=== PATIENT | male | born 1935 | race Caucasian/White ===

== ENCOUNTER → 2019-11-11 06:54 | Outpatient (CLI) | payer MEDICARE, BC, SELFPAY ==
[2018-11-28 12:46] VITALS: BMI 38.0
--- NOTE | 2019-11-11 06:57 | CT_ITS ---
STUDY: CT MAXILLOFACIAL SINUSES REASON FOR EXAM: Male, 84 years old. BILATERAL FACIAL PAIN, SINUSITIS RADIATION DOSAGE (If Supplied By Facility): CTDIvol = ( 33.06 ) mGy, DLP = ( 776.00 ) mGycm TECHNIQUE: The patient was scanned in a multi detector CT scanner. High resolution axial imaging was performed without the administration of intravenous contrast material. Sagittal and coronal images were reconstructed. Individualized dose optimization techniques were used for this CT. COMPARISON: None. FINDINGS: FRONTAL SINUSES: Normal aeration, without mucosal inflammatory disease. ETHMOIDAL SINUSES: Minimal mucosal thickening of the ethmoid sinuses bilaterally MAXILLARY SINUSES: Minimal mucosal thickening of the inferior anterior aspect of the right maxillary sinus. There is a 1 cm x 1.2 cm polyp or cyst along the anterior lateral wall of the left maxillary sinus. SPHENOIDAL SINUSES: Normal aeration, without mucosal inflammatory disease. There is patency of the bilateral maxillary infundibuli with normal uncinate processes, ethmoid bullae, and hiatus semilunaris. There is ayde bullosa of the left middle turbinate. Normal bilateral inferior turbinates. Normal midline nasal septum. There is patency of the bilateral nasal airways. The visualized osseous structures are normal. The visualized bilateral orbital contents are normal. CT/Sinus/Facial Bone IMPRESSION: Mucosal thickening of the ethmoid sinuses bilaterally as well as the right maxillary sinus. 1 cm x 1.2 cm polyp or cyst along the lateral wall the left maxillary sinus. Electronically Signed: Ramakrishna Mcmillan, at 8:40 EDT , Service support ,
== END ==
PROVIDERS: PCP Internal Medicine; Referring Provider Otolaryngology; Visit Provider Otolaryngology
DX: R51 Headache (principal)
CPT/HCPCS: 70486

== ENCOUNTER 2020-11-12 05:17 | Emergency (ER) | payer MEDICARE, BC, SELFPAY ==
[2018-11-28 12:46] VITALS: BMI 38.0
[2020-11-12 05:18] VITALS: BP 148/90; PULSE 74; RESP 18; TEMP 36.1; O2SAT 95; BMI 36.4
--- NOTE | 2020-11-12 05:29 | ED.DCSUM_ITS ---
History of Present Illness Chief Complaint: Bite Informant: Patient Narrative: 85 yo M presents with concern for tick to his right abdominal wall. States that he is out in the scales 3 days ago. States that his remove most of it but was concerned because there is a remaining small amount. Denies any fever, chills, arthralgia, rash. Past Medical History - Allergies and Home Meds Allergies/Adverse Reactions: Allergies latex Allergy (Verified 11/12/20 05:21) Unknown Sulfa (Sulfonamide Antibiotics) Allergy (Verified 11/12/20 05:21) Unknown erythromycin base Adverse Reaction (Verified 11/12/20 05:21) Unknown hydrochlorothiazide Adverse Reaction (Verified 11/12/20 05:21) Unknown prednisone Adverse Reaction (Verified 11/12/20 05:21) Unknown Primary Care Physician: Aleisha Tello MD [Primary Care Provider] - Prior records reviewed: Yes Past Medical History: - - HTN, HLD Surgical History: noncontributory Lives: Spouse/ Significant Other Smoking Status: Never smoker Alcohol: None Drugs: None Review of Systems General: Denies: Chills, Fever, Sweats Eyes: Denies: Visual changes - bilaterally, Diplopia ENT: Denies: Rhinorrhea, Sore throat Cardiovascular: Denies: Chest pain, Palpitations Respiratory: Denies: Dyspnea, Cough, Dyspnea on exertion Gastrointestinal: Denies: Abdominal pain, Nausea, Vomiting, Diarrhea, Melena, Hematochezia Genitourinary: Denies: Dysuria, Hematuria, Frequency Musculoskeletal: Denies: Back pain, Extremity Pain Skin: Denies: Rash, Wounds Neurological: Denies: Headache, Weakness, Numbness Physical Exam Vital Signs/Narrative: Vital Signs Temp Pulse Resp BP Pulse Ox 11/12/20 05:18 96.9 F L 74 18 148/90 H 95 Inital Vital Signs reviewed: Yes General: Well nourished, Well developed, No Acute Distress Head: Normocephalic, Atraumatic Eyes: Perrl, EOMI ENT: Moist mucous membranes, No rhinorrhea Neck: Supple, Nontender Cardiovascular: Regular rate, Regular rhythm, No murmurs Respiratory: No distress, CTA bilaterally, Chest nontender Abdomen: Soft, Nontender, Nondistended, Normal bowel sounds, - - Small area of e rythema with remaining tick to the right abdominal wall. Back: Nontender, Normal Inspection Extremities: Nontender, No edema Skin: Normal color, No rash Neurological: Alert, Oriented x3, Cranial nerves II-XII grossly intact, Normal Strength, Normal Sensation Psychological: Normal affect, Normal Mood Diagnostic/Tx/Re-eval - Medical Decision Making Patient appears well and nontoxic. Vital signs within normal limits. Evidence of a small amount of remaining tick to the right abdominal wall. No surrounding cellulitis. A small amount more was removed. There does remain a little bit of the tic within the abdominal wall. Advised on watching for fever, chills, rash, arthralgia. Patient will be treated with 200 mg of doxycycline as prophylaxis given the time that the tick is likely been attached as well as it being a black legged tick. Impression: 1. Tick removal ED Disposition - Plan for ED Patient: Disposition: Home or Assisted Living Instructions: ED Tick Facts Referrals: Aleisha Tello MD [Primary Care Provider] - 2 Days
[2020-11-12] MEDS: Doxycycline 100 MG CAPSULE 200 MG PO (05:33)
[2020-11-12 06:03] VITALS: BP 148/90; PULSE 74; RESP 18
== END 2020-11-12 06:00 | disposition home or self-care (01) ==
LOC: ED 05:34
PROVIDERS: Emergency Provider Emergency Medicine; PCP Internal Medicine
DX: S30.861A Insect bite (nonvenomous) of abdominal wall, initial encounter (principal); W57.XXXA Bitten or stung by nonvenomous insect and other nonvenomous arthropods, initial encounter; Y93.9 Activity, unspecified; Y92.89 Other specified places as the place of occurrence of the external cause; Y99.8 Other external cause status; E78.5 Hyperlipidemia, unspecified; I10 Essential (primary) hypertension; Z88.1 Allergy status to other antibiotic agents; Z88.2 Allergy status to sulfonamides; Z91.040 Latex allergy status
CPT/HCPCS: 99283

== ENCOUNTER → 2022-02-12 | Outpatient (CLI) | payer MEDICARE, BC, SELFPAY | END | disposition home or self-care (01) | LOC: LABSPEC 09:01 | PROVIDERS: PCP Internal Medicine; Referring Provider Otolaryngology Otolaryngology/Facial Plastic Surgery; Visit Provider Otolaryngology Otolaryngology/Facial Plastic Surgery | DX: J34.89 Other specified disorders of nose and nasal sinuses (principal) | CPT/HCPCS: 87070; 87077; 87186; 87205 ==

== ENCOUNTER 2023-01-15 21:18 | Inpatient (IN) | payer MEDICARE, BC, SELFPAY ==
[2023-01-15 21:19] VITALS: BP 222/105; PULSE 85; RESP 16; TEMP 36.3; O2SAT 99; BMI 39.1
--- NOTE | 2023-01-15 21:39 | EDS_ITS ---
HPI History of Present Illness Chief Complaint: GI Bleed Informant: patient Onset/Context/Timing Onset: Today Narrative Narrative: Patient presents secondary to 4 episodes of bloody stool today. He states he has gone to the bathroom 4 times and had maroon-colored stool. He has very mild infraumbilical cramping. No nausea or vomiting. He takes full-strength aspirin daily but no other form of blood thinners. [facility] Medical History (Updated 01/15/23 @ 22:[address] Neena Dior MD) Benign neoplasm of colon Cataracts, bilateral Diverticulosis Essential (primary) hypertension History of cerebrovascular accident (2003) Hyperlipidemia Lumbar region somatic dysfunction Obesity Right bundle branch block (RBBB) Segmental and somatic dysfunction of lumbar region Segmental and somatic dysfunction of pelvic region Segmental and somatic dysfunction of thoracic region Home Medications aspirin 325 mg tablet 325 mg PO DAILY@0800 06/22/16 [History Last Taken Unknown] ramipril 5 mg capsule 10 mg PO BID 06/22/16 [History Last Taken Unknown] amlodipine 2.5 mg tablet (Norvasc) 5 mg PO DAILY 11/20/18 [History Last Taken Unknown] tamsulosin 0.4 mg capsule 0.4 mg PO DAILY 01/15/23 [History Last Taken Unknown] Allergy/AdvReac Type Severity Reaction Status Date / Time latex Allergy Unknown Verified 01/15/23 21:19 Sulfa (Sulfonamide Allergy Unknown Verified 01/15/23 21:19 Antibiotics) erythromycin base AdvReac Unknown Verified 01/15/23 21:19 hydrochlorothiazide AdvReac Unknown Verified 01/15/23 21:19 prednisone AdvReac Unknown Verified 01/15/23 21:19 Social History Smoking Status: Never smoker alcohol intake: never substance use type: does not use what type of physical activity do you participate in: none ROS ROS ED Constitutional Constitutional ED: Denies chills or fever(s) Eyes Eyes: Denies discharge from eye(s) ENT ENT ED: Denies discharge from eye(s), rhinorrhea or sore throat Cardiovascular Cardiovascular: Denies chest pain or palpitations Respiratory/Chest Respiratory/Chest: Denies cough or dyspnea Gastrointestinal Gastrointestinal: Reports abdominal pain and melena; Denies nausea or vomiting Genitourinary Genitourinary ED: Denies dysuria Musculoskeletal Musculoskeletal: Denies back pain or extremity pain Integumentary Denies Abrasions or rash Neurologic Neurologic: Denies headache(s) or weakness Psychiatric Psychiatric: Denies anxiety or depression Allergic/Immunologic Allergic/Immunologic ED: Denies lip swelling or urticaria EXAM Physical Exam Const Vital Signs: 01/15/23 21:19 Temperature 97.3 F L Temperature Source Temporal Pulse Rate 85 Respiratory Rate 16 Blood Pressure 222/105 H Blood Pressure Mean 144 Pulse Ox 99 Positive well nourished and well developed General Appearance ED: well developed HEENT Reports normocephalic and head/scalp atraumatic Eyes PERRL and EOMs intact bilaterally Neck supple Chest Wall inspection of chest normal and palpation of chest normal Resp normal respiratory effort and clear to auscultation bilaterally Cardio regular rate and regular rhythm GI normal to inspection, nondistended, normoactive bowel sounds Palpation: soft Extremity normal to inspection Neuro oriented x3 and no sensory deficits noted Sensorium / Orientation: alert Motor Exam: strength 5/5 throughout Psych mental status grossly normal Skin no rashes or lesions noted MDM MDM MDM Narrative Medical decision making narrative: Patient placed on staff trainer. He was noted to be significantly hypertensive on arrival with a blood pressure of 222/105. Blood pressure cycled and comes down into the 160s systolic. CBC reveals white count of 8.3 with a hemoglobin of 14.7. Coags are unremarkable. Chemistry studies reveal a BUN of 22 and a creatinine 1.03. Glucose is 109. Type and screen was sent. Patient did get up and have a bloody bowel movement. This was sent to the lab but because it was grossly bloody they were not able to perform a Hemoccult. I spoke with Dr. Tao via backline text. He will be happy to see the patient tomorrow in consult. He was aware that he may be called if the patient decompensates overnight and is okay with this plan. I will speak with the hosp italist regarding admission. Lab Data Labs: Laboratory Results - last 24 hr 01/15/23 01/15/23 01/15/23 21:50 21:50 21:50 WBC 8.3 RBC 5.11 Hgb 14.7 Hct 44.5 MCV 87.1 MCH 28.8 MCHC 33.0 RDW Std Deviation 41.5 RDW Coeff of Arlen 13.0 Plt Count 204 MPV 9.8 Immature Gran % (Auto) 0.400 Neut % (Auto) 59.2 Lymph % (Auto) 29.8 [place] % (Auto) 7.7 Eos % (Auto) 2.7 Baso % (Auto) 0.2 Absolute Neuts (auto) 4.9 Absolute Lymphs (auto) 2.47 Nucleated RBC % 0 PT 13.5 INR 1.0 APTT 34.1 Sodium 140 Potassium 3.9 Chloride 108 H Carbon Dioxide 25.0 Anion Gap 7 BUN 22 H Creatinine 1.03 Estim Creat Clear Calc 49.81 Est GFR (MDRD) Af Amer 88 Est GFR (MDRD) Non-Af 73 BUN/Creatinine Ratio 21.4 H Glucose 109 H Calcium 8.8 Blood Type Antibody Screen 01/15/23 21:50 WBC RBC Hgb Hct MCV MCH MCHC RDW Std Deviation RDW Coeff of Arlen Plt Count MPV Immature Gran % (Auto) Neut % (Auto) Lymph % (Auto) [place] % (Auto) Eos % (Auto) Baso % (Auto) Absolute Neuts (auto) Absolute Lymphs (auto) Nucleated RBC % PT INR APTT Sodium Potassium Chloride Carbon Dioxide Anion Gap BUN Creatinine Estim Creat Clear Calc Est GFR (MDRD) Af Amer Est GFR (MDRD) Non-Af BUN/Creatinine Ratio Glucose Calcium Blood Type O POSITIVE Antibody Screen NEGATIVE Discharge Plan Triage Chief Complaint: GI Bleed ED Provider: Neena Dior Dx/Rx/DC Orders Clinical Impression: Acute GI bleeding Prescriptions: No Action amlodipine [Norvasc] 2.5 mg tablet 5 mg PO DAILY aspirin 325 MG tablet 325 mg PO DAILY@0800 ramipril 5 MG capsule 10 mg PO BID tamsulosin 0.4 mg capsule 0.4 mg PO DAILY Label Comments: TAKE 1 CAPSULE BY MOUTH ONCE DAILY Primary Care Provider: Aleisha Tello Referrals: Aleisha Tello MD [Primary Care Provider] - Disposition Disposition: Acute Care Hospital [facility]
[2023-01-15 22:09] LABS: Absolute Lymphocyte Count 2.47 X10^3/uL (0.83-4.51); Absolute Neutrophil Count 4.9 X10^3/uL (2.0-7.7); Basophil# 0.02 X10^3/uL; Basophil% 0.2 % (0-1); Eosinophil# 0.22 X10^3/uL; Eosinophils% 2.7 % (0-5); Hematocrit 44.5 % (40-54); Hemoglobin 14.7 g/dL (13.0-16.5); Lymphocyte # 2.47 X10^3/ul (0.83-4.51); Lymphocyte % 29.8 % (19-41); Mean Corpuscular Hgb 28.8 pg (27.0-32.0); Mean Corpuscular Volume 87.1 fL (80-94); Mean Platelet Vol. 9.8 fl (6.2-12.0); Monocyte# 0.64 X10^3/uL; Monocyte% 7.7 % (0-10); NRBC Flagged by Analyzer 0 % (0-5); Neutrophil # 4.92 X10^3/uL (2.7-7.7); Neutrophil % 59.2 % (47-70); Platelet Count 204 K/mm3 (150-450); RBC Distribution Width SD 41.5 fl (35.1-43.9); Red Blood Count 5.11 M/mm3 (4.6-6.2); White Blood Count 8.3 K/mm3 (4.4-11.0)
[2023-01-15 22:31] LABS: Anion Gap 7 (5-15); BUN 22 mg/dL (7-18); BUN/Creat Ratio 21.4 RATIO (10-20); Calcium,Total 8.8 mg/dL (8.5-10.1); Chloride 108 mmol/L (98-107); Creatinine, Serum 1.03 mg/dL (0.70-1.30); EST Glomerular Filtration Rate 73 mL/min (>60); Est Glom Filt Rate - Afr Amer 88 mL/min (>60); Estimated Creatinine Clearance 49.81 ml/min; Glucose 109 mg/dL (74-106); Partial Thromboplast Time 34.1 Seconds (24.1-36.2); Potassium 3.9 mmol/L (3.5-5.1); Prothrombin Time (Protime)PT. 13.5 SECONDS (11.7-14.9); Sodium Level 140 mmol/L (136-145)
[2023-01-15 23:18] VITALS: BP 196/93; PULSE 65; RESP 18; O2SAT 94
[2023-01-15] MEDS: Labetalol (Prefilled) 20 MG/4 ML 10 MG IV (23:22)
--- NOTE | 2023-01-15 23:28 | PCM.HP.STD ---
HPI - General General Date of Admission: 01/15/23 Date of Service: 01/16/23 Chief Complaint: Bright red blood per rectum HPI Narrative MIKE ETIENNE, is a 87 M with a significant history of hypertension and diverticulosis who presents to the emergency department with bright red blood per rectum that started on the same day of presentation. At home before coming to emergency department patient had at least 4 episodes of bright red blood per rectum. The blood was mixed with stool. At the emergency department patient had 2 episodes of bright red blood per rectum. He denies nausea and vomiting. He reports of mild infra umbilical abdominal pain. He reported his last colonoscopy was multiple years ago and was advised not to have anymore colonoscopy because of his age. He reports that he had something removed during colonoscopy which he states it was not a polyp. [facility] Medical History Benign neoplasm of colon Cataracts, bilateral Diverticulosis Essential (primary) hypertension History of cerebrovascular accident (2003) Hyperlipidemia Lumbar region somatic dysfunction Obesity Right bundle branch block (RBBB) Segmental and somatic dysfunction of lumbar region Segmental and somatic dysfunction of pelvic region Segmental and somatic dysfunction of thoracic region Home Medications aspirin 325 mg tablet 325 mg PO DAILY@0800 06/22/16 [History Last Taken Unknown] ramipril 5 mg capsule 10 mg PO BID 06/22/16 [History Last Taken Unknown] amlodipine 2.5 mg tablet (Norvasc) 5 mg PO DAILY 11/20/18 [History Last Taken Unknown] tamsulosin 0.4 mg capsule 0.4 mg PO DAILY 01/15/23 [History Last Taken Unknown] Allergy/AdvReac Type Severity Reaction Status Date / Time latex Allergy Unknown Verified 01/15/23 21:19 Sulfa (Sulfonamide Allergy Unknown Verified 01/15/23 21:19 Antibiotics) erythromycin base AdvReac Unknown Verified 01/15/23 21:19 hydrochlorothiazide AdvReac Unknown Verified 01/15/23 21:19 prednisone AdvReac Unknown Verified 01/15/23 21:19 Family History Other Heart disease Hypertension Surgical History H/O tooth extraction Social History Smoking Status: Never smoker alcohol intake: never substance use type: does not use what type of physical activity do you participate in: none ROS ROS Narrative Pertinent positives and pertinent negatives as noted in HPI. All other systems were reviewed and are negative Vital Signs Vital Signs Vital Signs: 01/15/23 21:19 Temperature 97.3 F L Temperature Source Temporal Pulse Rate 85 Respiratory Rate 16 Blood Pressure 222/105 H Blood Pressure Mean 144 Pulse Ox 99 Weight Weight: 116.619 kg Body Mass Index (BMI) 39.1 Physical Exam Narrative Physical exam: General: Well-nourished, well-developed. Head: Normocephalic, atraumatic, no tenderness Eyes: Vision is grossly intact. EOMI ENT, no trauma, moist mucous membranes, no rhinorrhea Neck: Nontender, No thyromegaly. CVS: Regular rate and rhythm. S1-S2 present. No murmur, gallop or rub. Respiratory : clear to auscultation bilaterally, chest wall nontender Abdomen: Soft, nontender, nondistended, normal bowel sounds, no masses : Deferred Back: Nontender, no CVA tenderness. Extremities: Nontender full range of motion, no trauma Skin: Normal color, no trauma, abrasions Neuro: Alert, oriented, cranial nerves II through XII grossly intact. Psychiatry: Normal mood. Normal affect. Not depressed. Not anxious. Results Lab / Micro Data Result Diagrams: 01/15/23 21:50 01/15/23 21:50 Labs: Laboratory Results - last 24 hr 01/15/23 21:50: WBC 8.3, RBC 5.11, Hgb 14.7, Hct 44.5, MCV 87.1, MCH 28.8, MCHC 33.0, RDW Std Deviation 41.5, RDW Coeff of Arlen 13.0, Plt Count 204, MPV 9.8, Immature Gran % (Auto) 0.400, Neut % (Auto) 59.2, Lymph % (Auto) 29.8, [place] % (Auto) 7.7, Eos % (Auto) 2.7, Baso % (Auto) 0.2, Absolute Neuts (auto) 4.9, Absolute Lymphs (auto) 2.47, Nucleated RBC % 0 01/15/23 21:50: PT 13.5, INR 1.0, APTT 34.1 01/15/23 21:50: Sodium 140, Potassium 3.9, Chloride 108 H, Carbon Dioxide 25.0, Anion Gap 7, BUN 22 H, Creatinine 1.03, Estim Creat Clear Calc 49.81, Est GFR (MDRD) Af Amer 88, Est GFR (MDRD) Non-Af 73, BUN/Creatinine Ratio 21.4 H, Glucose 109 H, Calcium 8.8 01/15/23 21:50: Blood Type O POSITIVE, Antibody Screen NEGATIVE Assessment & Plan Assessment/Plan (1) Acute GI bleeding: (2) Hypertensive urgency: (3) BRBPR (bright red blood per rectum): PLAN: Plan Acute GI bleed/bright red blood per rectum. Hgb on presentation was 14.7. His last hemoglobin in our hospital system was on 10/29/2017. At that time his hemoglobin was 15.9. Trend hemoglobin GI consult Hypertensive urgency -Systolic blood pressure of 222 on presentation. High diastolic blood pressure of 105 on presentation. Received labetalol x2 at emergency department. Of note patient reports a history of bradycardia with heart rate in high 40s to 50s. With persistent elevated blood pressure labetalol as needed ordered. Trend blood pressures. Overall amlodipine, and ramipril continued. BPH Stable Tamsulosin continued. DVT prophylaxis: SCDs ordered. Charges/Coding Visit Charges Inpatient E&M: 99016 Init Hosp L3
[2023-01-15 23:30] VITALS: BP 169/79; PULSE 57; RESP 14; O2SAT 94
[2023-01-16] VITALS (11 sets, daily range): BP systolic 162–197; BP diastolic 67–94; PULSE 45–75; RESP 17–18; TEMP 36.2–36.8; O2SAT 94–98; BMI 36.6
[2023-01-16] MEDS: 0.9% Normal Saline 1,000 ML 75 ML IV ×2 (01:11→02:00)
[2023-01-16 05:23] LABS: Hematocrit 42.7 % (40-54)
[2023-01-16 05:41] LABS: International Normalized Ratio 1.2; Prothrombin Time (Protime)PT. 14.9 SECONDS (11.7-14.9)
[2023-01-16 05:53] LABS: Anion Gap 5 (5-15); BUN 18 mg/dL (7-18); BUN/Creat Ratio 18.3 RATIO (10-20); Calcium,Total 8.7 mg/dL (8.5-10.1); Chloride 110 mmol/L (98-107); Creatinine, Serum 0.98 mg/dL (0.70-1.30); EST Glomerular Filtration Rate 77 mL/min (>60); Est Glom Filt Rate - Afr Amer 93 mL/min (>60); Estimated Creatinine Clearance 52.35 ml/min; Glucose 98 mg/dL (74-106); Sodium Level 141 mmol/L (136-145)
[2023-01-16] MEDS: Ramipril 10 MG Capsule PO (08:31)
--- NOTE | 2023-01-16 10:00 | PCM.PN.HOSP ---
Reason for Visit Reason for Visit: Diagnoses Hypertensive urgency (01/15/23) Hemorrhage of anus and rectum (01/15/23) Gastrointestinal hemorrhage, unspecified (01/15/23) Subjective Subjective No further GI bleeding since midnight. Denies having any abdominal pain. Denies ever having GI bleed before. Objective Data Objective Data Vital Signs: Vital Signs Temp Pulse Resp BP Pulse Ox O2 Del Method 36.4 C L 63 17 197/80 H 97 Room Air 01/16/23 08:30 01/16/23 08:30 01/16/23 08:30 01/16/23 08:30 01/16/23 08:30 01/16/23 08:30 Oxygen Delivery Method Room Air Weight: 109.4 kg Body Mass Index (BMI) 36.6 Intake & Output: Intake and Output for Last 24 Hours 01/14/23 01/15/23 01/16/23 23:59 23:59 23:59 Intake Total 5 / 5 Balance 5 / 5 Lab / Micro Data Result Diagrams: 01/16/23 04:43 01/16/23 04:43 Labs: Laboratory Results - last 24 hr 01/15/23 21:50: WBC 8.3, RBC 5.11, Hgb 14.7, Hct 44.5, MCV 87.1, MCH 28.8, MCHC 33.0, RDW Std Deviation 41.5, RDW Coeff of Arlen 13.0, Plt Count 204, MPV 9.8, Immature Gran % (Auto) 0.400, Neut % (Auto) 59.2, Lymph % (Auto) 29.8, [place] % (Auto) 7.7, Eos % (Auto) 2.7, Baso % (Auto) 0.2, Absolute Neuts (auto) 4.9, Absolute Lymphs (auto) 2.47, Nucleated RBC % 0 01/15/23 21:50: PT 13.5, INR 1.0, APTT 34.1 01/15/23 21:50: Sodium 140, Potassium 3.9, Chloride 108 H, Carbon Dioxide 25.0, Anion Gap 7, BUN 22 H, Creatinine 1.03, Estim Creat Clear Calc 49.81, Est GFR (MDRD) Af Amer 88, Est GFR (MDRD) Non-Af 73, BUN/Creatinine Ratio 21.4 H, Glucose 109 H, Calcium 8.8 01/15/23 21:50: Blood Type O POSITIVE, Antibody Screen NEGATIVE 01/16/23 04:43: PT 14.9, INR 1.2 01/16/23 04:43: Sodium 141, Potassium 4.0, Chloride 110 H, Carbon Dioxide 26.0, Anion Gap 5, BUN 18, Creatinine 0.98, Estim Creat Clear Calc 52.35, Est GFR (MDRD) Af Amer 93, Est GFR (MDRD) Non-Af 77, BUN/Creatinine Ratio 18.3, Glucose 98, Calcium 8.7 01/16/23 04:43: Hgb 14.0, Hct 42.7 Physical Exam Const alert and no apparent distress HEENT head/scalp atraumatic and moist oral mucous membranes Resp normal respiratory effort, no retractions, no use of accessory muscles and clear to auscultation bilaterally Cardio regular rate, regular rhythm and S1 normal heart sound GI normal to inspection, nondistended, normoactive bowel sounds, soft to palpation, non-tender and non-distended Extremity normal to inspection Assessment & Plan Assessment/Plan (1) Acute GI bleeding: PLAN: Acute GI bleed/bright red blood per rectum. Hgb on presentation was 14.7. His last hemoglobin in our hospital system was on 10/29/2017. At that time his hemoglobin was 15.9. Trend hemoglobin GI consult Suspect lower GIB from hemorrhoids or diverticulosis. (2) Hypertensive urgency: PLAN: Hypertensive urgency Systolic blood pressure of 222 on presentation. High diastolic blood pressure of 105 on presentation. Received labetalol x2 at emergency department. Of note patient reports a history of bradycardia with heart rate in high 40s to 50s. With persistent elevated blood pressure labetalol as needed ordered. Trend blood pressures. Home amlodipine, and ramipril continued. Will increase amlodpine from 5 to 10 PLAN: Plan Chronic conditions: BPH Stable Tamsulosin continued. DVT prophylaxis: SCDs ordered. Charges/Coding Visit Charges Inpatient E&M: 62884 Subs Hosp L2
[2023-01-16] MEDS: Labetalol (Prefilled) 20 MG/4 ML 10 MG IV (10:19)
--- NOTE | 2023-01-16 10:50 | CASEMGMT ---
RN CM Face to Face with patient for initial transition planning/care coordination assessment. RN CM introduced self and role at [facility]. Patient lying in bed, alert and oriented, family at bedside. Patient willing to participate in assessment and is able to answer all questions appropriately. Care providers, pharmacy, and demographics verified. Patient wishes to discharge home, denies need for home health at this time. Patient states he has no further needs or concerns at this time. CM to follow for discharge planning needs that may arise. PCP: Elisha Specialists: none Preferred Pharmacy: [facility] Insurance: Michael TRIMBLE Prescription Benefit: yes Living Will/HPOA: yes, Kirsty Juarez LNOK: , daughter Living Arrangements: Patient lives with in a single story home with 2 steps and railing to enter the home. Patient states he is independent at home. Transportation: self, DME/HHC: Patient has raised toilet and grab bars. Patient has been to [facility] previously. Disposition Plan: Patient to discharge home with family support and follow-up plans in place. Marcela WHITING, RN, CM
--- NOTE | 2023-01-16 13:39 | CT_ITS ---
EXAM: CT ANGIOGRAPHY ABDOMEN AND PELVIS WITHOUT AND WITH INTRAVENOUS CONTRAST CLINICAL INDICATION: lower GI bleeding TECHNIQUE: Helically acquired angiography images were obtained of the abdomen and pelvis without and with intravenous contrast. This CT exam was performed using one or more of the following dose reduction techniques: automated exposure control, adjustment of the mA and/or kV according to patient size, and/or use of iterative reconstruction technique. MIP reconstructed images were created and reviewed. CONTRAST: IV 100mL [id number] COMPARISON: No relevant prior studies available. FINDINGS: VASCULATURE: AORTA: No acute findings. Normal caliber abdominal aorta. No dissection. CELIAC TRUNK AND MESENTERIC ARTERIES: Noncritical narrowing of the origin of the celiac artery. 2 patent right renal arteries. RENAL ARTERIES: See above. ILIAC ARTERIES: No acute findings. No occlusion or significant stenosis. No dissection. LOWER THORAX: Normal. Lung bases are clear. No cardiomegaly. No significant pericardial effusion. ABDOMEN: LIVER: Normal. Homogeneous. No focal mass. PANCREAS: Normal. No focal cystic or solid mass. SPLEEN: Normal. Normal size without focal cystic or solid mass. ADRENALS: Bilateral low-density adrenal nodules seen both measuring 19 mm in diameter suggestive of lipid rich adenomata. KIDNEYS AND URETERS: Marked distention of the renal collecting system noted bilaterally which may be due to the distended urinary bladder. Normal renal size and position. No hydronephrosis. STOMACH AND BOWEL: Diverticulosis of the colon noted without evidence of acute diverticulitis. No stomach or bowel distention. No evidence of active GI bleeding. PELVIS: APPENDIX: Appendix is visualized and normal in appearance. BLADDER: Small urinary bladder diverticula noted suggestive of chronic bladder outlet obstruction. REPRODUCTIVE: Prostate gland is mildly enlarged. ABDOMEN and PELVIS: INTRAPERITONEAL SPACE: Normal. No ascites or other fluid collection. No free air. BONES/JOINTS: Normal. No suspicious lytic or blastic abnormality. SOFT TISSUES: Normal. No discrete abdominal or pelvic wall hernia. LYMPH NODES: Normal. No enlarged lymph nodes. CT/CTA Abd/Pelvis W/WO Contrast IMPRESSION: 1. No evidence of acute GI bleeding. 2. Diverticulosis coli. 3. The significant distention of the renal collecting system secondary to over distended urinary bladder/chronic bladder outlet obstruction. Electronically Signed: Jeremi Trevizo MD at 16:22 EDT ,
--- NOTE | 2023-01-16 16:03 | EX.PCM.CON.G ---
HPI Consult Data Date of Consult: 01/15/23 HPI Narrative Reason for Consultation: GI bleed HPI Narrative: MIKE ETIENNE, is a 87 M with history of hypertension, hyperlipidemia, BPH who presents secondary to 4 episodes of bloody stools.? He states he has gone to the bathroom 4 times and had maroon-colored stool.? He has very mild infraumbilical cramping.? No nausea or vomiting.? He takes full-strength aspirin daily but no other form of blood thinners. He had a colonoscopy approximately 20 years ago. There were no abnormality seen on a colonoscopy. In the ED he was discovered to have a hemoglobin of 14.7, platelet count of 204, white blood cell count 8.3. [facility] Medical History Benign neoplasm of colon Cataracts, bilateral Diverticulosis Essential (primary) hypertension History of cerebrovascular accident (2003) Hyperlipidemia Lumbar region somatic dysfunction Obesity Right bundle branch block (RBBB) Segmental and somatic dysfunction of lumbar region Segmental and somatic dysfunction of pelvic region Segmental and somatic dysfunction of thoracic region Home Medications aspirin 325 mg tablet 325 mg PO DAILY@0800 06/22/16 [History Last Taken Unknown] ramipril 5 mg capsule 10 mg PO BID 06/22/16 [History Last Taken Unknown] amlodipine 2.5 mg tablet (Norvasc) 5 mg PO DAILY 11/20/18 [History Last Taken Unknown] tamsulosin 0.4 mg capsule 0.4 mg PO DAILY 01/15/23 [History Last Taken Unknown] Allergy/AdvReac Type Severity Reaction Status Date / Time latex Allergy Unknown Verified 01/15/23 21:19 Sulfa (Sulfonamide Allergy Unknown Verified 01/15/23 21:19 Antibiotics) erythromycin base AdvReac Unknown Verified 01/15/23 21:19 hydrochlorothiazide AdvReac Unknown Verified 01/15/23 21:19 prednisone AdvReac Unknown Verified 01/15/23 21:19 Family History Other Heart disease Hypertension Surgical History H/O tooth extraction Social History Smoking Status: Never smoker alcohol intake: never substance use type: does not use what type of physical activity do you participate in: none ROS ROS Narrative Pertinent positives and pertinent negatives as noted in HPI. All other systems were reviewed and are negative Physical Exam Const alert and no apparent distress HEENT head/scalp atraumatic and moist oral mucous membranes Resp normal respiratory effort, no retractions, no use of accessory muscles and clear to auscultation bilaterally Cardio regular rate, regular rhythm and S1 normal heart sound GI normal to inspection, nondistended, normoactive bowel sounds, soft to palpation, non-tender and non-distended Extremity normal to inspection Lab / Micro Data Result Diagrams: 01/16/23 04:43 01/16/23 04:43 Labs: Laboratory Results - last 24 hr 01/15/23 21:50: WBC 8.3, RBC 5.11, Hgb 14.7, Hct 44.5, MCV 87.1, MCH 28.8, MCHC 33.0, RDW Std Deviation 41.5, RDW Coeff of Arlen 13.0, Plt Count 204, MPV 9.8, Immature Gran % (Auto) 0.400, Neut % (Auto) 59.2, Lymph % (Auto) 29.8, Camp % (Auto) 7.7, Eos % (Auto) 2.7, Baso % (Auto) 0.2, Absolute Neuts (auto) 4.9, Absolute Lymphs (auto) 2.47, Nucleated RBC % 0 01/15/23 21:50: PT 13.5, INR 1.0, APTT 34.1 01/15/23 21:50: Sodium 140, Potassium 3.9, Chloride 108 H, Carbon Dioxide 25.0, Anion Gap 7, BUN 22 H, Creatinine 1.03, Estim Creat Clear Calc 49.81, Est GFR (MDRD) Af Amer 88, Est GFR (MDRD) Non-Af 73, BUN/Creatinine Ratio 21.4 H, Glucose 109 H, Calcium 8.8 01/15/23 21:50: Blood Type O POSITIVE, Antibody Screen NEGATIVE 01/16/23 04:43: PT 14.9, INR 1.2 01/16/23 04:43: Sodium 141, Potassium 4.0, Chloride 110 H, Carbon Dioxide 26.0, Anion Gap 5, BUN 18, Creatinine 0.98, Estim Creat Clear Calc 52.35, Est GFR (MDRD) Af Amer 93, Est GFR (MDRD) Non-Af 77, BUN/Creatinine Ratio 18.3, Glucose 98, Calcium 8.7 01/16/23 04:43: Hgb 14.0, Hct 42.7 Assessment & Plan Assessment/Plan (1) Acute GI bleeding: PLAN: 87-year-old presents with lower GI bleeding. The differential diagnosis does include hemorrhoidal, diverticular, ischemic colitis and less likely malignancy in acute setting. Recommend CT angiography to look for the location of lower GI bleed if possible. Clear liquid diet. Acute GI bleed/bright red blood per rectum. Hgb on presentation was 14.7. He is not having any signs or symptoms of GI bleeding at this time. Continue to check H&H, hold aspirin. I will also order CT angiography of the abdomen pelvis. (2) Hypertensive urgency: PLAN: \ PLAN: Plan Chronic conditions: BPH Stable Tamsulosin continued. DVT prophylaxis: SCDs ordered. Charges/Coding Visit Charges Inpatient E&M: 58584 Init Hosp L2
--- NOTE | 2023-01-16 16:49 | DCINST_ITS ---
Discharge Instructions Diet Discharge Diet: Low fat / Low cholesterol Activity Discharge Activity: Return to Normal Activity Dressing / Incision Call your doctor if you observe: - (difficulty with urination, decreased urinary output. ) Follow Up Care Test Results: Test results from this visit will be discussed in further detail at your follow- up appointment, if applicable. Discharge Plan Admission Admit Date/Time: 01/15/23 23:29 Primary Reason for Your Visit: GI bleed Attending Provider: Thomas Pablo Primary Care Provider: Aleisha Tello Consulting Providers: Hank Maddox ; Friend,Carlos Instructions Additional Instructions / Restrictions: You presented with gastrointestinal bleeding. Fortunately not resolved. The concern that this may have been from diverticular bleeding or hemorrhoids. Hold aspirin for the next 48 hours. If no further bleeding then you can resume. CAT scan showed significant enlargement of your ureters. Concerned that this is due to your prostate. I am going to increase your tamsulosin from 0.4 mg daily to 0.8 mg daily. I strongly recommend you follow-up with urology in the coming weeks. Your blood pressure was very high and we will be increasing your amlodipine from 5 to 10 mg daily. Discharge Orders/Prescriptions Prescriptions: New amlodipine 10 mg Tablet 10 mg PO DAILY@DINNER Qty: 30 0RF tamsulosin 0.4 mg capsule 0.8 mg PO DAILY Qty: 60 0RF Continued ramipril 5 MG capsule 10 mg PO BID Held aspirin 325 MG tablet 325 mg PO DAILY@0800 Hold Instructions: Resume on 01/18/23. Discontinued amlodipine [Norvasc] 2.5 mg tablet 5 mg PO DAILY tamsulosin 0.4 mg capsule 0.4 mg PO DAILY Label Comments: TAKE 1 CAPSULE BY MOUTH ONCE DAILY Referrals / Follow Up: Ashkan Dave MD [Med Staff - Active Staff] - Within 2 Weeks Aleisha Tello MD [Primary Care Provider] - Within 2 Weeks Disposition Disposition (needs filled in before D/C Order can be placed): Home, Self Care
--- NOTE | 2023-01-16 16:56 | DS.PCM_ITS ---
Providers Date of Admission: 01/15/23 Primary Care Physician: Dr. Aleisha Tello MD Consultations 01/16/23 00:23 Consult: Gastroenterology Routine Consulting Provider: Ra Dinhhsaan Reason for Consult: [facility] EMERGENT Consult: No MD Notified: Yes Date Notified: 01/15/23 Time Notified: 06:53 Method of Notification: Text Reason For Visit: [facility] Diagnosis Discharge Diagnosis (1) Acute GI bleeding: Status: Acute Code(s): K92.2 - Gastrointestinal hemorrhage, unspecified Plan: Acute GI bleed/bright red blood per rectum. Hgb on presentation was 14.7. His last hemoglobin in our hospital system was on 10/29/2017. At that time his hemoglobin was 15.9. Trend hemoglobin GI consult Suspect lower GIB from hemorrhoids or diverticulosis. (2) Hypertensive urgency: Status: Acute Code(s): I16.0 - Hypertensive urgency Plan: Hypertensive urgency Systolic blood pressure of 222 on presentation. High diastolic blood pressure of 105 on presentation. Received labetalol x2 at emergency department. Of note patient reports a history of bradycardia with heart rate in high 40s to 50s. With persistent elevated blood pressure labetalol as needed ordered. Trend blood pressures. Home amlodipine, and ramipril continued. Will increase amlodpine from 5 to 10 (3) Hydroureter: Status: Acute Code(s): N13.4 - Hydroureter Plan: Profoundly dilated on CAT scan imaging. Patient with normal renal function. Patient states that he used to have urinary frequency and hesitancy but that has improved since being started on tamsulosin. That was several years ago. There is incidental finding on his CAT scan that he had today. Patient's kidney function is normal, however. I am going to increase his tamsulosin from 0.4 mg to 0.8 mg daily and I strongly advised him to follow-up with urology. Plan Chronic conditions: * BPH Stable Tamsulosin continued. DVT prophylaxis: SCDs ordered. Medications at Discharge Home Medications aspirin 325 mg tablet 325 mg PO DAILY@0800 06/22/16 ramipril 5 mg capsule 10 mg PO BID 06/22/16 amlodipine 10 mg tablet 10 mg PO DAILY@DINNER #30 tabs 01/16/23 tamsulosin 0.4 mg capsule 0.8 mg PO DAILY #60 caps 01/16/23 Hospital Course Operations None Procedures None Summary of Care Provided Minutes Spent on Discharge: 36 Hospital Course: 87-year-old male presents with bright red blood per rectum. Patient remained stable here and his bleeding stopped at around midnight. Patient was seen by GI and ordered a a CAT scan for his bleeding. It was a CTA. There is no evidence of any acute GI bleeding. It was noted the patient did have significant disten tion of the renal collecting system secondary to over distention of urinary bladder/chronic bladder outlet obstruction. Patient's kidney function is within normal limits and patient denies any urinary complaints at this time. I have recommended increasing his tamsulosin from 0.4 mg to 0.8 mg and to follow-up with urology as outpatient. Weight / BMI Weight Weight: 109.4 kg Body Mass Index (BMI) 36.6 ABG / Lab / Microbiology Data Result Diagrams: 01/16/23 04:43 01/16/23 04:43 Laboratory: Laboratory Results - last 24 hr 01/15/23 21:50: WBC 8.3, RBC 5.11, Hgb 14.7, Hct 44.5, MCV 87.1, MCH 28.8, MCHC 33.0, RDW Std Deviation 41.5, RDW Coeff of Arlen 13.0, Plt Count 204, MPV 9.8, Immature Gran % (Auto) 0.400, Neut % (Auto) 59.2, Lymph % (Auto) 29.8, [place] % (Auto) 7.7, Eos % (Auto) 2.7, Baso % (Auto) 0.2, Absolute Neuts (auto) 4.9, Absolute Lymphs (auto) 2.47, Nucleated RBC % 0 01/15/23 21:50: PT 13.5, INR 1.0, APTT 34.1 01/15/23 21:50: Sodium 140, Potassium 3.9, Chloride 108 H, Carbon Dioxide 25.0, Anion Gap 7, BUN 22 H, Creatinine 1.03, Estim Creat Clear Calc 49.81, Est GFR (MDRD) Af Amer 88, Est GFR (MDRD) Non-Af 73, BUN/Creatinine Ratio 21.4 H, Glucose 109 H, Calcium 8.8 01/15/23 21:50: Blood Type O POSITIVE, Antibody Screen NEGATIVE 01/16/23 04:43: PT 14.9, INR 1.2 01/16/23 04:43: Sodium 141, Potassium 4.0, Chloride 110 H, Carbon Dioxide 26.0, Anion Gap 5, BUN 18, Creatinine 0.98, Estim Creat Clear Calc 52.35, Est GFR (MDRD) Af Amer 93, Est GFR (MDRD) Non-Af 77, BUN/Creatinine Ratio 18.3, Glucose 98, Calcium 8.7 01/16/23 04:43: Hgb 14.0, Hct 42.7 Radiography Diagnostic Testing: Radiology Impression Abdomen/Pelvis CTA 01/16/23 13:39 IMPRESSION: 1. No evidence of acute GI bleeding. 2. Diverticulosis coli. 3. The significant distention of the renal collecting system secondary to over distended urinary bladder/chronic bladder outlet obstruction. Electronically Signed: Jeremi Trevizo MD at 16:22 EDT Reading Location ID and State: [address] [place] [address] Tel , Service support , D/C Instructions Discharge Diet: Low fat / Low cholesterol Call your doctor if you observe: - (difficulty with urination, decreased urinary output. ) Meaningful Use Info Meaningful Use Diagnoses (Choose all that apply): None applicable Discharge Plan Admission Admit Date/Time: 01/15/23 23:29 Primary Reason for Your Visit: GI bleed Attending Provider: Thomas Pablo Primary Care Provider: Aleisha Tello Consulting Providers: Hank Maddox ; Friend,Carlos Instructions Additional Instructions / Restrictions: You presented with gastrointestinal bleeding. Fortunately not resolved. The concern that this may have been from diverticular bleeding or hemorrhoids. Hold aspirin for the next 48 hours. If no further bleeding then you can resume. CAT scan showed significant enlargement of your ureters. Concerned that this is due to your prostate. I am going to increase your tamsulosin from 0.4 mg daily to 0.8 mg daily. I strongly recommend you follow-up with urology in the coming weeks. Your blood pressure was very high and we will be increasing your amlodipine from 5 to 10 mg daily. Discharge Orders/Prescriptions Prescriptions: New amlodipine 10 mg Tablet 10 mg PO DAILY@DINNER Qty: 30 0RF tamsulosin 0.4 mg capsule 0.8 mg PO DAILY Qty: 60 0RF Continued ramipril 5 MG capsule 10 mg PO BID Held aspirin 325 MG tablet 325 mg PO DAILY@0800 Hold Instructions: Resume on 01/18/23. Discontinued amlodipine [Norvasc] 2.5 mg tablet 5 mg PO DAILY tamsulosin 0.4 mg capsule 0.4 mg PO DAILY Label Comments: TAKE 1 CAPSULE BY MOUTH ONCE DAILY Referrals / Follow Up: Ahskan Dave MD [Med Staff - Active Staff] - Within 2 Weeks Aleisha Tello MD [Primary Care Provider] - Within 2 Weeks Disposition Disposition (needs filled in before D/C Order can be placed): Home, Self Care Charges/Coding Visit Charges Inpatient E&M: 26812 Disch Hosp >30min
[2023-01-16] MEDS: amLODIPine 10 MG Tablet PO (17:10)
[2023-01-16] MEDS: Tamsulosin HCl 0.4 MG Capsule PO (17:10)
[2023-01-16] MEDS: 0.9% Saline Lock 10 ML Syringe IV (17:10)
== END 2023-01-16 18:42 | disposition home or self-care (01) | DRG 378 ==
LOC: ED 22:52 → PCU 01-16 01:12
PROVIDERS: Admitting Provider Hospitalist; Emergency Provider Emergency Medicine; PCP Internal Medicine
DX: K57.91 Diverticulosis of intestine, part unspecified, without perforation or abscess with bleeding (principal); N13.4 Hydroureter; E78.5 Hyperlipidemia, unspecified; I10 Essential (primary) hypertension; I16.0 Hypertensive urgency; Z79.2 Long term (current) use of antibiotics; Z79.82 Long term (current) use of aspirin; N32.0 Bladder-neck obstruction; N40.1 Benign prostatic hyperplasia with lower urinary tract symptoms
CPT/HCPCS: 36415; 74174; 80048; 85014; 85018; 85025; 85610; 85730; 86850; 86900; 86901; 97802; 99285; J7030; Q9967; A4216

== ENCOUNTER → 2023-02-07 | Outpatient (CLI) | payer MEDICARE, BC, SELFPAY ==
[2023-02-07 15:29] LABS: Anion Gap 4 (5-15); BUN 27 mg/dL (7-18); BUN/Creat Ratio 19.4 RATIO (10-20); Calcium,Total 8.6 mg/dL (8.5-10.1); Chloride 109 mmol/L (98-107); Creatinine, Serum 1.39 mg/dL (0.70-1.30); EST Glomerular Filtration Rate 52 mL/min (>60); Est Glom Filt Rate - Afr Amer 62 mL/min (>60); Glucose 101 mg/dL (74-106); PSA,Total - Annual Screen 1.73 ng/mL (0.00-4.00); Potassium 4.3 mmol/L (3.5-5.1); Sodium Level 142 mmol/L (136-145)
== END | disposition home or self-care (01) ==
LOC: LAB 13:49
PROVIDERS: PCP Internal Medicine; Referring Provider Urology; Visit Provider Urology
DX: N40.1 Benign prostatic hyperplasia with lower urinary tract symptoms (principal); Z12.5 Encounter for screening for malignant neoplasm of prostate
CPT/HCPCS: 36415; 80048; 84153; G0103

== ENCOUNTER → 2023-03-21 | Outpatient (CLI) | payer MEDICARE, BC, SELFPAY | END | disposition home or self-care (01) | LOC: LABSPEC 16:06 | PROVIDERS: PCP Internal Medicine; Referring Provider Urology; Visit Provider Urology | DX: N30.00 Acute cystitis without hematuria (principal) | CPT/HCPCS: 87077; 87086; 87088; 87186 ==

== ENCOUNTER 2023-06-28 06:27 | Emergency (ER) | payer MEDICARE, BC, SELFPAY ==
[2023-06-28 06:28] VITALS: BP 196/83; PULSE 82; RESP 18; TEMP 36.4; O2SAT 99; BMI 39.4
--- NOTE | 2023-06-28 06:45 | US_ITS ---
STUDY: SCROTUM ULTRASOUND REASON FOR EXAM: Male, 87 years old. pain and swelling TECHNIQUE: Ultrasound evaluation of the scrotum was performed with color Doppler and static gloria-scale imaging. COMPARISON: None. FINDINGS: RIGHT TESTICLE INTRATESTICULAR: There is a normal size of the right testicle. The right testicle measures 4.4 x 3.3 x 3.3 cm. There is a homogenous echotexture. There is normal arterial and normal venous vascularity. There is no demonstrated right testicular mass or cyst. EXTRATESTICULAR: The epididymis is normal in size. The epididymis head measures 1.3 cm. There is normal vascularity of the epididymis. There is a cystic structure within the epididymis, with low level echoes, consistent with a spermatocele. There is a large hydrocele. There is no demonstrated varicocele. There is no demonstrated extratesticular mass or cyst. LEFT TESTICLE INTRATESTICULAR: There is a normal size of the left testicle. The left testicle measures 5.2 x 3.3 x 3.2 cm. There is a homogenous echotexture. There is normal arterial and normal venous vascularity. There is no demonstrated left testicular mass or cyst. EXTRATESTICULAR: The epididymis is normal in size. The epididymis head measures 1.4 cm. There is normal vascularity of the epididymis. There is a cystic structure within the epididymis, with low level echoes, consistent with a spermatocele. There is a large hydrocele. There is no demonstrated varicocele. There is no demonstrated extratesticular mass or cyst. US/Testicular with Arterial Flow IMPRESSION: Normal bilateral testicles, no sonographic evidence of intratesticular mass or torsion. Large bilateral hydroceles Bilateral spermatoceles No hyperemia to suspect epididymoorchitis Electronically Signed: Richard Rod MD at 8:39 EST ,
--- NOTE | 2023-06-28 06:55 | EDS_ITS ---
HPI History of Present Illness Chief Complaint: Male Pain/Injury Informant: patient and spouse/S.O. Narrative Narrative: Patient is 87-year-old male with past medical history of hypertension hyperlipidemia and chronic urinary retention who needs to self cath. He states on Monday he felt he may be starting to get a urinary tract infection. However after that day symptoms seem to improve. He states he was feeling normal but then last night developed pain and swelling mainly in the right testicle. He denies any recent trauma. Denies any history of bleeding disorder or blood thinner use. He denies any fevers or chills but with sensation of of the start of urinary tract infection on Monday and now progressing to testicular pain and swelling he had concern for infection and comes in for evaluation. [facility] Medical History Benign neoplasm of colon Cataracts, bilateral Diverticulosis Essential (primary) hypertension History of cerebrovascular accident (2003) Hyperlipidemia Lumbar region somatic dysfunction Obesity Right bundle branch block (RBBB) Segmental and somatic dysfunction of lumbar region Segmental and somatic dysfunction of pelvic region Segmental and somatic dysfunction of thoracic region Self-catheterizes urinary bladder Home Medications aspirin 325 mg tablet 325 mg PO DAILY@0800 06/22/16 [History Last Taken Unknown] ramipril 5 mg capsule 10 mg PO BID 06/22/16 [History Last Taken Unknown] amlodipine 10 mg tablet 10 mg PO DAILY@DINNER #30 tabs 01/16/23 [Rx Last Taken Unknown] tamsulosin 0.4 mg capsule 0.8 mg (2 x 0.4 mg) PO DAILY #60 caps 01/16/23 [Rx Last Taken Unknown] levofloxacin 500 mg tablet 500 mg PO DAILY 10 days #10 tabs 06/28/23 [Rx Last Taken Unknown] Allergy/AdvReac Type Severity Reaction Status Date / Time latex Allergy Unknown Verified 06/28/23 06:28 Sulfa (Sulfonamide Allergy Unknown Verified 06/28/23 06:28 Antibiotics) erythromycin base AdvReac Unknown Verified 06/28/23 06:28 hydrochlorothiazide AdvReac Unknown Verified 06/28/23 06:28 prednisone AdvReac Unknown Verified 06/28/23 06:28 Family History Other Heart disease Hypertension Surgical History H/O tooth extraction Social History Smoking Status: Never smoker alcohol intake: never substance use type: does not use what type of physical activity do you participate in: none ROS ROS ED Constitutional Constitutional ED: Denies chills or fever(s) ENT ENT ED: Denies sore throat Cardiovascular Cardiovascular: Denies chest pain Respiratory/Chest Respiratory/Chest: Denies cough or dyspnea Gastrointestinal Gastrointestinal: Reports abdominal pain; Denies diarrhea, nausea or vomiting Genitourinary Genitourinary ED: Reports dysuria, urinary frequency and other Details: Positive testicular pain and swelling Musculoskeletal Musculoskeletal: Denies back pain or myalgias Integumentary Denies rash Neurologic Neurologic: Denies headache(s) Hematologic/Lymphatic Hematologic/Lymphatic: Denies easy bleeding or easy bruising EXAM Physical Exam Const Vital Signs: 06/28/23 06:28 Temperature 97.5 F L Temperature Source Temporal Pulse Rate 82 Respiratory Rate 18 Blood Pressure 196/83 H Blood Pressure Mean 120 Pulse Ox 99 Positive well nourished, well developed and obese General Appearance ED: well developed Nutritional Appearance: obese HEENT HEENT Narrative: Normocephalic atraumatic Eyes PERRL and EOMs intact bilaterally General Eye ED: Negative for scleral icterus Neck supple and no JVD Resp normal respiratory effort and clear to auscultation bilaterally Cardio regular rate and regular rhythm Cardio Narrative: Heart is regular rate and rhythm without murmurs rubs or gallops GI non-tender and non-distended GI Narrative: Abdomen is obese soft nontender and nondistended with normal active bowel sounds. No organomegaly noted to suggest acute urinary retention. No pulsatile mass or fluid wave Auscultation: normoactive bowel sounds Palpation: soft Narrative: Normal uncircumcised male. No blood or discharge from the urethral meatus. Foreskin can be retracted without difficulty. There is unilateral swelling and redness of the right testicle compared to left with pain with palpation along the upper posterior section concerning for epididymitis. No obvious abscess noted No secondary changes to suggest Louie's gangrene Back/Spine no CVA tenderness Extremity Extremity Narrative: +2-3 pitting edema to the bilateral lower extremities that is equal and symmetric Negative Homans' sign bilaterally Neuro oriented x3 and CN's II-XII intact bilaterally Sensorium / Orientation: alert Psych mental status grossly normal Skin Skin Narrative: Soft tissue changes to the scrotum as documented above MDM MDM MDM Narrative Medical decision making narrative: Patient presented to the ER hypertensive but otherwise with stable vitals. He reported a sensation of a UTI a few days ago and he does self cath so he does have high risk for this. However then improved and then a few days later he began with testicular pain redness and swelling without reported trauma. Differential diagnosis is for UTI versus acute epididymitis versus scrotal cellulitis versus scrotal abscess versus scrotal torsion. At this time as his history is most consistent epididymitis I feel no need for laboratory studies but we will perform a ultrasound of the testicles in order to rule out torsion or hydrocele versus varicocele. As history and workup is most consistent with epididymitis and patient is not showing signs of systemic infection I do not feel there is need for emergent urology consultation or admission and he can be placed on Levaquin and discharged home History & Record Review Discussion w/independent historian: Patient and Significant other Discharge Plan Triage Chief Complaint: Male Pain/Injury ED Provider: Davide Hicks Dx/Rx/DC Orders Clinical Impression: Acute epididymitis, Essential (primary) hypertension, Hyperlipidemia Instructions: ED Epididymitis Prescriptions: New levofloxacin 500 mg tablet 500 mg PO DAILY 10 Days Qty: 10 0RF No Action aspirin 325 MG tablet 325 mg PO DAILY@0800 Hold Instructions: Resume on 01/18/23. ramipril 5 MG capsule 10 mg PO BID amlodipine 10 mg Tablet 10 mg PO DAILY@DINNER Qty: 30 0RF tamsulosin 0.4 mg capsule 0.8 mg PO DAILY Qty: 60 0RF Primary Care Provider: Aleisha Tello Referrals: Ashkan Dave MD [Med Staff - Active Staff] - Aleisha Tello MD [Primary Care Provider] - Activity Restrictions/Additional Instructions: Please follow-up with your urologist for repeat evaluation and return to the ER if you have any further concerns or worsening of symptoms Disposition Disposition: Home, Self Care
[2023-06-28 09:09] VITALS: BP 139/84; PULSE 76; RESP 15; O2SAT 95
== END 2023-06-28 09:16 | disposition home or self-care (01) ==
LOC: ED 07:33
PROVIDERS: Emergency Provider Emergency Medicine; PCP Internal Medicine; Referring Provider Emergency Medicine; Visit Provider Emergency Medicine
DX: N45.1 Epididymitis (principal); I10 Essential (primary) hypertension; E78.5 Hyperlipidemia, unspecified; Z86.73 Personal history of transient ischemic attack (TIA), and cerebral infarction without residual deficits; Z79.899 Other long term (current) drug therapy
CPT/HCPCS: 76870; 93976; 99282

== ENCOUNTER 2023-06-28 15:38 | Emergency (ER) | payer MEDICARE, BC, SELFPAY ==
[2023-06-28 15:40] VITALS: BP 165/79; PULSE 92; RESP 16; TEMP 37.1; O2SAT 94
[2023-06-28 15:42] VITALS: BMI 39.2
--- NOTE | 2023-06-28 16:07 | EX.ED.DYSGE1 ---
HPI History of Present Illness Chief Complaint: Allergic Reaction Informant: patient Onset/Context/Timing Onset: Today and Hours Context: Gradual Onset Timing: Continuous Current Severity: Mild Maximum Severity: Mild Narrative Narrative: 87-year-old male seen earlier today by the overnight physician diagnosed with a possible epididymitis. Had an ultrasound showing bilateral hydroceles but no mass nor torsion. He was started on antibiotic Levaquin after he took a single dose an hour or so ago he developed a rash on his upper back. Denies any trouble swallowing or breathing. He is able to urinate. Has any fever, vomiting or diarrhea. No prior history to Levaquin or Cipro allergy. Does have a known allergy to sulfa medications. Prior similar symptoms: Yes Recent Illness/Hospitalization: No PFSH PFS Medical History Benign neoplasm of colon Cataracts, bilateral Diverticulosis Essential (primary) hypertension History of cerebrovascular accident (2003) Hyperlipidemia Lumbar region somatic dysfunction Obesity Right bundle branch block (RBBB) Segmental and somatic dysfunction of lumbar region Segmental and somatic dysfunction of pelvic region Segmental and somatic dysfunction of thoracic region Self-catheterizes urinary bladder Home Medications aspirin 325 mg tablet 325 mg PO DAILY@0800 06/22/16 [History Last Taken Unknown] ramipril 5 mg capsule 10 mg PO BID 06/22/16 [History Last Taken Unknown] amlodipine 10 mg tablet 10 mg PO DAILY@DINNER #30 tabs 01/16/23 [Rx Last Taken Unknown] tamsulosin 0.4 mg capsule 0.8 mg (2 x 0.4 mg) PO DAILY #60 caps 01/16/23 [Rx Last Taken Unknown] doxycycline hyclate 100 mg capsule 100 mg PO BID 10 days #20 caps 06/28/23 [Rx Last Taken Unknown] levofloxacin 500 mg tablet 500 mg PO DAILY 10 days #10 tabs 06/28/23 [Rx Last Taken Unknown] Allergy/AdvReac Type Severity Reaction Status Date / Time levofloxacin [From Levaquin] Allergy Intermediate Rash Verified 06/28/23 16:17 latex Allergy Unknown Verified 06/28/23 15:39 Sulfa (Sulfonamide Allergy Unknown Verified 06/28/23 15:39 Antibiotics) erythromycin base AdvReac Unknown Verified 06/28/23 15:39 hydrochlorothiazide AdvReac Unknown Verified 06/28/23 15:39 prednisone AdvReac Unknown Verified 06/28/23 15:39 Family History Other Heart disease Hypertension Surgical History H/O tooth extraction Social History Smoking Status: Never smoker alcohol intake: never substance use type: does not use what type of physical activity do you participate in: none ROS ROS ED ROS Narrative Rash. Right scrotal redness. Review of Systems ROS Unobtainable: Denies due to encephalopathy Constitutional Constitutional ED: Denies chills or fever(s) Eyes Eyes: Denies blurry vision ENT ENT ED: Denies ear pain Cardiovascular Cardiovascular: Denies chest pain Respiratory/Chest Respiratory/Chest: Denies cough or dyspnea Gastrointestinal Gastrointestinal: Denies abdominal pain, constipation, nausea or vomiting Genitourinary Genitourinary ED: Denies dysuria or hematuria Musculoskeletal Musculoskeletal: Denies arthralgias or back pain Integumentary Reports rash; Denies abscess Neurologic Neurologic: Denies headache(s) Psychiatric Psychiatric: Denies anxiety Endocrine Endocrinology: Denies cold intolerance Hematologic/Lymphatic Hematologic/Lymphatic: Reports none Allergic/Immunologic Allergic/Immunologic ED: Denies mouth swelling, tongue swelling or urticaria EXAM Physical Exam Narrative Exam Narrative: Well-appearing 87-year-old male. Vital signs are stable afebrile. HEENT exam unremarkable. No tongue or lip swelling. Neck nontender. Lungs clear to auscultation bilaterally. Heart regular rhythm no murmur. Abdomen is soft and nontender. Moving all 4 extremities. Calves are nontender without edema. External exam he does have bilateral scrotal swelling consistent with known hydroceles. He also has redness on his right scrotum consistent with either an epididymitis or a scrotal cellulitis. There is no Louie's gangrene. No abscess. No necrotic tissue. No subcu air. Back he has a rash on his back consistent with a possible generalized allergic reaction. Neurologically he is awake alert with no focal motor deficits. Const Vital Signs: 06/28/23 15:40 Temperature 98.8 F Temperature Source Temporal Pulse Rate 92 Respiratory Rate 16 Blood Pressure 165/79 H Blood Pressure Mean 107 Pulse Ox 94 Oxygen Delivery Method Room Air Positive well nourished and well developed; Negative for cachectic, contractures or unkempt General Appearance ED: well developed and NAD; Negative for unkempt, cachectic, contractures, cyanotic, diaphoretic or pallor Nutritional Appearance: Negative for cachectic HEENT Reports moist mucous membranes Negative for trauma or tenderness Eyes PERRL and EOMs intact bilaterally General Eye ED: Negative for pale conjunctiva or scleral icterus Neck no lymphadenopathy, supple and no JVD General: Negative for tenderness Lymph Lymphatic: Negative for other Chest Wall inspection of chest normal and palpation of chest normal Chest: Negative for other Resp normal respiratory effort and clear to auscultation bilaterally Effort and Inspection: Negative for retractions Auscultation: Negative for rales or rhonchi Cardio regular rate, regular rhythm, S1 normal heart sound, S2 normal heart sound and no murmurs Rate: Negative for bradycardia or tachycardic Rhythm: Negative for abnormal rhythm GI normal to inspection, nondistended, normoactive bowel sounds, non-tender, non-distended and no masses Inspection: Negative for abdominal distention Auscultation: normoactive bowel sounds Palpation: soft; Negative for tender Narrative: Bilateral scrotal swelling. Redness on the right side consistent with either a scrotal cellulitis or an epididymitis. Prior ultrasound earlier today showed no signs of torsion, nor any masses nor any epididymal orchitis. Bladder / Kidney Exam: No other Back/Spine no CVA tenderness Back/Spine Narrative: Red rash on his upper back consistent with allergic reaction. Blanches. No petechiae or purpura. No sloughing skin. General Back: Negative for CVA tenderness Cervical Spine: Negative for cervical spine tenderness Thoracic Spine / Upper Back: Negative for thoracic spinal tenderness Lumbar Spine / Lower Back: Negative for lumbar spinal tenderness Extremity normal to inspection General Extremety ED: Negative for edema or tenderness General Extremity: Negative for edema Neuro oriented x3 and CN's II-XII intact bilaterally Sensorium / Orientation: alert; Negative for orientation impaired, lethargic or stuporous Motor Exam: strength 5/5 throughout Psych mental status grossly normal Appearance: Negative for unkempt Attitude: No agitated Skin No no rashes or lesions noted, no wounds and skin turgor normal General Skin Exam: elasticity normal; Negative for jaundice or pallor Lesions: No lesion noted Rashes: rashes noted Trauma: Negative for abrasion Wounds: Negative for wounds noted MDM MDM MDM Narrative Medical decision making narrative: 87-year-old male has allergic reaction seems to be from antibiotic he started on the day Levaquin. That will be stopped. Give the patient a dose of prednisone for his allergic reaction, but he states he has a worse rash to that. We will hold off on any treatment of the allergic reaction. Only took 1 Levaquin and should resolve. He will be started on new antibiotic doxycycline 100 twice daily for 10 days for the redness of his right hemiscrotum. And follow-up with primary care physician to be reevaluated. Return if worse. History & Record Review Discussion w/independent historian: Patient and Family Additional record(s) reviewed:: Prior inpatient record, Prior outpatient record, Prior ED visit and Prior labs Discharge Plan Triage Chief Complaint: Allergic Reaction ED Provider: Gonzalo Allen Dx/Rx/DC Orders Clinical Impression: Cellulitis of scrotum, Allergic reaction, Bilateral hydrocele Instructions: ED ADVERSE DRUG REACTION Allergic Prescriptions: New doxycycline hyclate 100 mg capsule 100 mg PO BID 10 Days Qty: 20 0RF No Action aspirin 325 MG tablet 325 mg PO DAILY@0800 Hold Instructions: Resume on 01/18/23. ramipril 5 MG capsule 10 mg PO BID amlodipine 10 mg Tablet 10 mg PO DAILY@DINNER Qty: 30 0RF tamsulosin 0.4 mg capsule 0.8 mg PO DAILY Qty: 60 0RF levofloxacin 500 mg tablet 500 mg PO DAILY 10 Days Qty: 10 0RF Primary Care Provider: Aleisha Tello Referrals: Ashkan Dave MD [Med Staff - Active Staff] - 3-5 Days Aleisha Tello MD [Primary Care Provider] - 3-5 Days Activity Restrictions/Additional Instructions: Stop the current antibiotic Levaquin immediately. It seems like he may have had allergic reaction to it. Start the antibiotic doxycycline 1 pill twice a day for the infection of your scrotum. Follow-up with your doctor or the urologist to ensure the infection in your scrotum is improving. Return if feeling a lot worse. Disposition Disposition: Home, Self Care
== END 2023-06-28 16:34 | disposition home or self-care (01) ==
PROVIDERS: Emergency Provider Emergency Medicine; PCP Internal Medicine; Referring Provider Emergency Medicine; Visit Provider Emergency Medicine
DX: L27.1 Localized skin eruption due to drugs and medicaments taken internally (principal); N43.3 Hydrocele, unspecified; N49.2 Inflammatory disorders of scrotum; E78.5 Hyperlipidemia, unspecified; I10 Essential (primary) hypertension; Z86.73 Personal history of transient ischemic attack (TIA), and cerebral infarction without residual deficits; Z79.899 Other long term (current) drug therapy; Z79.82 Long term (current) use of aspirin; T36.8X5A Adverse effect of other systemic antibiotics, initial encounter
CPT/HCPCS: 99282

== ENCOUNTER 2023-08-21 09:47 | Emergency (ER) | payer MEDICARE, BC, SELFPAY ==
[2023-08-21 09:48] VITALS: BP 199/82; PULSE 86; RESP 14; TEMP 36.4; O2SAT 96; BMI 39.4
--- NOTE | 2023-08-21 10:21 | EDS_ITS ---
HPI History of Present Illness Chief Complaint: Lower Extremity Injury Informant: patient Onset/Context/Timing Onset: Yesterday Context: Sudden Onset Timing: Intermittent and Lasts (1 to 2 minutes) Quality: Numbness, weakness Location: Left lower extremity Worsened by: Nothing Relieved by: Nothing Narrative Narrative: Patient presents after a fall that occurred yesterday. Patient states he fell asleep in his recliner. Patient states that when he went to get up his left leg was numb. Patient states he was having difficulty standing on it and fell. Patient states he fell forward and landed on his face. Patient admits to some mild pain in his face and neck. Patient states that he was able to stand after he fell. Patient states the numbness and weakness resolved quickly. Patient has had no further paresthesias or weakness in his leg. Patient states he went to urgent care and was referred to the emergency department for possible stroke. [facility] Medical History Benign neoplasm of colon Cardiology follow-up encounter Cataracts, bilateral Diverticulosis Essential (primary) hypertension History of cerebrovascular accident (2003) Hyperlipidemia Loss of hearing Lumbar region somatic dysfunction Non-smoker Obesity Prostate disease Right bundle branch block (RBBB) Segmental and somatic dysfunction of lumbar region Segmental and somatic dysfunction of pelvic region Segmental and somatic dysfunction of thoracic region Self-catheterizes urinary bladder Stroke/cerebrovascular accident Wears glasses Home Medications aspirin 325 mg tablet 325 mg PO DAILY@0800 06/22/16 [History Last Taken Unknown] ramipril 5 mg capsule 10 mg PO BID 06/22/16 [History Last Taken Unknown] amlodipine 10 mg tablet 10 mg PO DAILY@DINNER #30 tabs 01/16/23 [Rx Last Taken Unknown] tamsulosin 0.4 mg capsule 0.8 mg (2 x 0.4 mg) PO DAILY #60 caps 01/16/23 [Rx Last Taken Unknown] latanoprost 0.005 % eye drops 1 drp ophthalmic (eye) DAILY 08/15/23 [History Last Taken Unknown] Allergy/AdvReac Type Severity Reaction Status Date / Time levofloxacin [From Levaquin] Allergy Intermediate Rash Verified 08/21/23 09:49 latex Allergy Unknown Verified 08/21/23 09:49 Sulfa (Sulfonamide Allergy Unknown Verified 08/21/23 09:49 Antibiotics) erythromycin base AdvReac Unknown Verified 08/21/23 09:49 hydrochlorothiazide AdvReac Unknown Verified 08/21/23 09:49 prednisone AdvReac Unknown Verified 08/21/23 09:49 Family History Other Heart disease Hypertension Surgical History H/O tooth extraction History of cataract extraction with lens replacement Social History Smoking Status: Never smoker alcohol intake: never substance use type: does not use what type of physical activity do you participate in: none ROS ROS ED Constitutional Constitutional ED: Denies chills or fever(s) Eyes Eyes: Denies blurry vision or change in vision ENT ENT ED: Denies rhinorrhea or sore throat Cardiovascular Cardiovascular: Denies chest pain or palpitations Respiratory/Chest Respiratory/Chest: Denies cough or dyspnea Gastrointestinal Gastrointestinal: Denies nausea or vomiting Genitourinary Genitourinary ED: Denies dysuria or hematuria Musculoskeletal Musculoskeletal: Reports neck pain; Denies back pain Integumentary Denies abscess or rash Neurologic Neurologic: Reports paresthesias LLE and weakness Allergic/Immunologic Allergic/Immunologic ED: Denies mouth swelling or urticaria EXAM Physical Exam Const Vital Signs: 08/21/23 09:48 Temperature 97.6 F L Temperature Source Temporal Pulse Rate 86 Respiratory Rate 14 Blood Pressure 199/82 H Blood Pressure Mean 121 Pulse Ox 96 Oxygen Delivery Method Room Air Positive well nourished, well developed and obese General Appearance ED: well developed and NAD Nutritional Appearance: obese HEENT Reports moist mucous membranes Neck supple and no JVD Chest Wall inspection of chest normal and palpation of chest normal Resp normal respiratory effort and clear to auscultation bilaterally Cardio regular rate and regular rhythm GI non-tender and non-distended Palpation: soft Extremity normal to inspection General Extremety ED: Negative for tenderness Neuro oriented x3, CN's II-XII intact bilaterally and no sensory deficits noted Sensorium / Orientation: alert Motor Exam: strength 5/5 throughout Psych mental status grossly normal MDM MDM MDM Narrative Medical decision making narrative: Patient was advised that this is most likely a neuropraxia in his left leg. Since the patient has been asymptomatic, I do not feel any further testing is necessary. I do not feel this is from a stroke or TIA. Patient was instructed to follow-up with his primary care physician in 5 to 7 days. Patient was instructed to return if worse in any way. Patient understood and was agreeable with the plan. All questions were answered. Discharge Plan Triage Chief Complaint: Lower Extremity Injury ED Provider: Thomas Forte Dx/Rx/DC Orders Clinical Impression: Essential (primary) hypertension, Neurapraxia Instructions: ED Paraesthesias Prescriptions: No Action aspirin 325 MG tablet 325 mg PO DAILY@0800 Hold Instructions: Resume on 01/18/23. ramipril 5 MG capsule 10 mg PO BID amlodipine 10 mg Tablet 10 mg PO DAILY@DINNER Qty: 30 0RF tamsulosin 0.4 mg capsule 0.8 mg PO DAILY Qty: 60 0RF latanoprost 0.005 % drops 1 drp ophthalmic (eye) DAILY Patient Comments: INSTILL 1 DROP INTO BOTH EYES AT BEDTIME Primary Care Provider: Aleisha Tello Referrals: Aleisha Tello MD [Primary Care Provider] - 5-7 Days Disposition Disposition: Home, Self Care
== END 2023-08-21 11:02 | disposition home or self-care (01) ==
LOC: ED 10:46
PROVIDERS: Emergency Provider Emergency Medicine; PCP Internal Medicine; Visit Provider Emergency Medicine
DX: I10 Essential (primary) hypertension (principal); R51.9 Headache, unspecified; T14.8XXA Other injury of unspecified body region, initial encounter; E66.9 Obesity, unspecified; Z79.82 Long term (current) use of aspirin; E78.5 Hyperlipidemia, unspecified; Z86.73 Personal history of transient ischemic attack (TIA), and cerebral infarction without residual deficits; W07.XXXA Fall from chair, initial encounter; Y92.018 Other place in single-family (private) house as the place of occurrence of the external cause
CPT/HCPCS: 99282

== ENCOUNTER 2023-08-30 05:20 | Day surgery (SDC) | payer MEDICARE, BC, SELFPAY ==
[2023-08-16 08:35] LABS: Hematocrit 45.8 % (40-54); Hemoglobin 14.9 g/dL (13.0-16.5); Mean Corp Hgb Conc 32.5 g/dL (32-36); Mean Corpuscular Hgb 28.4 pg (27.0-32.0); Mean Corpuscular Volume 87.2 fL (80-94); Mean Platelet Vol. 9.7 fl (6.2-12.0); Platelet Count 228 K/mm3 (150-450); RBC Distribution Width CV 12.8 % (11.6-14.6); RBC Distribution Width SD 40.6 fl (35.1-43.9); Red Blood Count 5.25 M/mm3 (4.6-6.2); White Blood Count 8.7 K/mm3 (4.4-11.0)
[2023-08-16 08:59] LABS: Anion Gap 0 (5-15); BUN 22 mg/dL (7-18); BUN/Creat Ratio 20.8 RATIO (10-20); Calcium,Total 9.3 mg/dL (8.5-10.1); Chloride 108 mmol/L (98-107); Creatinine, Serum 1.06 mg/dL (0.70-1.30); EST Glomerular Filtration Rate 70 mL/min (>60); Est Glom Filt Rate - Afr Amer 85 mL/min (>60); Glucose 102 mg/dL (74-106); Potassium 4.2 mmol/L (3.5-5.1); Sodium Level 137 mmol/L (136-145)
[2023-08-30] VITALS (15 sets, daily range): BP systolic 128–186; BP diastolic 50–95; PULSE 54–65; RESP 14–20; TEMP 35.8–36.7; O2SAT 93–99; BMI 38.5
--- NOTE | 2023-08-30 | PROS_PTH ---
PATHOLOGY RESULTS PATIENT: MIKE ETIENNE LOC: [facility] – [place], [place] U#:[id number] AGE/SX: 87/M ROOM: RE08/30/[address]: Dr. Ashkan Dave MD : 1935 BED: DIS: 08/31/2023 SPEC #: [id number] RECD: 08/30/23 12:52 STATUS: KHADAR CORDOVA #: [id number] ROGELIO: 08/30/23 00:[address]: Ashkan Dave DEPT: SURGICAL PATHOLOGY RECD BY: Joey Medina ENTERED: 08/30/23 12:53 SP TYPE: TURP OTHR DR: Dr. Aleisha Tello MD Tissues: Prostate, NOS Procedures: Surgery Specimen Level IV HEADER OPERATION: Cysto, transurethral resection prostate PRE-OP DIAGNOSIS: BPH with lower urinary tract symptoms, retention of urine TISSUE SUBMITTED: Prostate chips MICROSCOPIC DIAGNOSIS Prostate, transurethral resection: Benign nodular hyperplasia. Mild chronic inflammation. AM:nicol 08/31/2023 MICROSCOPIC DESCRIPTION Slides are reviewed. GROSS DESCRIPTION Received is one container labeled with the patient's name and designated prostate tissue. The specimen consists of multiple irregular fragments of pink-ceron, rubbery, soft tissue that in aggregate weigh 7.9 gm and measure in aggregate 3.5 x 3.5 x 1.5 cm. The entire specimen is submitted in eight cassettes. / SJ:nicol 08/30/2023 TC:5 CPT: 95449
--- OUTSIDE RECORDS SUMMARY | 2023-08-30 05:25 | XMS RPT_ITS | CCD ---
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 Name Role Phone Elisha CHAHAL, Rian D Primary Care Provider TALAMPAS, RIAN D Primary Care Unavailable MENESES, LISETTE Attending Unavailable TALAMPAS, RIAN D Primary Care Unavailable MARINO, MC Attending Unavailable TALAMPAS, RIAN D Primary Care Unavailable TALAMPAS, RIAN D Referring Unavailable TALAMPAS, RIAN D Primary Care Unavailable MENESES, LISETTE Attending Unavailable TALAMPAS, RIAN D Primary Care Unavailable TALAMPAS, RIAN D Primary Care Unavailable TALAMPAS, RIAN D Primary Care Unavailable TALAMPAS, RIAN D Attending Unavailable MARINO, MC Referring Unavailable TALAMPAS, RIAN D Primary Care Unavailable TALAMPAS, RIAN D Primary Care Unavailable TALAMPAS, RIAN D Primary Care Unavailable Allergies Allergy Classification Reported Allergen(s) Allergy Type Date of Onset Reaction(s) Facility (11 sources) Cefuroxime; Translations: [CEFUROXIME AXETIL] Drug Allergy 5 [facility] Work Phone: (11 sources) Erythromycin; Translations: [ERYTHROMYCIN] Drug Allergy 5 Other: See Comments [facility] Work Phone: (11 sources) hydroCHLOROthiaz leia; Translations: [HYDROCHLOROTHIA ZIDE] Drug Allergy 5 Other: See Comments [facility] Work Phone: (13 sources) Latex; Translations: [LATEX] Propensity to adverse reactions 5 Unknown [facility] Work Phone: (11 sources) predniSONE; Translations: [PREDNISONE] Drug Allergy 1 Other: See Comments [facility] (11 sources) Sulfamethoxazole ; Translations: [SULFAMETHOXAZOL E] Drug Allergy 3 Other: See Comments [facility] (8 sources) Sulfonamides (Antibiotic); Translations: [SULFA (SULFONAMIDE ANTIBIOTICS)] Drug Allergy 1 Unknown, Other: See Comments [facility] Medications Current Medications Medication Drug Class(es) Dates Sig (Normalized) Sig (Original) amoxicillin 875 mg / clavulanate 125 mg oral tablet (5 sources) Penicillin-class Antibacterial Start: 06-15-2023 End: 06-22-2023 take 1 tablet by mouth twice daily amoxicillin-clav ulanate potassium (AUGMENTIN) 875-125 mg per tablet Take 1 tablet by mouth two times a day for 7 days. 14 tablet 0 06/15/2023 06/22/2023 Active Completed/Discontinued Medications Medication Drug Class(es) Dates Sig (Normalized) Sig (Original) amLODIPine 10 mg oral tablet (11 sources) Dihydropyridine Calcium Channel Svetlana Start: 01-17-2023 take 1 tablet by mouth once daily, then take 1 tablet by mouth once daily amLODIPine (NORVASC) 10 mg tablet Take 1 tablet by mouth once daily. Dose change - take one daily. 90 tablet 3 01/17/2023 Active Problems Active Problems Problem Classification Problem Date Documented Date Episodic/Chronic Conduction disorders (10 sources) Right bundle branch block; Translations: [Unspecified right bundle-branch block] Onset: 10-26-2009 10-26-2009 Chronic Diabetes mellitus without complication (1 source) Impaired fasting glucose; Translations: [Elevated fasting blood sugar] Onset: 08-07-2023 Episodic Disorders of lipid metabolism (11 sources) Hyperlipidemia; Translations: [Other hyperlipidemia] Onset: 03-17-2005 09-18-2017 Chronic Diverticulosis and diverticulitis (10 sources) Diverticulosis of colon; Translations: [Diverticulosis of large intestine without perforation or abscess without bleeding] 12-20-2005 Chronic Essential hypertension (12 sources) Essential hypertension; Translations: [Essential (primary) hypertension] Onset: 06-15-2005 Chronic Hyperplasia of prostate (3 sources) Retention of urine; Translations: [Benign prostatic hyperplasia with lower urinary tract symptoms] Onset: 01-17-2023 03-07-202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 (1 source) Hypertensive emergency; Translations: [Hypertensive emergency] Onset: 01-17-2023 Chronic Other aftercare (1 source) Encounter for therapeutic drug level monitoring; Translations: [Encounter for therapeutic drug monitoring] Onset: 08-07-2023 Episodic Other eye disorders (1 source) Disorder of eye; Translations: [Unspecified disorder of eye and adnexa] 06-09-2023 Episodic Other nervous system disorders (10 sources) Carpal tunnel syndrome of right wrist; Translations: [Carpal tunnel syndrome, right upper limb] Onset: 04-16-2018 04-16-2018 Chronic Other nutritional; endocrine; and metabolic disorders (5 sources) Obese class II; Translations: [Obesity, unspecified] Onset: 02-10-2023 02-10-2023 Chronic Other upper respiratory disease (10 sources) Chronic rhinitis; Translations: [Chronic rhinitis] 12-20-2005 Chronic Other upper respiratory infections (2 sources) Bacterial sinusitis; Translations: [Chronic sinusitis, unspecified] Chronic Residual codes; unclassified (1 source) Finding related to ability to manage personal health care; Translations: [Other specified health status] 03-07-2023 Episodic Spondylosis; intervertebral disc disorders; other back problems (1 source) Acute back pain with sciatica; Translations: [Lumbago with sciatica, left side] 03-07-2023 Episodic Urinary tract infections (1 source) Acute urinary tract infection; Translations: [Urinary tract infection, site not specified] 06-15-2023 Episodic Past or Other Problems Problem Classification Problem Date Documented Da te Episodic/Chronic Gastrointestinal hemorrhage (2 sources) Gastrointestinal hemorrhage; Translations: [Hemorrhage of anus and rectum] Onset: 3 03-07-2023 Episodic Genitourinary symptoms and ill-defined conditions (3 sources) Increased frequency of urination; Translations: [Frequency of micturition] Onset: 3 06-15-2023 Episodic Other and unspecified benign neoplasm (10 sources) Benign neoplasm of rectum and anal canal; Translations: [Benign neoplasm of rectum] Onset: 1 11-02-2010 Episodic Other circulatory disease (10 sources) History of cerebrovascular accident; Translations: [Personal history of transient ischemic attack (TIA), and cerebral infarction without residual deficits] Onset: 6 04-12-2016 Episodic Other male genital disorders (10 sources) Disorder of prostate; Translations: [Disorder of prostate, unspecified] Onset: 5 08-18-2015 Episodic Other screening for suspected conditions (not mental disorders or infectious disease) (5 sources) Patient encounter status; Translations: [Encounter for screening for malignant neoplasm of colon] Onset: 1 11-02-2010 Episodic Retinal detachments; defects; vascular occlusion; and retinopathy (10 sources) Other retinal detachments; Translations: [Other forms of retinal detachment] Onset: 9 11-10-2008 Episodic Results Test Name Value Interpretation Reference Range Facil ity Vital Signs Date Time Vital Sign Value Performing Clinician Adria woods 06-15-2023 09:12-0500 Body temperature 97.59 [degF] Jeri Denise APRN.CNP Work Phone: [facility] 06-15-2023 09:12-0500 Body weight 118.39 kg Jeri Denise APRN.GREASE PRESS HELPER Work Phone: [facility] 06-15-2023 09:12-0500 Diastolic blood pressure 79 mm[Hg] Jeri Denise APRN.GREASE PRESS HELPER Work Phone: [facility] 06-15-2023 09:12-0500 Heart rate 92 /min Jeri Denise APRN.GREASE PRESS HELPER Work Phone: [facility] 06-15-2023 09:12-0500 Respiratory rate 18 /min Jeri Denise APRN.GREASE PRESS HELPER Work Phone: [facility] 06-15-2023 09:12-0500 SaO2% (BldA) [Mass fraction] 98 % Jeri Denise APRN.GREASE PRESS HELPER Work Phone: [facility] 06-15-2023 09:12-0500 Systolic blood pressure 174 mm[Hg] Jeri Denise APRN.GREASE PRESS HELPER Work Phone: [facility] 06-09-2023 07:17-0500 Body temperature 97.81 [degF] Benjamín Oconnor APRN.GREASE PRESS HELPER Work Phone: [facility] 06-09-2023 07:17-0500 Body weight 117.21 kg Benjamín Oconnor TRAFFIC CONTROL SUPERVISOR.GREASE PRESS HELPER Work Phone: [facility] 06-09-2023 07:17-0500 Diastolic blood pressure 76 mm[Hg] Benjamín Elvin TRAFFIC CONTROL SUPERVISOR.GREASE PRESS HELPER Work Phone: [facility] 06-09-2023 07:17-0500 Heart rate 62 /min Benjamín Elvin TRAFFIC CONTROL SUPERVISOR.GREASE PRESS HELPER Work Phone: [facility] 06-09-2023 07:17-0500 Respiratory rate 18 /min Benjamín Elvin TRAFFIC CONTROL SUPERVISOR.GREASE PRESS HELPER Work Phone: [facility] 06-09-2023 07:17-0500 SaO2% (BldA) [Mass fraction] 97 % Benjamín Elvin TRAFFIC CONTROL SUPERVISOR.GREASE PRESS HELPER Work Phone: [facility] 06-09-2023 07:17-0500 Systolic blood pressure 169 mm[Hg] Benjamín Elvin TRAFFIC CONTROL SUPERVISOR.GREASE PRESS HELPER Work Phone: [facility] 03-07-2023 08:25-0400 Diastolic blood pressure 74 mm[Hg] Lisette Meneses TRAFFIC CONTROL SUPERVISOR.OPTICAL MANAGER Work Phone: [facility] 03-07-2023 08:25-0400 Heart rate 50 /min Lisette Meneses TRAFFIC CONTROL SUPERVISOR.OPTICAL MANAGER Work Phone: [facility] 03-07-2023 08:25-0400 Systolic blood pressure 153 mm[Hg] Lisette Meneses TRAFFIC CONTROL SUPERVISOR.OPTICAL MANAGER Work Phone: [facility] 03-07-2023 08:05-0400 Body weight 115.67 kg Lisette Meneses TRAFFIC CONTROL SUPERVISOR.OPTICAL MANAGER Work Phone: [facility] 03-07-2023 08:05-0400 Respiratory rate 16 /min Lisette Meneses TRAFFIC CONTROL SUPERVISOR.OPTICAL MANAGER Work Phone: [facility] 03-07-2023 08:05-0400 SaO2% (BldA) [Mass fraction] 97 % Lisette Meneses TRAFFIC CONTROL SUPERVISOR.OPTICAL MANAGER Work Phone: [facility] 04-08-2023 13:24-0400 Body temperature 97.2 [degF] Benjamín Elvin TRAFFIC CONTROL SUPERVISOR.GREASE PRESS HELPER Work Phone: [facility] 10-29-2022 13:24-0400 Body weight 115.03 kg Benjamín Elvin TRAFFIC CONTROL SUPERVISOR.GREASE PRESS HELPER Work Phone: [facility] 10-29-2022 13:24-0400 Diastolic blood pressure 76 mm[Hg] Benjamín Elvin TRAFFIC CONTROL SUPERVISOR.GREASE PRESS HELPER Work Phone: [facility] 10-29-2022 13:24-0400 Heart rate 63 /min Benjamín Elvin TRAFFIC CONTROL SUPERVISOR.GREASE PRESS HELPER Work Phone: [facility] 10-29-2022 13:24-0400 Respiratory rate 16 /min Benjamín Elvin TRAFFIC CONTROL SUPERVISOR.GREASE PRESS HELPER Work Phone: [facility] 10-29-2022 13:24-0400 SaO2% (BldA) [Mass fraction] 96 % Benjamín Elvin TRAFFIC CONTROL SUPERVISOR.GREASE PRESS HELPER Work Phone: [facility] 10-29-2022 13:24-0400 Systolic blood pressure 132 mm[Hg] Benjamín Elvin TRAFFIC CONTROL SUPERVISOR.GREASE PRESS HELPER Work Phone: [facility] 07-23-2022 13:44-0500 Body temperature 98.01 [degF] Madison Praisler-Wood TRAFFIC CONTROL SUPERVISOR.GREASE PRESS HELPER Work Phone: [facility] 07-23-2022 13:44-0500 Body weight 119.11 kg Madison Praisler-Wood TRAFFIC CONTROL SUPERVISOR.GREASE PRESS HELPER Work Phone: [facility] 07-23-2022 13:44-0500 Diastolic blood pressure 78 mm[Hg] Madison Praisler-Wood TRAFFIC CONTROL SUPERVISOR.GREASE PRESS HELPER Work Phone: [facility] 07-23-2022 13:44-0500 Heart rate 83 /min Madison Praisler-Wood TRAFFIC CONTROL SUPERVISOR.GREASE PRESS HELPER Work Phone: [facility] 07-23-2022 13:44-0500 Respiratory rate 18 /min Madison Praisler-Wood TRAFFIC CONTROL SUPERVISOR.GREASE PRESS HELPER Work Phone: [facility] 07-23-2022 13:44-0500 SaO2% (BldA) [Mass fraction] 97 % Madison Barkley TRAFFIC CONTROL SUPERVISOR.GREASE PRESS HELPER Work Phone: [facility] 07-23-2022 13:44-0500 Systolic blood pressure 142 mm[Hg] Madison Barkley TRAFFIC CONTROL SUPERVISOR.GREASE PRESS HELPER Work Phone: [facility] Encounters Encounter Date Encounter Type Care Provider Facility Start: 08-11-2023 End: 08-11-2023 ambulatory RIAN TELLO Facility:[facility] Start: 08-07-2023 End: 08-08-2023 ambulatory MC LEE Facility:[facility] Start: 06-28-2023 ambulatory Rian mccullough MD Work Phone: [facility] Procedures Date Procedure Procedure Detail Performing Clinician Start: 06-15-2023 Urnls dip stick/tabl et rgnt auto w/o microscopy Jeri Denise TRAFFIC CONTROL SUPERVISOR.GREASE PRESS HELPER Work Phone: Plan of Treatment Date Care Activity Detail Author Start: 11-17-2026 Urine microalbumin profile [facility] Start: 02-07-2026 DIABETES SCREEN DIABETES SCREEN [facility] Start: 02-07-2026 Diabetes Screening Diabetes Screenin g [facility] Start: 08-08-2025 DIABETES SCREEN DIABETES SCREEN [facility] Start: 12-09-2023 DIABETES SCREEN DIABETES SCREEN [facility] Start: 08-12-2023 COVID-19 VACCINE (3 - Booster for Moderna series) COVID-19 VACCINE (3 - Booster for Moderna series) [facility] Immunizations Immunization Date Immunization Notes Care Provider Fa cility 11-21-2022 zoster vaccine recombinant Rian Tello MD Work Phone: [facility] Work Phone: 07-27-2022 zoster vaccine recombinant Benjamín Oconnor APRN.GREASE PRESS HELPER Work Phone: [facility] Work Phone: 05-19-2022 influenza (HD-IIV4) vaccine, age 65+ yr, high dose, quadrivalent, PF (FLUZONE HIGH-DOSE) Benjamín Oconnor APRN.GREASE PRESS HELPER Work Phone: [facility] 05-19-2022 influenza, high dose seasonal, preservative-free Madison Barkley TRAFFIC CONTROL SUPERVISOR.GREASE PRESS HELPER Work Phone: [facility] Work Phone: 04-28-2021 influenza, high dose seasonal, preservative-free Madison Barkley TRAFFIC CONTROL SUPERVISOR.GREASE PRESS HELPER Work Phone: [facility] Work Phone: 09-17-2020 COVID-19 vaccine, fu ll dose (MODERNA) Rian Tello MD Work Phone: [facility] 08-20-2020 COVID-19 vaccine, fu ll dose (MODERNA) Rian Tello MD Work Phone: [facility] 04-28-2020 influenza, high dose seasonal, preservative-free Rian Tello MD Work Phone: [facility] 04-27-2020 influenza (HD-IIV4) vaccine, age 65+ yr, high dose, quadrivalent, PF (FLUZONE HIGH-DOSE) Benjamín Oconnor APRN.GREASE PRESS HELPER Work Phone: [facility] 04-30-2019 influenza, high dose seasonal, preservative-free Rian Tello MD Work Phone: [facility] 04-16-2018 influenza, high dose seasonal, preservative-free Rian Tello MD Work Phone: [facility] 05-07-2017 influenza, high dose seasonal, preservative-free Rian Tello MD Work Phone: [facility] 11-17-2016 tetanus toxoid, redu tobias diphtheria toxoid, and acellular pertussis vaccine, adsorbed Rian Tello MD Work Phone: [facility] Work Phone: 05-12-2016 influenza, high dose seasonal, preservative-free Rian Tello MD Work Phone: [facility] 05-07-2015 influenza, high dose seasonal, preservative-free Rian Tello MD Work Phone: [facility] 09-25-2014 pneumococcal conjuga te vaccine, 13 valent Rian Tello MD Work Phone: [facility] 05-21-2014 influenza, seasonal, injectable Rian Tello MD Work Phone: [facility] Work Phone: 05-28-2013 influenza virus vacc ine, unspecified formulation Rian Tello MD Work Phone: [facility] Work Phone: 06-02-2012 influenza virus vacc ine, unspecified formulation Rian Tello MD Work Phone: [facility] 06-13-2011 influenza virus vacc sania, unspecified formulation Rian Tello MD Work Phone: [facility] 06-13-2011 zoster vaccine, live Rian rocha MD Work Phone: [facility] 04-28-2010 influenza virus vacc ine, unspecified formulation Rian Tello MD Work Phone: [facility] 05-29-2008 influenza virus vacc ine, unspecified formulation Rian Tello MD Work Phone: [facility] Work Phone: 05-29-2007 influenza virus vacc ine, unspecified formulation Rian Tello MD Work Phone: [facility] Work Phone: 04-13-2007 tetanus and diphther ia toxoids, adsorbed, preservative free, for adult use (2 Lf of tetanus toxoid and 2 Lf of diphtheria toxoid) Rian Tello MD Work Phone: [facility] Work Phone: 06-05-2006 influenza virus vacc ine, unspecified formulation Rian Tello MD Work Phone: [facility] 05-19-2005 influenza virus vacc ine, unspecified formulation Rian Tello MD Work Phone: [facility] Work Phone: 02-13-2004 pneumococcal polysaccharide vaccine, 23 camila Tello MD Work Phone: [facility] Work Phone: Payers Date Payer Category Payer Medicare [id number] 2016 Unknown MADDIE SCHMIDT DICARE SUPPLEMENT [id number] 2016-Present [id number] [place], [place] [id number] Indemnity [id number] 2016 Unknown MADDIE SCHMIDT DICARE SUPPLEMENT [id number] 2016-Present [id number] [place], [place] [id number] Indemnity [id number] 2001 Medicare MEDICARE MEDICAR E A AND B [id number] 2001-Present [phone] [address] [address] [place] [address] Medicare [id number] 2001 Medicare MEDICARE MEDICAR E A AND B [id number] 2001-Present [phone] [address] [address] [place] [address] Medicare [id number] 2001 Medicare [id number] Social History Date Type Detail Facility Tobacco smoking status NHIS Never smoked tobacco [facility] Start: 07-24-2021 End: 06-15-2023 Alcohol intake Current non-drinker of alcohol (finding) [facility] Start: 12-06-2020 History SDOH Alcohol Frequency 1 [facility] Start: 12-06-2020 History SDOH Social Connections Phone 5 [facility] Start: 12-06-2020 History SDOH Social Connections Evangelical 3 [facility] Start: 12-06-2020 History SDOH Social Connections Membership 2 [facility] Start: 12-06-2020 History SDOH Physica l Activity MPS 15 [facility] Start: 12-06-2020 Education 12 [facility] Start: 1935 Sex Assigned At Not on file [facility] Start: 12-06-2020 End: 02-10-2023 History of Social function [place] Start: 12-06-2020 End: 02-10-2023 Social connection and isolation panel [facility] Do you belong to any clubs or organizations such as tenriism groups, unions, fraternal or athletic groups, or school groups? No [facility] Are you now , , , , never or living with a partner? [facility] How often to you hav e a drink containing alcohol? Never [facility] Average Number of Drinks Not on file [facility] Do you feel stress - tense, restless, nervous, or anxious, or unable to sleep at night because your mind is troubled all the time - these days [OSQ] Only a little [facility] (I/We) worried wheth er (my/our) food would run out before (I/we) got money to buy more. Never true [facility] Clinical Notes 07-23-2007 to 06-29-2023 Telephone Encounter - Lisette Meneses APRN.CNS - 06/29/2023 4:28 PM ESTTelephone Encounter - Cintia Bermudez RN - 06/28/2023 2:55 PM ESTPatient InstructionsPatient InstructionsPatient Instructions Note Date & Type Note Facility 06-29-2023 Miscellaneous Notes noted, agree with being seen for this Protocol recommends see provider in 4 hours or go to [facility]/ER. Pt is going to go back to the ER, since that is where they gave him the antibiotic. Care plan reviewed with patient. Patient voices understanding. Advised patient that if symptoms get worse to call 911. Reason for Disposition Age > 60 years (Exception: Brief heartbeat symptoms that went away and now feels well.) Answer Assessment - Initial Assessment Questions 1. DESCRIPTION: Pt reports HR is regular is fast 104 after tool Levaquin this morning. 2. ONSET: Pt reports he woke up 30 min ago and it was 77, no it went up 104. He normally runs 48. 3. DURATION: Has been going on for about 30 min since he woke up. 4. PATTERN It has been constant, doesn't get worse with exertion. 5. TAP: Regular fast rate 6. HEART RATE: 104 7. RECURRENT SYMPTOM: He states if he takes a sulfur antibiotic, he doesn't take them any more. He gets really red and his heart beat really fast. 8. CAUSE: Thinks antibiotic is causing the palpitations. 9. CARDIAC HISTORY: Pt denies heart attack, angina, bypass surgery, angioplasty, or arrhythmia. Pt reports he's had a stroke. 10. OTHER SYMPTOMS: Pt denies dizziness, chest pain, sweating, or difficulty breathing. Pt reports to his skin being red, elevated HR, temp 99.6, and just feeling funny after waking up from taking the Levaquin for his swollen testicle. Pt went to [facility] ER for testicle. 11. : N/A Protocols used: Heart Rate and Heartbeat [id number] documented in this encounter [facility] 06-16-2023 Miscellaneous Notes Patient notified of results, verbalized understanding. Violette Ortiz MA Please notify patient that urine culture showed mixture of bacteria which suggests possible contamination upon collection. Advise her to finish the antibiotic if it is helping her symptoms but if not, then she will need to return to provide another specimen. Advise to follow up with urology Thank you. Jeri Denise APRN.IFEANYI documented in this encounter [facility] 06-15-2023 Note HNO ID: [id number] Author: Jeri Denise APRN.GREASE PRESS HELPER Service: ? Author Type: Nurse Practitioner Type: Progress Notes Filed: 06/15/2023 9:42 AM Note Text: Subjective The history is provided by the patient. No sign language translator was used. HPI Mike Juarez is a 87 year old male who presents today for CC of urinary frequency and cloudy urine for 2 days. He denies any fever, chills, backache, vomiting. Patient does straight cath due to BPH. Treated for uti first of May with Macrobid didn't feel it got rid of it. He does see a urologist. Has used augmentin and amoxicillin in the past with good results. BP 174/79 Pulse 92 Temp 36.4 ?C (97.6 ?F) Resp 18 Wt 118.4 kg (261 lb) SpO2 98% BMI 39.10 kg/m? 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 Gastrointestinal: Negative for abdominal pain. Genitourinary: Negative for dysuria, flank pain, frequency, hematuria and urgency. Objective Physical Exam Vitals and nursing note reviewed. Pulmonary: Effort: Pulmonary effort is normal. Skin: General: Skin is warm and dry. Neurological: Mental Status: He is alert and oriented to person, place, and time. Psychiatric: Mood and Affect: Affect normal. ASSESSMENT/PLAN: 1. Urine frequency - ICD9: 788.41, ICD10: R35.0 (primary diagnosis) - UA DIP, URINE (POC) - URINE CULTURE 2. Acute UTI - ICD9: 599.0, ICD10: N39.0 acute - UA positive for rene esterase and hematuria - Send urine for culture - Begin treatment with augmentin for 7 days Follow up with urologist Diagnosis and treatment plan were discussed and questions were answered to the patient's satisfaction. Pt acknowledged understanding of concepts and follow up plan. Specific signs and symptoms that would indicate the need for higher level of care were discussed in detail warranting prompt ER evaluation. Jeri Denise APRN.CNP [facility] 06-15-2023 Instructions Jeri Denise APRN.CNP - 06/15/2023 9:33 AM EST Augmentin for 7 days Tylenol/ibuprofen as needed for discomfort Increase hydration Will send urine for culture, if we need to change antibiotic we will call, if you do not hear from us, take all the medication as ordered. -Follow up with PCP or return to clinic if symptoms not improving in 3 days or if you develop any new (or worsening) symptoms such as fever, chills or back pain go to ER. documented in this encounter [facility] 06-15-2023 History of Present illness Narrative Subjective The history is provided by the patient. No sign language translator was used. HPI Mike Juarez is a 87 year old male who presents today for CC of urinary frequency and cloudy urine for 2 days. He denies any fever, chills, backache, vomiting. Patient does straight cath due to BPH. Treated for uti first of May with Macrobid didn't feel it got rid of it. He does see a urologist. Has used augmentin and amoxicillin in the past with good results. 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 Gastrointestinal: Negative for abdominal pain. Genitourinary: Negative for dysuria, flank pain, frequency, hematuria and urgency. Objective Physical Exam Vitals and nursing note reviewed. Pulmonary: Effort: Pulmonary effort is normal. Skin: General: Skin is warm and dry. Neurological: Mental Status: He is alert and oriented to person, place, and time. Psychiatric: Mood and Affect: Affect normal. ASSESSMENT/PLAN: 1. Urine frequency - ICD9: 788.41, ICD10: R35.0 (primary diagnosis) - UA DIP, URINE (POC) - URINE CULTURE 2. Acute UTI - ICD9: 599.0, ICD10: N39.0 acute - UA positive for rene esterase and hematuria - Send urine for culture - Begin treatment with augmentin for 7 days Follow up with urologist Diagnosis and treatment plan were discussed and questions were answered to the patient's satisfaction. Pt acknowledged understanding of concepts and follow up plan. Specific signs and symptoms that would indicate the need for higher level of care were discussed in detail warranting prompt ER evaluation. Jeri Denise APRN.GREASE PRESS HELPER documented in this encounter [facility] 06-09-2023 Note HNO ID: [id number] Author: Benjamín Oconnor APRN.GREASE PRESS HELPER Service: ? Author Type: Nurse Practitioner Type: Progress Notes Filed: 06/09/2023 12:43 PM Note Text: Subjective HPI HPI Mike Juarez is a 87 year old male who presents today for CC of bilat eye pain/intermittent vision change. This started 3 days ago, seems better today. Concerns this is related to new atb. Hx of high eye pressures. Denies trouble breathing, rash, trouble swallowing. Urinary symptoms resolved 3 days ago. .Patient presents with: Eye Pain Both Eyes: X3 days, possible reaction to Macrobid PAST MEDICAL HISTORY Diagnosis Date - Benign neoplasm of colon - Chronic rhinitis - Diverticulosis of colon (without mention of hemorrhage) - Essential hypertension, benign - History of CVA (cerebrovascular accident) brainstem CVA; was at [facility] then [facility]; regained strength - Obesity, unspecified - Other and unspecified hyperlipidemia PAST SURGICAL HISTORY Procedure Laterality Date - COLONOSCOPY FLX DX W/COLLJ SPEC WHEN PFRMD 11/02/2010 Colonoscopy - EXTRACTION, ERUPTED TOOTH OR EXPOSED ROOT (ELEVATION AND/OR FORCEPS REMOVAL) - SIGMOIDOSCOPY FLX DX W/COLLJ SPEC BR/WA IF PFRMD Sigmoidoscopy, flexible - XCAPSL CTRC RMVL INSJ IO LENS PROSTH W/O ECP 11/02/2012 Cataract Extraction with PC IOL - right eye ALLERGIES Bactrim [Sulfamethoxazole], Ceftin [Cefuroxime Axetil], Erythromycin, Hydrochlorothiazide, Latex, Prednisone, and Sulfa (Sulfonamide Antibiotics) MEDICATIONS - nitrofurantoin monohydrate and macrocrystal (MACROBID) 100 mg capsule Take 1 capsule by mouth two times a day for 7 days. - latanoprost (XALATAN) 0.005 % ophthalmic solution Use 1 Drop in both eyes daily at bedtime. - ramipril (ALTACE) 10 mg capsule Take 1 capsule by mouth twice daily. - amLODIPine (NORVASC) 10 mg tablet Take 1 tablet by mouth once daily. Dose change - take one daily. - aspirin(ENTERIC COATED ASPIRIN 325 MG TAB, DELAYED RELEASE) Take one(1) tablet daily. - tamsulosin (FLOMAX) 0.4 mg Take 2 capsules by mouth once daily. (Patient not taking: Reported on 06/03/2023) FAMILY HISTORY Problem Relation Age of Onset - other (Lung Cancer [Other]) Father - other (Leukemia [Other]) Paternal Grandmother - Diabetes Mother - Diabetes Sister Social History Tobacco Use - Smoking status: Never - Smokeless tobacco: Never Substance Use Topics - Alcohol use: No - Drug use: No ROS Objective Blood pressure 169/76, pulse 62, temperature 36.6 ?C (97.8 ?F), resp. rate 18, weight 117.2 kg (258 lb 6.4 oz), SpO2 97 %. Physical Exam Constitutional: General: He is not in acute distress. Appearance: Normal appearance. He is not toxic-appearing. HENT: Right Ear: Hearing, tympanic membrane and external ear normal. Left Ear: Hearing, tympanic membrane, ear canal and external ear normal. Nose: No mucosal edema. Mouth/Throat: Pharynx: Uvula midline. Eyes: General: Right eye: No discharge. Left eye: No discharge. Conjunctiva/sclera: Right eye: Right conjunctiva is not injected. Left eye: Left conjunctiva is not injected. Cardiovascular: Rate and Rhythm: Normal rate and regular rhythm. Heart sounds: Normal heart sounds. Pulmonary: Effort: Pulmonary effort is normal. Breath sounds: Normal breath sounds. Abdominal: General: Bowel sounds are normal. Palpations: Abdomen is soft. Tenderness: There is no abdominal tenderness. Lymphadenopathy: Cervical: Right cervical: No superficial cervical adenopathy. Left cervical: No superficial cervical adenopathy. Comments: No cervical lymphadenopathy bilaterally Skin: General: Skin is warm and dry. Neurological: Mental Status: He is oriented to person, place, and time. ASSESSMENT/PLAN: 1. Eye problem - ICD9: V41.1, ICD10: H57.9 At this point I do not feel this issue is d/t macrobid I will schedule with eye dr today when they open. May stop macrobid as s/s have resolved 3 days ago. Benjamín Oconnor APRN.[facility] 06-09-2023 History of Present illness Narrative Subjective HPI HPI Mike Juarez is a 87 year old male who presents today for CC of bilat eye pain/intermittent vision change. This started 3 days ago, seems better today. Concerns this is related to new atb. Hx of high eye pressures. Denies trouble breathing, rash, trouble swallowing. Urinary symptoms resolved 3 days ago. .Patient presents with: Eye Pain Both Eyes: X3 days, possible reaction to Macrobid PAST MEDICAL HISTORY Diagnosis Date Benign neoplasm of colon Chronic rhinitis Diverticulosis of colon (without mention of hemorrhage) Essential hypertension, benign History of CVA (cerebrovascular accident) brainstem CVA; was at [facility] then [facility]; regained strength Obesity, unspecified Other and unspecified hyperlipidemia PAST SURGICAL HISTORY Procedure Laterality Date COLONOSCOPY FLX DX W/COLLJ SPEC WHEN PFRMD 11/02/2010 Colonoscopy EXTRACTION, ERUPTED TOOTH OR EXPOSED ROOT (ELEVATION AND/OR FORCEPS REMOVAL) SIGMOIDOSCOPY FLX DX W/COLLJ SPEC BR/WA IF PFRMD Sigmoidoscopy, flexible XCAPSL CTRC RMVL INSJ IO LENS PROSTH W/O ECP 11/02/2012 Cataract Extraction with PC IOL - right eye ALLERGIES Bactrim [Sulfamethoxazole], Ceftin [Cefuroxime Axetil], Erythromycin, Hydrochlorothiazide, Latex, Prednisone, and Sulfa (Sulfonamide Antibiotics) MEDICATIONS nitrofurantoin monohydrate and macrocrystal (MACROBID) 100 mg capsule Take 1 capsule by mouth two times a day for 7 days. latanoprost (XALATAN) 0.005 % ophthalmic solution Use 1 Drop in both eyes daily at bedtime. ramipril (ALTACE) 10 mg capsule Take 1 capsule by mouth twice daily. amLODIPine (NORVASC) 10 mg tablet Take 1 tablet by mouth once daily. Dose change - take one daily. aspirin(ENTERIC COATED ASPIRIN 325 MG TAB, DELAYED RELEASE) Take one(1) tablet daily. tamsulosin (FLOMAX) 0.4 mg Take 2 capsules by mouth once daily. (Patient not taking: Reported on 06/03/2023) FAMILY HISTORY Problem Relation Age of Onset other (Lung Cancer [Other]) Father other (Leukemia [Other]) Paternal Grandmother Diabetes Mother Diabetes Sister Social History Tobacco Use Smoking status: Never Smokeless tobacco: Never Substance Use Topics Alcohol use: No Drug use: No ROS Objective Blood pressure 169/76, pulse 62, temperature 36.6 C (97.8 F), resp. rate 18, weight 117.2 kg (258 lb 6.4 oz), SpO2 97 %. Physical Exam Constitutional: General: He is not in acute distress. Appearance: Normal appearance. He is not toxic-appearing. HENT: Right Ear: Hearing, tympanic membrane and external ear normal. Left Ear: Hearing, tympanic membrane, ear canal and external ear normal. Nose: No mucosal edema. Mouth/Throat: Pharynx: Uvula midline. Eyes: General: Right eye: No discharge. Left eye: No discharge. Conjunctiva/sclera: Right eye: Right conjunctiva is not injected. Left eye: Left conjunctiva is not injected. Cardiovascular: Rate and Rhythm: Normal rate and regular rhythm. Heart sounds: Normal heart sounds. Pulmonary: Effort: Pulmonary effort is normal. Breath sounds: Normal breath sounds. Abdominal: General: Bowel sounds are normal. Palpations: Abdomen is soft. Tenderness: There is no abdominal tenderness. Lymphadenopathy: Cervical: Right cervical: No superficial cervical adenopathy. Left cervical: No superficial cervical adenopathy. Comments: No cervical lymphadenopathy bilaterally Skin: General: Skin is warm and dry. Neurological: Mental Status: He is oriented to person, place, and time. ASSESSMENT/PLAN: 1. Eye problem - ICD9: V41.1, ICD10: H57.9 At this point I do not feel this issue is d/t macrobid I will schedule with eye dr today when they open. May stop macrobid as s/s have resolved 3 days ago. Benjamín Oconnor APRN.GREASE PRESS HELPER documented in this encounter [facility] 06-03-2023 Note HNO ID: [id number] Author: Didier Lawrence MD Service: ? Author Type: Physician Type: Progress Notes Filed: 06/03/2023 10:40 AM Note Text: Patient presents with: Urinary Frequency: X2 days HPI: Symptoms for 2 days. Dysuria: No Frequency: Yes. Normally self catheterizes 3 times a day. Has been voiding the last few days. Hematuria: 1 drop of blood Nausea: No Fever or chills: No Back pain: No Abdominal pain: No Prior UTI: Yes Personal history of kidney stones: No MEDICATIONS: Current Outpatient Medications Medication Sig latanoprost (XALATAN) 0.005 % ophthalmic solution Use 1 Drop in both eyes daily at bedtime. ramipril (ALTACE) 10 mg capsule Take 1 capsule by mouth twice daily. amLODIPine (NORVASC) 10 mg tablet Take 1 tablet by mouth once daily. Dose change - take one daily. aspirin(ENTERIC COATED ASPIRIN 325 MG TAB, DELAYED RELEASE) Take one(1) tablet daily. tamsulosin (FLOMAX) 0.4 mg Take 2 capsules by mouth once daily. (Patient not taking: Reported on 06/03/2023) No current facility-administered medications for this visit. ALLERGIES: ALLERGIES Allergen Reactions Bactrim [Sulfametho* Other: See Comments per [facility] ER report 09/28/2012 - increased heart rate and flushing Ceftin [Cefuroxime * Erythromycin Other: See Comments made me sick Hydrochlorothiazide Other: See Comments just felt bad Latex Prednisone Other: See Comments Makes me feel sick Sulfa (Sulfonamide * Unknown, Other: See Comments VITALS: BP 179/77 Pulse (!) 51 Temp 36.1 ?C (96.9 ?F) Resp 18 Wt 119.7 kg (264 lb) SpO2 97% BMI 39.55 kg/m? PHYSICAL EXAM: GEN: NAD HEENT: EOMI, conjunctiva clear, HEART: regular rate and rhythm, no murmurs LUNGS: clear to auscultation, no wheezes or crackles, no increased WOB ABDOMEN: Soft, nondistended, no masses, no suprapubic tenderness BACK: No CVA tenderness Component Latest Ref Rng AND Units 02/07/2023 eGFR >=60 mL/min/1.73mA? 61 ASSESSMENT/PLAN: 1. Urinary frequency - ICD9: 788.41, ICD10: R35.0 - UA positive for rene esterase and hematuria - UA DIP, URINE (POC) Start treatment for UTI - NITROFURANTOIN MONOHYDRATE AND MACROCRYSTAL 100 MG ORAL CAP - URINE CULTURE - discussed he may have colonization which decreases the clarity of significance from bacteria on culture. Didier Lawrence MD [facility] 04-24-2023 Note HNO ID: [id number] Author: Lisette Meneses APRN.OPTICAL MANAGER Service: ? Author Type: Nurse Specialist Type: Progress Notes Filed: 04/24/2023 4:16 PM Note Text: Seen by urologist Dr. Prajapati 03/21/2023. Recommended self-cath. Cipro for possible infection. Return for cystoscopy. See scanned documents. [facility] 03-07-2023 Note HNO ID: [id number] Author: Lisette Meneses APRN.OPTICAL MANAGER Service: ? Author Type: Nurse Specialist Type: Progress Notes Filed: 03/07/2023 9:14 AM Note Text: Subjective There are no preventive care reminders to display for this patient. HPI Mike Juarez is a 87 year old male. 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 Seen at [facility] January 15, 2023 for maroon-colored stools x4 prior to arrival. Concern for GI bleed. Consult to gastroenterology placed. Seen by Dr. Tao. Advised to hold aspirin. Not taking any other anticoagulation type medication. Suspected lower GI bleed due to hemorrhoids or diverticulosis. CT angiography abdomen and pelvis completed. This showed no evidence of acute GI bleeding. Diverticulosis coli and significant distention of the renal collecting system secondary to over distended urinary bladder/chronic bladder outlet obstruction was noted. GI bleeding resolved during admission. Advised to hold aspirin 48 hours. If no further bleeding then may resume. Advised to increase tamsulosin from 0.4 mg daily to 0.8 mg daily. He was advised to follow-up with urology provider in the coming weeks. His blood pressure was noted to be elevated at greater than 200 systolic on arrival and amlodipine dose was increased from 5 to 10 mg daily. Not anemic on labs. BUN/Creatinine within normal limits. Today reports that the maroon-colored stools that he noted prior to going to the hospital is no longer occurring. He does continue to have a small amount of blood on the toilet paper since discharge. He has not resumed aspirin. No report of black or tarry stools nausea vomiting diarrhea constipation. Notes he was advised by Dr. Tao he did not need to follow-up in outpatient setting with gastroenterology. Appointment with urology: Has appointment in January with Dr Prajapati. Has not yet increased his dose of tamsulosin, would like to see urologist first regarding his opinion. States the hospitalist told him that the findings on the CT could be related to congenital changes rather than BPH. Without current urinary complaints. Has not yet increased amlodipine dose. No reported home blood pressure readings. Without report of chest pain shortness of breath dizziness lightheadedness palpitations or edema. Today reports that he continues to have low back pain. Previously was feeling this in the left buttock and radiating down both legs. Now currently just in the SI area and no radiation. Worse with prolonged standing or walking.. He notes back pain consistent with sciatica that is been helped by chiropractor. No PT or HEP recommended. Taking Tylenol for the pain which is described as achy and it is helpful / resolves the pain. Reports x-rays have been completed at the chiropractor's office. He reports remote injury noted lumbar spine, not sure for fracture. He reports continuing to straight cath for urinary retention. Has upcoming follow-up with urologist Dr. Prajapati. Has seen Dr. Tao regarding GIB, no further occurrence. No further testing recommended. Review of Systems Constitutional: Negative. Respiratory: Negative. Cardiovascular: Negative. Gastrointestinal: Positive for blood in stool. Genitourinary: Negative. Objective There were no vitals taken for this visit. Physical Exam Vitals and nursing note reviewed. Constitutional: General: He is not in acute distress. Appearance: Normal appearance. He is well-developed. He is not diaphoretic. HENT: Head: Normocephalic and atraumatic. Eyes: Conjunctiva/sclera: Conjunctivae normal. Cardiovascular: Rate and Rhythm: Normal rate and regular rhythm. Heart sounds: Normal heart sounds. Pulmonary: Effort: Pulmonary effort is normal. Breath sounds: Normal breath sounds. Abdominal: General: Bowel sounds are normal. Palpations: Abdomen is soft. Musculoskeletal: Lumbar back: Tenderness present. Negative right straight leg raise test and negative left straight leg raise test. Right lower leg: No edema. Left lower leg: No edema. Comments: TTP left SI Skin: General: Skin is warm and dry. Neurological: General: No focal deficit present. Mental Status: He is alert and oriented to person, place, and time. ALLERGIES Allergen Reactions Bactrim [Sulfametho* Other: See Comments per [facility] ER report 09/28/2012 - increased heart rate and flushing Ceftin [Cefuroxime * Erythromycin made me sick Hydrochlorothiazide just felt bad Latex Prednisone Other: See Com (more content not included)... [facility] 03-07-2023 Instructions Lisette Meneses APRN.CNS - 03/07/2023 9:00 AM EDT Okay to continue with Tylenol as needed for back pain Okay to continue with chiropractor if getting relief from back pain with your visits Try completing home exercises. Let us know if not improving and wanting to do anything additional. documented in this encounter [facility] 03-07-2023 History of Present illness Narrative Subjective There are no preventive care reminders to display for this patient. HPI Mike Juarez is a 87 year old male. 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 Seen at [facility] January 15, 2023 for maroon-colored stools x4 prior to arrival. Concern for GI bleed. Consult to gastroenterology placed. Seen by Dr. Tao. Advised to hold aspirin. Not taking any other anticoagulation type medication. Suspected lower GI bleed due to hemorrhoids or diverticulosis. CT angiography abdomen and pelvis completed. This showed no evidence of acute GI bleeding. Diverticulosis coli and significant distention of the renal collecting system secondary to over distended urinary bladder/chronic bladder outlet obstruction was noted. GI bleeding resolved during admission. Advised to hold aspirin 48 hours. If no further bleeding then may resume. Advised to increase tamsulosin from 0.4 mg daily to 0.8 mg daily. He was advised to follow-up with urology provider in the coming weeks. His blood pressure was noted to be elevated at greater than 200 systolic on arrival and amlodipine dose was increased from 5 to 10 mg daily. Not anemic on labs. BUN/Creatinine within normal limits. Today reports that the maroon-colored stools that he noted prior to going to the hospital is no longer occurring. He does continue to have a small amount of blood on the toilet paper since discharge. He has not resumed aspirin. No report of black or tarry stools nausea vomiting diarrhea constipation. Notes he was advised by Dr. Tao he did not need to follow-up in outpatient setting with gastroenterology. Appointment with urology: Has appointment in January with Dr Prajapati. Has not yet increased his dose of tamsulosin, would like to see urologist first regarding his opinion. States the hospitalist told him that the findings on the CT could be related to congenital changes rather than BPH. Without current urinary complaints. Has not yet increased amlodipine dose. No reported home blood pressure readings. Without report of chest pain shortness of breath dizziness lightheadedness palpitations or edema. Today reports that he continues to have low back pain. Previously was feeling this in the left buttock and radiating down both legs. Now currently just in the SI area and no radiation. Worse with prolonged standing or walking.. He notes back pain consistent with sciatica that is been helped by chiropractor. No PT or HEP recommended. Taking Tylenol for the pain which is described as achy and it is helpful / resolves the pain. Reports x-rays have been completed at the chiropractor's office. He reports remote injury noted lumbar spine, not sure for fracture. He reports continuing to straight cath for urinary retention. Has upcoming follow-up with urologist Dr. Prajapati. Has seen Dr. Tao regarding GIB, no further occurrence. No further testing recommended. Review of Systems Constitutional: Negative. Respiratory: Negative. Cardiovascular: Negative. Gastrointestinal: Positive for blood in stool. Genitourinary: Negative. Objective There were no vitals taken for this visit. Physical Exam Vitals and nursing note reviewed. Constitutional: General: He is not in acute distress. Appearance: Normal appearance. He is well-developed. He is not diaphoretic. HENT: Head: Normocephalic and atraumatic. Eyes: Conjunctiva/sclera: Conjunctivae normal. Cardiovascular: Rate and Rhythm: Normal rate and regular rhythm. Heart sounds: Normal heart sounds. Pulmonary: Effort: Pulmonary effort is normal. Breath sounds: Normal breath sounds. Abdominal: General: Bowel sounds are normal. Palpations: Abdomen is soft. Musculoskeletal: Lumbar back: Tenderness present. Negative right straight leg raise test and negative left straight leg raise test. Right lower leg: No edema. Left lower leg: No edema. Comments: TTP left SI Skin: General: Skin is warm and dry. Neurological: General: No focal deficit present. Mental Status: He is alert and oriented to person, place, and time. ALLERGIES Allergen Reactions Bactrim [Sulfametho* Other: See Comments per [facility] ER report 09/28/2012 - increased heart rate and flushing Ceftin [Cefuroxime * Erythromycin made me sick Hydrochlorothiazide just felt bad Latex Prednisone Other: See Comments Makes me feel sick Sulfa (Sulfonamide * Unknown Current Outpatient Medications Medication Sig tamsulosin (FLOMAX) 0.4 mg Take 2 capsules by mouth once daily. ramipril (ALTACE) 10 mg capsule Take 1 capsule by mouth twice daily. amLODIPine (NORVASC) 10 mg tablet Take 1 tablet by mouth once daily. Dose change - take one daily. aspirin(ENTERIC COATED ASPIRIN 325 MG TAB, DELAYED RELEASE) Take one(1) tablet daily. No current facility-administered medications for this visit. PAST MEDICAL HISTORY Diagnosis Date Benign neoplasm of colon Chronic rhinitis Diverticulosis of colon (without mention of hemorrhage) Essential hypertension, benign History of CVA (cerebrovascular accident) brainstem CVA; was at [facility] then [facility]; regained strength Obesity, unspecified Other and unspecified hyperlipidemia reports that he has never smoked. He has never used smokeless tobacco. He reports that he does not drink alcohol and does not use drugs. Assessment and Plan ASSESSMENT/PLAN: 1. Acute left-sided low back pain with left-sided sciatica - ICD9: 724.2, 724.3, ICD10: M54.42 (primary diagnosis) She reports back pain present for 6 to 8 weeks has been helped with Tylenol and chiropractic. Reports x-ray completed at chiropractor office, unsure of results other than injury. Declines PT and spine center for now. Consider MRI if needed, not noted on CT abdomen pelvis [facility] recommended-Ortho info spine rehab provided. - CONSULT TO PHYSICAL THERAPY - CONSULT TO [facility] 2. Urinary retention due to benign prostatic hyperplasia - ICD9: 600.91, 788.20, ICD10: N40.1, R33.8 3. Self-catheterizes urinary bladder - ICD9: V49.89, ICD10: Z78.9 Following with urologist, no current complaints 4. BRBPR (bright red blood per rectum) - ICD9: 569.3, ICD10: K62.5 No further incidents, has seen [employer] Lisette Meneses APRN.OPTICAL MANAGER Medical Decision Making: Problems: Low: Acute, uncomplicated illness or injury Risk: Moderate: Drug management Medical Decision Making Level: 3 - Low documented in this encounter [facility] 02-10-2023 Note HNO ID: [id number] Author: Mc Lee APRN.GREASE PRESS HELPER Service: ? Author Type: Nurse Practitioner Type: Progress Notes Filed: 02/10/2023 9:34 AM Note Text: SUBJECTIVE Mike Juarez is a 87 year old male here today for a check up on his medical problems. Chief Complaint Patient presents with: F/U 6 months Derm Problem: two lesion on left forearm HPI Mike Juarez is a 87 year old male established patient of Dr. Tello. Here today for follow up. He was in the hospital in 01/16 discharge. Saw Lisette 01/17. Issues with urinary retention. Working with urology. He is self cathing x2 a day for urinary retention. PSA 1.73. Seeing Dr. Dave. Taking his ASA now. Had a prior stroke. Blood pressure at home is doing well. At home he checks this and it runs 120-130/50-60. Notes with self cathing that urine has a pink tinge but no significant bleeding or passing of clots. Denies any symptoms referable to elevated blood pressure. Specifically denies headache, chest pain, palpitations, dyspnea and peripheral edema. Tolerating medications well. His medications were reviewed today and his list is now up to date. Medications Current Outpatient Medications Medication Sig amLODIPine (NORVASC) 10 mg tablet Take 1 tablet by mouth once daily. Dose change - take one daily. aspirin(ENTERIC COATED ASPIRIN 325 MG TAB, DELAYED RELEASE) Take one(1) tablet daily. tamsulosin (FLOMAX) 0.4 mg Take 2 capsules by mouth once daily. ramipril (ALTACE) 10 mg capsule Take 1 capsule by mouth twice daily. No current facility-administered medications for this visit. 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 Cardiovascular: Negative. OBJECTIVE BP 154/60 Pulse 57 Wt 254 lb (115.2kg) SpO2 98% Physical Exam Vitals and nursing note reviewed. Constitutional: General: He is awake. He is not in acute distress. Appearance: Normal appearance. He is well-developed and well-groomed. He is obese. He is not ill-appearing, toxic-appearing or diaphoretic. HENT: Head: Normocephalic. Right Ear: External ear normal. Left Ear: External ear normal. Nose: Nose normal. Eyes: General: Vision grossly intact. Conjunctiva/sclera: Conjunctivae normal. Pupils: Pupils are equal, round, and reactive to light. Neck: Vascular: No JVD. Trachea: Trachea normal. Cardiovascular: Rate and Rhythm: Normal rate and regular rhythm. Pulses: Normal pulses. Heart sounds: Normal heart sounds. No murmur heard. Pulmonary: Effort: Pulmonary effort is normal. No accessory muscle usage, prolonged expiration or respiratory distress. Breath sounds: Normal breath sounds. Musculoskeletal: Cervical back: Neck supple. Skin: General: Skin is warm and dry. Capillary Refill: Capillary refill takes less than 2 seconds. Neurological: General: No focal deficit present. Mental Status: He is alert and oriented to person, place, and time. Mental status is at baseline. Psychiatric: Attention and Perception: Attention and perception normal. Mood and Affect: Mood and affect normal. Speech: Speech normal. Behavior: Behavior normal. Behavior is cooperative. Thought Content: Thought content normal. Cognition and Memory: Cognition and memory normal. Judgment: Judgment normal. ASSESSMENT/PLAN: 1. BPH associated with nocturia - ICD9: 600.01, 788.43, ICD10: N40.1, R35.1 (primary diagnosis) Discussed the need to increase tamsulosin to 0.8 mg daily, this will help with self cathing. Follow up with urology as scheduled. Planning to discuss possible TURP depending on how self cathing is going. - TAMSULOSIN 0.4 MG CAPSULE 2. Urinary retention due to benign prostatic hyperplasia - ICD9: 600.91, 788.20, ICD10: N40.1, R33.8 See #1 3. Self-catheterizes urinary bladder - ICD9: V49.89, ICD10: Z78.9 See #1 4. Essential hypertension - ICD9: 401.9, ICD10: I10 - Controlled with home readings, suspect a white coat hypertension - Continue current medications (more content not included)... [facility] 01-17-2023 Note HNO ID: [id number] Author: Lisette Meneses APRN.OPTICAL MANAGER Service: ? Author Type: Nurse Specialist Type: Progress Notes Filed: 01/17/2023 10:47 AM Note Text: Subjective There are no preventive care reminders to display for this patient. HPI Mike Juarez is a 87 year old male. 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 Seen at [facility] January 15, 2023 for maroon-colored stools x4 prior to arrival. Concern for GI bleed. Consult to gastroenterology placed. Seen by Dr. Tao. Advised to hold aspirin. Not taking any other anticoagulation type medication. Suspected lower GI bleed due to hemorrhoids or diverticulosis. CT angiography abdomen and pelvis completed. This showed no evidence of acute GI bleeding. Diverticulosis coli and significant distention of the renal collecting system secondary to over distended urinary bladder/chronic bladder outlet obstruction was noted. GI bleeding resolved during admission. Advised to hold aspirin 48 hours. If no further bleeding then may resume. Advised to increase tamsulosin from 0.4 mg daily to 0.8 mg daily. He was advised to follow-up with urology provider in the coming weeks. His blood pressure was noted to be elevated at greater than 200 systolic on arrival and amlodipine dose was increased from 5 to 10 mg daily. Not anemic on labs. BUN/Creatinine within normal limits. Today reports that the maroon-colored stools that he noted prior to going to the hospital is no longer occurring. He does continue to have a small amount of blood on the toilet paper since discharge. He has not resumed aspirin. No report of black or tarry stools nausea vomiting diarrhea constipation. Notes he was advised by Dr. Tao he did not need to follow-up in outpatient setting with gastroenterology. Appointment with urology: Has appointment in January with Dr Prajapati. Has not yet increased his dose of tamsulosin, would like to see urologist first regarding his opinion. States the hospitalist told him that the findings on the CT could be related to congenital changes rather than BPH. Without current urinary complaints. Has not yet increased amlodipine dose. No reported home blood pressure readings. Without report of chest pain shortness of breath dizziness lightheadedness palpitations or edema. Last 14 Encounter BP Readings: Date: BP: 10/29/2022 132/76 08/12/2022 124/68 07/23/2022 142/78 12/07/2021 138/70 07/24/2021 140/80 12/08/2020 132/86 11/13/2020 132/82 05/08/2020 142/72 06/18/2019 150/70[BP Gabe average[ 04/30/2019 148/72 04/05/2019 138/66[BP Gabe average[ 03/23/2019 158/76 11/23/2018 138/70[BP Gabe average[ 11/14/2018 148/88 He notes back pain consistent with sciatica that is been helped by chiropractor. No PT or HEP.Not taking medication for this, prefers not too. He will let us know if not continuing to improve. Reports x-rays have been completed at the chiropractor's office. Review of Systems Constitutional: Negative. Respiratory: Negative. Cardiovascular: Negative. Gastrointestinal: Positive for blood in stool. Genitourinary: Negative. Musculoskeletal: Positive for back pain. Objective BP 162/65 Pulse (!) 50 Resp 16 Wt 114.3 kg (252 lb) BMI 37.75 kg/m? Physical Exam Vitals and nursing note reviewed. Constitutional: General: He is not in acute distress. Appearance: Normal appearance. He is well-developed. He is not diaphoretic. HENT: Head: Normocephalic and atraumatic. Eyes: Conjunctiva/sclera: Conjunctivae normal. Cardiovascular: Rate and Rhythm: Normal rate and regular rhythm. Heart sounds: Normal heart sounds. Pulmonary: Effort: Pulmonary effort is normal. Breath sounds: Normal breath sounds. Abdominal: General: Bowel sounds are normal. Palpations: Abdomen is soft. Musculoskeletal: Right lower leg: No edema. Left lower leg: No edema. Skin: General: Skin is warm and dry. Neurological: General: No focal deficit present. Mental Status: He is alert and oriented to person, place, and time. ALLERGIES Allergen Reactions Bactrim [Sulfametho* Other: See Comments per [facility] ER report 09/28/2012 - increased heart rate and flushing Ceftin [Cefuroxime * Erythromycin made me sick Hydrochlorothiazide just felt bad Latex Prednisone Other: See Comments Makes me feel sick Sulfa (Sulfonamide * Unknown Current Outpatient Medications Medication Sig ramipril (ALTACE) 10 mg capsule Take 1 capsule by mouth twice daily. aspirin(ENTERIC COATED ASPIRIN 325 MG TAB, DELAYED R (more content not included)... [facility] 01-17-2023 Miscellaneous Notes Patient scheduled for an ER follow up 01/17/23. Can discuss medication dose adjustment at appointment. Patient went to [facility] ER on Monday due to elevated BP. Patient was told to check with provider about increased Amlodipine from 0.5 mg to 20 mg. Please advise and call patient. documented in this encounter [facility] 10-29-2022 Note HNO ID: [id number] Author: Benjamín Oconnor APRN.GREASE PRESS HELPER Service: ? Author Type: Nurse Practitioner Type: Progress Notes Filed: 10/29/2022 2:04 PM Note Text: Subjective HPI HPI Mike Juarez is a 87 year old male who presents today for CC of sinus pressure, ear pain. This started 10 days ago. Has tried otc medication for relief. Symptoms are worsened by nothing. No sick exposures. .Patient presents with: Nasal Congestion: Pt reported nasal congestion, (RT) ear pain, x10 days. PAST MEDICAL HISTORY Diagnosis Date Benign neoplasm of colon Chronic rhinitis Diverticulosis of colon (without mention of hemorrhage) Essential hypertension, benign History of CVA (cerebrovascular accident) brainstem CVA; was at [facility] then [facility]; regained strength Obesity, unspecified Other and unspecified hyperlipidemia PAST SURGICAL HISTORY Procedure Laterality Date COLONOSCOPY FLX DX W/COLLJ SPEC WHEN PFRMD 11/02/2010 Colonoscopy EXTRACTION, ERUPTED TOOTH OR EXPOSED ROOT (ELEVATION AND/OR FORCEPS REMOVAL) SIGMOIDOSCOPY FLX DX W/COLLJ SPEC BR/WA IF PFRMD Sigmoidoscopy, flexible XCAPSL CTRC RMVL INSJ IO LENS PROSTH W/O ECP 11/02/2012 Cataract Extraction with PC IOL - right eye ALLERGIES Bactrim [Sulfamethoxazole], Ceftin [Cefuroxime Axetil], Erythromycin, Hydrochlorothiazide, Latex, Prednisone, and Sulfa (Sulfonamide Antibiotics) MEDICATIONS tamsulosin (FLOMAX) 0.4 mg Take 1 capsule by mouth once daily. amLODIPine (NORVASC) 5 mg tablet Take 1 tablet by mouth daily at bedtime. ramipril (ALTACE) 10 mg capsule Take 1 capsule by mouth twice daily. aspirin(ENTERIC COATED ASPIRIN 325 MG TAB, DELAYED RELEASE) Take one(1) tablet daily. FAMILY HISTORY Problem Relation Age of Onset other (Lung Cancer [Other]) Father other (Leukemia [Other]) Paternal Grandmother Diabetes Mother Diabetes Sister Social History Tobacco Use Smoking status: Never Smokeless tobacco: Never Substance Use Topics Alcohol use: No Drug use: No Review of Systems Constitutional: Negative for fever. HENT: Positive for congestion, sinus pain and sore throat. Negative for ear pain and nosebleeds. Respiratory: Positive for cough. Negative for shortness of breath and wheezing. Musculoskeletal: Negative for neck pain. Objective Blood pressure 132/76, pulse 63, temperature 36.2 ?C (97.2 ?F), temperature source Tympanic, resp. rate 16, weight 115 kg (253 lb 9.6 oz), SpO2 96 %. Component Latest Ref Rng AND Units 08/08/2022 Protein, Total 6.3 - 8.0 g/dL 6.4 Albumin 3.9 - 4.9 g/dL 3.9 Calcium 8.5 - 10.2 mg/dL 9.3 Bilirubin, Total 0.2 - 1.3 mg/dL 0.5 Alkaline Phosphatase 38 - 113 U/L 78 AST 14 - 40 U/L 18 ALT 10 - 54 U/L 17 Glucose 74 - 99 mg/dL 96 BUN 9 - 24 mg/dL 19 Creatinine 0.73 - 1.22 mg/dL 1.15 Sodium 136 - 144 mmol/L 144 Potassium 3.7 - 5.1 mmol/L 4.5 Chloride 97 - 105 mmol/L 106 (H) CO2 22 - 30 mmol/L 26 Anion Gap 9 - 18 mmol/L 12 eGFR >=60 mL/min/1.73mA? 62 Physical Exam Constitutional: General: He is not in acute distress. Appearance: He is not toxic-appearing or diaphoretic. HENT: Head: Normocephalic and atraumatic. Right Ear: Hearing, tympanic membrane, ear canal and external ear normal. Left Ear: Hearing, tympanic membrane, ear canal and external ear normal. Nose: Right Sinus: Maxillary sinus tenderness present. Left Sinus: Maxillary sinus tenderness present. Mouth/Throat: Pharynx: Uvula midline. No pharyngeal swelling, oropharyngeal exudate, posterior oropharyngeal erythema or uvula swelling. Eyes: General: Lids are normal. No scleral icterus. Right eye: No discharge. Left eye: No discharge. Conjunctiva/sclera: Conjunctivae normal. Pupils: Pupils are equal, round, and reactive to light. Neck: Trachea: Trachea normal. Cardiovascular: Rate and Rhythm: Normal rate and regular rhythm. Heart sounds: Normal heart sounds. Pulmonary: Effort: Pulmonary effort is normal. Breath sounds: Normal breath sounds. Musculoskeletal: Cervical back: Normal range of motion and neck supple. Lymphadenopathy: Cervical: No cervical adenopathy. Right cervical: No superficial cervical adenopathy. Left cervical: No superficial cervical adenopathy. Skin: Findings: No rash. Neurological: Mental Status: He is alert and oriented to person, place, and time. ASSESSMENT/PLAN: 1. Bacterial sinusitis - ICD9: 473.9, 041.9, ICD10: J32.9, B96.89 - Will begin treatment with as per antibiotic as written, see orders - Supportive care with plenty of fluids, rest, and analgesia prn. - Follow up in 3-5 days if symptoms persist or worsen. - AMOXICILLIN 875 MG-POTASSIUM CLAVULANATE 125 MG TABLET - FLUTICASONE PROPIONATE 50 MCG/ACTUATION NASAL SPRAY,SUSPENSION Benjamín Oconnor APRN.[facility] 10-29-2022 History of Present illness Narrative Subjective HPI HPI Mike Juarez is a 87 year old male who presents today for CC of sinus pressure, ear pain. This started 10 days ago. Has tried otc medication for relief. Symptoms are worsened by nothing. No sick exposures. .Patient presents with: Nasal Congestion: Pt reported nasal congestion, (RT) ear pain, x10 days. PAST MEDICAL HISTORY Diagnosis Date Benign neoplasm of colon Chronic rhinitis Diverticulosis of colon (without mention of hemorrhage) Essential hypertension, benign History of CVA (cerebrovascular accident) brainstem CVA; was at [facility] then [facility]; regained strength Obesity, unspecified Other and unspecified hyperlipidemia PAST SURGICAL HISTORY Procedure Laterality Date COLONOSCOPY FLX DX W/COLLJ SPEC WHEN PFRMD 11/02/2010 Colonoscopy EXTRACTION, ERUPTED TOOTH OR EXPOSED ROOT (ELEVATION AND/OR FORCEPS REMOVAL) SIGMOIDOSCOPY FLX DX W/COLLJ SPEC BR/WA IF PFRMD Sigmoidoscopy, flexible XCAPSL CTRC RMVL INSJ IO LENS PROSTH W/O ECP 11/02/2012 Cataract Extraction with PC IOL - right eye ALLERGIES Bactrim [Sulfamethoxazole], Ceftin [Cefuroxime Axetil], Erythromycin, Hydrochlorothiazide, Latex, Prednisone, and Sulfa (Sulfonamide Antibiotics) MEDICATIONS tamsulosin (FLOMAX) 0.4 mg Take 1 capsule by mouth once daily. amLODIPine (NORVASC) 5 mg tablet Take 1 tablet by mouth daily at bedtime. ramipril (ALTACE) 10 mg capsule Take 1 capsule by mouth twice daily. aspirin(ENTERIC COATED ASPIRIN 325 MG TAB, DELAYED RELEASE) Take one(1) tablet daily. FAMILY HISTORY Problem Relation Age of Onset other (Lung Cancer [Other]) Father other (Leukemia [Other]) Paternal Grandmother Diabetes Mother Diabetes Sister Social History Tobacco Use Smoking status: Never Smokeless tobacco: Never Substance Use Topics Alcohol use: No Drug use: No Review of Systems Constitutional: Negative for fever. HENT: Positive for congestion, sinus pain and sore throat. Negative for ear pain and nosebleeds. Respiratory: Positive for cough. Negative for shortness of breath and wheezing. Musculoskeletal: Negative for neck pain. Objective Blood pressure 132/76, pulse 63, temperature 36.2 C (97.2 F), temperature source Tympanic, resp. rate 16, weight 115 kg (253 lb 9.6 oz), SpO2 96 %. Component Latest Ref Rng & Units 08/08/2022 Protein, Total 6.3 - 8.0 g/dL 6.4 Albumin 3.9 - 4.9 g/dL 3.9 Calcium 8.5 - 10.2 mg/dL 9.3 Bilirubin, Total 0.2 - 1.3 mg/dL 0.5 Alkaline Phosphatase 38 - 113 U/L 78 AST 14 - 40 U/L 18 ALT 10 - 54 U/L 17 Glucose 74 - 99 mg/dL 96 BUN 9 - 24 mg/dL 19 Creatinine 0.73 - 1.22 mg/dL 1.15 Sodium 136 - 144 mmol/L 144 Potassium 3.7 - 5.1 mmol/L 4.5 Chloride 97 - 105 mmol/L 106 (H) CO2 22 - 30 mmol/L 26 Anion Gap 9 - 18 mmol/L 12 eGFR >=60 mL/min/1.73m 62 Physical Exam Constitutional: General: He is not in acute distress. Appearance: He is not toxic-appearing or diaphoretic. HENT: Head: Normocephalic and atraumatic. Right Ear: Hearing, tympanic membrane, ear canal and external ear normal. Left Ear: Hearing, tympanic membrane, ear canal and external ear normal. Nose: Right Sinus: Maxillary sinus tenderness present. Left Sinus: Maxillary sinus tenderness present. Mouth/Throat: Pharynx: Uvula midline. No pharyngeal swelling, oropharyngeal exudate, posterior oropharyngeal erythema or uvula swelling. Eyes: General: Lids are normal. No scleral icterus. Right eye: No discharge. Left eye: No discharge. Conjunctiva/sclera: Conjunctivae normal. Pupils: Pupils are equal, round, and reactive to light. Neck: Trachea: Trachea normal. Cardiovascular: Rate and Rhythm: Normal rate and regular rhythm. Heart sounds: Normal heart sounds. Pulmonary: Effort: Pulmonary effort is normal. Breath sounds: Normal breath sounds. Musculoskeletal: Cervical back: Normal range of motion and neck supple. Lymphadenopathy: Cervical: No cervical adenopathy. Right cervical: No superficial cervical adenopathy. Left cervical: No superficial cervical adenopathy. Skin: Findings: No rash. Neurological: Mental Status: He is alert and oriented to person, place, and time. ASSESSMENT/PLAN: 1. Bacterial sinusitis - ICD9: 473.9, 041.9, ICD10: J32.9, B96.89 - Will begin treatment with as per antibiotic as written, see orders - Supportive care with plenty of fluids, rest, and analgesia prn. - Follow up in 3-5 days if symptoms persist or worsen. - AMOXICILLIN 875 MG-POTASSIUM CLAVULANATE 125 MG TABLET - FLUTICASONE PROPIONATE 50 MCG/ACTUATION NASAL SPRAY,SUSPENSION Benjamín Oconnor APRN.GREASE PRESS HELPER documented in this encounter [facility] 07-27-2022 Miscellaneous Notes Patient has been identified by name and date of : Yes, Provider Dr Tello Date 07/27/22 Time 1238 pm. Patient phones for refill(s): Requested Prescriptions Pending Prescriptions Disp Refills ramipril (ALTACE) 10 mg capsule 180 capsule 3 Sig: Take 1 capsule by mouth twice daily. Date of last office visit in primary care: 12/07/21 Future visit: 08/12/22 Last 2 Encounter Wt Readings: Date: Wt: 07/23/2022 119.1 kg (262 lb 9.6 oz) 12/07/2021 115.7 kg (255 lb) Previous labs/tests for medication: Blood Pressure: BUN (mg/dL) Date Value 12/08/2020 18 Sodium (mmol/L) Date Value 12/08/2020 141 Last 1 Encounter BP Readings: Date: BP: 07/23/2022 142/78 Please advise. Thank you. Cintia Bermudez RN documented in this encounter [facility] 07-23-2022 History of Present illness Narrative Subjective Sinus Problem Associated symptoms include congestion. Pertinent negatives include no chills, coughing, fever, headaches, myalgias or sore throat. Mike Juarez is a 86 year old male who presents with sinus congestion and sinus pressure, has been present for the past 2 weeks. He has not had a cough or fever. He has been taking nasal spray, sudafed, coricidin, mucinex at home. Review of Systems Constitutional: Negative for chills and fever. HENT: Positive for congestion and sinus pain. Negative for ear pain and sore throat. Respiratory: Negative for cough. Cardiovascular: Negative. Musculoskeletal: Negative for myalgias. Neurological: Negative for headaches. BP 142/78 Pulse 83 Temp 36.7 C (98 F) (Tympanic) Resp 18 Wt 119.1 kg (262 lb 9.6 oz) SpO2 97% BMI 39.34 kg/m PAST MEDICAL HISTORY Diagnosis Date Benign neoplasm of colon Chronic rhinitis Diverticulosis of colon (without mention of hemorrhage) Essential hypertension, benign History of CVA (cerebrovascular accident) brainstem CVA; was at [facility] then [facility]; regained strength Obesity, unspecified Other and unspecified hyperlipidemia PAST SURGICAL HISTORY Procedure Laterality Date COLONOSCOPY FLX DX W/COLLJ SPEC WHEN PFRMD 11/02/2010 Colonoscopy EXTRACTION, ERUPTED TOOTH OR EXPOSED ROOT (ELEVATION AND/OR FORCEPS REMOVAL) SIGMOIDOSCOPY FLX DX W/COLLJ SPEC BR/WA IF PFRMD Sigmoidoscopy, flexible XCAPSL CTRC RMVL INSJ IO LENS PROSTH W/O ECP 11/02/2012 Cataract Extraction with PC IOL - right eye ALLERGIES Bactrim [Sulfamethoxazole], Ceftin [Cefuroxime Axetil], Erythromycin, Hydrochlorothiazide, Latex, and Prednisone MEDICATIONS tamsulosin (FLOMAX) 0.4 mg Take 1 capsule by mouth once daily. amLODIPine (NORVASC) 5 mg tablet Take 1 tablet by mouth daily at bedtime. ramipril (ALTACE) 10 mg capsule Take 1 capsule by mouth twice daily. aspirin(ENTERIC COATED ASPIRIN 325 MG TAB, DELAYED RELEASE) Take one(1) tablet daily. amoxicillin-clavulanic acid (AUGMENTIN) 875-125 mg per tablet Take 1 tablet by mouth twice daily for 5 days. FAMILY HISTORY Problem Relation Age of Onset other (Lung Cancer [Other]) Father other (Leukemia [Other]) Paternal Grandmother Diabetes Mother Diabetes Sister Social History Tobacco Use Smoking status: Never Smokeless tobacco: Never Substance Use Topics Alcohol use: No Drug use: No Objective Physical Exam Vitals and nursing note reviewed. Constitutional: Appearance: Normal appearance. HENT: Right Ear: Tympanic membrane, ear canal and external ear normal. Left Ear: Tympanic membrane, ear canal and external ear normal. Nose: Nasal tenderness, mucosal edema, congestion and rhinorrhea present. Mouth/Throat: Mouth: Mucous membranes are moist. Pharynx: Oropharynx is clear. Uvula midline. No oropharyngeal exudate or posterior oropharyngeal erythema. Cardiovascular: Rate and Rhythm: Normal rate and regular rhythm. Heart sounds: Normal heart sounds. Pulmonary: Effort: Pulmonary effort is normal. No respiratory distress. Breath sounds: Normal breath sounds. No wheezing or rales. Musculoskeletal: Cervical back: Neck supple. Lymphadenopathy: Cervical: No cervical adenopathy. Skin: General: Skin is warm and dry. Findings: No erythema or rash. Neurological: Mental Status: He is alert. ASSESSMENT/PLAN: 1. Bacterial sinusitis - ICD9: 473.9, 041.9, ICD10: J32.9, B96.89 - Will begin treatment with as per antibiotic as written, see orders - Supportive care with plenty of fluids, rest, and analgesia prn. - AMOXICILLIN 875 MG-POTASSIUM CLAVULANATE 125 MG TABLET - continue taking Mucinex - Follow-up with your PCP in 3-5 days if symptoms have not improved or sooner if symptoms worsen - Discussed red flags and need for immediate medical evaluation if any occur. - Discussed supportive care treatment with fluids, rest and analgesia. - Discussed expected course of illness Madison Barkley APRN.CNP documented in this encounter [facility] 07-23-2022 Instructions Madison Barkley APRN.CNP - 07/23/2022 1:55 PM EST Images from the original note were not included. ASSESSMENT/PLAN: 1. Bacterial sinusitis - ICD9: 473.9, 041.9, ICD10: J32.9, B96.89 - Will begin treatment with as per antibiotic as written, see orders - Supportive care with plenty of fluids, rest, and analgesia prn. - AMOXICILLIN 875 MG-POTASSIUM CLAVULANATE 125 MG TABLET - continue taking Mucinex - Follow-up with your PCP in 3-5 days if symptoms have not improved or sooner if symptoms worsen - Discussed red flags and need for immediate medical evaluation if any occur. - Discussed supportive care treatment with fluids, rest and analgesia. - Discussed expected course of illness Madison Barkley APRN.CNP Adult Sinusitis Patient Education What is Sinusitis? Sinusitis [wdfg-tat-psum-tis] is inflammation of the sinuses or swelling of the lining of the sinus cavity or nose. During an infection the sinuses become blocked with fluid causing swelling of the lining of the sinuses. Symptoms: (viral and bacterial infections) Stuffy nose Runny nose Postnasal drip Fever Toothache Headache Tiredness Cough Sore throat Face and head pressure and or pain Common causes: 98% of sinus infections are viral caused by viruses. Risk Factors of Sinusitis Include: Allergies, air pollution, indoor humidity and outdoor temperature changes, andstructural changes in the nose may contribute to sinus pain, pressure and congestion. When to get help? Temperature greater than 100.4 F Symptoms lasting more than 10 days or worsening symptoms greater than 7-10 days. If you do not improve or worsen after a course of antibiotics, you should be re-examined. Diagnosis and Treatment: Your healthcare provider will ask a number of questions about your symptoms and how long they have occurred. If symptoms of sinusitis persist greater than 10 days, it is possible you have a bacterial sinus infection and an antibiotic is prescribed. If it is viral, antibiotics will not help. You may be instructed to take [id number] medications for symptoms. including fever reducers acetaminophen or ibuprofen, nasal saline spray, cough and cold preparations and decongestants as prescribed by the physician, nurse practitioner or physician health information assistant. Self-Care and Prevention: Rest Fluids for hydration Good hand washing Humidifier Avoid smoking and exposure to second hand smoke Avoid sick contacts documented in this encounter [facility] 11-23-2021 Miscellaneous Notes The following approved medication requests have been transmitted electronically. Signed Prescriptions Disp Refills amLODIPine (NORVASC) 5 mg tablet 90 tablet 3 Sig: Take 1 tablet by mouth daily at bedtime. DILMA: No Authorizing Provider: RIAN TELLO MD Patient has been identified by name and date of : Yes Patient phones for refill(s): Pending Prescriptions Disp Refills AMLODIPINE 5 MG TABLET 90 tablet 3 Sig: Take 1 tablet by mouth daily at bedtime. DILMA: No Date of last office visit with pcp: 12-08-20. Next appt: 12-07-21 Last 2 Encounter Wt Readings: Date: Wt: 07/24/2021 117 kg (258 lb) 12/08/2020 113.9 kg (251 lb) Previous labs/tests for medication: Blood Pressure: BUN (mg/dL) Date Value 12/08/2020 18 Sodium (mmol/L) Date Value 12/08/2020 141 Last 1 Encounter BP Readings: Date: BP: 07/24/2021 140/80 Please advise. Thank you. Ermelinda Garrido RN documented in this encounter [facility] documented as of this encounter (statuses as of 03/07/2023) [facility] History of Past illness Narrative* Problem Noted Date Diagnosed Date Resolved Date Special screening for malign ant neoplasms, colon 11/02/2010 02/10/2023 LEFT TONSILLAR CYST 07/23/2007 09/26/19 15 Actinic keratosis 09/29/2006 09/25/2014 Acute, but ill-defined, cere brovascular disease 06/15/2005 04/12/2016 Overview: 2006, left hemiparesis. No residual OVERWEIGHT 09/25/2014 documented as of this encounter (statuses as of 06/09/2023) [facility] History of Past illness Narrative* Problem Noted Date Diagnosed Date Resolved Date Special screening for malign ant neoplasms, colon 11/02/2010 02/10/2023 LEFT TONSILLAR CYST 07/23/2007 09/26/19 15 Actinic keratosis 09/29/2006 09/25/2014 Acute, but ill-defined, cere brovascular disease 06/15/2005 04/12/2016 Overview: 2006, left hemiparesis. No residual OVERWEIGHT 09/25/2014 documented as of this encounter (statuses as of 06/15/2023) [facility] History of Past illness Narrative* Problem Noted Date Diagnosed Date Resolved Date Special screening for malign ant neoplasms, colon 11/02/2010 02/10/2023 LEFT TONSILLAR CYST 07/23/2007 09/26/19 15 Actinic keratosis 09/29/2006 09/25/2014 Acute, but ill-defined, cere brovascular disease 06/15/2005 04/12/2016 Overview: 2006, left hemiparesis. No residual OVERWEIGHT 09/25/2014 documented as of this encounter (statuses as of 06/16/2023) [facility] History of Past illness Narrative* Problem Noted Date Diagnosed Date Resolved Date Special screening for malign ant neoplasms, colon 11/02/2010 02/10/2023 LEFT TONSILLAR CYST 07/23/2007 09/26/19 15 Actinic keratosis 09/29/2006 09/25/2014 Acute, but ill-defined, cere brovascular disease 06/15/2005 04/12/2016 Overview: 2006, left hemiparesis. No residual OVERWEIGHT 09/25/2014 documented as of this encounter (statuses as of 06/29/2023) [facility] History of Past illness Narrative* Problem Noted Date Resolved Date LEFT TONSILLAR CYST 07/23/2007 09/25/2014 Actinic keratosis 09/29/2006 09/25/2014 Acute, but ill-defined, cerebrovascular disease 06/15/2005 04/12/2016 Overview: 2006, left hemiparesis. No residual OVERWEIGHT 09/25/2014 documented as of this encounter (statuses as of 11/23/2021) [facility] History of Past illness Narrative* Problem Noted Date Resolved Date LEFT TONSILLAR CYST 07/23/2007 09/25/2014 Actinic keratosis 09/29/2006 09/25/2014 Acute, but ill-defined, cerebrovascular disease 06/15/2005 04/12/2016 Overview: 2006, left hemiparesis. No residual OVERWEIGHT 09/25/2014 documented as of this encounter (statuses as of 07/28/2022) [facility] History of Past illness Narrative* Problem Noted Date Resolved Date LEFT TONSILLAR CYST 07/23/2007 09/25/2014 Actinic keratosis 09/29/2006 09/25/2014 Acute, but ill-defined, cerebrovascular disease 06/15/2005 04/12/2016 Overview: 2006, left hemiparesis. No residual OVERWEIGHT 09/25/2014 documented as of this encounter (statuses as of 07/29/2022) [place] [id number] History of Past illness Narrative* Problem Noted Date Resolved Date LEFT TONSILLAR CYST 07/23/2007 09/25/2014 Actinic keratosis 09/29/2006 09/25/2014 Acute, but ill-defined, cerebrovascular disease 06/15/2005 04/12/2016 Overview: 2006, left hemiparesis. No residual OVERWEIGHT 09/25/2014 documented as of this encounter (statuses as of 10/29/2022) [place] [id number] History of Past illness Narrative* Problem Noted Date Resolved Date LEFT TONSILLAR CYST 07/23/2007 09/25/2014 Actinic keratosis 09/29/2006 09/25/2014 Acute, but ill-defined, cerebrovascular disease 06/15/2005 04/12/2016 Overview: 2006, left hemiparesis. No residual OVERWEIGHT 09/25/2014 documented as of this encounter (statuses as of 01/17/2023) [facility] Essential hypertension Unspecified essential hypertension [facility] Diagnosis Bacterial sinusitis- Primary Unspecified sinusitis (chronic) [facility] Bacterial sinusitis- Primary Unspecified sinusitis (chronic) [facility] Diagnosis Acute left-sided low back pain with left-sided sciatica- Primary Urinary retention due to benign prostatic hyperplasia Self-catheterizes urinary bladder Other specified conditions influencing health status BRBPR (bright red blood per rectum) Hemorrhage of rectum and anus [facility] Diagnosis Eye problem- Primary Other eye problems [facility] Diagnosis Urine frequency- Primary Urinary frequency Acute UTI Urinary tract infection, site not specified documented in this encounter [facility] Advance Directives No Advanced Directives Records FoundDocuments on File Type Date Recorded Patient Barrel Tester Expl anation Advance Directive(s) 12/15/2020 4:49 PM Documents on File Type Date Recorded Patient Barrel Tester Expl anation Advance Directive(s) 12/15/2020 4:49 PM Reason for Referral Specialty Diagnoses / Procedures Referred By Contac t Referred To Contact [facility] Diagnoses Acute left-sided low back pain with left-sided sciatica Procedures [facility]SULT TO [facility] OFFICE/OUTPATIENT NEW HIGH MDM 60-74 MINUTES Lisette Meneses, TRAFFIC CONTROL SUPERVISOR.OPTICAL MANAGER [address] [place] [address] Referral ID Status Reason Start Date Expiration Date Visits Requested Visits Authorized [id number] Authorized PCP Requested Referral 03/07/2023 03/06/2024 1 1 Specialty Diagnoses / Procedures Referred By Contac t Referred To Contact [facility] Diagnoses Acute left-sided low back pain with left-sided sciatica Procedures CONSULT TO PHYSICAL THERAPY PHYSICAL THERAPY EVALUATION HIGH COMPLEX 45 MINS Lisette Meneses, TRAFFIC CONTROL SUPERVISOR.OPTICAL MANAGER [address] [place] [address] [facility] [address] [place] [address] Referral ID Status Reason Start Date Expiration Date Visits Requested Visits Authorized [id number] Authorized PCP Requested Referral Auto-Generate d Referral 03/07/2023 03/06/2024 99 99 Summary Purpose Family History No Family History Records Found Additional Source Comments Source Comments (unrecognize d section and content) In the event this informatio n is protected by the Federal Confidentiality of Alcohol and Drug Abuse Patient Records regulations: The Federal rules restrict any use of the information to criminally investigate or prosecute any alcohol or drug abuse patient.[facility] the event this information is protected by the Federal Confidentiality of Alcohol and Drug Abuse Patient Records regulations: The Federal rules restrict any use of the information to criminally investigate or prosecute any alcohol or drug abuse patient.[facility] the event this information is protected by the Federal Confidentiality of Alcohol and Drug Abuse Patient Records regulations: The Federal rules restrict any use of the information to criminally investigate or prosecute any alcohol or drug abuse patient.[facility] the event this information is protected by the Federal Confidentiality of Alcohol and Drug Abuse Patient Records regulations: The Federal rules restrict any use of the information to criminally investigate or prosecute any alcohol or drug abuse patient.[facility] the event this information is protected by the Federal Confidentiality of Alcohol and Drug Abuse Patient Records regulations: The Federal rules restrict any use of the information to criminally investigate or prosecute any alcohol or drug abuse patient.[facility] the event this information is protected by the Federal Confidentiality of Alcohol and Drug Abuse Patient Records regulations: The Federal rules restrict any use of the information to criminally investigate or prosecute any alcohol or drug abuse patient.[facility] the event this information is protected by the Federal Confidentiality of Alcohol and Drug Abuse Patient Records regulations: The Federal rules restrict any use of the information to criminally investigate or prosecute any alcohol or drug abuse patient.[facility] the event this information is protected by the Federal Confidentiality of Alcohol and Drug Abuse Patient Records regulations: The Federal rules restrict any use of the information to criminally investigate or prosecute any alcohol or drug abuse patient.[facility] the event this information is protected by the Federal Confidentiality of Alcohol and Drug Abuse Patient Records regulations: The Federal rules restrict any use of the information to criminally investigate or prosecute any alcohol or drug abuse patient.[facility] the event this information is protected by the Federal Confidentiality of Alcohol and Drug Abuse Patient Records regulations: The Federal rules restrict any use of the information to criminally investigate or prosecute any alcohol or drug abuse patient.[facility] Reason for Visit (unrecogniz ed section and content) Reason Comments Sinus Problem Sinus pressure and p ain, eyes hurt and stuffiness x 2 weeks Reason Onset Date Comments Refill Request 07/27/2022 Reason Comments Nasal Congestion Pt reported nasal co ngestion, (RT) ear pain, x10 days. Reason Comments Patient Update Patient Question Reason Comments Back Pain Lower back/L hip guadalupe n Reason Comments Eye Pain Both Eyes X3 days, possible re action to Macrobid Reason Comments Urinary Problem Cloudy and frequency x 2 days Reason Comments Results Reason Comments Tachycardia Care Teams (unrecognized sec tion and content) Pipe Bending Machine Operator Relationship Specialty Start Date End Date Rian Tello MD [address] [place], [place] [id number] PCP - General Internal Medicine 03/22/16 Pipe Bending Machine Operator Relationship Specialty Start Date End Date Rian Tello MD [address] [place], [place] [id number] PCP - General Internal Medicine 03/22/16 Pipe Bending Machine Operator Relationship Specialty Start Date End Date Rian Tello MD [address] [place], [place] [id number] PCP - General Internal Medicine 03/22/16 Pipe Bending Machine Operator Relationship Specialty Start Date End Date Rian Tello MD [address] [place], [place] [id number] PCP - General Internal Medicine 03/22/16 Pipe Bending Machine Operator Relationship Specialty Start Date End Date Rian Tello MD [address] [place], [place] [id number] PCP - General Internal Medicine 03/22/16 Pipe Bending Machine Operator Relationship Specialty Start Date End Date Rian Tello MD [address] [place], [place] [id number] PCP - General Internal Medicine 03/22/16 Pipe Bending Machine Operator Relationship Specialty Start Date End Date Rian Tello MD [address] [place], [place] [id number] PCP - General Internal Medicine 03/22/16 Pipe Bending Machine Operator Relationship Specialty Start Date End Date Rian Tlelo MD [address] [place], [place] [id number] PCP - General Internal Medicine 03/22/16 (unrecognized sect ion and content) No Status Records Found INFORMATION SOURCE (unrecogn ized section and content) FOR RECORDS PERTAINING TO PATIENTS WHO ARE OR HAVE BEEN ENROLLED IN A CHEMICAL DEPENDENCY/SUBSTANCEABUSE PROGRAM, SOME INFORMATION MAY BE OMITTED. This clinical summary was aggregated from multiple sources. Caution should be exercised in using it in the provision of clinical care. This summary normalizes information from multiple sources, and as a consequence, information in this document may materially change the coding, format and clinical context of patient data. In addition, data may be omitted in some cases. CLINICAL DECISIONS SHOULD BE BASED ON THE PRIMARY CLINICAL RECORDS. [employer] provides no warranty or guarantee of the accuracy or completeness of information in this document.
[2023-08-30] MEDS: Lactated Ringers 1,000 ML 15 ML IV ×2 (06:16→08:30)
[2023-08-30] MEDS: Cefazolin 2 GM in 0.9% Normal Saline (100mL Bag) 100 ML IV (07:28)
--- NOTE | 2023-08-30 08:44 | HP.PCM_ITS ---
HPI - General General Date of Service: 08/30/23 Chief Complaint: BPH with retention of urine HPI Narrative MIKE ETIENNE, is a 87 M who presents for transurethral section of prostate and retention of urine has been using self intermittent catheterization has been getting recurrent infections over the plan to proceed with a [facility] Medical History Benign neoplasm of colon Cardiology follow-up encounter Cataracts, bilateral Diverticulosis Essential (primary) hypertension History of cerebrovascular accident (2003) Hyperlipidemia Loss of hearing Lumbar region somatic dysfunction Non-smoker Obesity Prostate disease Right bundle branch block (RBBB) Segmental and somatic dysfunction of lumbar region Segmental and somatic dysfunction of pelvic region Segmental and somatic dysfunction of thoracic region Self-catheterizes urinary bladder Stroke/cerebrovascular accident Wears glasses Home Medications aspirin 325 mg tablet 325 mg PO DAILY@0800 06/22/16 [History Last Taken 08/22/23] ramipril 5 mg capsule 10 mg PO BID 06/22/16 [History Last Taken 08/30/23] amlodipine 10 mg tablet 10 mg PO DAILY@DINNER #30 tabs 01/16/23 [Rx Last Taken 08/29/23] tamsulosin 0.4 mg capsule 0.8 mg (2 x 0.4 mg) PO DAILY #60 caps 01/16/23 [Rx Last Taken 08/29/23] latanoprost 0.005 % eye drops 1 drp ophthalmic (eye) DAILY 08/15/23 [History Last Taken Unknown] cephalexin 500 mg capsule 500 mg PO TID #15 caps 08/30/23 [Rx Last Taken Unknown] Allergy/AdvReac Type Severity Reaction Status Date / Time levofloxacin [From Levaquin] Allergy Intermediate Rash Verified 08/30/23 05:54 latex Allergy Unknown Verified 08/30/23 05:54 Sulfa (Sulfonamide Allergy Unknown Verified 08/30/23 05:54 Antibiotics) erythromycin base AdvReac Unknown Verified 08/30/23 05:54 hydrochlorothiazide AdvReac Unknown Verified 08/30/23 05:54 prednisone AdvReac Unknown Verified 08/30/23 05:54 Family History Other Heart disease Hypertension Surgical History H/O tooth extraction History of cataract extraction with lens replacement Social History Smoking Status: Never smoker alcohol intake: never substance use type: does not use what type of physical activity do you participate in: none Vital Signs Vital Signs Vital Signs: 08/30/23 05:55 08/30/23 05:55 Temperature 97.5 F L Temperature Source Temporal Pulse Rate 65 Respiratory Rate 20 H Respiratory Pattern Normal Blood Pressure 186/81 H Blood Pressure Mean 116 Blood Pressure Source Monitor Blood Pressure Position Semi-Fowlers Blood Pressure Location Right Arm Pulse Ox 98 Oxygen Delivery Method Room Air Weight Weight: 115 kg Body Mass Index (BMI) 38.5 Results Lab / Micro Data 08/16/23 07:25 08/16/23 07:25
--- NOTE | 2023-08-30 08:45 | DCINST_ITS ---
Discharge Instructions Diet Discharge Diet: No restrictions Activity Discharge Activity: Return to Normal Activity and May Not Drive (while taking narcotic pain medications.) Dressing / Incision Call your doctor if you observe: Fever of 101 or Higher Follow Up Care Please Follow Up With: Ashkan Dave MD When: Call [phone] for an appointment Test Results: Test results from this visit will be discussed in further detail at your follow- up appointment, if applicable. Discharge Plan Admission Primary Reason for Your Visit: turp Attending Provider: Ashkan Dave Primary Care Provider: Aleisha Tello Discharge Orders/Prescriptions Prescriptions: New cephalexin 500 mg capsule 500 mg PO TID Qty: 15 0RF Continued ramipril 5 MG capsule 10 mg PO BID amlodipine 10 mg Tablet 10 mg PO DAILY@DINNER Qty: 30 0RF tamsulosin 0.4 mg capsule 0.8 mg PO DAILY Qty: 60 0RF latanoprost 0.005 % drops 1 drp ophthalmic (eye) DAILY Patient Comments: INSTILL 1 DROP INTO BOTH EYES AT BEDTIME Held aspirin 325 MG tablet 325 mg PO DAILY@0800 Hold Instructions: Resume on 09/13/23. Other Ambulatory Orders: 12 Lead EKG (Routine) Timeframe: [id number] Location: None Selected Ordered By: Dr. Thomas Rodrigues Referrals / Follow Up: Aleisha Tello MD [Primary Care Provider] - Disposition Disposition (needs filled in before D/C Order can be placed): Home, Self Care
--- NOTE | 2023-08-30 08:45 | PCM.OPRPT ---
Report of Operation Date of Procedure: 08/30/23 Pre-Operative Diagnosis: BPH with retention of urine Post-Operative Diagnosis: The same Surgery/Procedure Performed:: Transurethral section of prostate Description of Surgical Findings:: Patient was taken back to the operating room, this is an 87-year-old male who has an enlarged prostate with retention of urine so far we have managed his bladder with self intermittent catheterization he still able to urinate some but not emptying the bladder and also been using self catheters, recently had a bout of infections we talked about the options of doing surgery in the prostate to see if he can go without using catheters and he was willing to proceed and has no guarantees that surgery will work and he may still have to do self intermittent catheterization he does have a very distended poor emptying bladder with muscle weakness. But on cystoscopy he does have a short length prostate but significant BPH with obstruction bilaterally we took about the risk of surgery including risk of bleeding infection risk of incontinence urge incontinence and stress incontinence. Patient was taken back to the operative room at a smooth induction of general anesthesia he was placed in dorsolithotomy position. Penis and testicles were prepped and draped in usual sterile fashion he is uncircumcised, foreskin was not retracted, I then went into the bladder first with a 21 Canadian rigid cystourethroscope the entire length the urethra was free of any scar tissues or abnormalities along the course of the urethra the sphincter was intact the verumontanum was identified and the prostate had obstructive tissue bilaterally and also small median lobe thus causing obstruction. I then removed the cystoscope and went back in with a 24 Canadian noncontinuous flow Olympus bipolar resectoscope and switched over to the medium size loop. Then using the resectoscope I first resected the median lobe very carefully identified the left and right ureter orifice of these were uninvolved inside the bladder he did have a trabeculated bladder with a distended bladder and weakened looking muscle with stretched out bladder. I then resected back to the verumontanum I then resected the right lobe of the prostate, I then resected the left lobe the prostate and then very carefully except resected the anterior part of the prostate making sure not to go beyond the sphincter and the verumontanum I then switched over to the button and smooth out the resection so there is no flapping tissue I then did a flow test and he had a nice wide open flow looked back and the sphincter was intact all the all the obstructive tissue was resected had a nice open channel from the verumontanum all the way to the bladder neck we made sure all the chips were out of the bladder cauterized the bladder to control bleeding and then I put a 24 Canadian continuous-flow silicone catheter into the bladder and continuous irrigation anesthetic was reversed he is taken back to PACU in good condition. Surgeon: Ashkan Dave Type of Anesthesia: General Drains: [address] Admit VTE Documentation VTE Present on Admission: No VTE Mechan Device Prophylaxis: SCD's VTE Pharm Prophylaxis ordered?: No
--- NOTE | 2023-08-30 09:28 | SUR.PHASEI ---
PATIENT AWAITING ROOM ON MS3. REPORT SENT. WILL MONITOR IN PHASE 2, AC 22
[2023-08-30] MEDS: Cefazolin 1 GM/50 ML BAG IV ×2 (15:52→23:31)
[2023-08-30] MEDS: amLODIPine 10 MG Tablet PO (17:41)
[2023-08-30] MEDS: Tamsulosin HCl 0.4 MG Capsule 0.800000000000000044 MG PO (17:41)
[2023-08-30] MEDS: Docusate Sodium 100 MG Capsule 200 MG PO (21:05)
[2023-08-30] MEDS: Ramipril 5 MG Capsule 10 MG PO (21:05)
[2023-08-30] MEDS: 0.9% Normal Saline (1000mL) 1,000 ML 125 ML IV (21:06)
--- NOTE | 2023-08-30 21:42 | CPS ---
Patient refused PAP therapy for the night.
[2023-08-30] MEDS: Ketorolac 15 MG/ML Vial IV (23:29)
[2023-08-31] MEDS: 0.9% Normal Saline (1000mL) 1,000 ML 125 ML IV (05:31)
[2023-08-31 05:37] VITALS: BP 128/99; PULSE 67; RESP 18; TEMP 36.2; O2SAT 96
--- NOTE | 2023-08-31 07:38 | PCM.PN.BLA ---
Progress Note s/p turp d/c home d/c [facility]
[2023-08-31 08:20] VITALS: BP 140/61; PULSE 67; RESP 18; TEMP 36.4; O2SAT 94
[2023-08-31] MEDS: Ramipril 5 MG Capsule 10 MG PO (08:21)
[2023-08-31] MEDS: Docusate Sodium 100 MG Capsule 200 MG PO (08:21)
--- NOTE | 2023-08-31 10:07 | CASEMGMT ---
Patient has order for discharge today. RN CM in to discuss needs at discharge. Patient denies needs or help at discharge. Patient had no further questions or concerns.
[2023-08-31 11:10] VITALS: BP 129/63; PULSE 56; RESP 18; TEMP 36.7; O2SAT 96
== END 2023-08-31 11:20 | disposition home or self-care (01) ==
LOC: SDC 05:22 → AC 05:22 → MS3 12:45
PROVIDERS: Anesthesiology; PCP Internal Medicine; Referring Provider Urology; Visit Provider Urology
PROC: 0VT08ZZ Resection of Prostate, Via Natural or Artificial Opening Endoscopic (ICD-10-PCS; CPT 52601; principal; 2023-08-30 07:20)
DX: N40.1 Benign prostatic hyperplasia with lower urinary tract symptoms (principal); R33.9 Retention of urine, unspecified; E78.5 Hyperlipidemia, unspecified; I10 Essential (primary) hypertension; Z79.82 Long term (current) use of aspirin; Z86.73 Personal history of transient ischemic attack (TIA), and cerebral infarction without residual deficits; N42.9 Disorder of prostate, unspecified; M99.03 Segmental and somatic dysfunction of lumbar region; K57.90 Diverticulosis of intestine, part unspecified, without perforation or abscess without bleeding; I45.10 Unspecified right bundle-branch block
CPT/HCPCS: 52630; 36415; 80048; 85027; 88305; 93005; J7030; J7120; J2405

== ENCOUNTER → 2023-09-19 | Outpatient (CLI) | payer MEDICARE, BC, SELFPAY ==
--- OUTSIDE RECORDS SUMMARY | 2023-09-20 00:13 | XMS RPT_ITS | CCD ---
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 Name Role Phone Elisha CHAHAL, Rian Diaz Primary Care Provider TALAMPAS, RIAN D Primary Care Unavailable TALAMPAS, RIAN D Attending Unavailable TALAMPAS, RIAN D Primary Care Unavailable MARINO, MC Referring Unavailable TALAMPAS, RIAN D Primary Care Unavailable TALAMPAS, RIAN D Primary Care Unavailable TALAMPAS, RIAN D Primary Care Unavailable TALAMPAS, RIAN D Primary Care Unavailable MENESES, LISETTE Attending Unavailable TALAMPAS, RIAN D Primary Care Unavailable MARINO, MC Attending Unavailable TALAMPAS, RIAN D Referring Unavailable TALAMPAS, RIAN D Primary Care Unavailable TALAMPAS, RIAN D Primary Care Unavailable MENESES, LISETTE Attending Unavailable TALAMPAS, RIAN D Primary Care Unavailable TALAMPAS, RIAN D Primary Care Unavailable MARINO, MC Attending Unavailable Allergies Allergy Classification Reported Allergen(s) Allergy Type Date of Onset Reaction(s) Facility (11 sources) Cefuroxime; Translations: [CEFUROXIME AXETIL] Drug Allergy 5 [facility] Work Phone: (11 sources) Erythromycin; Translations: [ERYTHROMYCIN] Drug Allergy 5 Other: See Comments [facility] Work Phone: (11 sources) hydroCHLOROthiaz leia; Translations: [HYDROCHLOROTHIA ZIDE] Drug Allergy 5 Other: See Comments [facility] Work Phone: (13 sources) Latex; Translations: [LATEX] Propensity to adverse reactions 5 Unknown [facility] Work Phone: (11 sources) predniSONE; Translations: [PREDNISONE] Drug Allergy 1 Other: See Comments [facility] (11 sources) Sulfamethoxazole ; Translations: [SULFAMETHOXAZOL E] Drug Allergy 3 Other: See Comments [facility] (8 sources) Sulfonamides (Antibiotic); Translations: [SULFA (SULFONAMIDE ANTIBIOTICS)] Drug Allergy 1 Unknown, Other: See Comments [facility] Medications Current Medications Medication Drug Class(es) Dates [...] with lower urinary tract symptoms] Onset: 01-17-2023 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 [...] 97.59 [degF] Jeri Denise APRN.CNP Work Phone: [facility] 06-15-2023 09:12-0500 Body weight 118.39 kg Jeri Denise APRN.RELIGIOUS ACTIVITIES DIRECTOR Work Phone: [facility] 06-15-2023 09:12-0500 Diastolic blood pressure 79 mm[Hg] Jeri Denise APRN.RELIGIOUS ACTIVITIES DIRECTOR Work Phone: [facility] 06-15-2023 09:12-0500 Heart rate 92 /min Jeri Denise APRN.RELIGIOUS ACTIVITIES DIRECTOR Work Phone: [facility] 06-15-2023 09:12-0500 Respiratory rate 18 /min Jeri Denise APRN.RELIGIOUS ACTIVITIES DIRECTOR Work Phone: [facility] 06-15-2023 09:12-0500 SaO2% (BldA) [Mass fraction] 98 % Jeri Denise APRN.RELIGIOUS ACTIVITIES DIRECTOR Work Phone: [facility] 06-15-2023 09:12-0500 Systolic blood pressure 174 mm[Hg] Jeri Denise APRN.CNP Work Phone: [facility] 06-09-2023 07:17-0500 Body temperature 97.81 [degF] Benjamín Oconnor APRN.RELIGIOUS ACTIVITIES DIRECTOR Work Phone: [facility] 06-09-2023 07:17-0500 Body weight 117.21 kg Benjamín Elvin LIVESTOCK AUCTIONEER.RELIGIOUS ACTIVITIES DIRECTOR Work Phone: [facility] 06-09-2023 07:17-0500 Diastolic blood pressure 76 mm[Hg] Benjamín Elvin LIVESTOCK AUCTIONEER.RELIGIOUS ACTIVITIES DIRECTOR Work Phone: [facility] 06-09-2023 07:17-0500 Heart rate 62 /min Benjamín Elvin LIVESTOCK AUCTIONEER.RELIGIOUS ACTIVITIES DIRECTOR Work Phone: [facility] 06-09-2023 07:17-0500 Respiratory rate 18 /min Benjamín Elvin LIVESTOCK AUCTIONEER.RELIGIOUS ACTIVITIES DIRECTOR Work Phone: [facility] 06-09-2023 07:17-0500 SaO2% (BldA) [Mass fraction] 97 % Benjamín Elvin LIVESTOCK AUCTIONEER.RELIGIOUS ACTIVITIES DIRECTOR Work Phone: [facility] 06-09-2023 07:17-0500 Systolic blood pressure 169 mm[Hg] Benjamín Elvin LIVESTOCK AUCTIONEER.RELIGIOUS ACTIVITIES DIRECTOR Work Phone: [facility] 03-07-2023 08:25-0400 Diastolic blood pressure 74 mm[Hg] Lisette Meneses LIVESTOCK AUCTIONEER.MACHINE BOSS Work Phone: [facility] 03-07-2023 08:25-0400 Heart rate 50 /min Lisette Meneses LIVESTOCK AUCTIONEER.MACHINE BOSS Work Phone: [facility] 03-07-2023 08:25-0400 Systolic blood pressure 153 mm[Hg] Lisette Meneses LIVESTOCK AUCTIONEER.MACHINE BOSS Work Phone: [facility] 03-07-2023 08:05-0400 Body weight 115.67 kg Lisette Meneses LIVESTOCK AUCTIONEER.MACHINE BOSS Work Phone: [facility] 03-07-2023 08:05-0400 Respiratory rate 16 /min Lisette Meneses LIVESTOCK AUCTIONEER.MACHINE BOSS Work Phone: [facility] 03-07-2023 08:05-0400 SaO2% (BldA) [Mass fraction] 97 % Lisette Meneses LIVESTOCK AUCTIONEER.MACHINE BOSS Work Phone: [facility] 10-29-2022 13:24-0400 Body temperature 97.2 [degF] Benjamín Elvin LIVESTOCK AUCTIONEER.RELIGIOUS ACTIVITIES DIRECTOR Work Phone: [facility] 10-29-2022 13:24-0400 Body weight 115.03 kg Benjamín Elvin LIVESTOCK AUCTIONEER.RELIGIOUS ACTIVITIES DIRECTOR Work Phone: [facility] 10-29-2022 13:24-0400 Diastolic blood pressure 76 mm[Hg] Benjamín Elvin LIVESTOCK AUCTIONEER.RELIGIOUS ACTIVITIES DIRECTOR Work Phone: [facility] 10-29-2022 13:24-0400 Heart rate 63 /min Benjamín Elvin LIVESTOCK AUCTIONEER.RELIGIOUS ACTIVITIES DIRECTOR Work Phone: [facility] 10-29-2022 13:24-0400 Respiratory rate 16 /min Benjamín Elvin LIVESTOCK AUCTIONEER.RELIGIOUS ACTIVITIES DIRECTOR Work Phone: [facility] 10-29-2022 13:24-0400 SaO2% (BldA) [Mass fraction] 96 % Benjamín Elvin LIVESTOCK AUCTIONEER.RELIGIOUS ACTIVITIES DIRECTOR Work Phone: [facility] 10-29-2022 13:24-0400 Systolic blood pressure 132 mm[Hg] Benjamín Elvin LIVESTOCK AUCTIONEER.RELIGIOUS ACTIVITIES DIRECTOR Work Phone: [facility] 07-23-2022 13:44-0500 Body temperature 98.01 [degF] Madison Praisler-Wood LIVESTOCK AUCTIONEER.RELIGIOUS ACTIVITIES DIRECTOR Work Phone: [facility] 07-23-2022 13:44-0500 Body weight 119.11 kg Madison Praisler-Wood LIVESTOCK AUCTIONEER.RELIGIOUS ACTIVITIES DIRECTOR Work Phone: [facility] 07-23-2022 13:44-0500 Diastolic blood pressure 78 mm[Hg] Madison Praisler-Wood LIVESTOCK AUCTIONEER.RELIGIOUS ACTIVITIES DIRECTOR Work Phone: [facility] 07-23-2022 13:44-0500 Heart rate 83 /min Madison Praisler-Wood LIVESTOCK AUCTIONEER.RELIGIOUS ACTIVITIES DIRECTOR Work Phone: [facility] 07-23-2022 13:44-0500 Respiratory rate 18 /min Madison Praisler-Wood LIVESTOCK AUCTIONEER.RELIGIOUS ACTIVITIES DIRECTOR Work Phone: [facility] 07-23-2022 13:44-0500 SaO2% (BldA) [Mass fraction] 97 % Madison Barkley APRN.IFEANYI Work Phone: [facility] 07-23-2022 13:44-0500 Systolic blood pressure 142 mm[Hg] Madison Barkley APRN.IFEANYI Work Phone: [facility] Encounters Encounter Date Encounter Type Care Provider Facility Start: 09-01-2023 ambulatory RIAN Joe TELLO Facilit y:[facility] Start: 08-11-2023 End: 08-11-2023 ambulatory RIAN D TALAMPAS Facility:[facility] Start: 08-07-2023 End: 08-08-2023 ambulatory RIAN D TALAMPAS Facility:[facility] Start: 06-28-2023 ambulatory Rian mccullough MD Work Phone: [facility] [place] Procedures Date Procedure Procedure Detail Performing Clinician Start: 06-15-2023 Urnls dip stick/tabl et rgnt auto w/o microscopy Jeri Denise LIVESTOCK AUCTIONEER.IFEANYI Work Phone: Plan of Treatment Date Care Activity Detail Author Start: 11-17-2026 Urine microalbumin profile [facility] Start: 02-07-2026 DIABETES SCREEN DIABETES SCREEN [facility] Start: 02-07-2026 Diabetes Screening Diabetes Screenin g [facility] Start: 08-08-2025 DIABETES SCREEN DIABETES SCREEN [facility] Start: 12-09-2023 DIABETES SCREEN DIABETES SCREEN [facility] Start: 08-12-2023 COVID-19 VACCINE (3 - Booster for Moderna series) COVID-19 VACCINE (3 - Booster for Moderna series) [facility] Immunizations Immunization Date Immunization Notes Care Provider Fa cility 11-21-2022 zoster vaccine recombinant Rian Tello MD Work Phone: [facility] Work Phone: 07-27-2022 zoster vaccine recombinant Benjamín Oconnor APRN.RELIGIOUS ACTIVITIES DIRECTOR Work Phone: [facility] Work Phone: 05-19-2022 influenza (HD-IIV4) vaccine, age 65+ yr, high dose, quadrivalent, PF (FLUZONE HIGH-DOSE) Benjamín Oconnor LIVESTOCK AUCTIONEER.RELIGIOUS ACTIVITIES DIRECTOR Work Phone: [facility] 05-19-2022 influenza, high dose seasonal, preservative-free Madison Praisler-Wood LIVESTOCK AUCTIONEER.RELIGIOUS ACTIVITIES DIRECTOR Work Phone: [facility] Work Phone: 04-28-2021 influenza, high dose seasonal, preservative-free Madison Praisler-Wood LIVESTOCK AUCTIONEER.RELIGIOUS ACTIVITIES DIRECTOR Work Phone: [facility] Work Phone: 09-17-2020 COVID-19 vaccine, fu ll dose (MODERNA) Rian Tello MD Work Phone: [facility] 08-20-2020 COVID-19 vaccine, fu ll dose (MODERNA) Rian Tello MD Work Phone: [facility] 04-28-2020 influenza, high dose seasonal, preservative-free Rian Tello MD Work Phone: [facility] 04-27-2020 influenza (HD-IIV4) vaccine, age 65+ yr, high dose, quadrivalent, PF (FLUZONE HIGH-DOSE) Benjamín Oconnor LIVESTOCK AUCTIONEER.RELIGIOUS ACTIVITIES DIRECTOR Work Phone: [facility] 04-30-2019 influenza, high dose seasonal, preservative-free Rian Tello MD Work Phone: [facility] 04-16-2018 influenza, high dose seasonal, preservative-free Rian Tello MD Work Phone: [facility] 05-07-2017 influenza, high dose seasonal, preservative-free Rian Tello MD Work Phone: [facility] 11-17-2016 tetanus toxoid, redu tobias diphtheria toxoid, and acellular pertussis vaccine, adsorbed Rian Tello MD Work Phone: [facility] Work Phone: 05-12-2016 influenza, high dose seasonal, preservative-free Rian Tello MD Work Phone: [facility] 05-07-2015 influenza, high dose seasonal, preservative-free Rian Tello MD Work Phone: [facility] 09-25-2014 pneumococcal conjuga te vaccine, 13 valent Rian Tello MD Work Phone: [facility] 05-21-2014 influenza, seasonal, injectable Rian Tello MD Work Phone: [facility] Work Phone: 05-28-2013 influenza virus vacc ine, unspecified formulation Rian Tello MD Work Phone: [facility] Work Phone: 06-02-2012 influenza virus vacc ine, unspecified formulation Rian Tello MD Work Phone: [facility] 06-13-2011 influenza virus vacc ine, unspecified formulation Rian Tello MD Work Phone: [facility] 06-13-2011 zoster vaccine, live Rian rocha MD Work Phone: [facility] 04-28-2010 influenza virus vacc sania, unspecified formulation Rian Tello MD Work Phone: [facility] 05-29-2008 influenza virus vacc sania, unspecified formulation Rian Tello MD Work Phone: [facility] Work Phone: 05-29-2007 influenza virus vacc ine, unspecified formulation Rian Tello MD Work Phone: [facility] Work Phone: 04-13-2007 tetanus and diphther ia toxoids, adsorbed, preservative free, for adult use (2 Lf of tetanus toxoid and 2 Lf of diphtheria toxoid) Rian Tello MD Work Phone: [facility] Work Phone: 06-05-2006 influenza virus vacc ine, unspecified formulation Rian Tello MD Work Phone: [facility] 05-19-2005 influenza virus vacc ine, unspecified formulation Rian Tello MD Work Phone: [facility] Work Phone: 02-13-2004 pneumococcal polysaccharide vaccine, 23 valent Rian Tello MD Work Phone: [facility] Work Phone: Payers Date Payer Category Payer Medicare [id number] 2016 Unknown MADDIE SCHMIDT DICARE SUPPLEMENT [id number] 2016-Present [phone] [address] [place] [address] Indemnity [id number] 2016 Unknown MADDIE SCHMIDT DICARE SUPPLEMENT [id number] 2016-Present [phone] [address] [place] [address] Indemnity [id number] 2001 Medicare MEDICARE MEDICAR E A AND B [id number] 2001-Present [phone] [address] [address] [place] [address] Medicare [id number] 2001 Medicare MEDICARE MEDICAR E A AND B [id number] 2001-Present [phone] [place] [address] Medicare [id number] 2001 Medicare [id number] Social History Date Type Detail Facility Tobacco smoking status NHIS Never smoked tobacco [facility] Start: 07-24-2021 End: 06-15-2023 Alcohol intake Current non-drinker of alcohol (finding) [facility] Start: 12-06-2020 History SDOH Alcohol Frequency 1 [facility] Start: 12-06-2020 History SDOH Social Connections Phone 5 [facility] Start: 12-06-2020 History SDOH Social Connections Buddhism 3 [facility] Start: 12-06-2020 History SDOH Social Connections Membership 2 [facility] Start: 12-06-2020 History SDOH Physica l Activity MPS 15 [facility] Start: 12-06-2020 Education 12 [facility] Start: 1935 Sex Assigned At Not on file [facility] Start: 12-06-2020 End: 02-10-2023 History of Social function [place] [facility] Start: 12-06-2020 End: 02-10-2023 Social connection and isolation panel [facility] Do you belong to any clubs or organizations such as religion groups, unions, fraternal or athletic groups, or school groups? No [facility] Are you now , , , , never or living with a partner? [facility] How often to you hav e a drink containing alcohol? Never [facility] Average Number of Drinks Not on file [facility] Do you feel stress - tense, restless, nervous, or anxious, or unable to sleep at night because your mind is troubled all the time - these days [OSQ] Only a little [facility] (I/We) worried wheth er (my/our) food would run out before (I/we) got money to buy more. Never true [facility] Clinical Notes 07-23-2007 to 06-29-2023 Telephone Encounter [...] for his swollen testicle. Pt went to [facility] ER for testicle. 11. : N/A Protocols used: Heart Rate and Heartbeat [id number] documented in this encounter [facility] 06-16-2023 Miscellaneous Notes Patient notified of results, verbalized understanding. Violette Ortiz MA Please notify patient that urine culture showed mixture of bacteria which suggests possible contamination upon collection. Advise her to finish the antibiotic if it is helping her symptoms but if not, then she will need to return to provide another specimen. Advise to follow up with urology Thank you. Jeri Denise APRN.RELIGIOUS ACTIVITIES DIRECTOR documented in this encounter [facility] 06-15-2023 Note HNO ID: [id number] Author: Jeri Denise APRN.IFEANYI Service: ? Author Type: Nurse Practitioner Type: Progress Notes Filed: 06/15/2023 9:42 AM Note Text: Subjective The history is provided by the patient. No computer language coder was used. 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 Jeri Denise APRN.CNP [facility] 06-15-2023 Instructions Jeri Denise APRN.CNP - [...] go to ER. documented in this encounter [facility] 06-15-2023 History of Present illness Narrative Subjective The history is provided by the patient. No computer language coder was used. 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 Jeri Denise APRN.RELIGIOUS ACTIVITIES DIRECTOR documented in this encounter [facility] 06-09-2023 Note HNO ID: [id number] Author: Benjamín Oconnor APRN.RELIGIOUS ACTIVITIES DIRECTOR Service: ? 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 Benjamín Oconnor APRN.RELIGIOUS ACTIVITIES DIRECTOR documented in this encounter [facility] 06-03-2023 Note HNO ID: [id number] Author: Didier Lawrence MD Service: ? Author [...] Reactions Bactrim [Sulfametho* Other: See Comments per [facility] ER report 09/28/2012 - increased heart rate [...] from bacteria on culture. Didier Lawrence MD [facility] 04-24-2023 Note HNO ID: [id number] Author: Lisette Meneses APRN.MACHINE BOSS Service: ? Author Type: Nurse Specialist Type: Progress Notes Filed: 04/24/2023 4:16 PM Note Text: Seen by urologist Dr. Prajapati 03/21/2023. Recommended self-cath. Cipro for possible infection. Return for cystoscopy. See scanned documents. [facility] 03-07-2023 Note HNO ID: [id number] Author: Lisette Meneses APRN.MACHINE BOSS Service: ? Author Type: Nurse Specialist Type: [...] for ER visit follow up. Seen at [facility] January 15, 2023 for maroon-colored stools x4 [...] Reactions Bactrim [Sulfametho* Other: See Comments per [facility] ER report 09/28/2012 - increased heart rate and flushing Ceftin [Cefuroxime * Erythromycin made me sick Hydrochlorothiazide just felt bad Latex Prednisone Other: See Com (more content not included)... [facility] 03-07-2023 Instructions Lisette Meneses APRN.CNS - 03/07/2023 9:00 AM EDT Okay to continue with Tylenol as needed for back pain Okay to continue with chiropractor if getting relief from back pain with your visits Try completing home exercises. Let us know if not improving and wanting to do anything additional. documented in this encounter [facility] 03-07-2023 History of Present illness Narrative Subjective [...] for ER visit follow up. Seen at [facility] January 15, 2023 for maroon-colored stools x4 [...] follow-up with urologist Dr. Prajapati. Has seen DrShaq Tao regarding GIB, no further occurrence. 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 - [...] K62.5 No further incidents, has seen Friend revenue analyst Lisette Meneses APRN.MACHINE BOSS Medical Decision Making: Problems: Low: Acute, uncomplicated illness or injury Risk: Moderate: Drug management Medical Decision Making Level: 3 - Low documented in this encounter [facility] 02-10-2023 Note HNO ID: [id number] Author: Mc Lee APRN.RELIGIOUS ACTIVITIES DIRECTOR Service: ? Author Type: Nurse Practitioner Type: [...] Reactions Bactrim [Sulfametho* Other: See Comments per [facility] ER report 09/28/2012 - increased heart rate [...] Continue current medications (more content not included)... [facility] 01-17-2023 Note HNO ID: [id number] Author: Lisette Meneses APRN.MACHINE BOSS Service: ? Author Type: Nurse Specialist Type: [...] for ER visit follow up. Seen at [facility] January 15, 2023 for maroon-colored stools x4 [...] constipation. Notes he was advised by Dr. Friend he did not need to follow-up in [...] Reactions Bactrim [Sulfametho* Other: See Comments per [facility] ER report 09/28/2012 - increased heart rate and flushing Ceftin [Cefuroxime * Erythromycin made me sick Hydrochlorothiazide just felt bad Latex Prednisone Other: See Comments Makes me feel sick Sulfa (Sulfonamide * Unknown Current Outpatient Medications Medication Sig ramipril (ALTACE) 10 mg capsule Take 1 capsule by mouth twice daily. aspirin(ENTERIC COATED ASPIRIN 325 MG TAB, DELAYED R (more content not included)... [facility] 01-17-2023 Miscellaneous Notes Patient scheduled for an ER follow up 01/17/23. Can discuss medication dose adjustment at appointment. Patient went to [facility] ER on Monday due to elevated BP. Patient was told to check with provider about increased Amlodipine from 0.5 mg to 20 mg. Please advise and call patient. documented in this encounter [facility] 10-29-2022 Note HNO ID: [id number] Author: Benjamín Oconnor APRN.RELIGIOUS ACTIVITIES DIRECTOR Service: ? 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[facility]; regained strength Obesity, unspecified [...] PROPIONATE 50 MCG/ACTUATION NASAL SPRAY,SUSPENSION Benjamín Oconnor APRN.RELIGIOUS ACTIVITIES DIRECTOR documented in this encounter [facility] 07-27-2022 Miscellaneous Notes Patient has been identified [...] Cintia Bermudez RN documented in this encounter [facility] 07-23-2022 History of Present illness Narrative Subjective [...] CVA (cerebrovascular accident) brainstem CVA; 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 Sinusitis [wwwj-kyy-lilk-tis] is inflammation of the sinuses or swelling [...] help. You may be instructed to take qyvy-aty-erppeio medications for symptoms. including fever reducers acetaminophen or ibuprofen, nasal saline spray, cough and cold preparations and decongestants as prescribed by the physician, nurse practitioner or physician ophthalmic surgical assistant. Self-Care and Prevention: Rest Fluids for hydration Good hand washing Humidifier Avoid smoking and exposure to second hand smoke Avoid sick contacts documented in this encounter [facility] 11-23-2021 Miscellaneous Notes The following approved medication [...] Ermelinda Garrido RN documented in this encounter [facility] documented as of this encounter (statuses as of 03/07/2023) [facility]04-[facility]-2011 History of Past illness Narrative* Problem Noted Date Diagnosed Date Resolved Date Special screening for malign ant neoplasms, colon 11/02/2010 02/10/2023 LEFT TONSILLAR CYST 07/23/2007 09/26/19 15 Actinic keratosis 09/29/2006 09/25/2014 Acute, but ill-defined, cere brovascular disease 06/15/2005 04/12/2016 Overview: 2006, left hemiparesis. No residual OVERWEIGHT 09/25/2014 documented as of this encounter (statuses as of 06/09/2023) [facility] History of Past illness Narrative* Problem Noted Date Diagnosed Date Resolved Date Special screening for malign ant neoplasms, colon 11/02/2010 02/10/2023 LEFT TONSILLAR CYST 07/23/2007 09/26/19 15 Actinic keratosis 09/29/2006 09/25/2014 Acute, but ill-defined, cere brovascular disease 06/15/2005 04/12/2016 Overview: 2006, left hemiparesis. No residual OVERWEIGHT 09/25/2014 documented as of this encounter (statuses as of 06/15/2023) [facility] History of Past illness Narrative* Problem Noted Date Diagnosed Date Resolved Date Special screening for malign ant neoplasms, colon 11/02/2010 02/10/2023 LEFT TONSILLAR CYST 07/23/2007 09/26/19 15 Actinic keratosis 09/29/2006 09/25/2014 Acute, but ill-defined, cere brovascular disease 06/15/2005 04/12/2016 Overview: 2006, left hemiparesis. No residual OVERWEIGHT 09/25/2014 documented as of this encounter (statuses as of 06/16/2023) [facility] History of Past illness Narrative* Problem Noted Date Diagnosed Date Resolved Date Special screening for malign ant neoplasms, colon 11/02/2010 02/10/2023 LEFT TONSILLAR CYST 07/23/2007 09/26/19 15 Actinic keratosis 09/29/2006 09/25/2014 Acute, but ill-defined, cere brovascular disease 06/15/2005 04/12/2016 Overview: 2006, left hemiparesis. No residual OVERWEIGHT 09/25/2014 documented as of this encounter (statuses as of 06/29/2023) [facility] History of Past illness Narrative* Problem Noted Date Resolved Date LEFT TONSILLAR CYST 07/23/2007 09/25/2014 Actinic keratosis 09/29/2006 09/25/2014 Acute, but ill-defined, cerebrovascular disease 06/15/2005 04/12/2016 Overview: 2006, left hemiparesis. No residual OVERWEIGHT 09/25/2014 documented as of this encounter (statuses as of 11/23/2021) [facility] History of Past illness Narrative* Problem Noted Date Resolved Date LEFT TONSILLAR CYST 07/23/2007 09/25/2014 Actinic keratosis 09/29/2006 09/25/2014 Acute, but ill-defined, cerebrovascular disease 06/15/2005 04/12/2016 Overview: 2006, left hemiparesis. No residual OVERWEIGHT 09/25/2014 documented as of this encounter (statuses as of 07/28/2022) [place] [id number] History of Past illness Narrative* Problem Noted Date Resolved Date LEFT TONSILLAR CYST 07/23/2007 09/25/2014 Actinic keratosis 09/29/2006 09/25/2014 Acute, but ill-defined, cerebrovascular disease 06/15/2005 04/12/2016 Overview: 2006, left hemiparesis. No residual OVERWEIGHT 09/25/2014 documented as of this encounter (statuses as of 07/29/2022) [place] [address]-31-2007 History of Past illness Narrative* Problem Noted Date Resolved Date LEFT TONSILLAR CYST 07/23/2007 09/25/2014 Actinic keratosis 09/29/2006 09/25/2014 Acute, but ill-defined, cerebrovascular disease 06/15/2005 04/12/2016 Overview: 2006, left hemiparesis. No residual OVERWEIGHT 09/25/2014 documented as of this encounter (statuses as of 10/29/2022) [place] [address]-31-2007 History of Past illness Narrative* Problem Noted Date Resolved Date LEFT TONSILLAR CYST 07/23/2007 09/25/2014 Actinic keratosis 09/29/2006 09/25/2014 Acute, but ill-defined, cerebrovascular disease 06/15/2005 04/12/2016 Overview: 2006, left hemiparesis. No residual OVERWEIGHT 09/25/2014 documented as of this encounter (statuses as of 01/17/2023) [facility] Essential [facility] Unspecified essential [facility] Bacterial sinusitis- Primary Unspecified sinusitis (chronic) [facility] Diagnosis Bacterial sinusitis- Primary Unspecified sinusitis (chronic) [facility] Acute left-sided low back pain with left-sided sciatica- Primary Urinary retention due to benign prostatic hyperplasia Self-catheterizes urinary bladder Other specified conditions influencing health status BRBPR (bright red blood per rectum) Hemorrhage of rectum and anus [facility] Diagnosis Eye problem- Primary Other eye problems [facility] Diagnosis Urine frequency- Primary Urinary frequency Acute UTI Urinary tract infection, site not specified documented in this encounter [facility] Advance Directives No Advanced Directives Records FoundDocuments on File Type Date Recorded Patient 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 Expl anation Advance Directive(s) 12/15/2020 4:49 PM Documents on File Type Date Recorded Patient 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 Expl anation Advance Directive(s) 12/15/2020 4:49 PM Reason for Referral Specialty Diagnoses / Procedures Referred By Contac t Referred To Contact [facility] [place] Diagnoses Acute left-sided low back pain with left-sided sciatica Procedures [facility]ULT TO [facility] OFFICE[facility]OUTPATIENT [facility] MDM 60-74 MINUTES Lisette Meneses, ROYCE.MACHINE BOSS [address] [place] [address] Referral ID Status Reason Start Date Expiration Date Visits Requested Visits Authorized [id number] Authorized PCP Requested Referral 03/07/2023 03/06/2024 1 1 Specialty Diagnoses / Procedures Referred By Contac t Referred To Contact [facility] Diagnoses Acute left-sided low back pain with left-sided sciatica Procedures CONSULT TO PHYSICAL THERAPY PHYSICAL THERAPY EVALUATION HIGH COMPLEX 45 MINS Lisette Meneses, LIVESTOCK AUCTIONEER.MACHINE BOSS [address] [place] [address] [facility] [place] [address] [place] [address] Referral ID Status Reason Start Date Expiration Date Visits Requested Visits Authorized [id number] Authorized PCP Requested Referral Auto-Generate d Referral [...] or prosecute any alcohol or drug abuse patient.[facility] the event this information is protected by the Federal Confidentiality of Alcohol and Drug Abuse Patient Records regulations: The Federal rules restrict any use of the information to criminally investigate or prosecute any alcohol or drug abuse patient.[facility] the event this information is protected by the Federal Confidentiality of Alcohol and Drug Abuse Patient Records regulations: The Federal rules restrict any use of the information to criminally investigate or prosecute any alcohol or drug abuse patient.[facility] the event this information is protected by the Federal Confidentiality of Alcohol and Drug Abuse Patient Records regulations: The Federal rules restrict any use of the information to criminally investigate or prosecute any alcohol or drug abuse patient.[facility] the event this information is protected by the Federal Confidentiality of Alcohol and Drug Abuse Patient Records regulations: The Federal rules restrict any use of the information to criminally investigate or prosecute any alcohol or drug abuse patient.[facility] the event this information is protected by the Federal Confidentiality of Alcohol and Drug Abuse Patient Records regulations: The Federal rules restrict any use of the information to criminally investigate or prosecute any alcohol or drug abuse patient.[facility] the event this information is protected by the Federal Confidentiality of Alcohol and Drug Abuse Patient Records regulations: The Federal rules restrict any use of the information to criminally investigate or prosecute any alcohol or drug abuse patient.[facility] the event this information is protected by the Federal Confidentiality of Alcohol and Drug Abuse Patient Records regulations: The Federal rules restrict any use of the information to criminally investigate or prosecute any alcohol or drug abuse patient.[facility] the event this information is protected by the Federal Confidentiality of Alcohol and Drug Abuse Patient Records regulations: The Federal rules restrict any use of the information to criminally investigate or prosecute any alcohol or drug abuse patient.[facility] the event this information is protected by the Federal Confidentiality of Alcohol and Drug Abuse Patient Records regulations: The Federal rules restrict any use of the information to criminally investigate or prosecute any alcohol or drug abuse patient.[facility] Reason for Visit (unrecogniz ed section and [...] Care Teams (unrecognized sec tion and content) 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 Relationship Specialty Start Date End Date Rian Tello MD [address], [place] [id number] PCP - General Internal Medicine 03/22/16 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 Relationship Specialty Start Date End Date Rian Tello MD [address] [place], [place] [id number] PCP - General Internal Medicine 03/22/16 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 Relationship Specialty Start Date End Date Rian Tello MD [address] [place], [place] [id number] PCP - General Internal Medicine 03/22/16 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 Relationship Specialty Start Date End Date Rian Tello MD [address] [facility], [place] [id number] PCP - General Internal Medicine 03/22/16 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 Relationship Specialty Start Date End Date Rian Tello MD [address] [facility], [place] [id number] PCP - General Internal Medicine 03/22/16 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 [employer] [facility]. provides no warranty or guarantee of the accuracy or completeness of information in this document.
== END | disposition home or self-care (01) ==
LOC: LAB 16:18
PROVIDERS: PCP Internal Medicine; Referring Provider Urology; Visit Provider Urology
DX: R30.0 Dysuria (principal)
CPT/HCPCS: 87077; 87086; 87088; 87186

== ENCOUNTER 2024-08-18 06:01 | Emergency (ER) | payer MEDICARE, BC, SELFPAY ==
[2024-08-18 06:02] VITALS: BP 200/97; PULSE 69; RESP 18; TEMP 36.4; O2SAT 96; BMI 39.9
[2024-08-18] MEDS: Mixture 30 ML Bottle 5 ML TOPICAL (06:40)
[2024-08-18 06:42] VITALS: BP 183/72; PULSE 60; RESP 18; O2SAT 95
--- NOTE | 2024-08-18 07:05 | EDS_ITS ---
HPI History of Present Illness Chief Complaint: Nosebleed Informant: patient Narrative Narrative: Patient is an 88-year-old male with history of hypertension, right bundle branch block and hyperlipidemia presenting with epistaxis. Patient states around 545 he was in the shower when he leaned over and then started having profuse bleeding coming from his right nostril. He packed it and came to the emergency room for further evaluation. He states he never had a nosebleed that bled this much. He notes he does not have humidified oxygen at home. Denies any other complaints at this time. Takes a daily aspirin is not on any blood thinners. I did take his blood pressure medicine prior to arrival (ramipril). [facility] Medical History Loss of hearing Wears glasses Prostate disease Stroke/cerebrovascular accident Non-smoker Cardiology follow-up encounter Self-catheterizes urinary bladder Right bundle branch block (RBBB) Hyperlipidemia Diverticulosis History of cerebrovascular accident (2003) Benign neoplasm of colon Essential (primary) hypertension Obesity Lumbar region somatic dysfunction Segmental and somatic dysfunction of thoracic region Segmental and somatic dysfunction of pelvic region Segmental and somatic dysfunction of lumbar region Cataracts, bilateral Home Medications ?Medication ?Instructions ?Recorded ?Last Taken ?Type aspirin 325 mg tablet 325 mg PO DAILY@0800 06/22/16 08/22/23 History ramipril 5 mg capsule 10 mg PO BID 06/22/16 08/30/23 History latanoprost 0.005 % eye drops 1 drp ophthalmic (eye) DAILY 08/15/23 Unknown History Allergy/AdvReac Type Severity Reaction Status Date / Time levofloxacin (From Levaquin) Allergy Intermediate Rash Verified 08/18/24 06:02 latex Allergy Unknown Verified 08/18/24 06:02 Sulfa (Sulfonamide Allergy Unknown Verified 08/18/24 06:02 Antibiotics) erythromycin base AdvReac Unknown Verified 08/18/24 06:02 hydrochlorothiazide AdvReac Unknown Verified 08/18/24 06:02 prednisone AdvReac Unknown Verified 08/18/24 06:02 Family History Other Heart disease Hypertension Surgical History History of cataract extraction with lens replacement H/O tooth extraction Social History Smoking Status: Never smoker alcohol intake: never substance use type: does not use what type of physical activity do you participate in: none ROS ROS ED Constitutional Constitutional ED: Denies chills Eyes Eyes: Denies blurry vision ENT ENT ED: Reports other Details: Right-sided epistaxis Respiratory/Chest Respiratory/Chest: Denies dyspnea Neurologic Neurologic: Denies headache(s) or weakness Psychiatric Psychiatric: Denies anxiety Hematologic/Lymphatic Hematologic/Lymphatic: Denies easy bleeding or easy bruising EXAM Physical Exam Const Vital Signs: 08/18/24 06:02 08/18/24 06:42 Temperature 97.5 F L Temperature Source Oral Pulse Rate 69 60 Respiratory Rate 18 18 Blood Pressure 200/97 H 183/72 H Blood Pressure Mean 131 109 Pulse Ox 96 95 Oxygen Delivery Method Room Air Room Air Positive well nourished and well developed General Appearance ED: well developed; Negative for pallor HEENT HEENT Narrative: dried blood noted in the right nares. No active bleeding. Exposed superficial vessel of the anterior nasal septum. No active bleeding noted in the oropharynx. Eyes PERRL Neck supple Chest Wall inspection of chest normal and palpation of chest normal Resp normal respiratory effort and clear to auscultation bilaterally Cardio regular rate and regular rhythm Extremity Extremity Narrative: 2+ radial pulses present. Neuro Sensorium / Orientation: alert Psych mental status grossly normal Skin no rashes or lesions noted and no wounds General Skin Exam: Negative for pallor MDM MDM MDM Narrative Medical decision making narrative: Patient evaluated for epistaxis. Bleeding is controlled upon arrival with his's homemade packing. Packing is removed. There is exposed vessel. Angus solution soaked cottonball placed in the nares. After approximately 15 minutes silver nitrate stick used to cauterize the vessel of the anterior right nasal septum. Patient does have slight bleeding during this but it resolves. Patient be monitored for about 10 minutes to ensure no further bleeding then ambulated. If he does well will be discharged home with outpatient follow-up with ENT. Patient counseled on using humidified oxygen and nasal saline given the current dry air and he does not have humidifier at home. Patient's blood pressure does slowly improve while in the emergency room. Do not think this nosebleeds associated with hypertensive emergency the patient does report significant whitecoat hypertension. Blood pressure continues to improve while in the emergency room. Discharge Plan Triage Chief Complaint: Nosebleed ED Provider: Norah Briones Dx/Rx/DC Orders Clinical Impression: Acute anterior epistaxis, Elevated blood pressure reading Instructions: Nosebleed Prescriptions: No Action aspirin 325 MG tablet 325 mg PO DAILY@0800 ramipril 5 MG capsule 10 mg PO BID latanoprost 0.005 % drops 1 drp ophthalmic (eye) DAILY Patient Comments: INSTILL 1 DROP INTO BOTH EYES AT BEDTIME Primary Care Provider: Aleisha Tello Referrals: Didier Greco MD [Med Staff - Active Staff] - 3-5 Days if not improving Aleisha Tello MD [Primary Care Provider] - Activity Restrictions/Additional Instructions: Please use nasal saline and humidified oxygen to help keep the nose moist. Dry air can exacerbate nosebleeds or predispose to them. If you have further bleeding issues please follow-up with ear nose and throat. He given referral. Otherwise he may follow-up with your primary care doctor. Print Language: Northern Irish Disposition Disposition: Home, Self Care
[2024-08-18 08:40] VITALS: BP 176/80; PULSE 89; RESP 18; O2SAT 97
== END 2024-08-18 08:40 | disposition home or self-care (01) ==
PROVIDERS: Emergency Provider Emergency Medicine; PCP Internal Medicine; Visit Provider Emergency Medicine
DX: R04.0 Epistaxis (principal); R03.0 Elevated blood-pressure reading, without diagnosis of hypertension; E78.5 Hyperlipidemia, unspecified; Z86.73 Personal history of transient ischemic attack (TIA), and cerebral infarction without residual deficits; Z79.82 Long term (current) use of aspirin
CPT/HCPCS: 30901; 99282

== ENCOUNTER 2024-08-20 10:12 | Emergency (ER) | payer MEDICARE, BC, SELFPAY ==
[2024-08-20 10:12] VITALS: BP 210/98; PULSE 72; RESP 20; TEMP 35.8; O2SAT 98; BMI 39.2
[2024-08-20 10:40] VITALS: BP 150/90
--- NOTE | 2024-08-20 10:50 | EX.ED.DYSGE1 ---
HPI History of Present Illness Chief Complaint: Nosebleed Narrative Narrative: Patient is a 88-year-old male with a past medical history of CVA, right bundle branch block, hypertension who presents to the emergency department chief complaint of nosebleed. According to the patient he was here recently and was told to follow-up with ears nose and throat. He states this morning his nose started bleeding again he called the ears nose and throat team and states that they cannot get him in until next week therefore he came here for the valuation management. Patient states that he is on aspirin but denies any other blood thinning medication. States that he has been compliant with his blood pressure medication. [facility] Medical History Loss of hearing Wears glasses Prostate disease Stroke/cerebrovascular accident Non-smoker Cardiology follow-up encounter Self-catheterizes urinary bladder Right bundle branch block (RBBB) Hyperlipidemia Diverticulosis History of cerebrovascular accident (2003) Benign neoplasm of colon Essential (primary) hypertension Obesity Lumbar region somatic dysfunction Segmental and somatic dysfunction of thoracic region Segmental and somatic dysfunction of pelvic region Segmental and somatic dysfunction of lumbar region Cataracts, bilateral Medical History no medical history Home Medications ?Medication ?Instructions ?Recorded ?Last Taken ?Type aspirin 325 mg tablet 325 mg PO DAILY@0800 06/22/16 08/22/23 History ramipril 5 mg capsule 10 mg PO BID 06/22/16 08/30/23 History latanoprost 0.005 % eye drops 1 drp ophthalmic (eye) DAILY 08/15/23 Unknown History Allergy/AdvReac Type Severity Reaction Status Date / Time levofloxacin (From Levaquin) Allergy Intermediate Rash Verified 08/20/24 10:14 latex Allergy Unknown Verified 08/20/24 10:14 Sulfa (Sulfonamide Allergy Unknown Verified 08/20/24 10:14 Antibiotics) erythromycin base AdvReac Unknown Verified 08/20/24 10:14 hydrochlorothiazide AdvReac Unknown Verified 08/20/24 10:14 prednisone AdvReac Unknown Verified 08/20/24 10:14 Family History Other Heart disease Hypertension Family History no significant family his Surgical History History of cataract extraction with lens replacement H/O tooth extraction Surgical History no surgical history Social History Smoking Status: Never smoker alcohol intake: never substance use type: does not use what type of physical activity do you participate in: none ROS ROS ED ROS Narrative Constitutional: Denies fevers, chills, headaches, lightness, dizziness Ears nose throat: Complains of nosebleed as noted above Cardiovascular: Denies chest pain Neurological: Denies numbness, weakness, tingling] Skin: Denies rashes or lesions EXAM Physical Exam Narrative Exam Narrative: General: Patient lying in bed rest comfortably did not appear to be in acute distress Head: Atraumatic, normocephalic Eyes, ears, nose, throat: Patient had packing noted in the right nare which was consistent with Kleenex this was removed with large clot removed. Patient blow his nose and he was reevaluated he has no active bleeding noted at this point time Neck: Soft, supple, trachea midline Cardiovascular: Regular rate and rhythm no murmurs gallops rubs noted Respiratory: Clear to auscultation bilaterally Neurological: Patient follow commands knew that he was at [facility] year is 2024 Skin: Warm, dry, intact no rashes or lesions noted Const Vital Signs: 08/20/24 10:12 08/20/24 10:40 Temperature 96.5 F L Temperature Source Temporal Pulse Rate 72 Respiratory Rate 20 H Blood Pressure 210/98 H 150/90 H Blood Pressure Mean 135 110 Pulse Ox 98 Oxygen Delivery Method Room Air MDM MDM MDM Narrative Medical decision making narrative: Patient is a 88-year-old male who presents to the emergency department the chief complaint of epistaxis. On the differential diagnose includes but not limited to anterior epistaxis, posterior epistaxis. Once again the patient is not actively bleeding at this point time he will be observed here in the emergency department. Patient's note from 08/18/2024 was reviewed And at that point in time he was seen and evaluated he had the area because of the rise. He was given ears nose and throat follow-up with instructions to use humidified oxygen, nasal saline. Patient was noted be hypertensive when he originally presented a manual blood pressure was checked and his blood pressure was noted be 150/90. Patient was observed here in the emergency department and on reevaluation at 1310 the patient has had no further epistaxis he ambulated well without any further epistaxis. Patient was encouraged to increase his nasal saline to 3-4 times a day instead of twice a day. He is advised to follow-up with the ears nose and throat team in the outpatient setting. He is encouraged to keep a close eye on his blood pressure and return with worsening symptoms or concerns. He is agreeable this plan he like go home at this point time concerns answered he is discharged home in stable condition. Discharge Plan Triage Chief Complaint: Nosebleed ED Provider: Alexei Rushing Dx/Rx/DC Orders Clinical Impression: Epistaxis Prescriptions: No Action aspirin 325 MG tablet 325 mg PO DAILY@0800 ramipril 5 MG capsule 10 mg PO BID latanoprost 0.005 % drops 1 drp ophthalmic (eye) DAILY Patient Comments: INSTILL 1 DROP INTO BOTH EYES AT BEDTIME Primary Care Provider: Aleisha Tello Referrals: Aleisha Tello MD [Primary Care Provider] - Activity Restrictions/Additional Instructions: Follow-up with the ears nose and throat physician they referred to. Keep a close eye on her blood pressure taking her blood pressure medication as prescribed. Take your blood pressure randomly 2-3 times a day and write this down what the blood pressure was and what time he took it. Take this to your primary care physician for their review to see if they need to make any adjustments to your medications. Return with worsening symptoms or other concerns. Print Language: Greek Disposition Disposition: Home, Self Care
--- NOTE | 2024-08-20 11:22 | CM.ED ---
Social work Reason for referral: validation of advance directives Referral source: case find This SW identified patient's need for advance directives to be validated. This SW did not find any advance directives on patient's chart or eChart. This SW entered patient's room, identifying self and role at [facility]. Patient welcomed visit and patient's , Kirsty, was bedside. Patient confirmed patient's , Kirsty, as patient's primary HCPOA. Patient stated one daughter was patient's secondary HCPOA while another daughter was Kirsty's secondary HCPOA. Patient and patient's agreed to contact their security chief museum and have the advance directives faxed to [facility]. Patient agreed to add one daughter, Alesha Easton, to patient's chart as another emergency contact. Patient's asked that Alesha be added to patient's 's chart as well. Charts updated. This SW provided business card with fax information. No other needs identified at this time. Akiko Palomino, CUSTOMER RELATIONS REPRESENTATIVE, BOX OFFICE AGENT
--- NOTE | 2024-08-20 12:59 | ED.RN ---
Patient ambulated and rested afterwards w/o bleeding
[2024-08-20 13:24] VITALS: BP 150/90; PULSE 72; RESP 20; TEMP 35.8; O2SAT 98
== END 2024-08-20 13:25 | disposition home or self-care (01) ==
PROVIDERS: Emergency Provider Emergency Medicine; PCP Internal Medicine; Visit Provider Emergency Medicine
DX: R04.0 Epistaxis (principal); E78.5 Hyperlipidemia, unspecified; I10 Essential (primary) hypertension; Z86.73 Personal history of transient ischemic attack (TIA), and cerebral infarction without residual deficits
CPT/HCPCS: 99282

== ENCOUNTER 2025-02-26 13:24 | Emergency (ER) | payer MEDICARE, BC, SELFPAY ==
[2025-02-26 13:25] VITALS: BP 203/123; PULSE 108; RESP 22; TEMP 36.2; O2SAT 99; BMI 38.4
--- NOTE | 2025-02-26 13:53 | EKG12_ITS ---
Test Reason : palps Blood Pressure : */* mmHG Vent. Rate : 94 BPM Atrial Rate : 94 BPM P-R Int : 218 ms QRS Dur : 134 ms QT Int : 378 ms P-R-T Axes : 50 42 22 degrees QTcB Int : 472 ms Sinus rhythm with 1st degree A-V block with occasional Premature ventricular complexes Right bundle branch block Abnormal ECG Confirmed by CARLOS CHAHAL, ALEM ([id number]), purchase request editor OWEN GUDINO ([id number]) on 02/27/2025 9:27:13 AM Referred By: Confirmed By: ALEM GONZALEZ MD
--- NOTE | 2025-02-26 13:53 | EX.ED.DYSGE1 ---
HPI History of Present Illness Chief Complaint: Palpitations Detail of Chief Complaint: Palpitations with heart rate to 126 Informant: patient and spouse/S.O. Onset/Context/Timing Onset: Today (Today a couple hours after taking Mucinex DM) and Weeks (Nasal congestion) Context: Sudden Onset Timing: Intermittent Quality: Heart rate up to 126 Location: Cardiovascular Current Severity: Gone Maximum Severity: Moderate Worsened by: Occurred after he took Mucinex DM Relieved by: Not applicable Associated Symptoms Associated Symptoms: None other than feeling his heart beat fast Narrative Narrative: Patient is an 89-year-old male. He has history of hypertension, eustachian tube dysfunction, hearing loss, glaucoma who presents with rapid heart rate after taking Mucinex DM. He states his heart rate was maximum of 126. He had no chest pressure, tightness heaviness or discomfort. He denies shortness of breath. He denied nausea or vomiting. He denied diaphoresis. He denied lightheadedness. Patient states he has had nasal congestion. He seen ENT and has been told more than 1 occasion he does not have an infection. He does have hearing loss. They recommended hearing aids. He also has eustachian tube dysfunction. Patient states he has not felt well for the past couple of weeks. He has not had a documented fever. He does have nasal congestion and postnasal drainage. He denies sore throat. He denies cough. He states he has been seen in urgent care for this and they recommended Sudafed. He was informed the Sudafed may increase his heart rate. He states his normal heart rates in the 40s. Even at 80 this is abnormal for him. Patient denies lightheadedness with standing or sitting. Patient denies leg pain, swelling or discoloration. Prior similar symptoms: No Recent Illness/Hospitalization: Yes (Per HPI narrative) [facility] Medical History Loss of hearing Wears glasses Prostate disease Stroke/cerebrovascular accident Non-smoker Cardiology follow-up encounter Self-catheterizes urinary bladder Right bundle branch block (RBBB) Hyperlipidemia Diverticulosis History of cerebrovascular accident (2003) Benign neoplasm of colon Essential (primary) hypertension Obesity Lumbar region somatic dysfunction Segmental and somatic dysfunction of thoracic region Segmental and somatic dysfunction of pelvic region Segmental and somatic dysfunction of lumbar region Cataracts, bilateral Home Medications ?Medication ?Instructions ?Recorded ?Last Taken ?Type aspirin 325 mg tablet 325 mg PO DAILY@0800 06/22/16 08/22/23 History ramipril 5 mg capsule 10 mg PO BID 06/22/16 08/30/23 History latanoprost 0.005 % eye drops 1 drp ophthalmic (eye) DAILY 08/15/23 Unknown History fluticasone propionate 50 2 spray intranasal DAILY PRN 02/26/25 Unknown History mcg/actuation nasal allergy symptoms spray,suspension (Flonase Allergy Relief) Allergy/AdvReac Type Severity Reaction Status Date / Time levofloxacin (From Levaquin) Allergy Intermediate Rash Verified 02/26/25 13:25 latex Allergy Unknown Verified 02/26/25 13:25 Sulfa (Sulfonamide Allergy Unknown Verified 02/26/25 13:25 Antibiotics) erythromycin base AdvReac Unknown Verified 02/26/25 13:25 hydrochlorothiazide AdvReac Unknown Verified 02/26/25 13:25 prednisone AdvReac Unknown Verified 02/26/25 13:25 Family History Other Heart disease Hypertension Surgical History History of cataract extraction with lens replacement H/O tooth extraction Social History (Updated 02/26/25 @ 13:[address] Mitchel Meza MD) household members: spouse Smoking Status: Never smoker alcohol intake: never substance use type: does not use what type of physical activity do you participate in: none ROS ROS ED Constitutional Constitutional ED: Denies chills, fever(s), subjective or sweats Eyes Eyes: Denies blurry vision or change in vision ENT ENT ED: Reports other Details: Further detailed HPI narrative ; Denies ear pain, rhinorrhea or sore throat Cardiovascular Cardiovascular: Reports palpitations and racing heartbeat; Denies chest pain, orthopnea or paroxysmal nocturnal dyspnea Respiratory/Chest Respiratory/Chest: Denies cough, dyspnea, dyspnea on exertion, orthopnea or paroxysmal nocturnal dyspnea Gastrointestinal Gastrointestinal: Denies abdominal pain or melena Musculoskeletal Musculoskeletal: Denies arthralgias or myalgias Integumentary Denies rash Neurologic Neurologic: Denies weakness Hematologic/Lymphatic Hematologic/Lymphatic: Reports systems reviewed and no addt'l complaints, except as documented EXAM Physical Exam Const Vital Signs: 02/26/25 13:25 02/26/25 13:36 02/26/25 14:12 Temperature 97.2 F L Temperature Source Temporal Pulse Rate 108 H 72 Respiratory Rate 22 H 12 Respiratory Effort Normal Non-Labored Blood Pressure 203/123 H 154/85 H Blood Pressure Mean 149 108 Pulse Ox 99 96 Oxygen Delivery Method Room Air Room Air Positive well nourished and well developed Constitutional Narrative: Patient's vital signs noted. When I was in the room obtaining my history his blood pressure was 156/100. He states his blood pressure is elevated when he goes to his doctors. General Appearance ED: well developed HEENT HEENT Narrative: Nares patent. Some mild clear drainage. Ears are normal. External auditory canals remarkable for cerumen on the left. TMs are normal bilaterally with landmarks noted. Posterior pharynx erythema or exudate. Uvula is midline. There is no deviation tongue with protrusion. Eyes PERRL and EOMs intact bilaterally General Eye ED: Negative for pale conjunctiva or scleral icterus Neck no lymphadenopathy, supple and no JVD Chest Wall inspection of chest normal Resp normal respiratory effort and clear to auscultation bilaterally Cardio regular rate, regular rhythm, S1 normal heart sound, S2 normal heart sound and no murmurs GI normal to inspection, nondistended, normoactive bowel sounds, non-tender, non-distended and no masses; Negative for hepatosplenomegaly Back/Spine Back/Spine Narrative: Inspection of the back is normal. Extremity normal to inspection General Extremety ED: Negative for edema General Extremity: Negative for edema Neuro oriented x3 Sensorium / Orientation: alert Psych mental status grossly normal Skin no rashes or lesions noted, no wounds and skin turgor normal [facility] Lab Data Attestation: I reviewed the patient's lab results. Lab results narrative: Electrolyte panel is unremarkable and specifically potassium is normal. Glucose is slightly elevated 117 with a normal CO2 and anion gap. Labs: Laboratory Results - last 24 hr 02/26/25 14:10 Sodium 139 Potassium 4.7 Chloride 104 Carbon Dioxide 23.6 Anion Gap 11 BUN 24 H Creatinine 1.04 Estim Creat Clear Calc 60.36 Est GFR (MDRD) Non-Af 69 BUN/Creatinine Ratio 22.6 H Glucose 117 H Calcium 9.2 Rhythm Strip Rhythm Strip: Sinus Rhythm Rate: 84 Ectopy: PVC(s) (Occasional to few during my 5 to 10-minute interaction with the patient.) EKG Initial EKG: Attestation: I personally reviewed and interpreted this EKG as follows: Interpretation: Sinus Rhythm (Rate is 94. 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 QRS durations 134 ms. QT durations are 78 ms. [place] is normal. Patient does have a right bundle branch block. This was compared to EKG obtained August 16, 2023. The only difference is the rate. The rate at that ti) Discharge Plan Triage Chief Complaint: Palpitations ED Provider: Mitchel Meza Dx/Rx/DC Orders Clinical Impression: Tachycardia, Essential (primary) hypertension, Hyperlipidemia, Adverse drug reaction, Premature ventricular beats Instructions: ED About Arrhythmias, ED High Blood Pressure Hypertension Prescriptions: No Action aspirin 325 MG tablet 325 mg PO DAILY@0800 ramipril 5 MG capsule 10 mg PO BID latanoprost 0.005 % drops 1 drp ophthalmic (eye) DAILY Patient Comments: INSTILL 1 DROP INTO BOTH EYES AT BEDTIME fluticasone propionate [Flonase Allergy Relief] 50 mcg/actuation spray,suspension 2 spray intranasal DAILY PRN (Reason: allergy symptoms) Rx Instructions: administer into each nostril Primary Care Provider: Aleisha Tello Referrals: Aleisha Tello MD [Primary Care Provider] - As Needed Print Language: Filipino Disposition Disposition: Home, Self Care
[2025-02-26 14:12] VITALS: BP 154/85; PULSE 72; RESP 12; O2SAT 96
[2025-02-26 14:51] LABS: Anion Gap 11 (5-15); BUN 24 mg/dL (4-19); BUN/Creat Ratio 22.6 RATIO (10-20); Calcium,Total 9.2 mg/dL (7.6-11.0); Carbon Dioxide 23.6 mmol/L (21.0-32.0); Chloride 104 mmol/L (98-108); Estimated Creatinine Clearance 60.36 ml/min (50-250); Glucose 117 mg/dL (70-99); Potassium 4.7 mmol/L (3.3-5.1)
[2025-02-26 15:00] VITALS: BP 145/70; PULSE 58; RESP 14; O2SAT 97
[2025-02-26 15:23] VITALS: BP 147/70; PULSE 61; RESP 15; TEMP 36.2; O2SAT 98
== END 2025-02-26 15:30 | disposition home or self-care (01) ==
PROVIDERS: Emergency Provider Emergency Medicine; PCP Internal Medicine; Visit Provider Emergency Medicine
DX: R00.0 Tachycardia, unspecified (principal); R00.2 Palpitations; I49.3 Ventricular premature depolarization; T48.4X5A Adverse effect of expectorants, initial encounter; H91.90 Unspecified hearing loss, unspecified ear; I10 Essential (primary) hypertension; H69.90 Unspecified Eustachian tube disorder, unspecified ear; E78.5 Hyperlipidemia, unspecified
CPT/HCPCS: 80048; 93005; 99284; A4216

== ENCOUNTER → 2025-03-08 | Outpatient (CLI) | payer MEDICARE, BC, SELFPAY ==
--- OUTSIDE RECORDS SUMMARY | 2025-03-08 07:56 | XMS RPT_ITS | CCD ---
Author Organization [facility] CliniSyil Care Team Providers Care Finishing Lab Technician Name Role Phone Rian Prado MD Primary Care Provider Dr. Rian Prado Primary Care Provider Dr. Neena Dior Emergency Provider Dr. Hank Maddox Admit Provider Dr. Hank Maddox Other Provider Dr. Thomas Pablo Attending Provider Dr. Thomas Pablo Other Provider Dr. Carlos Tao Other Provider FriendDr. Gonzalez Attending Provider Rian Prado MD Primary Care Provider Dr. Thomas Pablo Referring Provider Dr. Rian Prado Primary Care Provider Dr. Juan Garcia Attending Provider [phone] Ashkan Dave Referring Provider Rian Prado MD Primary Care Provider Meneses ROTOR PLATE WASHER.PRINT INSPECTOR, Cory Unavailable Marino ROTOR PLATE WASHER.ACID PURIFIER, Mc Unavailable Marino ROTOR PLATE WASHER.ACID PURIFIER, Mc Unavailable Meneses ROTOR PLATE WASHER.PRINT INSPECTOR, Cory Unavailable JEREMY RAM Referring Unavailable RIAN PRADO Primary Care Unavailable TALAMPAS, RIAN D Primary Care Unavailable MADISON BARKLEY Attending Unavailable TALAMPAS, RIAN D Primary Care Unavailable ANGELO CHAMPAGNE Attending Unavailable TALAMPAS, RIAN D Referring Unavailable TALAMPAS, RIAN D Primary Care Unavailable TALAMPAS, RIAN D Referring Unavailable TALAMPAS, RIAN D Primary Care Unavailable CORY MENESES Attending Unavailable TALAMPAS, RIAN D Primary Care Unavailable MARINOMC Attending Unavailable TALAMPAS, RIAN D Primary Care Unavailable CORY MENESES Attending Unavailable TALAMPAS, RIAN D Primary Care Unavailable MARINOMC Attending Unavailable TALAMPAS, RIAN D Primary Care Unavailable TALAMPAS, RIAN D Attending Unavailable TALAMPAS, RIAN D Primary Care Unavailable TALAMPAS, RIAN D Primary Care Unavailable RENE ROACH Attending Unavailable LAURA GOMEZ Referring Unavailable TALAMPAS, RIAN D Primary Care Unavailable JOE OCONNOR Attending Unavailable TALAMPAS, RIAN D Primary Care Unavailable MARINOMC Referring Unavailable TALAMPAS, RIAN D Primary Care Unavailable MC PICHARDO Attending Unavailable TALAMPAS, RIAN D Primary Care Unavailable MARINOMC Referring Unavailable TALAMPAS, RIAN D Primary Care Unavailable TALAMPAS, RIAN D Primary Care Unavailable JEREMY RAM Attending Unavailable Talampas , Dr. Rian Diaz Primary Care Provider [phone] Dr. Mitchel Meza MD Emergency Provider [phone] Norah Briones Attending Unavailable Talampas, Rian D Primary Care Unavailable Alexei Rushing Attending Unavailable Talampas, Rian D Primary Care Unavailable Mitchel Meza Attending Unavailable Talampas, Rian D Primary Care Unavailable Allergies Allergy Classification Reported Allergen(s) Allergy Type Date of Onset Reaction(s) Facility (20 sources) Cefuroxime; Translations: [CEFUROXIME AXETIL] Drug Allergy 06-14-20 [facility] Work Phone: (20 sources) Erythromycin; Translations: [ERYTHROMYCIN] Drug Allergy 06-14-20 Other: See Comments [facility] Work Phone: (20 sources) hydroCHLOROthiazide; Translations: [HYDROCHLOROTHIAZIDE] Drug Allergy 06-14-20 Other: See Comments [facility] Work Phone: (20 sources) Latex; Translations: [LATEX] Propensity to adverse reactions 06-14-20 05 Unknown [facility] Work Phone: (20 sources) predniSONE; Translations: [PREDNISONE] Drug Allergy 07-22-20 11 Other: See Comments [facility] (20 sources) Sulfamethoxazole; Translations: [SULFAMETHOXAZOLE] Drug Allergy 10-03-19 13 Other: See Comments [facility] (20 sources) Sulfonamides (Antibiotic); Translations: [SULFA (SULFONAMIDE ANTIBIOTICS)] Allergy to substance 11-13-19 21 Unknown, Other: See Comments [facility] (4 sources) levoFLOXacin Drug Allergy 06-28-20 23 Rash [facility] Comment on above: felt hr was racing (1 source) Erythromycin Drug Allergy 02-27-20 [facility] (1 source) hydroCHLOROthiazide Drug Allergy 02-27-20 [facility] (1 source) levoFLOXacin Drug Allergy 02-27-20 [facility] (1 source) predniSONE Drug Allergy 02-27-20 [facility] Medications Current Medications Medication Drug Class(es) Dates Sig (Normalized) Sig (Original) amoxicillin 875 mg oral tablet (2 sources) Penicillin-class Antibacterial Start: 01-09-2025 End: 02-14-2025 take 1 tablet by mouth every twelve hours amoxicillin (AMOXIL) 875 mg tablet Take 1 tablet by mouth every 12 hours. 01/09/2025 02/14/2025 Discontinued amoxicillin 875 mg / clavulanate 125 mg oral tablet (5 sources) Penicillin-class Antibacterial Start: 06-15-2023 End: 06-22-2023 take 1 tablet by mouth twice daily amoxicillin-clavul anate potassium (AUGMENTIN) 875-125 mg per tablet Take 1 tablet by mouth two times a day for 7 days. 14 tablet 0 06/15/2023 06/22/2023 Active Start: 10-29-2022 End: 11-05-2022 take 1 tablet by mouth twice daily amoxicillin-clavulanic acid (AUGMENTIN) 875-125 mg per tablet Indications: Bacterial sinusitis Take 1 tablet by mouth twice daily for 7 days. 14 tablet 0 10/29/2022 11/05/2022 Active Start: 07-23-2022 End: 07-28-2022 take 1 tablet by mouth twice daily amoxicillin-clavulanic acid (AUGMENTIN) 875-125 mg per tablet Indications: Bacterial sinusitis Take 1 tablet by mouth twice daily for 5 days. 10 tablet 0 07/23/2022 07/28/2022 Comment on above: Take 1 tablet by kelley th twice daily for 5 days. Take 1 tablet by kelley th twice daily for 7 days. Take 1 tablet by kelley th two times a day for 7 days. aspirin 325 mg oral tablet (20 sources) Platelet Aggregation Inhibitor, Nonsteroidal Anti-inflammatory Drug Start: 06-22-2016 take 1 tablet by mouth once daily Aspirin 325 MG tablet Active 325 mg PO DAILY@0800 June 22, 2016 1:00am Start: 05-13-2008 aspirin(ENTERI C COATED ASPIRIN 325 MG TAB, DELAYED RELEASE) Take one(1) tablet daily. 30 11 05/13/2008 Active Comment on above: Take one(1) tablet d aily. azithromycin 250 mg oral tablet (3 sources) Macrolide Antimicrobial Start: 01-06-20 End: 02-15-20 azithromycin (ZITHROMAX Z-SHANELL) 250 mg tablet Indications: Upper respiratory tract infection, unspecified type , Other acute nonsuppurative otitis media of both ears, recurrence not specified 2 tablets by mouth first day then 1 tablet the next 4 days 6 tablet 01/05/2025 02/14/2025 Discontinued benzonatate 100 mg oral capsule (1 source) Non-narcotic Antitussive Start: 01-06-20 End: 01-16-20 take 2 capsules by mouth three times daily as needed benzonatate (TESSALON PERLE) 100 mg capsule Indications: Upper respiratory tract infection, unspecified type Take 2 capsules by mouth three times a day as needed for up to 10 days. 60 capsule 01/05/2025 01/15/2025 Active brimonidine tartrate 2 mg/ml ophthalmic solution (6 sources) alpha-Adrenergic Agonist Start: 01-01-20 End: 02-15-20 take 1 drop(s) into the eye(s) twice daily brimonidine (ALPHAGAN) 0.2 % ophthalmic solution INSTILL 1 DROP IN BOTH EYES TWICE DAILY DIRECTED 12/31/2024 02/14/2025 Discontinued clotrimazole 10 mg/ml topical cream (1 source) Azole Antifungal Start: 01-06-20 End: 01-20-20 clotrimazole (LOTRIMIN) 1 % cream Indications: Antibiotic-induced yeast infection Apply 1 application to affected area two times a day for 14 days. 85 g 01/05/2025 01/19/2025 Active doxycycline monohydrate 100 mg oral tablet (8 sources) Tetracycline-class Drug Start: 01-04-20 End: 01-11-20 take 1 tablet by mouth twice daily doxycycline monohydrate 100 mg tablet Take 1 tablet by mouth two times a day for 7 days. 14 tablet 01/03/2025 01/10/2025 Active Start: 11-21-2024 End: 11-28-2024 take 1 tablet by mouth twice daily doxycycline (VIBRA-TABS) 100 mg tablet Indications: Sinobronchitis Take 1 tablet by mouth two times a day for 7 days. 14 tablet 11/21/2024 11/28/2024 Active Start: 01-02-2024 End: 01-12-2024 take 1 tablet by mouth twice daily doxycycline (VIBRA-TABS) 100 mg tablet Take 1 tablet by mouth two times a day for 10 days. 20 tablet 0 01/02/2024 01/12/2024 Active Start: 06-28-2023 take 100 mg by mouth twice daily Doxycycline Hyclate Active 100 MG PO TWICE A DAY 12 05June 28, 2023 12:00am fluticasone propionate 0.05 mg/actuat metered dose nasal spray (3 sources) Corticosteroid Start: 02-26-2025 take 50 ug nasal route once daily as needed Fluticasone Propionate (Flonase Allergy Relief) 50 mcg/actuation spray,suspension Active 2 NMA INTRANASAL DAILY as needed for allergy symptoms February 26, 2025 12:00am administer into each nostril Start: 10-29-2022 End: 01-17-2023 take 2 spray(s) by mouth once daily fluticasone (FLONASE) 50 mcg/actuation nasal spray Indications: Bacterial sinusitis Use 2 Sprays in each nostril once daily. Rinse mouth after use. 1 Each 0 10/29/2022 01/17/2023 Discontinued Comment on above: Use 2 Sprays in each nostril once daily. Rinse mouth after use. latanoprost 0.05 mg/ml ophthalmic solution (20 sources) Prostaglandin Analog Start: 08-15-2023 Latanoprost 0.005 % drops Active 1 NMA OPHTHALMIC DAILY August 15, 2023 1:00am Start: 12-23-2022 End: 02-17-2025 take 1 drop(s) into the eye(s) once daily at bedtime latanoprost (XALATAN) 0.005 % ophthalmic solution Use 1 drop in both eyes daily at bedtime. not using this but is using an alternate 02/17/2025 Active Comment on above: Use 1 Drop in both e yes daily at bedtime. levoFLOXacin 500 mg oral tablet (2 sources) Quinolone Antimicrobial Start: take 500 mg by mouth once daily Levofloxacin Active 500 MG PO DAILY 05 02June 28, 2023 12:00am nitrofurantoin, macrocrystals 25 mg / nitrofurantoin, monohydrate 75 mg oral capsule (1 source) Nitrofuran Antibacterial Start: End: take 1 capsule by mouth twice daily nitrofurantoin monohydrate and macrocrystal (MACROBID) 100 mg capsule Indications: Urinary frequency Take 1 capsule by mouth two times a day for 7 days. 14 capsule 0 06/03/2023 06/10/2023 Active Comment on above: Take 1 capsule by [facility] two times a day for 7 days. prazosin 1 mg oral capsule (3 sources) alpha-Adrenergic Svetlana Start: End: take 1 capsule by mouth twice daily prazosin (MINIPRESS) 1 mg cap Indications: Essential hypertension , BPH associated with nocturia Take 1 capsule by mouth two times a day. 60 capsule 2 03/26/2024 04/23/2024 Discontinued 12 hr pseudoephedrine hydrochloride 120 mg extended release oral tablet (1 source) alpha-Adrenergic Agonist Start: 025 End: take 1 tablet by mouth every twelve hours Pseudoephedrine HCl (SUDAFED 12 HOUR) 120 mg TbER Indications: Sinus congestion Take 1 tablet by mouth every 12 hours for 10 days. 20 tablet 01/25/2025 02/04/2025 Active ramipril 10 mg oral capsule (20 sources) Angiotensin Converting Enzyme Inhibitor Start: 023 End: 025 take 1 capsule by mouth twice daily ramipril (ALTACE) 10 mg capsule Take 1 capsule by mouth two times a day. 180 capsule 3 10/21/2024 Active Start: 07-28-2021 End: 07-27-2022 take 1 capsule by mouth twice daily ramipril (ALTACE) 10 mg capsule Take 1 capsule by mouth twice daily. 180 capsule 3 07/27/2022 Active Start: 06-22-2016 take 2 capsules by [facility] twice daily Ramipril 5 MG capsule Active 10 mg PO TWICE A DAY June 22, 2016 1:00am Start: 06-22-2016 take 10 mg by mouth twice clarence y Ramipril Active 10 MG PO TWICE A DAY June 22, 2016 12:00am Start: 06-22-2016 take 5 mg by mouth twice daily Ramipril Active 5 MG PO TWICE A DAY June 22, 2016 1:00am Comment on above: Take 1 capsule by mo ut twice daily. Take 1 capsule by mo [facility] two times a day. spironolactone 25 mg oral tablet (2 sources) Aldosterone Antagonist Start: 02-26-20 End: 03-26-20 take 1 tablet by mouth once daily spironolactone (ALDACTONE) 25 mg tablet Take 1 tablet by mouth once daily. for blood pressure 30 tablet 11 02/26/2024 03/26/2024 Discontinued Completed/Discontinued Medications Medication Drug Class(es) Dates Sig (Normalized) Sig (Original) amLODIPine 10 mg oral tablet (20 sources) Dihydropyridine Calcium Channel Svetlana Start: 01-16-2023 End: 08-18-2024 take 1 tablet by mouth once daily at dinner Amlodipine 10 mg Tablet Discontinued 10 mg PO DAILY@DINNER 30 0 January 16, 2023 12:00am August 18, 2024 7:41am Start: 08-12-2022 End: 01-17-2023 take 1 tablet by mouth once daily at bedtime amLODIPine (NORVASC) 5 mg tablet Indications: Essential hypertension Take 1 tablet by mouth daily at bedtime. 90 tablet 3 08/12/2022 01/17/2023 Discontinued Start: 12-08-2020 End: 11-22-2021 take 1 tablet by mouth once daily at bedtime amLODIPine (NORVASC) 5 mg tablet Indications: Essential hypertension Take 1 tablet by mouth daily at bedtime. 90 tablet 3 11/23/2021 Active Start: 11-20-2018 End: 01-16-2023 take 2 tablets by mouth once daily Amlodipine (Norvasc) 2.5 mg tablet Discontinued 5 mg PO DAILY November 20, 2018 12:00am January 16, 2023 4:52pm Start: 11-20-2018 take 1 tablet by kelley th once daily Amlodipine (Norvasc) 2.5 mg tablet Active 2.5 MG PO DAILY November 20, 2018 12:00am Comment on above: Take 1 tablet by kelley th daily at bedtime. Take 1 tablet by kelley th once daily. Dose change - take one daily. Take 1 tablet by kelley th once daily. cephalexin 500 mg oral capsule (2 sources) Cephalosporin Antibacterial Start : 08-30 End: 08-18 take 1 capsule by mouth three times daily Cephalexin 500 mg capsule Discontinued 500 mg PO THREE TIMES A DAY 15 0 August 30, 2023 1:00am August 18, 2024 7:41am hydroCHLOROthiazide 12.5 mg oral capsule (3 sources) Thiazide Diuretic Start : 02-11 End: 02-25 take 1 capsule by mouth once daily hydroCHLOROthiazide 12.5 mg capsule Indications: Essential hypertension , Bilateral leg edema Take 1 capsule by mouth once daily. 30 capsule 12 02/12/2024 02/26/2024 Discontinued (Side Effects) mupirocin 0.02 mg/mg topical ointment (8 sources) RNA Synthetase Inhibitor Antibacterial Start : 11-20 End: 11-28 Mupirocin 2 % ointment Discontinued TOPICAL 22 7 0 November 20, 2018 12:00am November 28, 2018 2:32pm Start: 11-20-2018 End: 11-28-2018 Mupirocin Discontinued TOPIC AL 22 7 November 19, 2018 11:00pm November 28, 2018 1:32pm tamsulosin hydrochloride 0.4 mg oral capsule (20 sources) alpha-Adrenergic Svetlana Start: 01-16-2023 End: 08-18-2024 take 2 capsules by mouth once daily tamsulosin (FLOMAX) 0.4 mg Indications: BPH associated with nocturia Take 2 capsules by mouth once daily. 180 capsule 3 02/10/2023 03/26/2024 Discontinued Start: 01-16-2023 take 0.8 mg by mouth once clarence y Tamsulosin Active 0.8 MG PO DAILY 60 January 15, 2023 11:00pm Start: 08-12-2022 End: 01-17-2023 take 1 capsule by mouth once daily Tamsulosin 0.4 mg capsule Discontinued 0.4 mg PO DAILY January 15, 2023 12:00am January 16, 2023 4:52pm Start: 12-07-2021 take 1 capsule by mo uth once daily tamsulosin (FLOMAX) 0.4 mg Indications: BPH associated with nocturia Take 1 capsule by mouth once daily. 90 capsule 3 12/07/2021 Active Start: 12-08-2020 take 1 capsule by mo uth once daily tamsulosin (FLOMAX) 0.4 mg Indications: BPH associated with nocturia Take 1 capsule by mouth once daily. 90 capsule 3 12/08/2020 Active Comment on above: Take 1 capsule by mo uth once daily. Take 2 capsules by m outh once daily. Problems Active Problems Problem Classification Problem Date Documented Da te Episodic/Chronic Allergic reactions (4 sources) Allergic reaction; Translations: [Allergy, unspecified, initial encounter] 06-28-2023 Episodic Cardiac dysrhythmias (1 source) Multiple premature ventricular complexes; Translations: [Ventricular premature depolarization] 02-26-2025 Chronic Cardiac dysrhythmias (2 sources) Tachycardia; Translations: [Tachycardia, unspecified] Onset: 5 02-26-2025 Episodic Cataract (2 sources) Unspecified cataract; Translations: [Cataract] Onset: 5 02-17-2025 Chronic Chronic obstructive pulmonary disease and bronchiectasis (1 source) Bronchitis, not specified as acute or chronic; Translations: [Sinobronchitis] Onset: Episodic Conduction disorders (20 sources) Right bundle branch block; Translations: [Unspecified right bundle-branch block] Onset: 0 10-26-2009 Chronic Delirium, dementia, and amnestic and other cognitive disorders (2 sources) Age-related physical debility; Translations: [Senile asthenia] Onset: 5 02-17-2025 Chronic Diabetes mellitus without complication (6 sources) Impaired fasting glycemia; Translations: [Impaired fasting glucose] Onset: 5 09-17-2023 Episodic Disorders of lipid metabolism (20 sources) Hyperlipidemia; Translations: [Other hyperlipidemia] Onset: 5 09-18-2017 Chronic Diverticulosis and diverticulitis (20 sources) Diverticulosis of colon; Translations: [Diverticulosis of large intestine without perforation or abscess without bleeding] 12-20-2005 Chronic E Codes: Adverse effects of medical drugs (2 sources) Adverse effect of unspecified systemic antibiotic, initial encounter; Translations: [Adverse reaction to drug] Onset: 5 02-26-2025 Episodic Essential hypertension (20 sources) Essential hypertension; Translations: [Essential (primary) hypertension] Onset: Chronic Fever of unknown origin (3 sources) Fever; Translations: [Fever, unspecified] Onset: 5 01-03-2025 Episodic Gastrointestinal hemorrhage (19 sources) Gastrointestinal hemorrhage; Translations: [Hemorrhage of anus and rectum] 01-16-2023 Episodic Genitourinary symptoms and ill-defined conditions (1 source) Increased frequency of urination; Translations: [Frequency of micturition] 06-15-2023 Episodic Glaucoma (2 sources) Preglaucoma, unspecified, unspecified eye; Translations: [Preglaucoma, unspecified] Onset: 5 02-17-2025 Chronic Hyperplasia of prostate (3 sources) Retention of urine; Translations: [Benign prostatic hyperplasia with lower urinary tract symptoms] 03-07-202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 (9 sources) Hypertensive urgency ; Translations: [Hypertensive urgency] 01-16-2023 Chronic Inflammatory conditions of male genital organs (9 sources) Acute epididymitis; Translations: [Epididymitis] 06-28-2023 Episodic Mycoses (2 sources) Opportunistic mycosis; Translations: [Candidiasis, unspecified] Onset: 5 01-05-2025 Episodic Other aftercare (1 source) Long-term current use of drug therapy; Translations: [Other jail (current) drug therapy] 08-16-2024 Episodic Other aftercare (1 source) Encounter for therapeutic drug level monitoring; Translations: [Encounter for therapeutic drug monitoring] Onset: 5 Episodic Other aftercare (1 source) Other jail (current) drug therapy; Translations: [Encounter for long-term current use of medication] Onset: 5 Episodic Other circulatory disease (8 sources) Labile hypertension due to being in a clinical environment; Translations: [Elevated blood-pressure reading, without diagnosis of hypertension] 11-12-2020 Episodic Other circulatory disease (2 sources) Personal history of transient ischemic attack (TIA), and cerebral infarction without residual deficits; Translations: [Personal history of TIA (transient ischemic attack)] Onset: 6 Episodic Other circulatory disease (1 source) History of transient ischemic attack; Translations: [Personal history of transient ischemic attack (TIA), and cerebral infarction without residual deficits] 02-17-2025 Episodic Other circulatory disease (1 source) Elevated blood pressure; Translations: [Elevated blood-pressure reading, without diagnosis of hypertension] 08-26-2024 Episodic Other connective tissue disease (1 source) Swelling of right lower limb; Translations: [Other specified soft tissue disorders] 02-06-2024 Episodic Other connective tissue disease (1 source) Pain in bilateral legs; Translations: [Pain in right leg] 02-12-2024 Episodic Other connective tissue disease (1 source) Synovial cyst of right popliteal space; Translations: [Synovial cyst of popliteal space [Roblero], right knee] 08-16-2024 Episodic Other connective tissue disease (1 source) Right achilles tendonitis; Translations: [Achilles tendinitis, right leg] 08-16-2024 Episodic Other diseases of kidney and ureters (7 sources) Hydroureter; Translations: [Hydroureter] 01-16-2023 Episodic Other diseases of kidney and ureters (2 sources) Hydroureter; Translations: [Hydroureter] 01-16-2023 Episodic Other ear and sense organ disorders (1 source) Conductive hearing loss, bilateral; Translations: [Conductive hearing loss, bilateral] Onset: 5 Chronic Other ear and sense organ disorders (1 source) Conductive hearing loss, bilateral; Translations: [Conductive hearing loss, bilateral] 02-17-2025 Chronic Other eye disorders (1 source) Disorder of eye; Translations: [Unspecified disorder of eye and adnexa] 06-09-2023 Episodic Other injuries and conditions due to external causes (3 sources) Neurapraxia; Translations: [Other injury of unspecified body region, initial encounter] 08-21-2023 Episodic Other lower respiratory disease (1 source) Dyspnea on exertion; Translations: [Other forms of dyspnea] 08-16-2024 Episodic Other lower respiratory disease (2 sources) Cough; Translations: [Acute cough] 01-03-2025 Episodic Other male genital disorders (4 sources) Disorder of male genital organ; Translations: [Hydrocele, unspecified] 06-28-2023 Episodic Other nervous system disorders (20 sources) Carpal tunnel syndrome of right wrist; Translations: [Carpal tunnel syndrome, right upper limb] Onset: 8 04-16-2018 Chronic Other nervous system disorders (1 source) Numbness of hand; Translations: [Anesthesia of skin] 08-16-2024 Episodic Other nutritional; endocrine; and metabolic disorders (20 sources) Obese class II; Translations: [Obesity, unspecified] Onset: 3 02-10-2023 Chronic Other skin disorders (1 source) Eruption; Translations: [Rash and other nonspecific skin eruption] 01-02-2024 Episodic Other upper respiratory disease (20 sources) Chronic rhinitis; Translations: [Chronic rhinitis] 12-20-2005 Chronic Other upper respiratory disease (1 source) Congestion of nasal sinus; Translations: [Nasal congestion] 01-25-2025 Episodic Other upper respiratory disease (1 source) Nasal congestion; Translations: [Sinus congestion] Onset: 5 Episodic Other upper respiratory disease (1 source) Bleeding from nose; Translations: [Epistaxis] 08-28-2024 Episodic Other upper respiratory disease (1 source) Anterior epistaxis; Translations: [Epistaxis] 08-26-2024 Episodic Other upper respiratory infections (4 sources) Bacterial sinusitis; Translations: [Chronic sinusitis, unspecified] Onset: 5 Chronic Other upper respiratory infections (4 sources) Viral upper respiratory tract infection; Translations: [Acute upper respiratory infection, unspecified] Onset: 5 12-31-2024 Episodic Otitis media and related conditions (6 sources) Acute bilateral otitis media ; Translations: [Otitis media, unspecified, bilateral] Onset: 5 01-03-2025 Episodic Residual codes; unclassified (2 sources) Finding related to ability to manage personal health care; Translations: [Other specified health status] 03-07-2023 Episodic Residual codes; unclassified (2 sources) Pain; Translations: [Pain, unspecified] 12-20-2023 Episodic Residual codes; unclassified (2 sources) Bilateral lower limb edema; Translations: [Localized edema] 02-12-2024 Episodic Screening and history of mental health and substance abuse codes (2 sources) Encounter for screening examination for other mental health and behavioral disorders; Translations: [Encounter for screening for depression] Onset: 5 Episodic Spondylosis; intervertebral disc disorders; other back problems (1 source) Acute back pain with sciatica; Translations: [Lumbago with sciatica, left side] 03-07-2023 Episodic Unclassified (1 source) Obesity, Class II, BMI 35-39.9; Translations: [Obesity, Class II, BMI 35-39.9] Onset: 3 Unclassified (1 source) Acute cough; Translations: [Acute cough] Onset: 5 Urinary tract infections (1 source) Acute urinary tract infection; Translations: [Urinary tract infection, site not specified] 06-15-2023 Episodic Past or Other Problems Problem Classification Problem Date Documented Date Episodic/Chronic Other and ill-defined cerebrovascular disease (20 sources) Cerebrovascular disease; Translations: [Other cerebrovascular disease] Onset: 06-15-2005 Resolved: 04-12-2016 07-19-2021 Chronic Other and unspecified benign neoplasm (20 sources) Benign neoplasm of rectum and anal canal; Translations: [Benign neoplasm of rectum] Onset: 11-02-2010 11-02-2010 Episodic Other and unspecified benign neoplasm (20 sources) Benign neoplasm of tonsil; Translations: [Benign neoplasm of tonsil] Onset: 07-23-2007 Resolved: 09-25-2014 09-25-2014 Episodic Other circulatory disease (20 sources) History of cerebrovascular accident; Translations: [Personal history of transient ischemic attack (TIA), and cerebral infarction without residual deficits] Onset: 04-12-2016 04-12-2016 Episodic Other male genital disorders (20 sources) Disorder of prostate; Translations: [Disorder of prostate, unspecified] Onset: 06-15-2005 08-18-2015 Episodic Other nutritional; endocrine; and metabolic disorders (20 sources) Obesity; Translations: [Obesity, unspecified] Resolved: 09-25-2014 09-25-2014 Chronic Other screening for suspected conditions (not mental disorders or infectious disease) (20 sources) Patient encounter status; Translations: [Encounter for screening for malignant neoplasm of colon] Onset: 11-02-2010 Resolved: 02-10-2023 11-02-2010 Episodic Other skin disorders (20 sources) Actinic keratosis; Translations: [Actinic keratosis] Onset: 09-29-2006 Resolved: 09-25-2014 09-25-2014 Episodic Other upper respiratory disease (1 source) Epistaxis; Translations: [Epistaxis] Onset: 09-07-2024 Episodic Residual codes; unclassified (1 source) Localized edema; Translations: [Bilateral leg edema] Onset: 03-19-2024 Episodic Retinal detachments; defects; vascular occlusion; and retinopathy (20 sources) Other retinal detachments; Translations: [Other forms of retinal detachment] Onset: 11-10-2008 11-10-2008 Episodic Results Test Name Value Interpretation Reference Range Facility 12 Lead EKGon 02-26-2025 12 Lead EKG [facility] [address] [place] [address] 12 Lead EKG 02/26/25 1331 MR#: [id number] Acct: [id number] Name: NEW ETIENNE Rep #: [id number] : [id number] From: Gigi Thao MD Attending Dr: Status: DEP ER Ordering Dr: Mitchel Meza MD Date: 02/26/25 Location: ED Sex: M C Admitted: Test Reason : palps Blood Pressure : */* mmHG Vent. Rate : 94 BPM Atrial Rate : 94 BPM P-R Int : 218 ms QRS Dur : 134 ms QT Int : 378 ms P-R-T Axes : 50 42 22 degrees QTcB Int : 472 ms Sinus rhythm with 1st degree A-V block with occasional Premature ventricular complexes Right bundle branch block Abnormal ECG Confirmed by CARLOS CHAHAL, GIGI ([id number]), story editor CINTIA GUDINO ([id number]) on 02/27/2025 9:27:13 AM Referred By: Confirmed By: GIGI THAO MD 02/27/25926 Gigi Thao MD CC: Dr. Rian Prado MD; Dr. Mitchel Meza MD Signed Normal [facility] Anion gap in Serum or Plasma Ordered By: Mitchel Meza on 02-26-2025 Anion gap [Moles/Vol] 11 mmol/L 5- [facility] BUN/creatinine ratioOrdered By: Mitchel Meza on 02-26-2025 Urea nitrogen/Creatinine [Mass ratio] 22.6 mg/mg High 10- [facility] Basic Metabolic Profile (BMP )on 02-26-2025 BUN/CRE 22.6 RATIO High - [facility] Comment on above: Performed By: #### L 500.2500 #### [facility] [address] [place], [address] Calcium [Mass/Vol] 9.2 mg/dL Normal 7.6-11.0 [facility] Comment on above: Performed By: #### L 500.2500 #### [facility] [address] [place], [address] Chloride [Moles/Vol] 104 mmol/L Normal 98-108 [facility] Comment on above: Performed By: #### L 500.2500 #### [facility] [address] [place], [address] CO2 [Moles/Vol] 23.6 mmol/L Normal 21.0-32.0 [facility] Comment on above: Performed By: #### L 500.2500 #### [facility] [address] [place], [address] Creatinine [Mass/Vol] 1.04 mg/dL Normal 0.70-1.20 [facility] Comment on above: Performed By: #### L 500.2500 #### [facility] [address] [place], [address] ECRCL 60.36 ml/min Normal 50-250 [facility] Comment on above: Performed By: #### L 500.2500 #### [facility] [address] [place], [address] GAP 11 Normal 5-15 [facility] Comment on above: Performed By: #### L 500.2500 #### [facility] [address] [place], [address] GFR/1.73 sq M.predicted among non-blacks MDRD (S/P/Bld) [Vol rate/Area] 69 mL/min/{1.73_m2} Normal >60 [facility] Comment on above: Result Comment: mL/m in/1.73m2 CKD-EPI Creatinine Equation (2020) Performed By: #### L 500.2500 #### [facility] [address] [place], [address] Glucose [Mass/Vol] 117 mg/dL High 70-99 [facility] Comment on above: Performed By: #### L 500.2500 #### [facility] [address] [place], [address] Potassium [Moles/Vol] 4.7 mmol/L Normal 3.3-5.1 [facility] Comment on above: Performed By: #### L 500.2500 #### [facility] [address] [place], [address] Sodium [Moles/Vol] 139 mmol/L Normal 133-145 [facility] Comment on above: Performed By: #### L 500.2500 #### [facility] [address] [place], [address] Urea nitrogen [Mass/Vol] 24 mg/dL High 4-19 [facility] Comment on above: Performed By: #### L 500.2500 #### [facility] [address] [place], [address] Carbon dioxide, total [Moles /volume] in Central venous bloodOrdered By: Mitchel Meza on 02-26-2025 CO2 [Moles/Vol] 23.6 mmol/L 21.0-32.0 [facility] Chloride assayOrdered By: Ashwin Meza on 02-26-2025 Chloride [Moles/Vol] 104 mmol/L 98-108 [facility] Emergency Department Summary on 02-26-2025 Emergency Department Summary [facility] Medical Records Department [address] [place] [address] Emergency Department Summary 02/26/25 MR#: [id number] Acct: [id number] Name: NEW ETIENNE Rep #: [id number] : 1935 [id number] From: Mitchel Meza MD PCP: Dr. Rian Prado MD Status:REG ER Location: ED HPI History of Present Illness Chief Complaint: Palpitations Detail of Chief Complaint: Palpitations with heart rate to 126 Informant: patient and spouse/S.O. Onset/Context/Timing Onset: Today (Today a couple hours after taking Mucinex DM) and Weeks (Nasal congestion) Context: Sudden Onset Timing: Intermittent Quality: Heart rate up to 126 Location: Cardiovascular Current Severity: Gone Maximum Severity: Moderate Worsened by: Occurred after he took Mucinex DM Relieved by: Not applicable Associated Symptoms Associated Symptoms: None other than feeling his heart beat fast Narrative Narrative: Patient is an 89-year-old male. He has history of hypertension, eustachian tube dysfunction, hearing loss, glaucoma who presents with rapid heart rate after taking Mucinex DM. He states his heart rate was maximum of 126. He had no chest pressure, tightness heaviness or discomfort. He denies shortness of breath. He denied nausea or vomiting. He denied diaphoresis. He denied lightheadedness. Patient states he has had nasal congestion. He seen ENT and has been told more than 1 occasion he does not have an infection. He does have hearing loss. They recommended hearing aids. He also has eustachian tube dysfunction. Patient states he has not felt well for the past couple of weeks. He has not had a documented fever. He does have nasal congestion and postnasal drainage. He denies sore throat. He denies cough. He states he has been seen in urgent care for this and they recommended Sudafed. He was informed the Sudafed may increase his heart rate. He states his normal heart rates in the 40s. Even at 81 this is abnormal for him. Patient denies lightheadedness with standing or sitting. Patient denies leg pain, swelling or discoloration. Prior similar symptoms: No Recent Illness/Hospitalization: Yes (Per HPI narrative) [facility] Medical History Loss of hearing Wears glasses Prostate disease Stroke/cerebrovascular accident Non-smoker Cardiology follow-up encounter Self-catheterizes urinary bladder Right bundle branch block (RBBB) Hyperlipidemia Diverticulosis History of cerebrovascular accident (2003) Benign neoplasm of colon Essential (primary) hypertension Obesity Lumbar region somatic dysfunction Segmental and somatic dysfunction of thoracic region Segmental and somatic dysfunction of pelvic region Segmental and somatic dysfunction of lumbar region Cataracts, bilateral Home Medications ???Medication ???Instructions ???Recorded ???Last Taken ???Type aspirin 325 mg tablet 325 mg PO DAILY@0800 06/22/1607/26 History ramipril 5 mg capsule 10 mg PO BID 06/22/16 08/30/23 His tory latanoprost 0.005 % eye drops 1 drp ophthalmic (eye) DAILY 08/15 Unknown History fluticasone propionate 50 2 spray intranasal DAILY PRN 02/26 Unknown History mcg/actuation nasal allergy symptoms spray,suspension (Flonase Allergy Relief) Allergy/AdvReac Type Severity Reaction Status Date / Time levofloxacin (From Levaquin) Allergy Intermediate Rash Verified 02/26/25 13:25 latex Allergy Unknown Verified 02/26/25 13:25 Sulfa (Sulfonamide Allergy Unknown Verified 02/26/25 13:25 Antibiotics) erythromycin base AdvReac Unknown Verified 02/26/25 13:25 hydrochlorothiazide AdvReac Unknown Verified 02/26/25 13:25 prednisone AdvReac Unknown Verified 02/26/25 13:25 Family History Other Heart disease Hypertension Surgical History History of cataract extraction with lens replacement H/O tooth extraction Social History (Updated 02/26/25 @ 13:[address] Mitchel Meza MD) household members: spouse Smoking Status: Never smoker alcohol intake: never substance use type: does not use what type of physical activity do you participate in: none ROS ROS ED Constitutional Constitutional ED: Denies chills, fever(s), subjective or sweats Eyes Eyes: Denies blurry vision or change in vision ENT ENT ED: Reports other Details: Further detailed HPI narrative ; Denies ear pain, rhinorrhea or sore throat Cardiovascular Cardiovascular: Reports palpitations and racing heartbeat; Denies chest pain, orthopnea or paroxysmal nocturnal dyspnea Respiratory/Chest Respiratory/Chest: Denies cough, dyspnea, dyspnea on exertion, orthopnea or paroxysmal nocturnal dyspnea Gastrointestinal Gastrointestinal: Denies abdominal pain or (more content not included)... Normal [facility] Glomerular filtration rate ( GFR) estimation/1.73 sq m using serum, plasma, or whole bOrdered By: Mitchel Meza on 02-26-2025 GFR/1.73 sq M.predicted among non-blacks MDRD (S/P/Bld) [Vol rate/Area] 69 mL/min/{1.73_m2} >60 [facility] Comment on above: mL/min/1.73m2 CKD-EP I Creatinine Equation (2020) Potassium measurement (mass/ volume)Ordered By: Mitchel Meza on 02-26-2025 Potassium (Unsp spec) [Mass/Vol] 4.7 mmol/L 3.3-5.1 [facility] Serum creatinine measurement (mass/volume)Ordered By: Mitchel Meza on 02-26-2025 Creatinine [Mass/Vol] 1.04 mg/dL 0.70-1.20 [facility] Serum glucose measurement (m ass/volume)Ordered By: Mitchel Meza on 02-26-2025 Glucose [Mass/Vol] 117 mg/dL High 70-99 [facility] Serum or plasma calcium nuzhat urement (mass/volume)Ordered By: Mitchel Meza on 02-26-2025 Calcium [Mass/Vol] 9.2 mg/dL 7.6-11.0 [facility] Serum or plasma urea nitroge n measurement (mass/volume)Ordered By: Mitchel Meza on 02-26-2025 Urea nitrogen [Mass/Vol] 24 mg/dL High 4-19 [facility] Sodium levelOrdered By: Mitchel Meza on 02-26-2025 Sodium [Moles/Vol] 139 mmol/L 133-145 [facility] CNOVon 02-17-2025 CNOV Office Visit (INTMWS ) -------- NWE ETIENNE ([id number]) 1935 M Date Time Provider Department 02/17/25 9:00 AM CORY MENESES INTMWS During your visit today, we recorded the following information about you: Pulse Blood pressure Weight Height 61/minute 162/76 116.7 kg 1.727 m Cory Meneses APRN.PRINT INSPECTOR 02/17/2025 9:11 AM Signed New Etienne is a 89 year old male here for a Medicare wellness visit. Medicare Health Risk Assessment General Health good Exercise: Minutes/Day 60 minutes or more Exercise: Days/Week 7 days Alcohol: Daily Use none Alcohol: Drinks/Day none Alcohol: 6 or more drinks none Feel off balance tripped once since last seen Concerns: Teeth/Dentures 5 implants Concerns: Sexual function no voiced concerns Troubled by feelings no Frequency: Eating healthy diet yes ADLs requiring help no independent Safety precautions in home/vehicle no voiced concers Smoke, vape, chews tobacco no never Difficulty hearing yes seeing ENT Difficulty seeing sees opthalmology Current Providers Specialists: I have reviewed specialist-related care of the patient in the medical record. Dr. Negrete [facility] Medical/Family history review Reviewed and updated problem list, medical/surgical/family/ social history, medications, and allergies. Opioid use review Opioid Medications (last 90 days) No data to display Anxiety/Depression screening-not anxious or depressed Recommendation: no further intervention at this time Cognitive screening Mini Cog Score: 3 Cognitive screening reviewed and No further action needed (score 3-5). Functional Observation Was the patient's Timed Up AND Go test unsteady or >= 12 seconds? No Advance Care Planning Surrogate decision maker and/or advance care plan documented Spouse and daughter Annual Wellness Exam: - Denies alcohol consumption. - Denies anxiety or depression. - No assistance needed for ADLs. - No significant memory issues; occasional delay in recalling names. - Has a living will for healthcare, with and one daughter designated. - No refills needed today. - Next appointment scheduled for July. Diet and Exercise: - Eats a varied diet, trying to include good stuff. - Exercises regularly at [employer]. - Engages in physical activities on [place] property, including mowing and trimming brush. Hearing Loss: - Recent cold led to Eustachian tube dysfunction, causing hearing loss. - Under ENT care; advised to use Flonase and goscetin. - No infection or pressure issues noted by ENT. Elevated IOP: - Using eye drops for elevated IOP; recently switched from Latanoprost due to pain. - Longstanding concern for glaucoma due to enlarged nerve bundles. - Has a cataract but advised against surgery due to age-related healing concerns. Hypertension: - Managed with Ramipril 10 mg BID. - Previous use of Amlodipine caused leg pain and edema; symptoms resolved after discontinuation. - Blood pressure readings around 150/80 mmHg. - Reports bradycardia with heart rate in the 40s-50s. CVA: - History of brainstem CVA in 2004. - Previously on atorvastatin; discontinued due to low cholesterol levels. Dental Health: - Has five dental implants; sees dentist twice a year. Falls: - One recent fall, tripped over an object while working. Measurements BP 162/76 (BP Site: Left Arm, BP Position: Sitting, BP Cuff Size: Large Adult) Pulse 61 Ht 172.7 cm (5' 8) Wt 116.7 kg (257 lb 4.4 oz) BMI 39.12 kg/m? Vision Screening: Follows with optometry/ophthalmology Right: 20/40 Left: 20/ 70 Both: 20/30 Assessment/Plan Medicare annual wellness visit, subsequent (Z00.00) - Counseled on healthy diet and regular exercise - Fall avoidance information provided - Personalized prevention plan provided 1. Age-related physical debility (R54) - Patient reports decreased mobility and leg weakness, which he attributes to prior use of amlodipine. - Encouraged continuation of regular exercise and physical activity as tolerated. - Discussed importance of maintaining independence and mobility. - Follow-up in July. 2. Personal history of TIA (transient ischemic attack) (Z86.73) - History of brainstem stroke in 2004. - Discussed risks and benefits of statin therapy for secondary prevention; patient declined statin therapy at this time. - Encouraged a heart-healthy diet: increase fruits, vegetables, whole grains, fish, chicken, turkey, nuts, beans; decrease beef, fried foods, processed foods, and avoid fast foods. 3. Essential (primary) hypertension (I10) - Blood pressure readings approximately 150/80 mmHg, slightly above target. - Heart rate consistently in the 40s-50s. - Continue ramipril 10 mg BID. - Previously discontinued amlodipine due to leg pain and edema. - Previously trialed spironolactone. - Encouraged dietary haja (more content not included)... Normal [facility] CNOVon 02-14-2025 CNOV Office Visit (INTMWS ) -------- NEW ETIENNE ([id number]) 1935 M Date Time Provider Department 02/14/25 7:20 AM [facility] PICHARDO INTMWS During your visit today, we recorded the following information about you: Pulse Respiration Blood pressure Weight 58/minute 18/minute 122/58 115.3 kg cM Pichardo APRN.ACID PURIFIER 02/14/2025 8:06 AM Signed SUBJECTIVE New Etienne is a 89 year old male here today for a check up on his medical problems. Chief Complaint Patient presents with: 6 month f/up HPI New Etienne is a 89-year-old male with a history of HTN, hypercholesterolemia, and a brainstem CVA in 2004, presenting for 6 month follow-up. New reports experiencing a URI in early November, followed by a sudden onset of hearing loss. He has been evaluated multiple times, including by an ENT specialist, who diagnosed eustachian tube dysfunction and advised that hearing should improve within 3 months. New is currently using Flonase and quercetin as recommended. Despite this, he continues to experience significant hearing impairment, particularly at distances greater than 20 feet, and describes the sensation as having a clogged up head and feeling like his head's full of cotton. He has tried both high-end and low-cost hearing aids without noticeable improvement and expresses frustration with their effectiveness. He denies any associated anxiety or depression, stating, I should be depressed over this mess, but I'm okay. New also reports a history of elevated blood pressure readings, with a recent measurement of 204/83 mmHg on the . He has been monitoring his blood pressure at home, noting that it can elevate when he is excited or stressed. He denies any current chest pain or tightness, attributing occasional discomfort to post-nasal drainage rather than cardiac issues. He has a history of hypercholesterolemia and was previously on a statin and aspirin following a brainstem CVA in 2004. He discontinued the statin after his total cholesterol dropped to 114 mg/dL, which he felt was too low. Recent lab results show his total cholesterol is now under 200 mg/dL, triglycerides are 95 mg/dL, HDL is 43 mg/dL, and LDL is elevated. He also has a history of pre-diabetes, with a recent glucose level of 123 mg/dL. New mentions a preference for high-protein foods such as cheese, nuts, and steak, but acknowledges consuming too much candy. He denies any new concerns about anxiety or depression. Recording using [employer] software for draft documentation of the visit was discussed with the patient/authorized outbound telemarketing representative; all questions welcomed and answered. Patient/authorized outbound telemarketing representative agreed to proceed His medications were reviewed today and his list is now up to date. Medications Current Outpatient Medications Medication Sig ramipril (ALTACE) 10 mg capsule Take 1 capsule by mouth two times a day. latanoprost (XALATAN) 0.005 % ophthalmic solution Use 1 drop in both eyes daily at bedtime. aspirin(ENTERIC COATED ASPIRIN 325 MG TAB, DELAYED RELEASE) Take one(1) tablet daily. No current facility-administered medications for this visit. ALLERGIES Allergen Reactions Bactrim [Sulfametho* Other: See Comments per [facility] ER report 09/28/2012 - increased heart rate and flushing Ceftin [Cefuroxime * Erythromycin Other: See Comments made me sick Hydrochlorothiazide Other: See Comments just felt bad Latex Prednisone Other: See Comments Makes me feel sick Sulfa (Sulfonamide * Unknown, Other: See Comments ACTIVE PROBLEM LIST Obesity, Class II, Bmi [...] Drug use: No Review of Systems Constitutional: Negative. HENT: Positive for congestion and hearing loss. Negative for ear discharge and ear pain. Respiratory: Negative. Cardiovascular: Negative for palpitations and leg swelling. OBJECTIVE BP 122/58[home[ Pulse 58 Resp 18 Wt 254 lb 3.1 oz (115.3kg) SpO2 98% Physical Exam Vitals and nursing note reviewed. Constitutional: General: He is awake. He is not in acute distress. Appearance: Normal appearance. He is well-developed and well-groomed. He is not ill-appearing, toxic-appearing or diaphoretic. HENT: Head: Normocephalic. Right Ear: External ear normal. Left Ear: External ear normal. (more content not included)... Normal [facility] CBC panel Auto (Bld)on 02-04 Erythrocyte distribution width (RBC) [Ratio] 13.4 % Normal 11.5-15.0 [facility] Comment on above: Order Comment: Speci men Type: BLOOD SPECIMENOrdering Facility: [facility] Address: [address] [place] [address] Performed By: #### 5 8410-2 ####[facility] LABCLIA [id number] [place] [address] [place] Hematocrit (Bld) [Volume fraction] 48.8 % Normal 39.0-51.0 [facility] Comment on above: Order Comment: Speci men Type: BLOOD SPECIMENOrdering Facility: [facility] Address: [address] [place] [address] Performed By: #### 5 8410-2 ####[facility] LABCLIA [id number] [place] [address] [place] Hemoglobin (Bld) [Mass/Vol] 16.0 g/dL Normal 13.0-17.0 [facility] Comment on above: Order Comment: Speci men Type: BLOOD SPECIMENOrdering Facility: [facility] Address: [address] [place] [address] Performed By: #### 5 8410-2 ####[facility] LABIA [id number] [place] [address] [place] MCH (RBC) [Entitic mass] 28.8 pg Normal 26.0-34.0 [facility] Comment on above: Order Comment: Speci men Type: BLOOD SPECIMENOrdering Facility: [facility] Address: [address] [place] [address] Performed By: #### 5 8410-2 ####[facility] LABIA [id number] [place] [address] [place] MCHC (RBC) [Mass/Vol] 32.8 g/dL Normal 30.5-36.0 [facility] Comment on above: Order Comment: Speci men Type: BLOOD SPECIMENOrdering Facility: [facility] Address: [address] [place] [address] Performed By: #### 5 8410-2 ####[facility] LABIA [id number] [place] [address] [place] MCV (RBC) [Entitic vol] 87.9 fL Normal 80.0-100.0 [facility] Comment on above: Order Comment: Speci men Type: BLOOD SPECIMENOrdering Facility: [facility] Address: [address] [place] [address] Performed By: #### 5 8410-2 ####[facility] LABIA [id number] [place] [address] [place] Nucleated RBC (Bld) [#/Vol] 10*3/uL Normal <0.01 [facility] Comment on above: Order Comment: Speci men Type: BLOOD SPECIMENOrdering Facility: [facility] Address: [address] [place] [address] Performed By: #### 5 8410-2 ####[facility] LABIA [id number] [place] [address] [place] Platelet mean volume (Bld) [Entitic vol] 10.0 fL Normal 9.0-12.7 [facility] Comment on above: Order Comment: Speci men Type: BLOOD SPECIMENOrdering Facility: [facility] Address: [address] [place] [address] Performed By: #### 5 8410-2 ####[facility] LABIA [id number] [place] [address] [place] Platelets (Bld) [#/Vol] 224 10*3/uL Normal 150-400 [facility] Comment on above: Order Comment: Speci men Type: BLOOD SPECIMENOrdering Facility: [facility] Address: [address] [place] [address] Performed By: #### 5 8410-2 ####[facility] LABIA [id number] [place] [id number] [place] RBC (Bld) [#/Vol] 5.55 10*6/uL Normal 4.20-6.00 [facility] Comment on above: Order Comment: Speci men Type: BLOOD SPECIMENOrdering Facility: [facility] Address: [address] [place] [address] Performed By: #### 5 8410-2 ####[facility] LABCLIA [id number] [address] [place] [address] [place] WBC (Bld) [#/Vol] 8.62 10*3/uL Normal 3.70-11.00 [facility] - [place] Comment on above: Order Comment: Speci men Type: BLOOD SPECIMENOrdering Facility: [facility] Address: [address] [place] [address] Performed By: #### 5 8410-2 ####[facility]CLIA [id number] [facility] [address] [place] [address] [place] Comprehensive metabolic 2000 panelon 02-04-2025 Albumin [Mass/Vol] 3.6 g/dL Low 3.9-4.9 [facility] Comment on above: Order Comment: Speci men Type: BLOOD SPECIMENOrdering Facility: [facility] Address: [address] [place] [address] Performed By: #### 2 4331-1, 78901-4 ####[facility] LABCLIA [id number] [address] [place] [address] [place] ALP [Catalytic activity/Vol] 79 U/L Normal 38-113 [facility] Comment on above: Order Comment: Speci men Type: BLOOD SPECIMENOrdering Facility: [facility] Address: [address] [place] [address] Performed By: #### 2 4331-1, 95925-0 ####[facility] LABCLIA [id number] [facility] [address] [place] [address] [place] ALT [Catalytic activity/Vol] 23 U/L Normal 10-54 [facility] Comment on above: Order Comment: Speci men Type: BLOOD SPECIMENOrdering Facility: [facility] Address: [address] [place] [address] Performed By: #### 2 4331-1, 09918-9 ####[facility] LABCLIA [id number] [address] [place] [address] [place] Anion gap [Moles/Vol] 11 mmol/L Normal 8-15 [facility] Comment on above: Order Comment: Speci men Type: BLOOD SPECIMENOrdering Facility: [facility] Address: [address] [place] [address] Performed By: #### 2 4331-1, 54859-8 ####[facility] LABCLIA [id number] [place] [id number] [place] AST [Catalytic activity/Vol] 18 U/L Normal 14-40 [facility] Comment on above: Order Comment: Speci men Type: BLOOD SPECIMENOrdering Facility: [facility] Address: [address] [place] [address] Performed By: #### 2 4331-1, 17435-1 ####[facility] LABCLIA [id number] [place] [address] [place] Bilirubin [Mass/Vol] 0.5 mg/dL Normal 0.2-1.3 [facility] Comment on above: Order Comment: Speci men Type: BLOOD SPECIMENOrdering Facility: [facility] Address: [address] [place] [address] Performed By: #### 2 4331-1, 66260-7 ####[facility] LABCLIA [id number] [facility] [place] [id number] [place] Calcium [Mass/Vol] 9.1 mg/dL Normal 8.5-10.2 [facility] Comment on above: Order Comment: Speci men Type: BLOOD SPECIMENOrdering Facility: [facility] Address: [address] [place] [address] Performed By: #### 2 4331-1, ####[facility] LABCLIA [id number] [facility] [place] [id number] [place] Chloride [Moles/Vol] 106 mmol/L Normal 98-107 [facility] Comment on above: Order Comment: Speci men Type: BLOOD SPECIMENOrdering Facility: [facility] Address: [address] [place] [address] Performed By: #### 2 4331-1, 07022-8 ####[facility] LABCLIA [id number] [place] [id number] [place] CO2 [Moles/Vol] 24 mmol/L Normal 22-30 [facility] Comment on above: Order Comment: Speci men Type: BLOOD SPECIMENOrdering Facility: [facility] Address: [address] [place] [address] Performed By: #### 2 4331-1, 34259-8 ####[facility] LABIA [id number] [place] [address] [place] Creatinine [Mass/Vol] 0.98 mg/dL Normal 0.73-1.22 [facility] Comment on above: Order Comment: Speci men Type: BLOOD SPECIMENOrdering Facility: [facility] Address: [address] [place] [address] Performed By: #### 2 4331-1, 01627-1 ####[facility] LABIA [id number] [place] [address] [place] eGFRcr SerPlBld CKD-EPI 2020 74 mL/min/1.73m??? Normal >=60 [facility] Comment on above: Order Comment: Speci men Type: BLOOD SPECIMENOrdering Facility: [facility] Address: [address] [place] [address] Result Comment: Zoila mated Glomerular Filtration Rate (eGFR) is calculated using the 2020 CKD-EPI creatinine equation. This equation utilizes serum creatinine, sex, and age as parameters. The creatinine assay has traceable calibration to isotope dilution-mass spectrometry. Refer to KDIGO guidelines for clinical interpretation. In patients with unstable renal function, e.g. those with acute kidney injury, the eGFR may not accurately reflect actual GFR. Performed By: #### 2 4331-1, 95753-5 ####[facility] LABCLIA [id number] [place] [address] [place] Glucose [Mass/Vol] 99 mg/dL Normal 74-99 [facility] Comment on above: Order Comment: Speci men Type: BLOOD SPECIMENOrdering Facility: [facility] Address: [address] [place] [address] Result Comment: The [place] Diabetes Association (ADA) provides guidance for cutoff values for fasting glucose and random glucose. The ADA defines fasting as no caloric intake for at least 8 hours. Fasting plasma glucose results between 100 to 125 mg/dL indicate increased risk for diabetes (prediabetes). Fasting plasma glucose results greater than or equal to 126 mg/dL meet the criteria for diagnosis of diabetes. In the absence of unequivocal hyperglycemia, results should be confirmed by repeat testing. In a patient with classic symptoms of hyperglycemia or hyperglycemic crisis, random plasma glucose results greater than or equal to 200 mg/dL meet the criteria for diagnosis of diabetes. Reference: Standards of Medical Care in Diabetes 2016, [place] Diabetes Association. Diabetes Care. 2016.39(Suppl 1). Performed By: #### 2 4331-1, 25673-1 ####[facility] LABIA [id number] [place] [address] [place] Potassium [Moles/Vol] 4.7 mmol/L Normal 3.7-5.1 [facility] Comment on above: Order Comment: Speci men Type: BLOOD SPECIMENOrdering Facility: [facility] Address: [address] [place] [address] Performed By: #### 2 4331-1, 60358-3 ####[facility] LABIA [id number] [place] [address] [place] Protein [Mass/Vol] 6.3 g/dL Normal 6.3-8.0 [facility] Comment on above: Order Comment: Speci men Type: BLOOD SPECIMENOrdering Facility: [facility] Address: [address] [place] [address] Performed By: #### 2 4331-, 69119-0 ####[facility] LABCLIA [id number] [address] [address] [place] Sodium [Moles/Vol] 141 mmol/L Normal 136-144 [facility] Comment on above: Order Comment: Speci men Type: BLOOD SPECIMENOrdering Facility: [facility] Address: [address] [place] [address] Performed By: #### 2 4331-1, 64313-6 ####[facility] [id number] [place] [address] [place] Urea nitrogen [Mass/Vol] 21 mg/dL Normal 9-24 [facility] Comment on above: Order Comment: Mercedesi men Type: BLOOD SPECIMENOrdering Facility: [facility] Address: [address] [place] [address] Performed By: #### 2 4331-1, 92533-8 ####[facility] [id number] [place] [address] [place] HbA1c (Bld)on 02-04-2025 Average glucose Estimated from glycated hemoglobin (Bld) [Mass/Vol] 123 mg/dL Normal [facility] Comment on above: Order Comment: Mercedesi men Type: BLOOD SPECIMENOrdering Facility: [facility] Address: [address] [place] [address] Result Comment: eAG: (Estimated average glucose) is a calculated value from HgbA1c and is outbound telemarketing representative of the average blood glucose level in the last 2-3 month period. Performed By: #### 5 5454-3 ####[facility] [id number] [address] [address] [place] HbA1c (Bld) [Mass fraction] 5.9 % High 4.3-5.6 [facility] Comment on above: Order Comment: Kim men Type: BLOOD SPECIMENOrdering Facility: [facility] Address: [address] [place] [address] Result Comment: [place] Diabetes Association guidelines indicate that patients with HgbA1c in the range 5.7-6.4% are at increased risk for development of diabetes, and intervention by lifestyle modification may be beneficial. HgbA1c greater or equal to 6.5% is considered diagnostic of diabetes. Performed By: #### 5 5454-3 ####[facility] LABCLIA [id number] [address] [address] [place] Lipid 1996 panelon 5 Cholesterol [Mass/Vol] 185 mg/dL Normal <200 [facility] Comment on above: Order Comment: Speci men Type: BLOOD SPECIMENOrdering Facility: [facility] Address: [address] [place] [address] Result Comment: <200 mg/dL, Desirable 200-239 mg/dL, Borderline high >239 mg/dL, High Performed By: #### 2 4331-1, 47438-3 ####[facility] LABCLIA [id number] [place] [address] [place] Cholesterol in HDL [Mass/Vol] 43 mg/dL Normal >39 [facility] Comment on above: Order Comment: Kim men Type: BLOOD SPECIMENOrdering Facility: [facility] Address: [address] [place] [address] Result Comment: 40-5 9 mg/dL, Acceptable >59 mg/dL, High: Negative risk factor for coronary heart disease <40 mg/dL, Low: Positive risk factor for coronary heart disease Performed By: #### 2 4331-1, 76161-5 ####[facility] LABCLIA [id number] [address] [address] [place] Cholesterol in LDL [Mass/Vol] 125 mg/dL High <100 [facility] Comment on above: Order Comment: Mercedesi men Type: BLOOD SPECIMENOrdering Facility: [facility] Address: [address] [place] [address] Result Comment: <100 mg/dL, Optimal 100-129 mg/dL, Near optimal/above optimal 130-159 mg/dL, Borderline high 160-189 mg/dL, High >189 mg/dL, Very high Secondary prevention optimal LDL Cholesterol levels are recommended to be <70 mg/dL LDL cholesterol is calculated using the Reis-NIH equation. Performed By: #### 2 4331-1, 50633-8 ####[facility] LABIA [id number] [address] [address] [place] Cholesterol in LDL/Cholesterol in HDL [Mass ratio] 2.91 {ratio} High <2.54 [facility] Comment on above: Order Comment: Speci men Type: BLOOD SPECIMENOrdering Facility: [facility] Address: [address] [place] [address] Result Comment: Refe rence: 1. National Cholesterol Education Program ATP III Guideline At-A-Glance Quick Desk Reference: National Heart, Lung, and Blood [place]. National Institutes of Health. 2001: NIH Publication No. 01-3305. 2. An International Atherosclerosis Society position paper: global recommendations for the management of dyslipidemia: executive summary, Atherosclerosis. 2014: 232(2):410-413. Performed By: #### 2 4331-, 32094-4 ####[facility] LABIA [id number] [address] [address] [place] Cholesterol in VLDL [Mass/Vol] 17 mg/dL Normal <30 [facility] Comment on above: Order Comment: Kim carrizales Type: BLOOD SPECIMENOrdering Facility: [facility] Address: [address] [place] [address] Performed By: #### 2 4331-1, 45181-0 ####[facility] LABIA [id number] [address] [address] [place] Cholesterol non HDL [Mass/Vol] 142 mg/dL High <130 [facility] Comment on above: Order Comment: Mercedesi men Type: BLOOD SPECIMENOrdering Facility: [facility] Address: [address] [place] [address] Result Comment: <130 mg/dL, Optimal 130-159 mg/dL, Near optimal/above optimal 160-189 mg/dL, Borderline high 190-219 mg/dL, High >219 mg/dL, Very high Secondary prevention optimal non HDL Cholesterol levels are recommended to be <100 mg/dL Performed By: #### 2 4331-1, 48647-2 ####[facility] LABCLIA [id number] [address] [place] Cholesterol.total/Chol esterol in HDL [Mass ratio] 4.30 {ratio} Normal <5.10 [facility] Comment on above: Order Comment: Speci men Type: BLOOD SPECIMENOrdering Facility: [facility] Address: [address] [place] [address] Performed By: #### 2 4331-1, 47165-0 ####[facility] LABIA [id number] [address] FASTING TIME 12 hrs Normal [facility] Comment on above: Order Comment: Speci men Type: BLOOD SPECIMENOrdering Facility: [facility] Address: [address] [place] [address] Performed By: #### 2 4331-1, 56514-4 ####[facility] LABIA [id number] [address] [place] Triglyceride [Mass/Vol] 95 mg/dL Normal <150 [facility] Comment on above: Order Comment: Speci men Type: BLOOD SPECIMENOrdering Facility: [facility] Address: [address] [place] [address] Result Comment: <150 mg/dL, Normal 150-199 mg/dL, Borderline high 200-499 mg/dL, High >499 mg/dL, Very high Performed By: #### 2 4331-1, 64829-4 ####[facility] LABIA [id number] [address] [place] CNOVon 01-25-2025 CNOV Office Visit ([facility] ) -------- NEW ETIENNE ([id number]) 1935 M Date Time Provider Department 01/25/25 8:15 AM ANGELO CHAMPAGNE [facility] During your visit today, we recorded the following information about you: Temperature Pulse Respiration Blood pressure 98.1 degrees 79/minute 18/minute 204/83 Weight 115 kg Angelo Champagne PA-C 01/25/2025 8:41 AM Signed This note was created using [employer]. Subjective New Etienne is a 89 year old male. Patient is an 89-year-old male who complains of ongoing sinus congestion that he has been experiencing for the past 1+ months. Patient has been evaluated on multiple occasions both at this facility as well as the patient's ENT for same. Patient has completed 3 courses of antibiotics over the past 1 month. Patient reports no fever, chills or myalgia. Patient denies ear pain but does describe fullness and pressure. Patient denies sore throat and reports mild cough. Patient states he has no history of seasonal allergic rhinitis. Patient also describes muffled hearing and hearing loss, although he states that his hearing this morning is somewhat improved. Review of Systems HENT: Positive for hearing loss and sinus pressure. All other systems reviewed and are negative. Objective BP (!) 204/83 Pulse 79 Temp 36.7 ?C (98.1 ?F) Resp 18 Wt 115 kg (253 lb 8.5 oz) SpO2 98% BMI 37.98 kg/m? Physical Exam Vitals and nursing note reviewed. Constitutional: Appearance: Normal appearance. He is normal weight. HENT: Head: Normocephalic and atraumatic. Right Ear: Tympanic membrane, ear canal and external ear normal. Left Ear: Tympanic membrane, ear canal and external ear normal. Nose: Nose normal. Mouth/Throat: Mouth: Mucous membranes are moist. Pharynx: Oropharynx is clear. Eyes: Extraocular Movements: Extraocular movements intact. Conjunctiva/sclera: Conjunctivae normal. Pupils: Pupils are equal, round, and reactive to light. Cardiovascular: Rate and Rhythm: Normal rate and regular rhythm. Pulses: Normal pulses. Heart sounds: Normal heart sounds. Pulmonary: Effort: Pulmonary effort is normal. Breath sounds: Normal breath sounds. Musculoskeletal: Cervical back: Normal range of motion and neck supple. Skin: General: Skin is warm and dry. Capillary Refill: Capillary refill takes less than 2 seconds. Neurological: General: No focal deficit present. Mental Status: He is alert and oriented to person, place, and time. Psychiatric: Mood and Affect: Mood normal. Behavior: Behavior normal. Thought Content: Thought content normal. Judgment: Judgment normal. Assessment and Plan Physical exam findings as noted above. Patient was advised that no further antibiotic treatment is warranted at this time. Patient was informed that he now likely requires CT scan evaluation of his sinuses which is not possible at this [facility]. 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 Patient was provided with a prescription for Sudafed 120 mg and advised to contact his ENT's office on Monday to schedule appointment for further evaluation and management. Patient states that he was also provided with a prescription for Flonase, however he has not started to take the medication. Patient was advised to start instilling the Flonase as directed today. Patient verbalizes clear understanding of all instructions. CLINICAL IMPRESSION: Sinus Congestion ASSESSMENT/PLAN: 1. Sinus congestion - ICD9: 478.19, ICD10: R09.81 - PSEUDOEPHEDRINE ER 120 MG TABLET,EXTENDED RELEASE MDM Risk of Complications, Morbidity, and/or Mortality Presenting problems: low Diagnostic procedures: low Management options: stacey Champagne PA-C Allergies As of Date: 01/25/2025 Noted Allergy Reaction BACTRIM (SULFAMETHOXAZOLE) 10/02/2012 14 - Other: See Comments Comments: per [facility] ER report 09/28/2012 - increased heart rate and flushing CEFTIN (CEFUROXIME AXETIL) 06/14/2005 ERYTHROMYCIN 06/14/2005 14 - Other: See Comments Comments: made me sick HYDROCHLOROTHIAZIDE 06/14/2005 14 - Other: See Comments Comments: just felt bad LATEX 06/14/2005 PREDNISONE 07/22/2011 14 - Other: See Comments Comments: Makes me feel sick SULFA (SULFONAMIDE ANTIBIOTICS) 11/12/2020 16 - Unknown 14 - Other: See Comments Date Reviewed: 01/25/2025 Reviewed by: Violette Ortiz MA - Fully Assessed Reason for Visit: Head Congestion [234] Cmt: X1 month, has been seen 3 times and ENT once, relief with atb but not currently on any. Sinus pressure and pain, cough Primary Visit Diagnosis:Sinus congestion [R09.81] Order(s):Pseudoephedrine HCl (SUDAFED 12 HOUR) 120 mg TbERTake 1 tablet by mouth every 12 hours for 10 days.Disp: 20 (more content not included)... Normal [facility] CNOVon 01-05-2025 CNOV Office Visit ([facility] ) -------- NEW ETIENNE ([id number]) 1935 M Date Time Provider Department 01/05/25 8:15 AM MADISON BARKLEY [facility] During your visit today, we recorded the following information about you: Temperature Pulse Respiration Blood pressure 98.8 degrees 74/minute 18/minute 170/80 Weight 114.5 kg Madison Barkley APRN.[facility] 01/05/2025 9:24 AM Addendum [facility] Subjective New Etienne is a 89 year old male. Patient presents with: Rash: Groin rash x this AM, started doxy on Monday, usually does not have reaction Head Congestion: Can't hear, sinus congestion worsening with atb Rash Rash: - Rash developed after starting doxycycline. - Localized to one area; not pruritic, but painful upon palpation. - Denies previous reactions to doxycycline; has taken it in the past for a UTI without issues. - Tolerates amoxicillin and penicillin; reports allergy to sulfa drugs. Sinus Congestion, Ear Pressure, and Cough: - Worsening sinus congestion and ear pressure. - Severe cough. - Recent chest X-ray reportedly normal. - Noted tachycardia and elevated blood pressure after taking NyQuil; heart rate increased from baseline of 40-42 bpm to 80 bpm. - Home blood pressure readings: 145/65 mmHg; recent readin/77 mmHg. Review of Systems Skin: Positive for rash. Ears/Nose/Mouth/Throat: (+) sinus congestion, (+) ear pressure, (+) ear pain, (+) hoarseness Cardiovascular: (-) palpitations, (-)chest pain Respiratory: (+) cough Skin: (+) localized rash, (-) pruritus Objective BP 170/80 Pulse 74 Temp 37.1 ?C (98.8 ?F) Resp 18 Wt 114.5 kg (252 lb 6.8 oz) SpO2 96% BMI 37.82 kg/m? PAST MEDICAL HISTORY Diagnosis Date - Benign neoplasm of colon - Chronic rhinitis - Diverticulosis of colon (without mention of hemorrhage) - Essential hypertension, benign - History of CVA (cerebrovascular accident) brainstem CVA; was at [facility] then [place]; regained strength - Obesity, unspecified - [...] Prednisone, and Sulfa (Sulfonamide Antibiotics) MEDICATIONS - brimonidine (ALPHAGAN) 0.2 % ophthalmic solution INSTILL 1 DROP IN BOTH EYES TWICE DAILY DIRECTED - doxycycline monohydrate 100 mg tablet Take 1 tablet by mouth two times a day for 7 days. - ramipril (ALTACE) 10 mg capsule Take 1 capsule by mouth two times a day. - latanoprost (XALATAN) 0.005 % ophthalmic solution Use 1 drop in both eyes daily at bedtime. - aspirin(ENTERIC COATED ASPIRIN 325 MG TAB, DELAYED RELEASE) Take one(1) tablet daily. - azithromycin (ZITHROMAX Z-SHANELL) 250 mg tablet 2 tablets by mouth first day then 1 tablet the next 4 days - benzonatate (TESSALON PERLE) 100 mg capsule Take 2 capsules by mouth three times a day as needed for up to 10 days. - clotrimazole (LOTRIMIN) 1 % cream Apply 1 application to affected area two times a day for 14 days. FAMILY HISTORY Problem Relation Age of Onset - other (Lung Cancer [Other]) Father - other (Leukemia [Other]) Paternal Grandmother - Diabetes Mother - Diabetes Sister Social History Tobacco Use - Smoking status: Never - Smokeless tobacco: Never Substance Use Topics - Alcohol use: No - Drug use: No Physical Exam Vitals and nursing note reviewed. Constitutional: General: He is not in acute distress. Appearance: Normal appearance. He is not ill-appearing. HENT: Right Ear: Ear canal and external ear normal. Tympanic membrane is erythematous. Left Ear: Ear canal and external ear normal. Tympanic membrane is erythematous. Nose: Nose normal. Mouth/Throat: Mouth: Mucous membranes are moist. Pharynx: Oropharynx is clear. No posterior oropharyngeal erythema. Cardiovascular: Rate and Rhythm: Normal rate and regular rhythm. Heart sounds: Normal heart sounds. Pulmonary: Effort: Pulmonary effort is normal. No respiratory distress. Breath sounds: Normal breath sounds. No wheezing or rales. Genitourinary: Skin: General: Skin is warm and dry. Findings: No erythema or rash. Neurological: Mental Status: He is alert. General: No acute distress. HEENT: Erythematous tympanic membranes. Resp: No abnormal breath sounds auscultated. Skin: Erythematous rash consistent with yeast infection. {1. Upper respiratory tract infection, unspecified type (J06.9) 2. Other acute nonsuppurative otitis media of (more content not included)... Normal [facility] XR CHEST 2V FRONTAL/LATon XR CHEST 2V FRONTAL/LAT * * *Final Report* * * DATE OF EXAM: Jan 04 2025 8:22AM WOX [id number] - XR CHEST 2V FRONTAL/LAT / PROCEDURE REASON: multiple diagnoses * * * * Physician Interpretation * * * * EXAMINATION: CHEST RADIOGRAPH (2 VIEW FRONTAL and LATERAL) CLINICAL HISTORY: Fever, unspecified fever cause Acute cough MQ: XC2_6 EXAM DATE/TIME: 01/04/2025 8:22 AM COMPARISON: 08/21/2015 RESULT: Lines, tubes, and devices: None. Lungs and pleura: No consolidation. No lung mass. No pleural effusion. No pneumothorax. Cardiomediastinal silhouette: Stable cardiomediastinal silhouette. Bones and soft tissues: Degenerative changes are present within the thoracic spine. IMPRESSION: No acute radiographic abnormality. Merchandise Marker: [facility] Transcribe Date/Time: Jan 04 2025 8:43A Dictated by : RAND CHE MD This examination was interpreted and the report reviewed and electronically signed by: RAND CHE MD on Jan 04 2025 8:44AM EST [id number] Normal [facility] XR Chest PA and Lateralon IMPRESSION: No acute radiographic abnormality. Merchandise Marker: [facility] Transcribe Date/Time: Jan 04 2025 8:43A Dictated by : RAND CHE MD This examination was interpreted and the report reviewed and electronically signed by: RAND CHE MD on Jan 04 2025 8:44AM EST DIVISION OF RADIOLOGY * * *Final Report* * * DATE OF EXAM: Jan 04 2025 8:22AM WOX [id number] - XR CHEST 2V FRONTAL/LAT / PROCEDURE REASON: multiple diagnoses * * * * Physician Interpretation * * * * EXAMINATION: CHEST RADIOGRAPH (2 VIEW FRONTAL & LATERAL) CLINICAL HISTORY: Fever, unspecified fever cause Acute cough MQ: XC2_6 EXAM DATE/TIME: 01/04/2025 8:22 AM COMPARISON: 08/21/2015 RESULT: Lines, tubes, and devices: None. Lungs and pleura: No consolidation. No lung mass. No pleural effusion. No pneumothorax. Cardiomediastinal silhouette: Stable cardiomediastinal silhouette. Bones and soft tissues: Degenerative changes are present within the thoracic spine. DIVISION OF RADIOLOGY Provider, [facility] - 01/04/2025 * * *Final Report* * * DATE OF EXAM: Jan 04 2025 8:22AM WOX [id number] - XR CHEST 2V FRONTAL/LAT / PROCEDURE REASON: multiple diagnoses * * * * Physician Interpretation * * * * EXAMINATION: CHEST RADIOGRAPH (2 VIEW FRONTAL & LATERAL) CLINICAL HISTORY: Fever, unspecified fever cause Acute cough MQ: [id number] EXAM DATE/TIME: 01/04/2025 8:22 AM COMPARISON: 08/21/2015 RESULT: Lines, tubes, and devices: None. Lungs and pleura: No consolidation. No lung mass. No pleural effusion. No pneumothorax. Cardiomediastinal silhouette: Stable cardiomediastinal silhouette. Bones and soft tissues: Degenerative changes are present within the thoracic spine. IMPRESSION IMPRESSION: No acute radiographic abnormality. Merchandise Marker: MACARIO Transcribe Date/Time: Jan 04 2025 8:43A Dictated by : RAND CHE MD This examination was interpreted and the report reviewed and electronically signed by: RAND CHE MD on Jan 04 2025 8:44AM EST [facility] Radiology Study observation (narrative) [facility] XR Chest PA and LateralOrder ed By: [facility] Provider on 01-04-2025 [facility] CNOVon 01-03-2025 CNOV Office Visit (UCWSTR ) -------- NEW ETIENNE ([id number]) 1935 M Date Time Provider Department 01/03/25 6:15 PM JEREMY RAM [facility] During your visit today, we recorded the following information about you: Temperature Pulse Respiration Blood pressure 101 degrees 99/minute 20/minute 175/77 Weight 116 kg Jeremy Ram PA 01/03/2025 6:35 PM Signed [facility] Subjective New Etienne is a 89 year old male. Patient presents with: Cough: Chest congestion x5 days, fever today HPI Cold Symptoms: - Onset 5 days ago. - Severe head pressure, described as feeling like it's going to blow up. - Bilateral hearing loss. - Cough productive of grayish sputum. - Fever onset today. - Denies chest pain or dyspnea. - Taking NyQuil and Tussin DM with some relief. - Denies history of COPD or asthma. - Allergic to sulfa drugs. 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 ramipril (ALTACE) 10 mg capsule Take 1 capsule by mouth two times a day. latanoprost (XALATAN) 0.005 % ophthalmic solution Use 1 Drop in both eyes daily at bedtime. (Patient not taking: Reported on 11/21/2024) aspirin(ENTERIC COATED ASPIRIN 325 MG TAB, DELAYED RELEASE) Take one(1) tablet daily. FAMILY HISTORY Problem Relation Age of Onset other (Lung Cancer [Other]) Father other (Leukemia [Other]) Paternal Grandmother Diabetes Mother Diabetes Sister Social History Tobacco Use Smoking status: Never Smokeless tobacco: Never Substance Use Topics Alcohol use: No Drug use: No Review of Systems Constitutional: (+) fever Head: (+) headache Ears/Nose/Mouth/Throat: (+) hearing loss, (+) ear pain, (+) hoarseness Respiratory: (+) productive cough Objective BP 175/77 Pulse 99 Temp (!) 38.3 ?C (101 ?F) Resp 20 Wt 116 kg (255 lb 11.7 oz) SpO2 96% BMI 38.31 kg/m? Physical Exam Vitals reviewed. Constitutional: General: He is not in acute distress. Appearance: Normal appearance. He is not toxic-appearing. HENT: Right Ear: A middle ear effusion is present. Tympanic membrane is erythematous. Left Ear: A middle ear effusion is present. Tympanic membrane is erythematous. Nose: Congestion present. Right Sinus: Maxillary sinus tenderness present. Left Sinus: Maxillary sinus tenderness present. Mouth/Throat: Mouth: Mucous membranes are moist. Cardiovascular: Rate and Rhythm: Normal rate and regular rhythm. Pulmonary: Effort: Pulmonary effort is normal. Breath sounds: Normal breath sounds. No wheezing, rhonchi or rales. Skin: General: Skin is warm and dry. Neurological: Mental Status: He is alert. General: No acute distress. HEENT: Oropharynx without erythema or exudate; bilateral middle ear effusions with erythema. Resp: Lungs clear to auscultation. {1. Fever, unspecified fever cause (R50.9) 2. Acute cough (R05.1) - Fever onset today, cough productive of grayish sputum, no chest pain or dyspnea; symptoms have persisted for 5 days. - Lung auscultation reveals clear breath sounds. - Ordered chest X-ray to be performed tomorrow morning between 0800 and 1200 to rule out pneumonia. - Initiated doxycycline, prescription sent to [facility] pharmacy; patient to start tonight. - If chest x-ray reveals pneumonia, will need to add second antibiotic, Augmentin. 3. Acute bilateral otitis media (H66.93) - Bilateral middle ear effusion observed on otoscopic examination, with signs of early infection. - Doxycycline will also address otitis media. Recording using [employer] software for draft documentation of the visit was discussed with the patient/authorized outbound telemarketing representative; all questions welcomed and answered. Patient/authorized outbound telemarketing representative agreed to proceed History and Record Review External record(s) reviewed: prior outpatient record. Systemic symptoms p (more content not included)... [facility] CNOVon 12-31-2024 CNOV Office Visit (UCWSTR ) -------- NEW ETIENNE ([id number]) 1935 M Date Time Provider Department 12/31/24 8:45 AM RENE ROACH [facility] During your visit today, we recorded the following information about you: Temperature Pulse Respiration Blood pressure 97.8 degrees 60/minute 20/minute 183/63 Weight 114 kg Rene Roach APRN.ACID PURIFIER 12/31/2024 9:12 AM Signed [facility] Subjective New Etienne is a 89 year old male. Patient presents with: Cough: Head and chest congestion, headache, pressure and pain in druze area, and eyes x 2 days Cough Associated symptoms include rhinorrhea and sore throat. Pertinent negatives include no chest pain, no chills, no headaches, no shortness of breath and no wheezing. Chest Congestion and Cough: - Onset yesterday, with improvement today. - Describes chest as tight. - Minimal productive cough; more frequent yesterday than today. - Denies rhinorrhea. - Grandson has similar symptoms. - Denies history of asthma, pneumonia, or other respiratory issues. Review of Systems Constitutional: Negative for chills, fatigue and fever. HENT: Positive for congestion, postnasal drip, rhinorrhea and sore throat. Negative for sinus pressure and sinus pain. Respiratory: Positive for cough. Negative for chest tightness, shortness of breath and wheezing. Cardiovascular: Negative for chest pain. Genitourinary: Negative for enuresis. Neurological: Negative for headaches. Objective BP 183/63 Pulse 60 Temp 36.6 ?C (97.8 ?F) Resp 20 Wt 114 kg (251 lb 5.2 oz) SpO2 98% BMI 37.65 kg/m? PAST MEDICAL HISTORY Diagnosis Date Benign neoplasm of colon Chronic rhinitis Diverticulosis of colon (without mention of hemorrhage) Essential hypertension, benign History of CVA (cerebrovascular accident) brainstem CVA; was at [facility] then [facility]; regained strength Obesity, unspecified [...] Latex, Prednisone, and Sulfa (Sulfonamide Antibiotics) MEDICATIONS ramipril (ALTACE) 10 mg capsule Take 1 capsule by mouth two times a day. aspirin(ENTERIC COATED ASPIRIN 325 MG TAB, DELAYED RELEASE) Take one(1) tablet daily. latanoprost (XALATAN) 0.005 % ophthalmic solution Use 1 Drop in both eyes daily at bedtime. (Patient not taking: Reported on 11/21/2024) FAMILY HISTORY Problem Relation Age of Onset other (Lung Cancer [Other]) Father other (Leukemia [Other]) Paternal Grandmother Diabetes Mother Diabetes Sister Social History Tobacco Use Smoking status: Never Smokeless tobacco: Never Substance Use Topics Alcohol use: No Drug use: No Physical Exam Vitals and nursing note reviewed. Constitutional: General: He is not in acute distress. Appearance: Normal appearance. He is not ill-appearing or toxic-appearing. HENT: Head: Normocephalic and atraumatic. Right Ear: Tympanic membrane, ear canal and external ear normal. Left Ear: Tympanic membrane, ear canal and external ear normal. Nose: Congestion present. No rhinorrhea. Mouth/Throat: Pharynx: Oropharynx is clear. No oropharyngeal exudate or posterior oropharyngeal erythema. Eyes: Pupils: Pupils are equal, round, and reactive to light. Cardiovascular: Rate and Rhythm: Normal rate and regular rhythm. Pulses: Normal pulses. Heart sounds: Normal heart sounds. Pulmonary: Effort: Pulmonary effort is normal. No respiratory distress. Breath sounds: Normal breath sounds. No stridor. No wheezing, rhonchi or rales. Musculoskeletal: Cervical back: No rigidity. Lymphadenopathy: Cervical: No cervical adenopathy. Neurological: Mental Status: He is alert. {1. Viral upper respiratory infection (J06.9) - Exam reveals clear lung sounds; no evidence of pneumonia. - Diagnosed with viral upper respiratory infection. - Advised symptomatic management including cough drops, increased fluid intake, and - Patient understands and agrees with the treatment plan. - Instructed to monitor symptoms and return if condition worsens. and Recording using [employer] software for draft documentation of the visit was discussed with the patient/authorized outbound telemarketing representative; all questions welcomed and answered. Patient/authorized outbound telemarketing representative agreed to proceed History and Record Review External record(s) reviewed: prior outpatient record. Findings from review of outpatient records: Previous medical history Dif (more content not included)... [facility] CNOVon 11-21-2024 CNOV Office Visit (UCWSTR ) -------- NEW ETIENNE ([id number]) 1935 M Date Time Provider Department 11/21/24 5:30 PM JOE OCONNOR [facility] During your visit today, we recorded the following information about you: Temperature Pulse Respiration Blood pressure 97.6 degrees 58/minute 16/minute 148/88 Weight 116.9 kg Joe Oconnor APRN.ACID PURIFIER 11/21/2024 6:22 PM Signed [facility] Subjective HPI HPI New Etienne is a 89 year old male who presents today for CC of productive cough, sinus congestion, ear pain. This started last week, worsening past few days. Has tried otc medication for relief. Symptoms are worsened by nothing. nonsmoker. 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 latanoprost (XALATAN) 0.005 % ophthalmic solution Use 1 Drop in both eyes daily at bedtime. (Patient not taking: Reported on 11/21/2024) aspirin(ENTERIC COATED ASPIRIN 325 MG TAB, DELAYED RELEASE) Take one(1) tablet daily. FAMILY HISTORY Problem Relation Age of Onset other (Lung Cancer [Other]) Father other (Leukemia [Other]) Paternal Grandmother Diabetes Mother Diabetes Sister Social History Tobacco Use Smoking status: Never Smokeless tobacco: Never Substance Use Topics Alcohol use: No Drug use: No Review of Systems Constitutional: Negative for chills, fatigue and fever. HENT: Positive for ear pain and rhinorrhea. Negative for ear discharge, sinus pressure, sinus pain and sore throat. Eyes: Negative for discharge and redness. Respiratory: Positive for cough. Negative for shortness of breath and wheezing. Cardiovascular: Negative for chest pain. Skin: Negative for rash. Objective BP 148/88 Pulse (!) 58 Temp 36.4 ?C (97.6 ?F) (Tympanic) Resp 16 Wt 116.9 kg (257 lb 11.5 oz) SpO2 99% BMI 38.61 kg/m? Latest Ref Rng 08/08/2024 Protein, Total 6.3 - 8.0 g/dL 6.7 Albumin 3.9 - 4.9 g/dL 3.9 Calcium 8.5 - 10.2 mg/dL 9.1 Bilirubin, Total 0.2 - 1.3 mg/dL 0.5 Alkaline Phosphatase 38 - 113 U/L 80 AST 14 - 40 U/L 20 ALT 10 - 54 U/L 25 Glucose 74 - 99 mg/dL 103 (H) BUN 9 - 24 mg/dL 22 Creatinine 0.73 - 1.22 mg/dL 1.15 Sodium 136 - 144 mmol/L 141 Potassium 3.7 - 5.1 mmol/L 4.4 Chloride 98 - 107 mmol/L 104 CO2 22 - 30 mmol/L 28 Anion Gap 8 - 15 mmol/L 9 eGFR >=60 mL/min/1.73m? 62 Physical Exam Constitutional: General: He is not in acute distress. Appearance: He is not toxic-appearing or diaphoretic. HENT: Head: Normocephalic and atraumatic. Right Ear: Hearing, tympanic membrane, ear canal and external ear normal. Left Ear: Hearing, tympanic membrane, ear canal and external ear normal. Nose: Nose normal. Mouth/Throat: Pharynx: Uvula midline. Eyes: General: Lids are normal. No scleral [...] neck supple. Lymphadenopathy: Cervical: No cervical adenopathy. Skin: Findings: No rash. Neurological: Mental Status: He is alert and oriented to person, place, and time. {ASSESSMENT/PLAN: 1. Sinobronchitis - ICD9: 473.9, 490, ICD10: J32.9, J40 - Will begin treatment with as per antibiotic as written, see orders - Supportive care with plenty of fluids, rest, and analgesia prn. - Follow up in 3-5 days if symptoms persist or worsen. -If you experience chest pain/shortness of breath go to ER -declines covid test. - DOXYCYCLINE HYCLATE 100 MG TABLET Joe Oconnor APRN.ACID PURIFIER History and Record Review External record(s) reviewed: prior outpatient record and prior labs/imaging. Findings from obed (more content not included)... [facility] Emergency Department Summary on 08-20-2024 Emergency Department Summary [facility] Medical Records Department [address] [place] [id number] Emergency Department Summary 08/20/24 MR#: [id number] Acct: [id number] Name: NEW ETIENNE Rep #: [id number] : 1935 88 From: Alexei Rushing DO PCP: Dr. Rian Prado MD Status:REG ER Location: ED HPI History of Present Illness Chief Complaint: Nosebleed Narrative Narrative: Patient is a 88-year-old male with a past medical history of CVA, right bundle branch block, hypertension who presents to the emergency department chief complaint of nosebleed. According to the patient he was here recently and was told to follow-up with ears nose and throat. He states this morning his nose started bleeding again he called the ears nose and throat team and states that they cannot get him in until next week therefore he came here for the valuation management. Patient states that he is on aspirin but denies any other blood thinning medication. States that he has been compliant with his blood pressure medication. [facility] Medical History Loss of hearing Wears glasses Prostate disease Stroke/cerebrovascular accident Non-smoker Cardiology follow-up encounter Self-catheterizes urinary bladder Right bundle branch block (RBBB) Hyperlipidemia Diverticulosis History of cerebrovascular accident (2003) Benign neoplasm of colon Essential (primary) hypertension Obesity Lumbar region somatic dysfunction Segmental and somatic dysfunction of thoracic region Segmental and somatic dysfunction of pelvic region Segmental and somatic dysfunction of lumbar region Cataracts, bilateral Medical History no medical history Home Medications ???Medication ???Instructions ???Recorded ???Last Taken ???Type aspirin 325 mg tablet 325 mg PO DAILY@0800 06/22/16 08/22/23 History ramipril 5 mg capsule 10 mg PO BID 06/22/16 08/30/23 History latanoprost 0.005 % eye drops 1 drp ophthalmic (eye) DAILY 08/15/23 Unknown History Allergy/AdvReac Type Severity Reaction Status Date / Time levofloxacin (From Levaquin) Allergy Intermediate Rash Verified 08/20/24 10:14 latex Allergy Unknown Verified 08/20/24 10:14 Sulfa (Sulfonamide Allergy Unknown Verified 08/20/24 10:14 Antibiotics) erythromycin base AdvReac Unknown Verified 08/20/24 10:14 hydrochlorothiazide AdvReac Unknown Verified 08/20/24 10:14 prednisone AdvReac Unknown Verified 08/20/24 10:14 Family History Other Heart disease Hypertension Family History no significant family his Surgical History History of cataract extraction with lens replacement H/O tooth extraction Surgical History no surgical history Social History Smoking Status: Never smoker alcohol intake: never substance use type: does not use what type of physical activity do you participate in: none ROS ROS ED ROS Narrative Constitutional: Denies fevers, chills, headaches, lightness, dizziness Ears nose throat: Complains of nosebleed as noted above Cardiovascular: Denies chest pain Neurological: Denies numbness, weakness, tingling] Skin: Denies rashes or lesions EXAM Physical Exam Narrative Exam Narrative: General: Patient lying in bed rest comfortably did not appear to be in acute distress Head: Atraumatic, normocephalic Eyes, ears, nose, throat: Patient had packing noted in the right nare which was consistent with Kleenex this was removed with large clot removed. Patient blow his nose and he was reevaluated he has no active bleeding noted at this point time Neck: Soft, supple, trachea midline Cardiovascular: Regular rate and rhythm no murmurs gallops rubs noted Respiratory: Clear to auscultation bilaterally Neurological: Patient follow commands knew that he was at [facility] year is 2024 Skin: Warm, dry, intact no rashes or lesions noted Const Vital Signs: 08/20/24 10:12 08/20/24 10:40 Temperature 96.5 F L Temperature Source Temporal Pulse Rate 72 Respiratory Rate 20 H Blood Pressure 210/98 H 150/90 H Blood Pressure Mean 135 110 Pulse Ox 98 Oxygen Delivery Method Room Air MDM MDM MDM Narrative Medical decision making narrative: Patient is a 88-year-old male who presents to the emergency department the chief complaint of epistaxis. On the differential diagnose includes but not limited to anterior epistaxis, posterior epistaxis. Once again the patient is not actively bleeding at this point time he will be observed here in the emergency department. Patient's note from 08/18/2024 was reviewed And at that point in time he was seen and evaluated he had the area becaus (more content not included)... [facility] Emergency Department Summary on 08-18-2024 Emergency Department Summary [facility] Medical Records Department [address] [place] [address] Emergency Department Summary 08/18/24 MR#: [id number] Acct: [id number] Name: NEW ETIENNE Rep #: [id number] : 1935 88 From: Norah Briones DO PCP: Dr. Rian Prado MD Status:REG ER Location: ED HPI History of Present Illness Chief Complaint: Nosebleed Informant: patient Narrative Narrative: Patient is an 88-year-old male with history of hypertension, right bundle branch block and hyperlipidemia presenting with epistaxis. Patient states around 545 he was in the shower when he leaned over and then started having profuse bleeding coming from his right nostril. He packed it and came to the emergency room for further evaluation. He states he never had a nosebleed that bled this much. He notes he does not have humidified oxygen at home. Denies any other complaints at this time. Takes a daily aspirin is not on any blood thinners. I did take his blood pressure medicine prior to arrival (ramipril). [facility] Medical History Loss of hearing Wears glasses Prostate disease Stroke/cerebrovascular accident Non-smoker Cardiology follow-up encounter Self-catheterizes urinary bladder Right bundle branch block (RBBB) Hyperlipidemia Diverticulosis History of cerebrovascular accident (2003) Benign neoplasm of colon Essential (primary) hypertension Obesity Lumbar region somatic dysfunction Segmental and somatic dysfunction of thoracic region Segmental and somatic dysfunction of pelvic region Segmental and somatic dysfunction of lumbar region Cataracts, bilateral Home Medications ???Medication ???Instructions ???Recorded ???Last Taken ???Type aspirin 325 mg tablet 325 mg PO DAILY@0800 06/22/16 08/22/23 History ramipril 5 mg capsule 10 mg PO BID 06/22/16 08/30/23 History latanoprost 0.005 % eye drops 1 drp ophthalmic (eye) DAILY 08/15/23 Unknown History Allergy/AdvReac Type Severity Reaction Status Date / Time levofloxacin (From Levaquin) Allergy Intermediate Rash Verified 08/18/24 06:02 latex Allergy Unknown Verified 08/18/24 06:02 Sulfa (Sulfonamide Allergy Unknown Verified 08/18/24 06:02 Antibiotics) erythromycin base AdvReac Unknown Verified 08/18/24 06:02 hydrochlorothiazide AdvReac Unknown Verified 08/18/24 06:02 prednisone AdvReac Unknown Verified 08/18/24 06:02 Family History Other Heart disease Hypertension Surgical History History of cataract extraction with lens replacement H/O tooth extraction Social History Smoking Status: Never smoker alcohol intake: never substance use type: does not use what type of physical activity do you participate in: none ROS ROS ED Constitutional Constitutional ED: Denies chills Eyes Eyes: Denies blurry vision ENT ENT ED: Reports other Details: Right-sided epistaxis Respiratory/Chest Respiratory/Chest: Denies dyspnea Neurologic Neurologic: Denies headache(s) or weakness Psychiatric Psychiatric: Denies anxiety Hematologic/Lymphatic Hematologic/Lymphatic: Denies easy bleeding or easy bruising EXAM Physical Exam Const Vital Signs: 08/18/24 06:02 08/18/24 06:42 Temperature 97.5 F L Temperature Source Oral Pulse Rate 69 60 Respiratory Rate 18 18 Blood Pressure 200/97 H 183/72 H Blood Pressure Mean 131 109 Pulse Ox 96 95 Oxygen Delivery Method Room Air Room Air Positive well nourished and well developed General Appearance ED: well developed; Negative for pallor HEENT HEENT Narrative: dried blood noted in the right nares. No active bleeding. Exposed superficial vessel of the anterior nasal septum. No active bleeding noted in the oropharynx. Eyes PERRL Neck supple Chest Wall inspection of chest normal and palpation of chest normal Resp normal respiratory effort and clear to auscultation bilaterally Cardio regular rate and regular rhythm Extremity Extremity Narrative: 2+ radial pulses present. Neuro Sensorium / Orientation: alert Psych mental status grossly normal Skin no rashes or lesions noted and no wounds General Skin Exam: Negative for pallor MDM MDM MDM Narrative Medical decision making narrative: Patient evaluated for epistaxis. Bleeding is controlled upon arrival with his's homemade packing. Packing is removed. There is exposed vessel. Angus solution soaked cottonball placed in the nares. After approximately 15 minutes silver nitrate stick used to cauterize the vessel of the anterior right nasal septum. Patient does have slight bleeding during this but it resolves. Patient be monito (more content not included)... [facility] CNOVon 08-16-2024 CNOV Office Visit (INTMWS ) -------- NEW ETIENNE ([id number]) 1935 M Date Time Provider Department 08/16/24 8:40 AM RIAN PRADO [facility] During your visit today, we recorded the following information about you: Temperature Pulse Respiration Blood pressure 97.7 degrees 78/minute 16/minute 158/60 Weight 117.4 kg Rian Prado MD 08/16/2024 9:40 AM Signed This note was created using [employer]. Subjective New Etienne is a 88 year old male. Patient presents with: F/U 6 months: Labs prior SUBJECTIVE: New Etienne is a 88 year old year old gentleman here today for 6 month follow up appointment for review of medical conditions. New Etienne is a 88-year-old male with a history of HTN, knee arthritis, and a Roblero's cyst, presenting for a follow-up visit. New reports a history of leg swelling and pain, which he attributes to the use of amlodipine. He discontinued the medication, and the swelling resolved within 2 weeks. He was subsequently prescribed hydrochlorothiazide, which he discontinued due to experiencing a funny sensation in his ears, and prazosin, which he discontinued due to the development of hard bumps on his gums. He is currently taking Altace 10 mg twice daily for blood pressure management. He monitors his blood pressure at home, with readings ranging from 117/60 to 140/60, but notes higher readings in the clinic setting. 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 He notes that the pain has improved since discontinuing amlodipine, but he still experiences discomfort with movement. He denies any x-rays of the knee. Additionally, New reports numbness in his hand, which he attributes to carpal tunnel syndrome. He notes that he has maintained his strength but has lost sensation in the hand. New also reports dyspnea when walking up a hill near his home, requiring him to stop and rest snf up. He denies any issues with strenuous activities, such as cutting firewood. He has a history of a calcium CT scoring test, which showed significant calcifications, but he did not follow up with a stress test. New also reports a history of cataracts, with recent episodes of blurry vision in the left eye. He is currently using Xalatan eye drops and taking aspirin. He denies any current issues with cholesterol management. 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 latanoprost (XALATAN) 0.005 % ophthalmic solution Use 1 Drop in both eyes daily at bedtime. aspirin(ENTERIC COATED ASPIRIN 325 MG TAB, DELAYED RELEASE) Take one(1) tablet daily. No current facility-administered medications for this visit. Review of Systems Objective BP 182/78 Pulse 78 Temp 36.5 ?C (97.7 ?F) Resp 16 Wt 117.4 kg (258 lb 13.1 oz) SpO2 98% BMI 38.78 kg/m? Last 5 Encounter Wt Readings: Date: Wt: 08/16/2024 117.4 kg (258 lb 13.1 oz) 04/23/2024 115.9 kg (255 lb 8.2 oz) 03/26/2024 116.4 kg (256 lb 9.9 oz) 02/26/2024 115.4 kg (254 lb 6.6 oz) 02/12/2024 116.6 kg (257 lb) No waist measurement recorded Estimated body mass index is 38.78 kg/m? as calculated from the following: Height as of 09/28/17: 174 cm (5' 8.5). Weight as of this encounter: 117.4 kg (258 lb 13.1 oz). Last 5 Encounter BP Readings: Date: BP: 08/16/2024 182/78 04/23/2024 172/75[BP Gabe average[ 03/26/2024 183/82[BP Gabe average[ 02/26/2024 144/72 02/12/2024 124/68 Physical Exam Vitals reviewed. Constitutional: Appearance: Normal appearance. Eyes: Conjunctiva/sclera: Conjunctivae normal. Cardiovascular: Rate and Rhythm: Normal rate and regular rhythm. Heart sounds: Normal heart sounds. Pulmonary: Effort: Pulmonary effort is normal. Breath sounds: Normal breath sounds. Musculoskeletal: Right ankle: Right Achilles Tendon: Defect (swelling at insertion noted) present. Comments: Roblero's cyst, right; mild tenderness Skin: General: Skin is warm and dry. Neurological: General: No focal deficit present. Mental Status: He is alert and oriented to person, place, and time. Psychiatric: Mood and Affect: Mood normal. Behavior: Behavior normal. Thought Content: Thought content normal. Judgment: Judgment normal. Latest Ref Rng 02/07/2023 08/07/2023 02/02/2024 03/19/2024 04/15/2024 08/08/2024 WBC 3.70 - 11.00 k/uL 6.52 8.42 7.20 8.59 RBC 4.20 - 6.00 m/uL 5.02 5.20 5.12 5.69 Hemoglobin 13.0 - 17 (more content not included)... Normal [facility] CBC panel Auto (Bld)on 08-08 Erythrocyte distribution width (RBC) [Ratio] 13.1 % Normal 11.5-15.0 [facility] Comment on above: Order Comment: Speci men Type: BLOOD SPECIMENOrdering Facility: [facility] Address: [address] [place] [address] Performed By: #### 5 8410-2 ####[facility]CL[facility] [id number] [place] [address] [place] Hematocrit (Bld) [Volume fraction] 51.0 % Normal 39.0-51.0 [facility] Comment on above: Order Comment: Speci men Type: BLOOD SPECIMENOrdering Facility: [facility] Address: [address] [place] [address] Performed By: #### 5 8410-2 ####[facility] [id number] [place] [address] [place] Hemoglobin (Bld) [Mass/Vol] 16.3 g/dL Normal 13.0-17.0 [facility] Comment on above: Order Comment: Speci men Type: BLOOD SPECIMENOrdering Facility: [facility] Address: [address] [place] [address] Performed By: #### 5 8410-2 ####[facility]IA [id number] [place] [address] [place] MCH (RBC) [Entitic mass] 28.6 pg Normal 26.0-34.0 [facility] Comment on above: Order Comment: Speci men Type: BLOOD SPECIMENOrdering Facility: [facility] Address: [address] [place] [address] Performed By: #### 5 8410-2 ####[facility]IA [id number] [place] [address] [place] MCHC (RBC) [Mass/Vol] 32.0 g/dL Normal 30.5-36.0 [facility] Comment on above: Order Comment: Speci men Type: BLOOD SPECIMENOrdering Facility: [facility] Address: [address] [place] [address] Performed By: #### 5 8410-2 ####[facility] [id number] [place] [address] [place] MCV (RBC) [Entitic vol] 89.6 fL Normal 80.0-100.0 [facility] Comment on above: Order Comment: Speci men Type: BLOOD SPECIMENOrdering Facility: [facility] Address: [address] [place] [address] Performed By: #### 5 8410-2 ####[facility] [id number] [place] [address] [place] Nucleated RBC (Bld) [#/Vol] 10*3/uL Normal <0.01 [facility] Comment on above: Order Comment: Speci men Type: BLOOD SPECIMENOrdering Facility: [facility] Address: [address] [place] [address] Performed By: #### 5 8410-2 ####[facility] [id number] [place] [address] [place] Platelet mean volume (Bld) [Entitic vol] 10.0 fL Normal 9.0-12.7 [facility] Comment on above: Order Comment: Speci men Type: BLOOD SPECIMENOrdering Facility: [facility] Address: [address] [place] [address] Performed By: #### 5 8410-2 ####[facility] [id number] [place] [address] [place] Platelets (Bld) [#/Vol] 221 10*3/uL Normal 150-400 [facility] Comment on above: Order Comment: Speci men Type: BLOOD SPECIMENOrdering Facility: [facility] Address: [address] [place] [address] Performed By: #### 5 8410-2 ####[facility] [id number] [place] [address] [place] RBC (Bld) [#/Vol] 5.69 10*6/uL Normal 4.20-6.00 [facility] Comment on above: Order Comment: Speci men Type: BLOOD SPECIMENOrdering Facility: [facility] Address: [address] [place] [address] Performed By: #### 5 8410-2 ####[facility] [id number] [place] [id number] [place] WBC (Bld) [#/Vol] 8.59 10*3/uL Normal 3.70-11.00 [facility] Comment on above: Order Comment: Speci men Type: BLOOD SPECIMENOrdering Facility: [facility] Address: [address] [place] [address] Performed By: #### 5 8410-2 ####[facility] [id number] [place] [address] [place] Comprehensive metabolic 2000 panelon 08-08-2024 Albumin [Mass/Vol] 3.9 g/dL Normal 3.9-4.9 [facility] Comment on above: Order Comment: Speci men Type: BLOOD SPECIMENOrdering Facility: [facility] Address: [address] [place] [address] Performed By: #### 2 4323-8, 77238-7 ####[facility] [id number] [place] [address] [place] ALP [Catalytic activity/Vol] 80 U/L Normal 38-113 [facility] Comment on above: Order Comment: Speci men Type: BLOOD SPECIMENOrdering Facility: [facility] Address: [address] [place] [address] Performed By: #### 2 4323-8, 42518-9 ####[facility] [id number] [place] [address] [place] ALT [Catalytic activity/Vol] 25 U/L Normal 10-54 [facility] Comment on above: Order Comment: Speci men Type: BLOOD SPECIMENOrdering Facility: [facility] Address: [address] [place] [address] Performed By: #### 2 4323-8, 23037-5 ####[facility] [id number] [place] [address] [place] Anion gap [Moles/Vol] 9 mmol/L Normal 8-15 [facility] Comment on above: Order Comment: Speci men Type: BLOOD SPECIMENOrdering Facility: [facility] Address: [address] [place] [address] Performed By: #### 2 4323-8, 58008-2 ####[facility] [id number] [place] [id number] [place] AST [Catalytic activity/Vol] 20 U/L Normal 14-40 [facility] Comment on above: Order Comment: Speci men Type: BLOOD SPECIMENOrdering Facility: [facility] Address: [address] [place] [id number] Performed By: #### 2 4323-8, 11142-3 ####[facility] [id number] [address] [address] [place] Bilirubin [Mass/Vol] 0.5 mg/dL Normal 0.2-1.3 [facility] Comment on above: Order Comment: Speci men Type: BLOOD SPECIMENOrdering Facility: [facility] Address: [address] [place] [id number] Performed By: #### 2 4323-8, 00396-3 ####[facility] [id number] [place] [address] [place] Calcium [Mass/Vol] 9.1 mg/dL Normal 8.5-10.2 [facility] Comment on above: Order Comment: Speci men Type: BLOOD SPECIMENOrdering Facility: [facility] Address: [address] [place], [place] [address] Performed By: #### 2 4323-8, 33675-9 ####[facility] [id number] [place] [address] [place] Chloride [Moles/Vol] 104 mmol/L Normal 98-107 [facility] Comment on above: Order Comment: Speci men Type: BLOOD SPECIMENOrdering Facility: [facility] Address: [address] [place] [id number] Performed By: #### 2 4323-8, 98674-8 ####[facility] [id number] [place] [id number] [place] CO2 [Moles/Vol] 28 mmol/L Normal 22-30 [facility] Comment on above: Order Comment: Speci men Type: BLOOD SPECIMENOrdering Facility: [facility] Address: [address] [place], [place] [address] Performed By: #### 2 4323-8, 74437-0 ####[facility] [id number] [place] [address] [place] Creatinine [Mass/Vol] 1.15 mg/dL Normal 0.73-1.22 [facility] Comment on above: Order Comment: Kim carrizales Type: BLOOD SPECIMENOrdering Facility: [facility] Address: [address] [place] [address] Performed By: #### 2 4323-8, 53563-8 ####[facility]IA [id number] [place] [address] [place] Creatinine and Glomerular filtration rate.predicted panel (S/P/Bld) 62 mL/min/1.73m??? Normal >=60 [facility] Comment on above: Order Comment: Kim carrizales Type: BLOOD SPECIMENOrdering Facility: [facility] Address: [address] [place] [address] Result Comment: Zoila mated Glomerular Filtration Rate (eGFR) is calculated using the 2020 CKD-EPI creatinine equation. This equation utilizes serum creatinine, sex, and age as parameters. The creatinine assay has traceable calibration to isotope dilution-mass spectrometry. Refer to KDIGO guidelines for clinical interpretation. In patients with unstable renal function, e.g. those with acute kidney injury, the eGFR may not accurately reflect actual GFR. Performed By: #### 2 4323-8, 02418-9 ####[facility]IA [id number] [place] [id number] [place] Glucose [Mass/Vol] 103 mg/dL High 74-99 [facility] Comment on above: Order Comment: Kim carrizales Type: BLOOD SPECIMENOrdering Facility: [facility] Address: [address] [place] [address] Result Comment: The [place] Diabetes Association (ADA) provides guidance for cutoff values for fasting glucose and random glucose. The ADA defines fasting as no caloric intake for at least 8 hours. Fasting plasma glucose results between 100 to 125 mg/dL indicate increased risk for diabetes (prediabetes). Fasting plasma glucose results greater than or equal to 126 mg/dL meet the criteria for diagnosis of diabetes. In the absence of unequivocal hyperglycemia, results should be confirmed by repeat testing. In a patient with classic symptoms of hyperglycemia or hyperglycemic crisis, random plasma glucose results greater than or equal to 200 mg/dL meet the criteria for diagnosis of diabetes. Reference: Standards of Medical Care in Diabetes 2016, [place] Diabetes Association. Diabetes Care. 2016.39(Suppl 1). Performed By: #### 2 4323-8, 56342-4 ####[facility] [id number] [address] [address] [place] Potassium [Moles/Vol] 4.4 mmol/L Normal 3.7-5.1 [facility] Comment on above: Order Comment: Speci men Type: BLOOD SPECIMENOrdering Facility: [facility] Address: [address] [place] [address] Performed By: #### 2 4328, ####[facility] [id number] [place] [address] [place] Protein [Mass/Vol] 6.7 g/dL Normal 6.3-8.0 [facility] Comment on above: Order Comment: Speci men Type: BLOOD SPECIMENOrdering Facility: [facility] Address: [address] [place] [address] Performed By: #### 2 43238, ####[facility] [id number] [place] [id number] [place] Sodium [Moles/Vol] 141 mmol/L Normal 136-144 [facility] Comment on above: Order Comment: Speci men Type: BLOOD SPECIMENOrdering Facility: [facility] Address: [address] [place] [address] Performed By: #### 2 4323-8, ####[facility] [id number] [address] [address] [place] Urea nitrogen [Mass/Vol] 22 mg/dL Normal 9-24 [facility] Comment on above: Order Comment: Kim carrizales Type: BLOOD SPECIMENOrdering Facility: [facility] Address: [address] [place] [address] Performed By: #### 2 4323-8, 04837-9 ####[facility] [id number] [place] [address] [place] HbA1c (Bld)on 08-08-2024 Average glucose Estimated from glycated hemoglobin (Bld) [Mass/Vol] 126 mg/dL Normal [facility] Comment on above: Order Comment: Kim carrizales Type: BLOOD SPECIMENOrdering Facility: [facility] Address: [address] [place] [address] Result Comment: eAG: (Estimated average glucose) is a calculated value from HgbA1c and is outbound telemarketing representative of the average blood glucose level in the last 2-3 month period. Performed By: #### 5 5454-3 ####[facility] [id number] [place] [address] [place] HbA1c (Bld) [Mass fraction] 6.0 % High 4.3-5.6 [facility] Comment on above: Order Comment: Kim carrizales Type: BLOOD SPECIMENOrdering Facility: [facility] Address: [address] [place] [address] Result Comment: [place] Diabetes Association guidelines indicate that patients with HgbA1c in the range 5.7-6.4% are at increased risk for development of diabetes, and intervention by lifestyle modification may be beneficial. HgbA1c greater or equal to 6.5% is considered diagnostic of diabetes. Performed By: #### 5 5454-3 ####[facility] [id number] [place] [address] [place] Lipid 1996 panelon 5 Cholesterol [Mass/Vol] 198 mg/dL Normal <200 [facility] Comment on above: Order Comment: Kim carrizales Type: BLOOD SPECIMENOrdering Facility: [facility] Address: [address] [place] [address] Result Comment: <200 mg/dL, Desirable 200-239 mg/dL, Borderline high >239 mg/dL, High Performed By: #### 2 4323-8, 81439-3 ####[facility] [id number] [place] [address] [place] Cholesterol in HDL [Mass/Vol] 44 mg/dL Normal >39 [facility] Comment on above: Order Comment: Speci men Type: BLOOD SPECIMENOrdering Facility: [facility] Address: [address] [place] [address] Result Comment: 40-5 9 mg/dL, Acceptable >59 mg/dL, High: Negative risk factor for coronary heart disease <40 mg/dL, Low: Positive risk factor for coronary heart disease Performed By: #### 2 4323-8, 90427-3 ####[facility] [id number] [place] [address] [place] Cholesterol in LDL [Mass/Vol] 134 mg/dL High <100 [facility] Comment on above: Order Comment: Mercedesi men Type: BLOOD SPECIMENOrdering Facility: [facility] Address: [address] [place] [address] Result Comment: <100 mg/dL, Optimal 100-129 mg/dL, Near optimal/above optimal 130-159 mg/dL, Borderline high 160-189 mg/dL, High >189 mg/dL, Very high Secondary prevention optimal LDL Cholesterol levels are recommended to be < 70 mg/dL Performed By: #### 2 4323-8, 53149-9 ####[facility] [id number] [place] [address] [place] Cholesterol in LDL/Cholesterol in HDL [Mass ratio] 3.05 {ratio} High <2.54 [facility] Comment on above: Order Comment: Speci men Type: BLOOD SPECIMENOrdering Facility: [facility] Address: [address] [place] [address] Result Comment: Refgordon acosta: 1. National Cholesterol Education Program ATP III Guideline At-A-Glance Quick Desk Reference: National Heart, Lung, and Blood [place]. National Institutes of Health. 2001: NIH Publication No. 01-3305. 2. An International Atherosclerosis Society position paper: global recommendations for the management of dyslipidemia: executive summary, Atherosclerosis. 2014: 232(2):410-413. Performed By: #### 2 4323-8, 21660-7 ####[facility] [id number] [place] [address] [place] Cholesterol in VLDL [Mass/Vol] 20 mg/dL Normal <30 [facility] Comment on above: Order Comment: Kim carrizales Type: BLOOD SPECIMENOrdering Facility: [facility] Address: [address] [place] [address] Performed By: #### 2 4323-8, 21100-5 ####[facility] [id number] [place] [address] [place] Cholesterol non HDL [Mass/Vol] 154 mg/dL High <130 [facility] Comment on above: Order Comment: Kim carrizales Type: BLOOD SPECIMENOrdering Facility: [facility] Address: [address] [place] [address] Result Comment: <130 mg/dL, Optimal 130-159 mg/dL, Near optimal/above optimal 160-189 mg/dL, Borderline high 190-219 mg/dL, High >219 mg/dL, Very high Secondary prevention optimal non HDL Cholesterol levels are recommended to be <100 mg/dL Performed By: #### 2 4323-8, 71354-3 ####[facility] [id number] [place] [address] [place] Cholesterol.total/Chol esterol in HDL [Mass ratio] 4.50 {ratio} Normal <5.10 [facility] Comment on above: Order Comment: Kim carrizales Type: BLOOD SPECIMENOrdering Facility: [facility] Address: [address] [place] [address] Performed By: #### 2 4323-8, 24082-2 ####[facility] [id number] [place] [address] [place] FASTING TIME 13 hrs Normal [facility] Comment on above: Order Comment: Speci men Type: BLOOD SPECIMENOrdering Facility: [facility] Address: [address] [place] [address] Performed By: #### 2 4323-8, 84313-6 ####[facility] [id number] [place] [address] [place] Triglyceride [Mass/Vol] 102 mg/dL Normal <150 [facility] Comment on above: Order Comment: Speci men Type: BLOOD SPECIMENOrdering Facility: [facility] Address: [address] [place] [address] Result Comment: <150 mg/dL, Normal 150-199 mg/dL, Borderline high 200-499 mg/dL, High >499 mg/dL, Very high Performed By: #### 2 4323-8, 36952-5 ####[facility] [id number] [address] [place] CNPChristy 07-30-2024 CNPN Telephone (INTMWS) -------- [place] ([id number]) 1935 M Date Time Provider Department 07/30/24 RIAN PRADO INTWS During your visit today, we recorded the following information about you: Lula Enriquez RN 07/30/2024 12:07 PM Signed Patient calls and states that he has 6 month follow up with provider on 08/16/2024. Patient asking about labs to be placed so that he can have done prior to appointment. LulaNATALIE Alas Krista, LPN 08/05/2024 1:22 PM Signed Pt calls checking on status of lab orders. Pt requests a call when labs have been ordered. JESSICA Alarcon Amanda, RN 08/07/2024 9:55 AM Signed Called and let Pt know that he had fasting lab work ordered. Cintia Bermudez RN Allergies As of Date: 07/30/2024 Noted Allergy Reaction BACTRIM (SULFAMETHOXAZOLE) 10/02/2012 14 - Other: See Comments Comments: per [facility] ER report 09/28/2012 - increased heart rate and flushing CEFTIN (CEFUROXIME AXETIL) 06/14/2005 ERYTHROMYCIN 06/14/2005 14 - Other: See Comments Comments: made me sick HYDROCHLOROTHIAZIDE 06/14/2005 14 - Other: See Comments Comments: just felt bad LATEX 06/14/2005 PREDNISONE 07/22/2011 14 - Other: See Comments Comments: Makes me feel sick SULFA (SULFONAMIDE ANTIBIOTICS) 11/12/2020 16 - Unknown 14 - Other: See Comments Date Reviewed: 04/23/2024 Reviewed by: Mc Pichardo APRN.ACID PURIFIER - Fully Assessed Reason for Visit: Lab Orders [1688] Primary Visit Diagnosis:Other hyperlipidemia [E78.49] Other Visit Diagnoses:IFG (impaired fasting glucose) [R73.01] White coat syndrome with diagnosis of hypertension [I10] Order(s):COMPREHENSIVE METABOLIC PANEL [SQCMP] Order #: [id number] FUTURE COMPLETE BLOOD COUNT [SQCBC] Order #: [id number] FUTURE LIPID PANEL BASIC [SQLIPB] Order #: [id number] FUTURE HEMOGLOBIN A1C [HAVIW6K] Order #: [id number] FUTURE Prescriptions as of 08/07/2024 - ramipril (ALTACE) 10 mg capsule Take 1 capsule by mouth two times a day. - latanoprost (XALATAN) 0.005 % ophthalmic solution Use 1 Drop in both eyes daily at bedtime. - aspirin(ENTERIC COATED ASPIRIN 325 MG TAB, DELAYED RELEASE) Take one(1) tablet daily. 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 Special screening for malignant neoplasms, colo*11/02/2010 02/10/2023 History of CVA (cerebrovascular accident) [Z86.*04/12/2016 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 Chief Complaint Patient presents with: Blood Pressure HPI New is a 88 year old male who presents for follow-up for hypertension. They are here today for a recheck of blood pressure. Blood pressure appears to be still elevated. Denies any symptoms referable to elevated blood pressure. Specifically denies headache, chest pain, palpitations, dyspnea and peripheral edema. Previously he tried HCTZ but did not tolerate this, tried spironolactone but that also caused side effects so was stopped. He was on amlodipine at one point but had issues with leg swelling. Recently he tried prazosin, stopped that for side effects. He had his labs updated, kidney function returned to baseline. Other medications include Altace. He brought his home monitoring numbers with him, average is 120's-130's/ 70's. His medications were reviewed today and his list is now up to date. Medications Current Outpatient Medications Medication Sig ramipril (ALTACE) 10 mg capsule Take 1 capsule by mouth two times a day. latanoprost (XALATAN) 0.005 % ophthalmic solution Use 1 Drop in both eyes daily at bedtime. aspirin(ENTERIC COATED ASPIRIN 325 MG TAB, DELAYED RELEASE) Take one(1) tablet daily. No current facility-administered medications for this visit. ALLERGIES Allergen Reactions Bactrim [Sulfametho* Other: See Comments per [facility] ER report 09/28/2012 - increased heart rate and flushing Ceftin [Cefuroxime * Erythromycin Other: See Comments made me sick Hydrochlorothiazide Other: See Comments just felt bad Latex Prednisone Other: See Comments Makes me feel sick Sulfa (Sulfonamide * Unknown, Other: See Comments ACTIVE PROBLEM LIST Obesity, Class II, Bmi [...] Drug use: No Review of Systems Constitutional: Negative. Respiratory: Negative. Cardiovascular: Negative. OBJECTIVE BP 172/75[BP Gabe average[ Pulse 51 Wt 255 lb 8.2 oz (115.9kg) SpO2 96% Physical Exam Vitals and nursing note reviewed. Constitutional: General: He is awake. He is not in acute distress. Appearance: Normal appearance. He is well-developed and well-groomed. He is not ill-appearing, toxic-appearing or diaphoretic. [...] memory normal. Judgment: Judgment normal. ASSESSMENT/PLAN: 1. Essential hypertension - ICD9: 401.9, ICD10: I10 (primary diagnosis) - Home blood pressure readings controlled - Factors affecting control: suspected white coat hypertension - Continue current medications - Recommend home blood pressure monitoring, to bring results to next visit - Encouraged sodium restriction, DASH or Mediterranean diet - Recommend regular aerobic exercise - Reviewed risks of h (more content not included)... Normal [facility] Basic metabolic 2000 panelon 04-15-2024 Anion gap [Moles/Vol] 10 mmol/L Normal 8-15 [facility] Comment on above: Order Comment: Speci men Type: BLOOD SPECIMENOrdering Facility: [facility] Address: [address] [place] [address] Performed By: #### 2 4321-2 ####[facility] LABCLIA [id number] [address] [address] [place] Calcium [Mass/Vol] 9.2 mg/dL Normal 8.5-10.2 [facility] Comment on above: Order Comment: Speci men Type: BLOOD SPECIMENOrdering Facility: [facility] Address: [address] [place] [address] Performed By: #### 2 4321-2 ####[facility] LABCLIA [id number] [place] [address] [place] Chloride [Moles/Vol] 101 mmol/L Normal 98-107 [facility] Comment on above: Order Comment: Speci men Type: BLOOD SPECIMENOrdering Facility: [facility] Address: [address] [place] [address] Performed By: #### 2 4321-2 ####[facility] LABCLIA [id number] [place] [address] [place] CO2 [Moles/Vol] 24 mmol/L Normal 22-30 [facility] Comment on above: Order Comment: Speci men Type: BLOOD SPECIMENOrdering Facility: [facility] Address: [address] [place] [address] Performed By: #### 2 4321-2 ####[facility] LABCLIA [id number] [place] [address] [place] Creatinine [Mass/Vol] 1.08 mg/dL Normal 0.73-1.22 [facility] Comment on above: Order Comment: Speci men Type: BLOOD SPECIMENOrdering Facility: [facility] Address: [address] [place] [address] Performed By: #### 2 4321-2 ####[facility] LABCLIA [id number] [place] [address] [place] Creatinine and Glomerular filtration rate.predicted panel (S/P/Bld) 66 mL/min/1.73m??? Normal >=60 [facility] Comment on above: Order Comment: Kim carrizales Type: BLOOD SPECIMENOrdering Facility: [facility] Address: [address] [place] [address] Result Comment: Zoila mated Glomerular Filtration Rate (eGFR) is calculated using the 2020 CKD-EPI creatinine equation. This equation utilizes serum creatinine, sex, and age as parameters. The creatinine assay has traceable calibration to isotope dilution-mass spectrometry. Refer to KDIGO guidelines for clinical interpretation. In patients with unstable renal function, e.g. those with acute kidney injury, the eGFR may not accurately reflect actual GFR. Performed By: #### 2 4321-2 ####[facility] LABIA [id number] [place] [address] [place] Glucose [Mass/Vol] 138 mg/dL High 74-99 [facility] Comment on above: Order Comment: Kim carrizales Type: BLOOD SPECIMENOrdering Facility: [facility] Address: [address] [place] [address] Result Comment: The [place] Diabetes Association (ADA) provides guidance for cutoff values for fasting glucose and random glucose. The ADA defines fasting as no caloric intake for at least 8 hours. Fasting plasma glucose results between 100 to 125 mg/dL indicate increased risk for diabetes (prediabetes). Fasting plasma glucose results greater than or equal to 126 mg/dL meet the criteria for diagnosis of diabetes. In the absence of unequivocal hyperglycemia, results should be confirmed by repeat testing. In a patient with classic symptoms of hyperglycemia or hyperglycemic crisis, random plasma glucose results greater than or equal to 200 mg/dL meet the criteria for diagnosis of diabetes. Reference: Standards of Medical Care in Diabetes 2016, [place] [employer] Association. Diabetes Care. 2016.39(Suppl 1). Performed By: #### 2 4321-2 ####[facility] [id number] [place] [address] [place] Potassium [Moles/Vol] 5.1 mmol/L Normal 3.7-5.1 [facility] Comment on above: Order Comment: Kim carrizales Type: BLOOD SPECIMENOrdering Facility: [facility] Address: [address] [place] [id number] Performed By: #### 2 4321-2 ####[facility] LABCLIA [id number] [place] [id number] [place] Sodium [Moles/Vol] 135 mmol/L Low 136-144 [facility] Comment on above: Order Comment: Speci men Type: BLOOD SPECIMENOrdering Facility: [facility] Address: [address] [place] [address] Performed By: #### 2 4321-2 ####[facility] LABCLIA [id number] [place] [address] [place] Urea nitrogen [Mass/Vol] 18 mg/dL Normal 9-24 [facility] Comment on above: Order Comment: Speci men Type: BLOOD SPECIMENOrdering Facility: [facility] Address: [address] [place] [address] Performed By: #### 2 4321-2 ####[facility] LABCLIA [id number] [place] [id number] [facility] [place] J[facility] 04-02-2024 LAKISHA Telephone (INTMWS) -------- NEW ETIENNE ([id number]) 1935 M Date Time Provider Department 04/02/24 RIAN PRADO INTMWS During your visit today, we recorded the following information about you: Berenice Simmons RN 04/02/2024 8:24 AM Signed Patient calling to give Mc Pichardo CNP an update regarding a new medication he started. Patient states he began Prazosin on 03/26 as ordered by Mc. Reports he has been experiencing an increased heart rate for about 2-2.5 hours just after taking the medication each morning. Reports his pulse is usually 40-50's every morning, but lately it has been in the 80's for a couple hours after taking the Prazosin. No SOB or chest pain associated with increased heart rate episodes. States he does feel a bit dizzy at times during these episodes but never feels like passing out. No leg swelling or headache. Reports home BP this morning was 128/60. Reports worsening nocturia as well and bed wetting. Patient with no symptoms at the time of this call. Please advise patient. [phone] Thank you. Mc Pichardo APRN.CNP 04/02/2024 9:54 AM Signed Would he like to trial a reduction in the dose to once daily? Could first try only at night but if still having the nocturia then try only once daily during the day. If still not tolerating it we can try an alternative. Cintia Bermudez RN 04/02/2024 10:14 AM Signed Pt called and is notified of providers message and instructions. Pt voices understanding and is willing to try. Cintia Bermudez RN Allergies As of Date: 04/02/2024 Noted Allergy Reaction BACTRIM (SULFAMETHOXAZOLE) 10/02/2012 14 - Other: See Comments Comments: per [facility] ER report 09/28/2012 - increased heart rate and flushing CEFTIN (CEFUROXIME AXETIL) 06/14/2005 ERYTHROMYCIN 06/14/2005 14 - Other: See Comments Comments: made me sick HYDROCHLOROTHIAZIDE 06/14/2005 14 - Other: See Comments Comments: just felt bad LATEX 06/14/2005 PREDNISONE 07/22/2011 14 - Other: See Comments Comments: Makes me feel sick SULFA (SULFONAMIDE ANTIBIOTICS) 11/12/2020 16 - Unknown 14 - Other: See Comments Date Reviewed: 03/26/2024 Reviewed by: Mc Pichardo APRN.ACID PURIFIER - Fully Assessed Reason for Visit: Patient Update [1234] Prescriptions as of 04/02/2024 - prazosin (MINIPRESS) 1 mg cap Take 1 capsule by mouth two times a day. - ramipril (ALTACE) 10 mg capsule Take 1 capsule by mouth two times a day. - latanoprost (XALATAN) 0.005 % ophthalmic solution Use 1 Drop in both eyes daily at bedtime. - aspirin(ENTERIC COATED ASPIRIN 325 MG TAB, DELAYED RELEASE) Take one(1) tablet daily. 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] 11/10/2008 RBBB (Right Bundle Branch Block) [I45.10] 10/26/2009 Benign neoplasm of rectum and anal canal [D12.8*11/02/2010 Special screening for malignant neoplasms, colo*11/02/2010 02/10/2023 History of CVA (cerebrovascular accident) [Z86.*04/12/2016 Carpal tunnel syndrome of right wrist [G56.01] 04/16/2018 Obesity, Class II, BMI 35-39.9 [E66.9] 02/10/2023 Encounter Status:Closed by MC PICHARDO on 04/02/24 [facility] CNOVon 03-26-2024 CNOV Office Visit (INTMWS ) -------- NEW ETIENNE ([id number]) 1935 M Date Time Provider Department 03/26/24 8:00 AM MC PICHARDO INTMWS During your visit today, we recorded the following information about you: Pulse Blood pressure Weight 59/minute 183/82 116.4 kg Mc Pichardo APRN.ACID PURIFIER 03/26/2024 8:23 AM Signed SUBJECTIVE New Etienne is a 88 year old male here today for a check up on his medical problems. Chief Complaint Patient presents with: Recheck: states much improvement with leg swelling and feels he is walking better Blood Pressure Immunizations: Flu vaccination HPI New Etienne is a 88 year old male. He is an established patient of Rian Prado MD. Here today for a follow up on blood pressure. He saw Cory 02/25. Had his HCTZ stopped and started spironolactone. Labs done 03/19 with an increase in creatinine. He did stop the medication, did not like how it made him feel. Swelling has resolved. Other blood pressure medication includes Altace 10 mg twice daily. Prior amlodipine caused leg swelling. 130's/60's at home with home blood pressure cuff. Would like to wait until April for flu vaccine. His medications were reviewed today and his list is now up to date. Medications Current Outpatient Medications Medication Sig ramipril (ALTACE) 10 mg capsule Take 1 capsule by mouth two times a day. latanoprost (XALATAN) 0.005 % ophthalmic solution Use 1 Drop in both eyes daily at bedtime. aspirin(ENTERIC COATED ASPIRIN 325 MG TAB, DELAYED RELEASE) Take one(1) tablet daily. prazosin (MINIPRESS) 1 mg cap Take 1 capsule by mouth two times a day. No current facility-administered medications for this visit. ALLERGIES Allergen Reactions Bactrim [Sulfametho* Other: See Comments per [facility] ER report 09/28/2012 - increased heart rate and flushing Ceftin [Cefuroxime * Erythromycin Other: See Comments made me sick Hydrochlorothiazide Other: See Comments just felt bad Latex Prednisone Other: See Comments Makes me feel sick Sulfa (Sulfonamide * Unknown, Other: See Comments ACTIVE PROBLEM LIST Obesity, Class II, Bmi [...] Drug use: No Review of Systems Constitutional: Negative. Respiratory: Negative. Cardiovascular: Negative. OBJECTIVE BP 183/82[BP Gabe average[ Pulse 59 Wt 256 lb 9.9 oz (116.4kg) SpO2 97% Physical Exam Vitals and nursing note reviewed. Constitutional: General: He is awake. He is not in acute distress. Appearance: Normal appearance. He is well-developed and well-groomed. He is not ill-appearing, toxic-appearing or diaphoretic. [...] memory normal. Judgment: Judgment normal. ASSESSMENT/PLAN: 1. Essential hypertension - ICD9: 401.9, ICD10: I10 (primary diagnosis) - Home blood pressure readings controlled - Factors affecting control: suspected white coat hypertension, diet adherence, and lack of exercise - Start Minipress - Recommend home blood pressure monitoring, to bring results to next visit - Encouraged sodium restriction, DASH or Mediterranean diet - Recommend regular aerobic exercise - PRA (more content not included)... Normal [facility] Basic metabolic 2000 panelon 03-19-2024 Anion gap [Moles/Vol] 10 mmol/L Normal 8-15 [facility] Comment on above: Order Comment: Speci men Type: BLOOD SPECIMENOrdering Facility: [facility] Address: [address] [place] [address] Performed By: #### 2 4321-2 ####[facility] LABCLIA [id number] [address] [address] [place] Calcium [Mass/Vol] 9.2 mg/dL Normal 8.5-10.2 [facility] Comment on above: Order Comment: Speci men Type: BLOOD SPECIMENOrdering Facility: [facility] Address: [address] [place] [address] Performed By: #### 2 4321-2 ####[facility] LABCLIA [id number] [place] [address] [place] Chloride [Moles/Vol] 104 mmol/L Normal 98-107 [facility] Comment on above: Order Comment: Speci men Type: BLOOD SPECIMENOrdering Facility: [facility] Address: [address] [place], [place] [id number] Performed By: #### 2 4321-2 ####[facility] LABCLIA [id number] [place] [address] [place] CO2 [Moles/Vol] 26 mmol/L Normal 22-30 [facility] Comment on above: Order Comment: Speci men Type: BLOOD SPECIMENOrdering Facility: [facility] Address: [address] [place], [place] [address] Performed By: #### 2 4321-2 ####[facility] LABCLIA [id number] [place] [address] [place] Creatinine [Mass/Vol] 1.27 mg/dL High 0.73-1.22 [facility] Comment on above: Order Comment: Speci men Type: BLOOD SPECIMENOrdering Facility: [facility] Address: [address] [place] [address] Performed By: #### 2 4321-2 ####[facility] LABCLIA [id number] [place] [address] [place] Creatinine and Glomerular filtration rate.predicted panel (S/P/Bld) 55 mL/min/1.73m??? Low >=60 [facility] Comment on above: Order Comment: Specbrooklyn carrizales Type: BLOOD SPECIMENOrdering Facility: [facility] Address: [address] [place] [address] Result Comment: Zoila mated Glomerular Filtration Rate (eGFR) is calculated using the 2020 CKD-EPI creatinine equation. This equation utilizes serum creatinine, sex, and age as parameters. The creatinine assay has traceable calibration to isotope dilution-mass spectrometry. Refer to KDIGO guidelines for clinical interpretation. In patients with unstable renal function, e.g. those with acute kidney injury, the eGFR may not accurately reflect actual GFR. Performed By: #### 2 4321-2 ####[facility] [id number] [place] [address] [place] Glucose [Mass/Vol] 100 mg/dL High 74-99 [facility] Comment on above: Order Comment: Kim carrizales Type: BLOOD SPECIMENOrdering Facility: [facility] Address: [address] [place] [address] Result Comment: The [place] Diabetes Association (ADA) provides guidance for cutoff values for fasting glucose and random glucose. The ADA defines fasting as no caloric intake for at least 8 hours. Fasting plasma glucose results between 100 to 125 mg/dL indicate increased risk for diabetes (prediabetes). Fasting plasma glucose results greater than or equal to 126 mg/dL meet the criteria for diagnosis of diabetes. In the absence of unequivocal hyperglycemia, results should be confirmed by repeat testing. In a patient with classic symptoms of hyperglycemia or hyperglycemic crisis, random plasma glucose results greater than or equal to 200 mg/dL meet the criteria for diagnosis of diabetes. Reference: Standards of Medical Care in Diabetes 2016, [place] Diabetes Association. Diabetes Care. 2016.39(Suppl 1). Performed By: #### 2 4321-2 ####[facility] LABIA [id number] [place] [address] [place] Potassium [Moles/Vol] 4.9 mmol/L Normal 3.7-5.1 [facility] Comment on above: Order Comment: Speci men Type: BLOOD SPECIMENOrdering Facility: [facility] Address: [address] [place] [address] Performed By: #### 2 4321-2 ####[facility] LABCLIA [id number] [place] [address] [place] Sodium [Moles/Vol] 140 mmol/L Normal 136-144 [facility] Comment on above: Order Comment: Speci men Type: BLOOD SPECIMENOrdering Facility: [facility] Address: [address] [place] [address] Performed By: #### 2 4321-2 ####[facility] LABCLIA [id number] [place] [address] [place] Urea nitrogen [Mass/Vol] 31 mg/dL High 9-24 [facility] Comment on above: Order Comment: Speci men Type: BLOOD SPECIMENOrdering Facility: [facility] Address: [address] [place] [address] Performed By: #### 2 4321-2 ####[facility] LABCLIA [id number] [place] [address] [place] CNOVon 02-26-2024 CNOV Office Visit (INTMWS ) -------- NEW ETIENNE ([id number]) 1935 M Date Time Provider Department 02/26/24 2:40 PM CORY MENESES INTMWS During your visit today, we recorded the following information about you: Pulse Respiration Blood pressure Weight 59/minute 16/minute 144/72 115.4 kg Cory Meneses, ROTOR PLATE WASHER.PRINT INSPECTOR 02/26/2024 3:33 PM Signed Subjective There are no preventive care reminders to display for this patient. HPI New Etienne is a 88 year old male. 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 He was seen at the [facility] here in [place] for his hearing aids. Presents today noting background noise and head feeling fuzzy. No headache. No sinus congestion or drainage. No ear pain. Some ear fullness. He notes right hearing seems more decreased than left hearing. No tinnitus. He thinks it might be HCTZ. HTN: He is without report headache, chest pain, palpitations, dyspnea, peripheral edema, orthopnea, fatigue, and PND. Notes he has been feeling really well on HCTZ overall, decreased lower extremity swelling and blood pressure has been well-controlled at home. Last 3 Encounter BP Readings: Date: BP: 02/26/2024 144/72 02/12/2024 124/68 02/06/2024 140/74 Review of Systems Constitutional: Negative. Respiratory: Negative. Cardiovascular: Negative. Genitourinary: Negative. Objective BP 144/72 Pulse (!) 59 Resp 16 Wt 115.4 kg (254 lb 6.6 oz) BMI 38.12 kg/m? Physical Exam Vitals and nursing note reviewed. Constitutional: General: He is not in acute distress. Appearance: Normal appearance. He is well-developed. He is not diaphoretic. HENT: Head: Normocephalic and atraumatic. Right Ear: Tympanic membrane and ear canal normal. Decreased hearing noted. Left Ear: Tympanic membrane and ear canal normal. Decreased hearing noted. Nose: Nose normal. Right Sinus: No maxillary sinus tenderness or frontal sinus tenderness. Left Sinus: No maxillary sinus tenderness or frontal sinus tenderness. Mouth/Throat: Lips: [place]. Mouth: Mucous membranes are moist. Pharynx: Oropharynx is clear. Eyes: Conjunctiva/sclera: Conjunctivae normal. Cardiovascular: Rate and Rhythm: Normal rate and regular rhythm. Heart sounds: Normal heart sounds. Pulmonary: Effort: Pulmonary effort is normal. Breath sounds: Normal breath sounds. Abdominal: General: Bowel sounds are normal. Palpations: Abdomen is soft. Musculoskeletal: Right lower leg: Edema (scant) present. Left lower leg: No edema. Skin: General: Skin is warm and dry. Neurological: General: No focal deficit present. Mental Status: He is alert and oriented to person, place, and time. ALLERGIES Allergen Reactions Bactrim [Sulfametho* Other: See Comments per [facility] ER report 09/28/2012 - increased heart rate and flushing Ceftin [Cefuroxime * Erythromycin Other: See Comments made me sick Hydrochlorothiazide Other: See Comments just felt bad Latex Prednisone Other: See Comments Makes me feel sick Sulfa (Sulfonamide * Unknown, Other: See Comments Current Outpatient Medications Medication Sig ramipril (ALTACE) 10 mg capsule Take 1 capsule by mouth two times a day. latanoprost (XALATAN) 0.005 % ophthalmic solution Use 1 Drop in both eyes daily at bedtime. aspirin(ENTERIC COATED ASPIRIN 325 MG TAB, DELAYED RELEASE) Take one(1) tablet daily. spironolactone (ALDACTONE) 25 mg tablet Take 1 tablet by mouth once daily. for blood pressure tamsulosin (FLOMAX) 0.4 mg Take 2 capsules by mouth once daily. (Patient not taking: Reported on 02/26/2024) No current facility-administered medications for this visit. PAST MEDICAL HISTORY No date: Benign neoplasm of colon No date: Chronic rhinitis No date: Diverticulosis of colon (without mention of hemorrhage) No date: Essential hypertension, benign No date: History of CVA (cerebrovascular accident) Comment: brainstem CVA; was at [facility] then [facility]; regained strength No date: Obesity, unspecified No date: Other and unspecified hyperlipidemia reports that he has never smoked. He has never used smokeless tobacco. He reports that he does not drink alcohol and does not use drugs. Assessment and Plan 1. Essential hypertension - ICD9: 401.9, ICD10: I10 - Controlled - Stop hydrochlorothiazide and start spironolactone - Encouraged sodium restriction, DASH or Mediterranean diet - Recommend regular aerobic ex (more content not included)... Normal [facility] Lower extremity veinon [facility] Lower Extremity Venous Duplex Unilateral - Right Date of service/time: 02/06/2024 2:35:11 PM Name: MR. NEW ETIENNE Date of : 1935 Age: 88 years Gender: M Clinical Indication Lower extremity swelling. TECHNIQUE -------- A venous duplex ultrasound examination was performed, including grayscale imaging with compression maneuvers and color Doppler and spectral Doppler examination with augmentation maneuvers and response to respiration of the below mentioned veins. FINDINGS -------- RIGHT SIDE Distal external iliac vein Doppler: normal flow. Compression: normal. Common femoral vein Doppler: normal flow. Compression: normal. Femoral vein Doppler: normal flow. Compression: normal. Popliteal vein Doppler: abnormal flow with reflux. Compression: normal. Posterior tibial veins Compression: normal. Peroneal veins Compression: normal. Great saphenous vein Compression: normal. Small saphenous vein Compression: normal. LEFT SIDE Common femoral vein Doppler: normal flow. IMPRESSION RIGHT SIDE - DEEP VEINS Negative for acute deep vein thrombosis. 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 Complex fluid collection noted in the popliteal fossa/medial knee measuring 4.5 x 1.3 x 1.2 cm. RIGHT SIDE - SUPERFICIAL VEINS Negative for superficial thrombophlebitis in the great saphenous vein and small saphenous vein. LEFT SIDE - DEEP VEINS Spontaneous and respirophasic flow noted in the common femoral vein. Technologist: Radha Gates RVT, RDMS Ordering physician: JEREMY RAM Interpreting physician: MARIANA Zhao DO Final See Link below for Image [facility] XR Ankle - right AP and Late ral and obliqueon 12-20-2023 IMPRESSION: No acute bony abnormality is seen. Merchandise Marker: MACARIO Transcribe Date/Time: Dec 20 2023 10:17A Dictated by : JASON BLAND MD This examination was interpreted and the report reviewed and electronically signed by: JASON BLAND MD on Dec 20 2023 10:18AM [facility] DIVISION OF RADIOLOGY * * *Final Report* * * DATE OF EXAM: Dec 20 2023 9:50AM WOX [id number] - XR ANKLE 3V AP/LAT/OBL RT / PROCEDURE REASON: Pain * * * * Physician Interpretation * * * * History: Pain, no known injury FINDINGS: AP, lateral, and oblique views of the right ankle have been obtained there is no acute fracture or dislocation. Soft tissue bone density seen adjacent to the medial malleolus, possibly related to prior insult. Ankle mortise is intact. There is spurring at the insertion site of the Achilles tendon. DIVISION OF RADIOLOGY Provider, [facility] Jacinda [facility] - 12/20/2023 * * *Final Report* * * DATE OF EXAM: Dec 20 2023 9:50AM WOX [id number] - XR ANKLE 3V AP/LAT/OBL RT / PROCEDURE REASON: Pain * * * * Physician Interpretation * * * * History: Pain, no known injury FINDINGS: AP, lateral, and oblique views of the right ankle have been obtained there is no acute fracture or dislocation. Soft tissue bone density seen adjacent to the medial malleolus, possibly related to prior insult. Ankle mortise is intact. There is spurring at the insertion site of the Achilles tendon. IMPRESSION IMPRESSION: No acute bony abnormality is seen. Merchandise Marker: PSCB Transcribe Date/Time: Dec 20 2023 10:17A Dictated by : JASON BLAND MD This examination was interpreted and the report reviewed and electronically signed by: JASON BLAND MD on Dec 20 2023 10:18AM EST [facility] Radiology Study [facility]narrative) [facility] - [facility] AP and Late ral and obliqueOrdered By: Ccf Provider on 12-20-2023 [facility] Culture, urineOrdered By: Katie Dave on 09-19-2023 Bacteria identified Cx Nom (U) Enterococcus faecalis [facility] Basophil percentageOrdered B y: Thomas DeHorta on 08-16-2023 Chloride [Moles/Vol] 108 mmol/L 98-107 [facility] Glucose [Mass/Vol] 102 mg/dL 74-106 [facility] Comment on above: Fasting Glucose resu lt from 100 to 125 mg/dL suggests IMPAIRED HOMEOSTASIS per A.D.A. criteria. Hemoglobin (Bld) [Mass/Vol] 14.9 g/dL 13.0-16.5 [facility] Potassium [Moles/Vol] 4.2 mmol/L 3.5-5.1 [facility] Sodium [Moles/Vol] 137 mmol/L 136-145 [facility] WBC (Bld) [#/Vol] 8.7 10*3/uL 4.4-11.0 [facility] Determination of erythrocyte mean corpuscular volume (MCV)Ordered By: Thomas Rodrigues on 08-16-2023 MCV (RBC) [Entitic vol] 87.2 fL 80-94 [facility] Erythrocyte distribution wid th ratioOrdered By: Thomas Rodrigues on 08-16-2023 Erythrocyte distribution width (RBC) [Ratio] 12.8 % 11.6-14.6 [facility] Erythrocyte distribution wid th standard deviationOrdered By: Thomas Rodrigues on 08-16-2023 Erythrocyte distribution width (RBC) [Entitic vol] 40.6 fL 35.1-43.9 [facility] Hematocrit Auto (Bld) [Volum e fraction]Ordered By: Thomas Rodrigues on 08-16-2023 Hematocrit (Bld) [Volume fraction] 45.8 % 40-54 [facility] Laboratory - Chemistry and C hemistry - challengeOrdered By: Thomas Rodrigues on 08-16-2023 CO2 [Moles/Vol] 29.0 mmol/L 21.0-32.0 [facility] Urea nitrogen/Creatinine [Mass ratio] 20.8 mg/mg 10-20 [facility] Laboratory - Hematology and Cell countsOrdered By: Thomas Rodrigues on 08-16-2023 MCH (RBC) [Entitic mass] 28.4 pg 27.0-32.0 [facility] MCHC (RBC) [Mass/Vol] 32.5 g/dL 32-36 [facility] Platelets (Bld) [#/Vol] 228 10*3/uL 150-450 [facility] No Panel InformationOrdered By: Thomas Rodrigues on 08-16-2023 Estimated GFR (MDRD) Amer 85 mL/min >60 [facility] Comment on above: GFR Calc Estimated GFR (MDRD) Non-Af Amer 70 mL/min >60 [facility] Comment on above: Non- GFR Calc Platelet mean volume [place] (Bld) [Entitic vol]Ordered By: Thomas Rodrigues on 08-16-2023 Platelet mean volume (Bld) [Entitic vol] 9.7 fL 6.2-12.0 [facility] RBC Auto (Bld) [#/Vol]Ordere d By: Thomas Rodrigues on 08-16-2023 RBC (Bld) [#/Vol] 5.25 10*6/uL 4.6-6.2 [facility] Serum or plasma calcium nuzhat urement (mass/volume)Ordered By: Thomas Rodrigues on 08-16-2023 Calcium [Mass/Vol] 9.3 mg/dL 8.5-10.1 [facility] Serum or plasma creatinine m easurement (mass/volume)Ordered By: Thomas Rodrigues on 08-16-2023 Creatinine [Mass/Vol] 1.06 mg/dL 0.70-1.30 [facility] Comment on above: The validity of the calculated GFR & GFRAA in patients over 70 years has not been determined. Clinical correlation is essential. Serum or plasma urea nitroge n measurement (mass/volume)Ordered By: Thomas Rodrigues on 08-16-2023 Urea nitrogen [Mass/Vol] 22 mg/dL 7-18 [facility] Thin prep Papanicolaou smear with manual screeningOrdered By: Thomas Rodrigues on 08-16-2023 Thin prep Papanicolaou smear with manual screening 0 5-15 [facility] UA DIP, URINE (POC)on 2022 BILIRUBIN UA (POCT) Negative Negative [facility] CLARITY UA (POCT) Clear [facility] COLOR UA (POCT) Yellow [facility] GLUCOSE UA (POCT) Negative Negative mg/dL [facility] Hemoglobin Ql (U) Trace-intact Abnormal Negative [facility] KETONE UA (POCT) Negative Negative mg/dL [facility] LEUKOCYTES UA (POCT) Moderate Abnormal Negative [facility] NITRITE [facility]A (POCT) Negative Negative [facility] PH UA (POCT) 5.5 4.5 - 8.0 [facility] Protein Ql (U) Negative Negative mg/dL [facility] SPECIFIC GRAVITY UA (POCT) <=1.005 Abnormal 1.005 - 1.030 [facility] UROBILINOGEN UA (POCT) 0.2 E.U./dL Daisy l E.U./dL [facility] Culture, urineOrdered By: Katie Dave on 03-22-2023 Bacteria identified Cx Nom (U) Enterococcus faecalis [facility] Culture, urineOrdered By: Katie Dave on 03-21-2023 Bacteria identified Cx Nom (U) Enterococcus faecalis [facility] Basophil percentageOrdered B y: Ashkan Dave on 02-07-2023 Chloride [Moles/Vol] 109 mmol/L 98-107 [facility] Glucose [Mass/Vol] 101 mg/dL 74-106 [facility] Comment on above: Fasting Glucose resu lt from 100 to 125 mg/dL suggests IMPAIRED HOMEOSTASIS per A.D.A. criteria. Potassium [Moles/Vol] 4.3 mmol/L 3.5-5.1 [facility] Sodium [Moles/Vol] 142 mmol/L 136-145 [facility] Laboratory - Chemistry and C hemistry - challengeOrdered By: Ashkan Dave on 02-07-2023 CO2 [Moles/Vol] 29.0 mmol/L 21.0-32.0 [facility] Urea nitrogen/Creatinine [Mass ratio] 19.4 mg/mg 10-20 [facility] No Panel InformationOrdered By: Ashkan Dave on 02-07-2023 Estimated GFR (MDRD) Amer 62 mL/min >60 [facility] Comment on above: GFR Calc Estimated GFR (MDRD) Non-Af Amer 52 mL/min >60 [facility] Comment on above: Non- GFR Calc Prostate Specific Antigen Screen 1.73 ng/mL 0.00-4.00 [facility] Comment on above: This test was perfor med using the TPSA assay method for theDimension chemistry system. Values obtained with differentassay methods cannot be used interchangably.When changing PSA assays in the course of monitoring apatient, additional sequential testing should be carriedout to confirm baseline values. Serum or plasma calcium nuzhat urement (mass/volume)Ordered By: Ashkan Dave on 02-07-2023 Calcium [Mass/Vol] 8.6 mg/dL 8.5-10.1 [facility] Serum or plasma creatinine m easurement (mass/volume)Ordered By: Ashkan Dave on 02-07-2023 Creatinine [Mass/Vol] 1.39 mg/dL 0.70-1.30 [facility] Comment on above: The validity of the calculated GFR & GFRAA in patients over 70 years has not been determined. Clinical correlation is essential. Serum or plasma urea nitroge n measurement (mass/volume)Ordered By: Ashkan Dave on 02-07-2023 Urea nitrogen [Mass/Vol] 27 mg/dL 7-18 [facility] Thin prep Papanicolaou smear with manual screeningOrdered By: Ashkan Dave on 02-07-2023 Thin prep Papanicolaou smear with manual screening 4 5-15 [facility] Basophil percentageOrdered B y: Dr. Maddox on 01-16-2023 Chloride [Moles/Vol] 110 mmol/L 98-107 [facility] Glucose [Mass/Vol] 98 mg/dL 74-106 [facility] Potassium [Moles/Vol] 4.0 mmol/L 3.5-5.1 [facility] Sodium [Moles/Vol] 141 mmol/L 136-145 [facility] Blood hemoglobin measurement (mass/volume)Ordered By: Dr. Maddox on 01-16-2023 Hemoglobin (Bld) [Mass/Vol] 14.0 g/dL 13.0-16.5 [facility] Hematocrit Auto (Bld) [Volum e fraction]Ordered By: Dr. Maddox on 01-16-2023 Hematocrit (Bld) [Volume fraction] 42.7 % 40-54 [facility] INR in Blood by Coagulation assayOrdered By: Dr. Maddox on 01-16-2023 INR Coag (Bld) [Relative time] 1.2 {INR} [facility] Laboratory - Chemistry and C hemistry - challengeOrdered By: Dr. Maddox on 01-16-2023 CO2 [Moles/Vol] 26.0 mmol/L 21.0-32.0 [facility] Urea nitrogen/Creatinine [Mass ratio] 18.3 mg/mg 10-20 [facility] Laboratory - CoagulationOrde red By: Dr. Maddox on 01-16-2023 PT Coag (PPP) [Time] 14.9 s 11.7-14.9 [facility] No Panel InformationOrdered By: Dr. Maddox on 01-16-2023 Estimated Creatinine Clearance Calc 52.35 ml/min [facility] Estimated GFR (MDRD) Amer 93 mL/min >60 [facility] Comment on above: GFR Calc Estimated GFR (MDRD) Non-Af Amer 77 mL/min >60 [facility] Comment on above: Non- GFR Calc Serum or plasma calcium nuzhat urement (mass/volume)Ordered By: Dr. Maddox on 01-16-2023 Calcium [Mass/Vol] 8.7 mg/dL 8.5-10.1 [facility] Serum or plasma creatinine m easurement (mass/volume)Ordered By: Dr. Maddox on 01-16-2023 Creatinine [Mass/Vol] 0.98 mg/dL 0.70-1.30 [facility] Comment on above: The validity of the calculated GFR & GFRAA in patients over 70 years has not been determined. Clinical correlation is essential. Serum or plasma urea nitroge n measurement (mass/volume)Ordered By: Dr. Maddox on 01-16-2023 Urea nitrogen [Mass/Vol] 18 mg/dL 7-18 [facility] Thin prep Papanicolaou smear with manual screeningOrdered By: Dr. Maddox on 01-16-2023 Thin prep Papanicolaou smear with manual screening 5 5-15 [facility] Absolute lymphocyte countOrd ered By: Dr. Dior on 01-15-2023 Lymphocytes Auto (Unsp spec) [#/Vol] 2.47 10*3/uL 0.83-4.51 [facility] Basophil percentageOrdered B y: Dr. Dior on 01-15-2023 Basophils/100 WBC (Bld) 0.2 % 0-1 [facility] Eosinophils/100 WBC (Bld) 2.7 % 0-5 [facility] Neutrophils (Bld) [#/Vol] 4.9 10*3/uL 2.0-7.7 [facility] Neutrophils/100 WBC (Bld) 59.2 % 47-70 [facility] WBC (Bld) [#/Vol] 8.3 10*3/uL 4.4-11.0 [facility] Blood erythrocytes count (nu mber/volume)Ordered By: Dr. Dior on 01-15-2023 RBC (Bld) [#/Vol] 5.11 10*6/uL 4.6-6.2 [facility] Blood lymphocytes/100 leukoc ytesOrdered By: Dr. Dior on 01-15-2023 Lymphocytes/100 WBC (Bld) 29.8 % 19-41 [facility] Blood monocytes/100 leukocyt esOrdered By: Dr. Dior on 01-15-2023 Monocytes/100 WBC (Bld) 7.7 % 0-10 [facility] Blood platelet mean volumeOr dered By: Dr. Dior on 01-15-2023 Platelet mean volume (Bld) [Entitic vol] 9.8 fL 6.2-12.0 [facility] Determination of erythrocyte mean corpuscular volume (MCV)Ordered By: Dr. Dior on 01-15-2023 MCV (RBC) [Entitic vol] 87.1 fL 80-94 [facility] Laboratory - CoagulationOrde red By: Dr. Dior on 01-15-2023 aPTT Coag (Bld) [Time] 34.1 s 24.1-36.[address] [facility] Laboratory - Hematology and Cell countsOrdered By: Dr. Dior on 01-15-2023 Erythrocyte distribution width (RBC) [Entitic vol] 41.5 fL 35.1-43.9 [facility] Erythrocyte distribution width (RBC) [Ratio] 13.0 % 11.6-14.6 [facility] Immature granulocytes/100 WBC (Bld) 0.400 % 0.0-0.9 [facility] Comment on above: IG% - Immature Granu locytes (promyelocytes, myelocytes and metamyelocytes) > 1% indicates that a LEFT SHIFT is Present. MCH (RBC) [Entitic mass] 28.8 pg 27.0-32.0 [facility] Nucleated RBC/100 WBC (Bld) [Ratio] 0 % 0-5 [facility] MCHC Auto (RBC) [Mass/Vol]Or dered By: Dr. Dior on 01-15-2023 MCHC (RBC) [Mass/Vol] 33.0 g/dL 32-36 [facility] Platelets bldOrdered By: Dr. Dior on 01-15-2023 Platelets (Bld) [#/Vol] 204 10*3/uL 150-450 [facility] Gram stain for investigation of transfusion reaction Microscopic observation Gram stain Nom (Unsp spec) [facility] Work Phone: No Panel Information Nasopharyngeal Culture Staphylococcus aureus [facility] Work Phone: Vital Signs Date Time Vital Sign Value Performing Clinician Facility 02-26-2025 15:23-0400 Body temperature 97.2 [degF] Dr. Rian Prado MD Work Phone: [facility] 02-26-2025 15:23-0400 Diastolic blood pressure 70 mm[Hg] Dr. Rian Prado MD Work Phone: [facility] 02-26-2025 15:23-0400 Heart rate 61 /min Dr. Rian Prado MD Work Phone: [facility] 02-26-2025 15:23-0400 Respiratory rate 15 /min Dr. Rian Prado MD Work Phone: [facility] 02-26-2025 15:23-0400 SaO2% (BldA) [Mass fraction] 98 % Dr. Rian Prado MD Work Phone: [facility] 02-26-2025 15:23-0400 Systolic blood pressure 147 mm[Hg] Dr. Rian Prado MD Work Phone: [facility] 02-26-2025 13:25-0400 Body height 172.[address] Rian Prado MD Work Phone: [facility] 02-26-2025 13:25-0400 Body mass index (BMI) [Ratio] 38.4 kg/m2 Dr. Rian Prado MD Work Phone: [facility] 02-26-2025 13:25-0400 Body weight 114.[address] Rian Prado MD Work Phone: [facility] 02-17-2025 08:42-0400 Diastolic blood pressure 76 mm[Hg] Cory Meneses [employer]OR [employer] W[employer] INSPECTOR Work Phone: [facility] 02-17-2025 08:42-0400 Heart rate 61 /min Cory Meneses [employer] W[employer].PRINT INSPECTOR Work Phone: [facility] 02-17-2025 08:42-0400 Systolic blood pressure 162 mm[Hg] Cory Meneses [employer]OR [employer] W[employer]ER.PRINT INSPECTOR Work Phone: [facility] 02-17-2025 08:33-0400 Body height 172.7 cm Cory Meneses [employer]OR [employer] W[employer]ER.PRINT INSPECTOR Work Phone: [facility] 02-17-2025 08:33-0400 Body mass index (BMI) [Ratio] 39.12 kg/m2 Cory Meneses [employer]OR [employer] W[employer]ER.PRINT INSPECTOR Work Phone: [facility] 02-17-2025 08:33-0400 Body weight 116.7 kg Cory Meneses [employer]OR [employer] W[employer]ER.PRINT INSPECTOR Work Phone: [facility] 02-14-2025 07:21-0400 Diastolic blood pressure 58 mm[Hg] Mc Marino [employer]ATE W[employer]ER.ACID PURIFIER Work Phone: [facility] Comment on above: home 02-14-2025 07:21-0400 Systolic blood pressure 122 mm[Hg] Mc Marino [employer]ATE W[employer]ER.ACID PURIFIER Work Phone: [facility] Comment on above: home 02-14-2025 07:10-0400 Body mass index (BMI) [Ratio] 38.08 kg/m2 Mc Marino [employer]OR [employer]ATE W[employer]ER.ACID PURIFIER Work Phone: [facility] 02-14-2025 07:10-0400 Body weight 115.3 kg Mc Marino R[employer]OR [employer] W[employer]ER.ACID PURIFIER Work Phone: [facility] 02-14-2025 07:10-0400 Heart rate 58 /min Mc Marino [employer]OR [employer]ATE W[employer]ER.ACID PURIFIER Work Phone: [facility] 02-14-2025 07:10-0400 Respiratory rate 18 /min Mc Marino [employer]OR [employer]ATE W[employer]ER.ACID PURIFIER Work Phone: [facility] 02-14-2025 07:10-0400 SaO2% (BldA) [Mass fraction] 98 % Mc Marino [employer] W[employer]ER.ACID PURIFIER Work Phone: [facility] 01-25-2025 08:06-0400 Body mass index (BMI) [Ratio] 37.98 kg/m2 Angelo Clutter PA-C Work Phone: [facility] 01-25-2025 08:06-0400 Body temperature 98.1 [degF] Angelo Clutter PA-C Work Phone: [facility] 01-25-2025 08:06-0400 Body weight 115 kg Angelo Clutter PA-C Work Phone: [facility] 01-25-2025 08:06-0400 Diastolic blood pressure 83 mm[Hg] Angelo Clutter PA-C Work Phone: [facility] 01-25-2025 08:06-0400 Heart rate 79 /min Angelo Clutter PA-C Work Phone: [facility] 01-25-2025 08:06-0400 Respiratory rate 18 /min Angelo Clutter PA-C Work Phone: [facility] 01-25-2025 08:06-0400 SaO2% (BldA) [Mass fraction] 98 % Angelo Clutter PA-C Work Phone: [facility] 01-25-2025 08:06-0400 Systolic blood pressure 204 mm[Hg] Angelo Clutter PA-C Work Phone: [facility] 01-05-2025 08:17-0400 Body mass index (BMI) [Ratio] 37.82 kg/m2 Madison Praisler-Wood [employer]OR [employer] W[employer]ER.ACID PURIFIER Work Phone: [facility] 01-05-2025 08:17-0400 Body temperature 98.8 [degF] Madison Praisler-Wood [employer]OR [employer] W[employer]ER.ACID PURIFIER Work Phone: [facility] 01-05-2025 08:17-0400 Body weight 114.5 kg Madison Praisler-Wood R[employer]OR [employer]ATE W[employer]ER.ACID PURIFIER Work Phone: [facility] 01-05-2025 08:17-0400 Diastolic blood pressure 80 mm[Hg] Madison Praisler-Wood R[employer]OR [employer] W[employer]ER.ACID PURIFIER Work Phone: [facility] 01-05-2025 08:17-0400 Heart rate 74 /min Madison Praisler-Wood R[employer]OR PLATE W[employer]ER.ACID PURIFIER Work Phone: [facility] 01-05-2025 08:17-0400 Respiratory rate 18 /min Madison Praisler-Wood R[employer]OR [employer]ATE W[employer]ER.ACID PURIFIER Work Phone: [facility] 01-05-2025 08:17-0400 SaO2% (BldA) [Mass fraction] 96 % Madison Praisler-Wood R[employer]OR [employer]ATE W[employer]ER.ACID PURIFIER Work Phone: [facility] 01-05-2025 08:17-0400 Systolic blood pressure 170 mm[Hg] Madison Praisler-Wood R[employer]OR [employer]ATE W[employer]ER.ACID PURIFIER Work Phone: [facility] 01-03-2025 18:27-0400 Body mass index (BMI) [Ratio] 38.31 kg/m2 Krislyn Aberegg PA Work Phone: [facility] 01-03-2025 18:27-0400 Body temperature 100.99 [degF] Krislyn Aberegg PA Work Phone: [facility] 01-03-2025 18:27-0400 Body weight 116 kg Krislyn Aberegg PA Work Phone: [facility] 01-03-2025 18:27-0400 Diastolic blood pressure 77 mm[Hg] Krislyn Aberegg PA Work Phone: [facility] 01-03-2025 18:27-0400 Heart rate 99 /min Krislyn Aberegg PA Work Phone: [facility] 01-03-2025 18:27-0400 Respiratory rate 20 /min Krislyn Aberegg PA Work Phone: [facility] 01-03-2025 18:27-0400 SaO2% (BldA) [Mass fraction] 96 % Krislyn Aberegg PA Work Phone: [facility] 01-03-2025 18:27-0400 Systolic blood pressure 175 mm[Hg] Krislyn Aberegg PA Work Phone: [facility] 12-31-2024 08:38-0400 Body mass index (BMI) [Ratio] 37.65 kg/m2 Rene Swank R[employer] W[employer]ER.AC[employer]IFIER Work Phone: [facility] 12-31-2024 08:38-0400 Body temperature 97.81 [degF] Rene Swank R[employer]OR [employer]ATE WASHER.ACID PURIFIER Work Phone: [facility] 12-31-2024 08:38-0400 Body weight 114 kg Rene Swank R[employer]OR [employer]ATE W[employer]ER.ACID PURIFIER Work Phone: [facility] 12-31-2024 08:38-0400 Diastolic blood pressure 63 mm[Hg] Rene Swank R[employer]OR PLATE W[employer]ER.ACID PURIFIER Work Phone: [facility] 12-31-2024 08:38-0400 Heart rate 60 /min Rene Swank R[employer]OR [employer]ATE W[employer]ER.ACID PURIFIER Work Phone: [facility] 12-31-2024 08:38-0400 Respiratory rate 20 /min Rene Swank R[employer]OR PLATE W[employer]ER.ACID PURIFIER Work Phone: [facility] 12-31-2024 08:38-0400 SaO2% (BldA) [Mass fraction] 98 % Rene Swank R[employer]OR PLATE WASHER.ACID PURIFIER Work Phone: [facility] 12-31-2024 08:38-0400 Systolic blood pressure 183 mm[Hg] Rene Hernandezkell [employer]OR [employer]ATE WASHER.ACID PURIFIER Work Phone: [facility] 11-21-2024 17:31-0400 Body mass index (BMI) [Ratio] 38.61 kg/m2 Joedeepthi Oconnor R[employer]OR [employer] W[employer]ER.ACID PURIFIER Work Phone: [facility] 11-21-2024 17:31-0400 Body temperature 97.59 [degF] Joe Oconnor R[employer]OR [employer]ATE W[employer]ER.ACID PURIFIER Work Phone: [facility] 11-21-2024 17:31-0400 Body weight 116.9 kg Joe Oconnor R[employer]OR [employer]ATE W[employer]ER.AC[employer] PURIFIER Work Phone: [facility] 11-21-2024 17:31-0400 Diastolic blood pressure 88 mm[Hg] Joe Oconnor ROTOR [employer]ATE WASHER.ACID PURIFIER Work Phone: [facility] 11-21-2024 17:31-0400 Heart rate 58 /min Joe Oconnor R[employer]OR [employer]ATE W[employer]ER.ACID PURIFIER Work Phone: [facility] 11-21-2024 17:31-0400 Respiratory rate 16 /min Joedeepthi Oconnor ROTOR PLATE WASHER.ACID PURIFIER Work Phone: [facility] 11-21-2024 17:31-0400 SaO2% (BldA) [Mass fraction] 99 % Joedeepthi Oconnor R[employer]OR PLATE WASHER.ACID PURIFIER Work Phone: [facility] 11-21-2024 17:31-0400 Systolic blood pressure 148 mm[Hg] Joe Oconnor R[employer]OR PLATE WASHER.ACID PURIFIER Work Phone: [facility] 08-16-2024 09:29-0500 Diastolic blood pressure 60 mm[Hg] Rian Prado MD Work Phone: [facility] 08-16-2024 09:29-0500 Systolic blood pressure 158 mm[Hg] Rian Prado MD Work Phone: [facility] 08-16-2024 08:23-0500 Body mass index (BMI) [Ratio] 38.78 kg/m2 Rian Prado MD Work Phone: [facility] 08-16-2024 08:23-0500 Body temperature 97.7 [degF] Rian Prado MD Work Phone: [facility] 08-16-2024 08:23-0500 Body weight 117.4 kg Rian Prado MD Work Phone: [facility] 08-16-2024 08:23-0500 Heart rate 78 /min Rian Prado MD Work Phone: [facility] 08-16-2024 08:23-0500 Respiratory rate 16 /min Rian Prado MD Work Phone: [facility] 08-16-2024 08:23-0500 SaO2% (BldA) [Mass fraction] 98 % Rian Prado MD Work Phone: [facility] 04-23-2024 07:23-0400 Diastolic blood pressure 75 mm[Hg] Mc Marino R[employer]OR PLATE WASHER.ACID PURIFIER Work Phone: [facility] Comment on above: BP Gabe average 04-23-2024 07:23-0400 Heart rate 51 /min Mc Marino R[employer]OR PLATE WASHER.ACID PURIFIER Work Phone: [facility] 04-23-2024 07:23-0400 Systolic blood pressure 172 mm[Hg] Mc Marino ROTOR PLATE WASHER.ACID PURIFIER Work Phone: [facility] [facility] Comment on above: BP Gabe average 04-23-2024 07:07-0400 Body mass index (BMI) [Ratio] 38.28 kg/m2 Mc Marino ROTOR PLATE WASHER.ACID PURIFIER Work Phone: [facility] 04-23-2024 07:07-0400 Body weight 115.9 kg Mc Marino ROTOR PLATE WASHER.ACID PURIFIER Work Phone: [facility] 04-23-2024 07:07-0400 SaO2% (BldA) [Mass fraction] 96 % Mc Marino ROTOR PLATE WASHER.ACID PURIFIER Work Phone: [facility] 03-26-2024 08:08-0400 Diastolic blood pressure 82 mm[Hg] Mc Marino ROTOR PLATE WASHER.ACID PURIFIER Work Phone: [facility] Comment on above: BP Gabe average 03-26-2024 08:08-0400 Heart rate 59 /min Mc Marino ROTOR PLATE WASHER.ACID PURIFIER Work Phone: [facility] 03-26-2024 08:08-0400 Systolic blood pressure 183 mm[Hg] Mc Marino ROTOR PLATE WASHER.ACID PURIFIER Work Phone: [facility] Comment on above: BP Gabe average 03-26-2024 07:54-0400 Body mass index (BMI) [Ratio] 38.45 kg/m2 Mc Marino ROTOR PLATE WASHER.ACID PURIFIER Work Phone: [facility] 03-26-2024 07:54-0400 Body weight 116.4 kg Mc Marino ROTOR PLATE WASHER.ACID PURIFIER Work Phone: [facility] 03-26-2024 07:54-0400 SaO2% (BldA) [Mass fraction] 97 % Mc Marino ROTOR PLATE WASHER.ACID PURIFIER Work Phone: [facility] 02-26-2024 14:30-0400 Diastolic blood pressure 72 mm[Hg] Cory Meneses ROTOR PLATE WASHER.PRINT INSPECTOR Work Phone: [facility] 02-26-2024 14:30-0400 Heart rate 59 /min Cory Meneses ROTOR PLATE WASHER.PRINT INSPECTOR Work Phone: [facility] 02-26-2024 14:30-0400 Systolic blood pressure 144 mm[Hg] Cory Meneses ROTOR PLATE WASHER.PRINT INSPECTOR Work Phone: [facility] 02-26-2024 14:25-0400 Body mass index (BMI) [Ratio] 38.12 kg/m2 Cory Meneses ROTOR PLATE WASHER.PRINT INSPECTOR Work Phone: [facility] 02-26-2024 14:25-0400 Body weight 115.4 kg Cory Meneses ROTOR PLATE WASHER.PRINT INSPECTOR Work Phone: [facility] 02-26-2024 14:25-0400 Respiratory rate 16 /min Cory Meneses ROTOR PLATE WASHER.PRINT INSPECTOR Work Phone: [facility] 02-12-2024 06:56-0400 Body mass index (BMI) [Ratio] 38.5 kg/m2 Mc Marino ROTOR PLATE WASHER.ACID PURIFIER Work Phone: [facility] 02-12-2024 06:56-0400 Body weight 116.57 kg Mc Marino ROTOR PLATE WASHER.ACID PURIFIER Work Phone: [facility] 02-12-2024 06:56-0400 Diastolic blood pressure 68 mm[Hg] Mc Marino ROTOR PLATE WASHER.ACID PURIFIER Work Phone: [facility] 02-12-2024 06:56-0400 Heart rate 54 /min Mc Marino ROTOR PLATE WASHER.ACID PURIFIER Work Phone: [facility] 02-12-2024 06:56-0400 SaO2% (BldA) [Mass fraction] 98 % Mc Marino ROTOR PLATE WASHER.ACID PURIFIER Work Phone: [facility] 02-12-2024 06:56-0400 Systolic blood pressure 124 mm[Hg] Mc Marino ROTOR PLATE WASHER.ACID PURIFIER Work Phone: [facility] 02-06-2024 13:23-0400 Body mass index (BMI) [Ratio] 38.91 kg/m2 Krislyn Aberegg PA Work Phone: [facility] 02-06-2024 13:23-0400 Body temperature 98.49 [degF] Krislyn Aberegg PA Work Phone: [facility] 02-06-2024 13:23-0400 Body weight 117.8 kg Krislyn Aberegg PA Work Phone: [facility] 02-06-2024 13:23-0400 Diastolic blood pressure 74 mm[Hg] Krislyn Aberegg PA Work Phone: [facility] 02-06-2024 13:23-0400 Heart rate 80 /min Krislyn Aberegg PA Work Phone: [facility] 02-06-2024 13:23-0400 Respiratory rate 16 /min Krislyn Aberegg PA Work Phone: [facility] 02-06-2024 13:23-0400 SaO2% (BldA) [Mass fraction] 95 % Jeremy Ram PA Work Phone: [facility] 02-06-2024 13:23-0400 Systolic blood pressure 140 mm[Hg] Jeremy Ram PA Work Phone: [facility] 01-02-2024 17:49-0400 Body mass index (BMI) [Ratio] 39.64 kg/m2 Marcelino Norton ROTOR PLATE WASHER.ACID PURIFIER Work Phone: [facility] 01-02-2024 17:49-0400 Body temperature 97.59 [degF] Marcelino Warechristiana ROTOR PLATE WASHER.ACID PURIFIER Work Phone: [facility] 01-02-2024 17:49-0400 Body weight 120 kg Marcelino Norton ROTOR PLATE WASHER.ACID PURIFIER Work Phone: [facility] 01-02-2024 17:49-0400 Diastolic blood pressure 78 mm[Hg] Marcelino Norton ROTOR PLATE WASHER.ACID PURIFIER Work Phone: [facility] 01-02-2024 17:49-0400 Heart rate 78 /min Marcelino Norton ROTOR PLATE WASHER.ACID PURIFIER Work Phone: [facility] 01-02-2024 17:49-0400 Respiratory rate 16 /min Marcelino Norton ROTOR PLATE WASHER.ACID PURIFIER Work Phone: [facility] 01-02-2024 17:49-0400 SaO2% (BldA) [Mass fraction] 98 % Marcelino Norton ROTOR PLATE WASHER.ACID PURIFIER Work Phone: [facility] 01-02-2024 17:49-0400 Systolic blood pressure 136 mm[Hg] Marcelino Norton ROTOR PLATE WASHER.ACID PURIFIER Work Phone: [facility] 12-20-2023 09:13-0400 Body mass index (BMI) [Ratio] 39.47 kg/m2 Leisa Carroll ROTOR PLATE WASHER.ACID PURIFIER Work Phone: [facility] 12-20-2023 09:13-0400 Body temperature 96.91 [degF] Leisa Carroll APRN.ACID PURIFIER Work Phone: [facility] 12-20-2023 09:13-0400 Body weight 119.5 kg Leisa Carroll APRN.ACID PURIFIER Work Phone: [facility] 12-20-2023 09:13-0400 Diastolic blood pressure 86 mm[Hg] Leisa Carroll APRN.ACID PURIFIER Work Phone: [facility] 12-20-2023 09:13-0400 Heart rate 60 /min Leisa Carroll APRN.ACID PURIFIER Work Phone: [facility] 12-20-2023 09:13-0400 Respiratory rate 16 /min Leisa Carroll APRN.ACID PURIFIER Work Phone: [facility] 12-20-2023 09:13-0400 SaO2% (BldA) [Mass fraction] 98 % Leisa Carroll APRN.ACID PURIFIER Work Phone: [facility] 12-20-2023 09:13-0400 Systolic blood pressure 144 mm[Hg] Leisa Craroll APRN.ACID PURIFIER Work Phone: [facility] 08-31-2023 11:10-0500 Body temperature 98.1 [degF] Dr. Rian Prado Work Phone: [facility] 08-31-2023 11:10-0500 Diastolic blood pressure 63 mm[Hg] Dr. Rian Prado Work Phone: [facility] 08-31-2023 11:10-0500 Heart rate 56 /min Dr. Rian Prado Work Phone: [facility] 08-31-2023 11:10-0500 Respiratory rate 18 /min Dr. Rian Prado Work Phone: [facility] 08-31-2023 11:10-0500 SaO2% (BldA) [Mass fraction] 96 % Dr. Rian Prado Work Phone: [facility] 08-31-2023 11:10-0500 Systolic blood pressure 129 mm[Hg] Dr. Rian Prado Work Phone: [facility] 08-30-2023 08:50-0500 Inhaled oxygen flow rate 6 L/min Dr. Rian rPado Work Phone: [facility] 08-30-2023 05:55-0500 Body height 172.[address] Rian Prado Work Phone: [facility] 08-30-2023 05:55-0500 Body mass index (BMI) [Ratio] 38.5 kg/m2 Dr. Rian Prado Work Phone: [facility] 08-30-2023 05:55-0500 Body weight [address] Rian Prado Work Phone: [facility] 08-21-2023 09:48-0500 Body height 172.72 cm [facility] 08-21-2023 09:48-0500 Body mass index (BMI) [Ratio] 39.4 kg/m2 [facility] 08-21-2023 09:48-0500 Body temperature 97.6 [degF] [facility] 08-21-2023 09:48-0500 Body weight 117.56 kg [facility] 08-21-2023 09:48-0500 Diastolic blood pressure 82 mm[Hg] [facility] 08-21-2023 09:48-0500 Heart rate 86 /min [facility] 08-21-2023 09:48-0500 Respiratory rate 14 /min [facility] 08-21-2023 09:48-0500 SaO2% (BldA) [Mass fraction] 96 % [facility] 08-21-2023 09:48-0500 Systolic blood pressure 199 mm[Hg] [facility] 08-11-2023 09:26-0500 Diastolic blood pressure 58 mm[Hg] Rian Prado MD Work Phone: [facility] 08-11-2023 09:26-0500 Systolic blood pressure 128 mm[Hg] Rian Prado MD Work Phone: [facility] 06-28-2023 15:42-0500 Body mass index (BMI) [Ratio] 39.2 kg/m2 [facility] 06-28-2023 15:42-0500 Body weight 117.02 kg [facility] 06-28-2023 15:40-0500 Body height 172.72 cm [facility] 06-28-2023 15:40-0500 Body temperature 98.8 [degF] [facility] 06-28-2023 15:40-0500 Diastolic blood pressure 79 mm[Hg] [facility] 06-28-2023 15:40-0500 Heart rate 92 /min [facility] 06-28-2023 15:40-0500 Respiratory rate 16 /min [facility] 06-28-2023 15:40-0500 SaO2% (BldA) [Mass fraction] 94 % [facility] 06-28-2023 15:40-0500 Systolic blood pressure 165 mm[Hg] [facility] 06-28-2023 09:09-0500 Diastolic blood pressure 84 mm[Hg] [facility] 06-28-2023 09:09-0500 Heart rate 76 /min [facility] 06-28-2023 09:09-0500 Respiratory rate 15 /min [facility] 06-28-2023 09:09-0500 SaO2% (BldA) [Mass fraction] 95 % [facility] 06-28-2023 09:09-0500 Systolic blood pressure 139 mm[Hg] [facility] 06-28-2023 06:28-0500 Body height 172.72 cm [facility] 06-28-2023 06:28-0500 Body mass index (BMI) [Ratio] 39.4 kg/m2 [facility] 06-28-2023 06:28-0500 Body temperature 97.5 [degF] [facility] 06-28-2023 06:28-0500 Body weight 117.6 kg [facility] 06-15-2023 09:12-0500 Body temperature 97.59 [degF] Jeri Denise APRN.ACID PURIFIER Work Phone: [facility] 06-15-2023 09:12-0500 Body weight 118.39 kg Jeri Camelia ROTOR PLATE WASHER.ACID PURIFIER Work Phone: [facility] 06-15-2023 09:12-0500 Diastolic blood pressure 79 mm[Hg] Jeri Camelia ROTOR PLATE WASHER.ACID PURIFIER Work Phone: [facility] 06-15-2023 09:12-0500 Heart rate 92 /min Jeri Camelia ROTOR PLATE WASHER.ACID PURIFIER Work Phone: [facility] 06-15-2023 09:12-0500 Respiratory rate 18 /min Jeri Camelia ROTOR PLATE WASHER.ACID PURIFIER Work Phone: [facility] 06-15-2023 09:12-0500 SaO2% (BldA) [Mass fraction] 98 % Jeri Camelia ROTOR PLATE WASHER.ACID PURIFIER Work Phone: [facility] 06-15-2023 09:12-0500 Systolic blood pressure 174 mm[Hg] Jeri Camelia ROTOR PLATE WASHER.ACID PURIFIER Work Phone: [facility] 06-09-2023 07:17-0500 Body temperature 97.81 [degF] Joe Elvin ROTOR PLATE WASHER.ACID PURIFIER Work Phone: [facility] 06-09-2023 07:17-0500 Body weight 117.21 kg Joe Oconnor ROTOR PLATE WASHER.ACID PURIFIER Work Phone: [facility] 06-09-2023 07:17-0500 Diastolic blood pressure 76 mm[Hg] Joe Elvin ROTOR PLATE WASHER.ACID PURIFIER Work Phone: [facility] 06-09-2023 07:17-0500 Heart rate 62 /min Joe Elvin ROTOR PLATE WASHER.ACID PURIFIER Work Phone: [facility] 06-09-2023 07:17-0500 Respiratory rate 18 /min Joe Elvin ROTOR PLATE WASHER.ACID PURIFIER Work Phone: [facility] 06-09-2023 07:17-0500 SaO2% (BldA) [Mass fraction] 97 % Joe Elvin ROTOR PLATE WASHER.ACID PURIFIER Work Phone: [facility] 06-09-2023 07:17-0500 Systolic blood pressure 169 mm[Hg] Joe Oconnor ROTOR PLATE WASHER.ACID PURIFIER Work Phone: [facility] 03-07-2023 08:25-0400 Diastolic blood pressure 74 mm[Hg] Cory Meneses ROTOR PLATE WASHER.PRINT INSPECTOR Work Phone: [facility] 03-07-2023 08:25-0400 Heart rate 50 /min Corybrooklyn Praters ROTOR PLATE WASHER.PRINT INSPECTOR Work Phone: [facility] 03-07-2023 08:25-0400 Systolic blood pressure 153 mm[Hg] Cory Praters ROTOR PLATE WASHER.PRINT INSPECTOR Work Phone: [facility] 03-07-2023 08:05-0400 Body weight 115.67 kg Corybrooklyn Praters ROTOR PLATE WASHER.PRINT INSPECTOR Work Phone: [facility] 03-07-2023 08:05-0400 Respiratory rate 16 /min Cory Praters ROTOR PLATE WASHER.PRINT INSPECTOR Work Phone: [facility] 03-07-2023 08:05-0400 SaO2% (BldA) [Mass fraction] 97 % Cory Meneses ROTOR PLATE WASHER.PRINT INSPECTOR Work Phone: [facility] 01-16-2023 17:07-0400 Diastolic blood pressure 80 mm[Hg] Dr. Rian Prado Work Phone: [facility] 01-16-2023 17:07-0400 Systolic blood pressure 162 mm[Hg] Dr. Rian Prado Work Phone: [facility] 01-16-2023 15:21-0400 Body temperature 98.1 [degF] Dr. Rian Prado Work Phone: [facility] 01-16-2023 15:21-0400 Heart rate 58 /min Dr. Rian Prado Work Phone: [facility] 01-16-2023 15:21-0400 Respiratory rate 17 /min Dr. Rian Prado Work Phone: [facility] 01-16-2023 15:21-0400 SaO2% (BldA) [Mass fraction] 97 % Dr. Rian Prado Work Phone: [facility] 01-16-2023 13:34-0400 Body height 172.[address] Rian Prado Work Phone: [facility] 01-16-2023 13:34-0400 Body weight 109.[address] Rian Prado Work Phone: [facility] 01-16-2023 00:29-0400 Body mass index (BMI) [Ratio] 36.6 kg/m2 Dr. Rian Prado Work Phone: [facility] 10-29-2022 13:24-0400 Body temperature 97.2 [degF] Joe Oconnor ROTOR PLATE WASHER.ACID PURIFIER Work Phone: [facility] 10-29-2022 13:24-0400 Body weight 115.03 kg Joe Oconnor ROTOR PLATE WASHER.ACID PURIFIER Work Phone: [facility] 10-29-2022 13:24-0400 Diastolic blood pressure 76 mm[Hg] Joe Elvin ROTOR PLATE WASHER.ACID PURIFIER Work Phone: [facility] 10-29-2022 13:24-0400 Heart rate 63 /min Joe Elvin ROTOR PLATE WASHER.ACID PURIFIER Work Phone: [facility] 10-29-2022 13:24-0400 Respiratory rate 16 /min Joe Elvin ROTOR PLATE WASHER.ACID PURIFIER Work Phone: [facility] 10-29-2022 13:24-0400 SaO2% (BldA) [Mass fraction] 96 % Joe Elvin ROTOR PLATE WASHER.ACID PURIFIER Work Phone: [facility] 10-29-2022 13:24-0400 Systolic blood pressure 132 mm[Hg] Joe Elvin ROTOR PLATE WASHER.ACID PURIFIER Work Phone: [facility] 07-23-2022 13:44-0500 Body temperature 98.01 [degF] Madison Praisler-Wood ROTOR PLATE WASHER.ACID PURIFIER Work Phone: [facility] 07-23-2022 13:44-0500 Body weight 119.11 kg Madison Praisler-Wood ROTOR PLATE WASHER.ACID PURIFIER Work Phone: [facility] 07-23-2022 13:44-0500 Diastolic blood pressure 78 mm[Hg] Madison Praisler-Wood ROTOR PLATE WASHER.ACID PURIFIER Work Phone: [facility] 07-23-2022 13:44-0500 Heart rate 83 /min Madison Praisler-Wood ROTOR PLATE WASHER.ACID PURIFIER Work Phone: [facility] 07-23-2022 13:44-0500 Respiratory rate 18 /min Madison Praisler-Wood ROTOR PLATE WASHER.ACID PURIFIER Work Phone: [facility] 07-23-2022 13:44-0500 SaO2% (BldA) [Mass fraction] 97 % Madison Praisler-Wood ROTOR PLATE WASHER.ACID PURIFIER Work Phone: [facility] 07-23-2022 13:44-0500 Systolic blood pressure 142 mm[Hg] Madison Praisler-Wood ROTOR PLATE WASHER.ACID PURIFIER Work Phone: [facility] Encounters Encounter Date Encounter Type Care Provider Facility Start: 02-26-2025 End: 02-26-2025 Emergency department patient visit Dr. Rian Prado MD Work Phone: -Emergency Department Work Phone: Start: 02-17-2025 End: 02-17-2025 Patient encounter procedure Cory Meneses ROTOR PLATE WASHER.PRINT INSPECTOR Work Phone: [facility] Comment on above: Age-related physical debility; Personal history of TIA (transient ischemic attack); Essential (primary) hypertension; Cataract, unspecified cataract type, unspecified laterality; Glaucoma suspect, unspecified laterality; Conductive hearing loss, bilateral Start: 02-17-2025 End: 02-17-2025 ambulatory CORY MENESES Facility:[facility] Start: 02-14-2025 End: 02-14-2025 Patient encounter procedure Mc Pichardo ROTOR PLATE WASHER.ACID PURIFIER Work Phone: [facility] Comment on above: Essential hypertensi on (Primary Dx); White coat syndrome with diagnosis of hypertension; Other hyperlipidemia; History of CVA (cerebrovascular accident); Obesity, Class II, BMI 35-39.9; Encounter for screening examination for other mental health and behavioral disorders; Screening for depression; IFG (impaired fasting glucose); Dysfunction of right eustachian tube; Encounter for therapeutic drug monitoring; Screening for lipid disorders Start: 02-14-2025 End: 02-14-2025 ambulatory MC MARINO Facility:[facility] Start: 02-04-2025 End: 02-04-2025 ambulatory RIAN D TALAMPAS Facility:[facility] Start: 02-03-2025 ambulatory RIAN D TALAMPAS Facilit y:[facility] Start: 01-25-2025 End: 01-25-2025 Office outpatient visit 25 minutes Angelo Champagne PA-C Work Phone: [facility] Comment on above: Sinus congestion (Pr imary Dx) Start: 01-25-2025 End: 01-25-2025 ambulatory RIAN D TALAMPAS Facility:[facility] Start: 01-05-2025 End: 01-05-2025 Patient encounter procedure Madison Barkley APRN.IFEANYI Work Phone: [facility] Comment on above: Upper respiratory tr act infection, unspecified type (Primary Dx); Other acute nonsuppurative otitis media of both ears, recurrence not specified; Antibiotic-induced yeast infection; Essential (primary) hypertension Start: 01-05-2025 End: 01-05-2025 ambulatory RIAN D TALAMPAS Facility:[facility] Start: 01-04-2025 End: 01-04-2025 Follow-up encounter Jeremy PRABHAKAR Work Phone: [facility] Comment on above: Results Start: 01-04-2025 ambulatory JEREMY RAM Facil ity:[facility] Start: 01-04-2025 End: 01-04-2025 Subsequent hospital visit by physician Joe [facility] Work Phone: Radiology Comment on above: Fever, unspecified f ever cause [R50.9] Start: 01-03-2025 End: 01-03-2025 Patient encounter procedure Jeremy PRABHAKAR Work Phone: [facility] Comment on above: Fever, unspecified f ever cause; Acute cough; Acute bilateral otitis media Start: 01-03-2025 End: 01-03-2025 ambulatory RIAN PRADO Facility:[facility] Start: 12-31-2024 End: 12-31-2024 Patient encounter procedure Rene Hernandezkell CRANE.ACID PURIFIER Work Phone: [facility] Comment on above: Viral upper respirat ory infection (Primary Dx) Start: 12-31-2024 End: 12-31-2024 ambulatory RIAN PRADO Facility:[facility] Start: 11-21-2024 End: 11-21-2024 Patient encounter procedure Joe King ROYCE.ACID PURIFIER Work Phone: [facility] Comment on above: Sinobronchitis (Prim holland Dx) Start: 11-21-2024 End: 11-21-2024 ambulatory JOE ELVIN Facility:[facility] Start: 10-21-2024 End: 10-21-2024 Refill Rian Prado MD Work Phone: [facility] Comment on above: Refill Request Start: 08-20-2024 End: 08-20-2024 Emergency department patient visit Alexei Rushing Facility:[facility] Start: 08-18-2024 End: 08-18-2024 Emergency department patient visit Norah Briones Facility:[facility] Start: 08-16-2024 End: 08-16-2024 ambulatory RIAN Diaz [facility] Facility:[facility] Start: 08-16-2024 End: 08-16-2024 Office outpatient visit 25 minutes Rian Prado MD Work Phone: [facility] Comment on above: White coat syndrome with diagnosis of hypertension (Primary Dx); Hypercholesteremia; Roblero's cyst of knee, right; Numbness of right hand; History of CVA (cerebrovascular accident); Obesity, Class II, BMI 35-39.9; WANG (dyspnea on exertion); IFG (impaired fasting glucose); Encounter for long-term current use of medication; Achilles tendinitis, right leg Start: 08-08-2024 End: 08-08-2024 ambulatory LAURA GOMEZ Facility:[facility] Start: 07-30-2024 End: 08-07-2024 Telephone encounter Rian Prado MD Work Phone: [facility] Comment on above: Lab Orders Start: 04-23-2024 End: 04-23-2024 [facility] Facility:[facility] Start: 04-23-2024 End: 04-23-2024 Patient encounter procedure Mc Pichardo ROTOR PLATE WASHER.ACID PURIFIER Work Phone: [facility] Comment on above: Essential hypertensi on (Primary Dx); White coat syndrome with diagnosis of hypertension; Encounter for immunization Start: 04-15-2024 End: 04-15-2024 [facility] Facility:[facility] Start: 04-02-2024 End: 04-02-2024 Telephone encounter Rian Prado MD Work Phone: [facility] Comment on above: Patient Update Start: 03-26-2024 End: 03-26-2024 [facility] Facility:[facility] Start: 03-26-2024 End: 03-26-2024 Patient encounter procedure Mc Pichardo ROTOR PLATE WASHER.ACID PURIFIER Work Phone: [facility] Comment on above: Essential hypertensi on (Primary Dx); White coat syndrome with diagnosis of hypertension; Bilateral leg edema; BPH associated with nocturia; Encounter for therapeutic drug monitoring Start: 03-19-2024 End: 03-19-2024 [facility] Facility:[facility] Start: 02-26-2024 End: 02-26-2024 Office outpatient visit 25 minutes Cory Meneses APRN.PRINT INSPECTOR Work Phone: [facility] Comment on above: Essential hypertensi on (Primary Dx) Start: 02-26-2024 End: 02-26-2024 ambulatory Rian Prado MD Work Phone: [facility] Comment on above: Hearing Problem Start: 02-12-2024 End: 02-12-2024 Patient encounter procedure Mc Pichardo APRN.ACID PURIFIER Work Phone: [facility] Comment on above: Essential hypertensi on (Primary Dx); Bilateral leg edema; Pain in both lower extremities; IFG (impaired fasting glucose); Other hyperlipidemia; Encounter for therapeutic drug monitoring Start: 02-06-2024 End: 02-06-2024 Patient encounter procedure Jeremy Ram PA Work Phone: [facility] Comment on above: Right leg swelling ( Primary Dx) Start: 01-02-2024 End: 01-02-2024 Office outpatient visit 15 minutes Marcelino Norton APRN.ACID PURIFIER Work Phone: [facility] Comment on above: Rash (Primary Dx) Start: 12-20-2023 End: 12-20-2023 Subsequent hospital visit by physician Xr [facility] Work Phone: Radiology Comment on above: Pain [R52] Start: 12-20-2023 End: 12-20-2023 Patient encounter procedure Leisa Carroll APRN.ACID PURIFIER Work Phone: [facility] Comment on above: Pain (Primary Dx) Start: 09-19-2023 End: 09-19-[address] Rian Prado Work Phone: [facility] Work Phone: Start: 09-19-2023 End: 09-19-[address] Rian Prado Work Phone: [facility] Work Phone: Start: 08-30-2023 End: 08-31-2023 Admission to same day surgery center Dr. Rian Prado Work Phone: [facility] Start: 08-21-2023 End: 08-21-2023 Emergency department patient visit [facility] Work Phone: Start: 08-16-2023 End: 08-16-2023 Non-patient / Non-visit Dr. Rian Prado Work Phone: [facility] Work Phone: Start: 08-11-2023 End: 08-11-2023 Office outpatient visit 25 minutes Rian Prado MD Work Phone: [facility] Comment on above: White coat syndrome with diagnosis of hypertension (Primary Dx); IFG (impaired fasting glucose); BPH associated with nocturia; Obesity, Class II, BMI 35-39.9; Self-catheterizes urinary bladder; Encounter for immunization Start: 06-28-2023 End: 06-28-2023 [facility] Start: 06-28-2023 ambulatory Rian mccullough MD Work Phone: [facility] Comment on above: Tachycardia Start: 06-28-2023 End: 06-28-2023 Emergency department patient visit [facility]Emergency Department Work Phone: Start: 06-16-2023 Telephone encounter Jeri Denise APRN.ACID PURIFIER Work Phone: [facility] Comment on above: Results Start: 06-15-2023 End: 06-15-2023 Patient encounter procedure Jeri Denise APRN.ACID PURIFIER Work Phone: [facility] Comment on above: Urine frequency (Caron kylah Dx); Acute UTI Start: 06-09-2023 End: 06-09-2023 Patient encounter procedure Joe Oconnor ROTOR PLATE WASHER.ACID PURIFIER Work Phone: [facility] Comment on above: Eye problem (Primary Dx) Start: 03-21-2023 End: 03-21-[address] Rian Prado Work Phone: [facility] Work Phone: Start: 03-21-2023 End: 03-21-[address] Rian Prado Work Phone: [facility]-Laboratory, Specimen Work Phone: Start: 03-07-2023 End: 03-07-2023 Office outpatient visit 15 minutes Cory Meneses APRN.PRINT INSPECTOR Work Phone: [facility] Comment on above: Acute left-sided low back pain with left-sided sciatica (Primary Dx); Urinary retention due to benign prostatic hyperplasia; Self-catheterizes urinary bladder; BRBPR (bright red blood per rectum) Start: 02-07-2023 End: 02-07-[address] Rian Prado Work Phone: [facility] Work Phone: Start: 01-17-2023 Telephone encounter Rian velasquez MD Work Phone: [facility] Comment on above: Patient Update; Jessica ent Question Start: 01-16-2023 Non-patient / Non-visit Dr. Madonna Prado Work Phone: [facility] Start: 01-15-2023 End: 01-16-2023 Evaluation and management of inpatient Dr. Rian Prado Work Phone: [facility]Progressive Care Unit Start: 10-29-2022 End: 10-29-2022 Patient encounter procedure Joe Oconnor APRN.ACID PURIFIER Work Phone: [facility] Comment on above: Bacterial sinusitis (Primary Dx) Start: 07-27-2022 Refill Rian mccullough MD Work Phone: [facility] Comment on above: Refill Request Start: 07-23-2022 End: 07-23-2022 Patient encounter procedure Madison Barkley APRN.ACID PURIFIER Work Phone: [facility] Comment on above: Bacterial sinusitis (Primary Dx) Start: 02-12-2022 End: 02-12-2022 Patient encounter procedure [facility], Specimen Start: 11-22-2021 Refill Rian mccullough MD Work Phone: [facility] Comment on above: Refill Request Procedures Date Procedure Procedure Detail Performing Clinician Start: 02-26-[address] Rian Prado MD Work Phone: Start: 02-14-2025 Adult depression scr eening assessment Mc Pichardo ROTOR PLATE WASHER.ACID PURIFIER Work Phone: Start: 01-04-2025 Radiologic exam ches t 2 views Jeremy PRABHAKAR Work Phone: Start: 02-12-2024 Adult depression scr eening assessment Rian Prado MD Work Phone: Start: 12-20-2023 Radex ankle complete minimum 3 views Leisa Carroll ROTOR PLATE WASHER.ACID PURIFIER Work Phone: Start: 09-19-[address] Rian Prado Work Phone: Start: 06-28-2023 Ultrasound of scrotu m with Doppler and color flow imaging Start: 06-15-2023 Urnls dip stick/tabl et rgnt auto w/o microscopy Jeri Denise ROTOR PLATE WASHER.ACID PURIFIER Work Phone: Start: 03-21-[address] Rian Prado Work Phone: Start: 01-16-2023 Computed tomography angiography of abdominal and/or pelvic blood vessel Dr. Rian Prado Work Phone: Start: 01-15-2023 Stool Occult Blood ([place]) Dr. Rian Prado Work Phone: Investigation of transfusion reaction Nasopharyngeal Culture Stool Occult Blood ([place]) Dr. Rian Prado Work Phone: Plan of Treatment Date Care Activity Detail Author Start: 02-05-2028 Diabetes Screening Diabetes Screening [facility] Start: 08-08-2027 Diabetes Screening Diabetes Screening [facility] Start: 04-15-2027 Diabetes Screening Diabetes Screening [facility] Start: 03-19-2027 Diabetes Screening Diabetes Screening [facility] Start: 02-01-2027 Diabetes Screening Diabetes Screening [facility] Start: 11-17-2026 Urine microalbumin profile [facility] Start: 08-07-2026 Diabetes Screening Diabetes Screening [facility] Start: 02-17-2026 Medicare Annual Wellness Visit Medicare Annual Wellness Visit [facility] Start: 02-14-2026 Anxiety Screening Anxiety Screening [facility] Start: 02-14-2026 Depression Screening Depression Screening [facility] Start: 02-07-2026 DIABETES SCREEN DIABETES SCREEN [facility] Start: 02-07-2026 Diabetes Screening Diabetes Screening [facility] Start: 08-20-2025 End: 08-20-2025 Patient encounter procedure 08/20/2025 8:40 AM EST Office Visit [facility] [address] [place] [address] Rian Prado MD [address] [place] [address] 6 month follow up [facility] Comment on above: 6 month follow up Start: 08-08-2025 DIABETES SCREEN DIABETES SCREEN [facility] Start: 07-28-2025 End: 10-27-2025 CBC W Auto Differential panel - Blood COMPLETE BLOOD COUNT AND DIFFERENTIAL Lab Routine Encounter for therapeutic drug monitoring Expected: 07/28/2025, Expires: 10/27/2025 [facility] Work Phone: Comment on above: Expected: 07/28/2025, Expires: Start: 07-28-2025 End: 10-27-2025 Comprehensive metabolic 2000 panel - Serum or Plasma COMPREHENSIVE METABOLIC PANEL Lab Routine Encounter for therapeutic drug monitoring Expected: 07/28/2025, Expires: 10/27/2025 [facility] Comment on above: Expected: 07/28/2025, Expires: Start: 07-28-2025 End: 10-27-2025 Hemoglobin A1c in Blood HEMOGLOBIN A1C Lab Routine IFG (impaired fasting glucose) Expected: 07/28/2025, Expires: 10/27/2025 [facility] Comment on above: Expected: 07/28/2025, Expires: Start: 07-28-2025 End: 10-27-2025 Lipid 1996 panel - Serum or Plasma LIPID PANEL, FASTING Lab Routine Screening for lipid disorders Expected: 07/28/2025, Expires: 10/27/2025 [facility] Comment on above: Expected: 07/28/2025, Expires: Start: 03-24-2025 Influenza vaccination Influenza Vaccine (#1) [facility] Start: 02-26-2025 [facility] Start: 02-17-2025 End: 02-17-2025 Patient encounter procedure 02/17/2025 9:00 AM EDT Office Visit [facility] [address] [place] [address] Cory Meneses APRN.PRINT INSPECTOR [address] [place] [address] medicare wellness [facility] Comment on above: medicare wellness Start: 02-14-2025 End: 02-14-2025 Patient encounter procedure [facility] Comment on above: 6 month follow up Start: 02-11-2025 Anxiety Screening Anxiety Screening [facility] Start: 02-11-2025 Depression Screening Depression Screening [facility] Start: 01-14-2025 End: 04-15-2025 CBC panel - Blood by Automated count COMPLETE BLOOD COUNT Lab Routine White coat syndrome with diagnosis of hypertension Encounter for long-term current use of medication Expected: 01/14/2025 (Approximate), Expires: 04/15/2025 [facility] Comment on above: Expected: 01/14/2025 (Approximate), Expi res: 04/15/2025 Start: 01-14-2025 End: 04-15-2025 Comprehensive metabolic 2000 panel - Serum or Plasma COMPREHENSIVE METABOLIC PANEL Lab Routine White coat syndrome with diagnosis of hypertension IFG (impaired fasting glucose) Encounter for long-term current use of medication Expected: 01/14/2025 (Approximate), Expires: 04/15/2025 [facility] Comment on above: Expected: 01/14/2025 (Approximate), Expi res: 04/15/2025 Start: 01-14-2025 End: 04-15-2025 Hemoglobin A1c in Blood HEMOGLOBIN A1C Lab Routine IFG (impaired fasting glucose) Encounter for long-term current use of medication Expected: 01/14/2025 (Approximate), Expires: 04/15/2025 [facility] Work Phone: Comment on above: Expected: 01/14/2025 (Approximate), Expi res: 04/15/2025 Start: 01-14-2025 End: 04-15-2025 Lipid 1996 panel - Serum or Plasma LIPID PANEL BASIC Lab Routine White coat syndrome with diagnosis of hypertension Hypercholesteremia Encounter for long-term current use of medication Expected: 01/14/2025 (Approximate), Expires: 04/15/2025 [facility] Comment on above: Expected: 01/14/2025 (Approximate), Expi res: 04/15/2025 Start: 08-16-2024 End: 08-16-2024 Patient encounter procedure 08/16/2024 8:40 AM EST Office Visit [facility] [address] [place], [place] [id number] Rian Prado MD [address] [place], [place] [id number] 6 month follow up [facility] Comment on above: 6 month follow up Start: 08-07-2024 End: 11-06-2024 CBC panel - Blood by Automated count COMPLETE BLOOD COUNT Lab Routine White coat syndrome with diagnosis of hypertension Expected: 08/07/2024, Expires: 11/06/2024 [facility] Comment on above: Expected: 08/07/2024, Expires: Start: 08-07-2024 End: 11-06-2024 Comprehensive metabolic 2000 panel - Serum or Plasma COMPREHENSIVE METABOLIC PANEL Lab Routine Other hyperlipidemia White coat syndrome with diagnosis of hypertension Expected: 08/07/2024, Expires: 11/06/2024 [facility] Work Phone: Comment on above: Expected: 08/07/2024, Expires: Start: 08-07-2024 End: 11-06-2024 Hemoglobin A1c in Blood HEMOGLOBIN A1C Lab Routine IFG (impaired fasting glucose) Expected: 08/07/2024, Expires: 11/06/2024 [facility] Comment on above: Expected: 08/07/2024, Expires: Start: 08-07-2024 End: 04-16-2025 Lipid 1996 panel - Serum or Plasma LIPID PANEL BASIC Lab Routine Other hyperlipidemia Expected: 08/07/2024, Expires: 11/06/2024 [facility] Comment on above: Expected: 08/07/2024, Expires: Start: 07-24-2024 Advance Directive Discussion Advance Directive Discussion [facility] Start: 04-23-2024 End: 04-23-2024 Patient encounter procedure 04/23/2024 7:20 AM EDT Office Visit [facility] [address] [place] [address] Mc Pichardo APRN.ACID PURIFIER [address] [place], [place] [address] 4 week follow up blood pressure [facility] Comment on above: 4 week follow up blood pressure Start: 04-09-2024 End: 07-09-2024 Basic metabolic 2000 panel - Serum or Plasma BASIC METABOLIC PANEL Lab Routine Encounter for therapeutic drug monitoring Expected: 04/09/2024, Expires: 07/09/2024 [facility] Work Phone: Comment on above: Expected: 04/09/2024, Expires: Start: 03-26-2024 End: 03-26-2024 Patient encounter procedure 03/26/2024 8:00 AM EDT Office Visit [facility] [address] [place], [place] [address] Mc Pichardo ROTOR PLATE WASHER.ACID PURIFIER [address] [place], [place] [id number] leg pain/swelling and blood pressure follow up [facility] Comment on above: leg pain/swelling and blood pressure fol low up Start: 03-24-2024 Influenza vaccination Influenza Vaccine (#1) [facility] Start: 03-14-2024 End: 06-13-2024 Basic metabolic 2000 panel - Serum or Plasma BASIC METABOLIC PANEL Lab Routine Bilateral leg edema Encounter for therapeutic drug monitoring Expected: 03/14/2024, Expires: 06/13/2024 [facility] Work Phone: Comment on above: Expected: 03/14/2024, Expires: Start: 02-26-2024 End: 02-26-2024 Patient encounter procedure 02/26/2024 2:40 PM EDT Office Visit [facility] [address] [place] [address] Cory Meneses, ROTOR PLATE WASHER.PRINT INSPECTOR [address] [place] [address] change in hearing-feels from HCTZ (see triage note) [facility] Comment on above: change in hearing-feels from HCTZ (see t riage note) Start: 02-12-2024 End: 02-12-2024 Patient encounter procedure 02/12/2024 7:00 AM EDT Office Visit [facility] [address] [place] [address] Mc Pichardo, ROTOR PLATE WASHER.ACID PURIFIER [address] [place] [address] 6 month follow up [facility] Comment on above: 6 month follow up Start: 02-09-2024 End: 05-10-2024 CBC panel - Blood by Automated count CBC Lab Routine White coat syndrome with diagnosis of hypertension Expected: 02/09/2024 (Approximate), Expires: 05/10/2024 [facility] Work Phone: Comment on above: Expected: 02/09/2024 (Approximate), Expi res: 05/10/2024 Start: 02-09-2024 End: 05-10-2024 Comprehensive metabolic 2000 panel - Serum or Plasma COMP METABOLIC PANEL Lab Routine White coat syndrome with diagnosis of hypertension IFG (impaired fasting glucose) Expected: 02/09/2024 (Approximate), Expires: 05/10/2024 [facility] Work Phone: Comment on above: Expected: 02/09/2024 (Approximate), Expi res: 05/10/2024 Start: 02-09-2024 End: 05-10-2024 Hemoglobin A1c in Blood HGB A1C Lab Routine IFG (impaired fasting glucose) Expected: 02/09/2024 (Approximate), Expires: 05/10/2024 [facility] Work Phone: Comment on above: Expected: 02/09/2024 (Approximate), Expi res: 05/10/2024 Start: 02-09-2024 End: 05-10-2024 Lipid 1996 panel - Serum or Plasma LIPID PANEL BASIC Lab Routine White coat syndrome with diagnosis of hypertension Expected: 02/09/2024 (Approximate), Expires: 05/10/2024 [facility] Work Phone: Comment on above: Expected: 02/09/2024 (Approximate), Expi res: 05/10/2024 Start: 12-09-2023 DIABETES SCREEN DIABETES SCREEN [facility] Start: 08-31-2023 Patient discharge [facility] Start: 08-31-2023 Removal of urinary catheter [facility] Start: 08-30-2023 Anesthesia transurethral resection of prostate ANESTH REMOVAL OF PROSTATE [facility] Start: 08-30-2023 Trurl rescj residual/regrowth obstr prstate tiss REMOVE PROSTATE REGROWTH [facility] Start: 08-30-2023 Application of intermittent pneumatic compression device [facility] Start: 08-30-2023 Following clinical pathway protocol [facility] Start: 08-30-2023 Continuous positive airway pressure ventilation treatment [facility] Start: 08-30-2023 Deep breathing and coughing exercises [facility] Start: 08-30-2023 Irrigation of urinary bladder [facility] Start: 08-30-2023 Measuring intake and output [facility] Start: 08-30-2023 Oxygen therapy [facility] Start: 08-30-2023 Patient education [facility] Start: 08-30-2023 Provision of activity privileges [facility] Start: 08-30-2023 Taking patient vital signs [facility] Start: 08-30-2023 Vital signs measurements [facility] Start: 08-30-2023 [facility] Start: 08-30-2023 Admission procedure [facility] Start: 08-21-2023 [facility] Start: 08-12-2023 COVID-19 VACCINE (3 - Booster for Moderna series) COVID-19 VACCINE (3 - Booster for Moderna series) [facility] Comment on above: Postponed from 11/12/2020 (Declined at t his time) Start: 08-12-2023 COVID-19 VACCINE (3 - Moderna series) COVID-19 VACCINE (3 - Moderna series) [facility] Comment on above: Postponed from 11/12/2020 (Declined at t his time) Start: 07-24-2023 Behavioral Health Screening Behavioral Health Screening [facility] Start: 06-28-2023 [facility] Start: 06-28-2023 [facility] Start: 03-24-2023 Covid-19 Vaccine ( season) Covid-19 Vaccine () [facility] Start: 03-24-2023 Influenza vaccination INFLUENZA (#1) [facility] Start: 01-17-2023 Blood chemistry [facility] Start: 01-16-2023 Patient discharge [facility] Start: 01-16-2023 Application of intermittent pneumatic compression device [facility] Start: 01-16-2023 Following clinical pathway protocol [facility] Start: 01-16-2023 Assessment of risk of venous thromboembolism [facility] Start: 01-16-2023 Insertion of catheter into peripheral vein [facility] Start: 01-16-2023 Measuring intake and output [facility] Start: 01-16-2023 Oxygen therapy [facility] Start: 01-16-2023 Providing care according to standard [facility] Start: 01-16-2023 Provision of activity privileges [facility] Start: 01-16-2023 Referral to gastroenterology service [facility] Start: 01-16-2023 Referral to service [facility] Start: 01-16-2023 Patient referral to dietitian [facility] Start: 01-16-2023 End: 01-16-2023 [facility] Start: 01-15-2023 Admission procedure [facility] Start: 12-07-2022 SHINGRIX VACCINE (2 of 3) SHINGRIX VACCINE (2 of 3) [facility] Wesly Comment on above: Postponed from 08/08/2011 (Declined at t his time) Start: 09-21-2022 SHINGRIX VACCINE (3 of 3) SHINGRIX VACCINE (3 of 3) [facility] Start: 07-24-2022 ADVANCE DIRECTIVE DISCUSSION ADVANCE DIRECTIVE DISCUSSION [facility] Start: 07-24-2022 DEPRESSION ASSESSMENT DEPRESSION ASSESSMENT [facility] Start: 07-24-2021 ADVANCE DIRECTIVE DISCUSSION ADVANCE DIRECTIVE DISCUSSION [facility] Start: 02-14-2021 COVID-19 VACCINE (3 - Booster for Moderna series) COVID-19 VACCINE (3 - Booster for Moderna series) [facility] Start: 11-12-2020 COVID-19 VACCINE (3 - Booster for Moderna series) COVID-19 VACCINE (3 - Booster for Moderna series) [facility] Start: 08-08-2011 SHINGRIX VACCINE (2 of 3) SHINGRIX VACCINE (2 of 3) [facility] Start: 09-21-2001 Medicare Annual Wellness Visit Medicare Annual Wellness Visit [facility] Start: 1996 RSV Vaccine (1 - 1-dose 60+ series) RSV Vaccine (1 - 1-dose 60+ series) [facility] Bacteria identified in Urine by Culture URINE CULTURE Microbiology Routine Urine frequency Ordered: 06/15/2023 [facility] Work Phone: Comment on above: Ordered: 06/15/2023 Electrocardiographic procedure [facility] Patient Education [facility] Work Phone: Patient referral [place] Work Phone: End: 02-02-2026 XR Chest PA and Lateral XR CHEST 2V FRONTAL/LAT Radiology STAT Fever, unspecified fever cause Acute cough 1 Occurrences starting 01/03/2025 until 02/02/2026 [facility] Work Phone: Comment on above: 1 Occurrences starting 01/03/2025 until 02/02/2026 [facility] Immunizations Immunization Date Immunization Notes Care Provider Raffi bailey 04-23-2024 influenza, high dose seasonal, preservative-free Mc Pichardo APRN.ACID PURIFIER Work Phone: [facility] 04-23-2024 influenza virus vacc ine, unspecified formulation Angelo Champagne PA-C Work Phone: [facility] 08-15-2023 respiratory syncytia l virus (RSV) vaccine, adjuvanted (AREXVY) Mc Picharod ROTOR PLATE WASHER.ACID PURIFIER Work Phone: [facility] 04-21-2023 influenza (aIIV4) vaccine, age 65+ yr, quadrivalent, PF (FLUAD QUAD) Mc Pichardo ROTOR PLATE WASHER.ACID PURIFIER Work Phone: [facility] 04-21-2023 influenza virus vacc ine, unspecified formulation Jeremy PRABHAKAR Work Phone: [facility] 11-21-2022 zoster vaccine recombinant Rian Prado MD Work Phone: [facility] Work Phone: 07-27-2022 zoster vaccine recombinant Joe Oconnor ROTOR PLATE WASHER.ACID PURIFIER Work Phone: [facility] Work Phone: 05-19-2022 influenza (HD-IIV4) vaccine, age 65+ yr, high dose, quadrivalent, PF (FLUZONE HIGH-DOSE) Joe Oconnor ROTOR PLATE WASHER.ACID PURIFIER Work Phone: [facility] 05-19-2022 influenza, high dose seasonal, preservative-free Madison Barkley ROTOR PLATE WASHER.ACID PURIFIER Work Phone: [facility] Work Phone: 04-28-2021 influenza, high dose seasonal, preservative-free Madison Barkley ROTOR PLATE WASHER.ACID PURIFIER Work Phone: [facility] Work Phone: 09-17-2020 COVID-19 vaccine, fu ll dose (MODERNA) Rian Prado MD Work Phone: [facility] 08-20-2020 COVID-19 vaccine, fu ll dose (MODERNA) Rian Prado MD Work Phone: [facility] 04-28-2020 influenza, high dose seasonal, preservative-free Rian Prado MD Work Phone: [facility] 04-27-2020 influenza (HD-IIV4) vaccine, age 65+ yr, high dose, quadrivalent, PF (FLUZONE HIGH-DOSE) Joe Oconnor APRN.CNP Work Phone: [facility] 04-30-2019 influenza, high dose seasonal, preservative-free Rian Prado MD Work Phone: [facility] 04-16-2018 influenza, high dose seasonal, preservative-free Rian Prado MD Work Phone: [facility] 05-07-2017 influenza, high dose seasonal, preservative-free Rian Prado MD Work Phone: [facility] 11-17-2016 tetanus toxoid, redu tobias diphtheria toxoid, and acellular pertussis vaccine, adsorbed Rian Prado MD Work Phone: [facility] Work Phone: 05-12-2016 influenza, high dose seasonal, preservative-free Rian Prado MD Work Phone: [facility] 05-07-2015 influenza, high dose seasonal, preservative-free Rian Prado MD Work Phone: [facility] 09-25-2014 pneumococcal conjuga te vaccine, 13 valent Rian Prado MD Work Phone: [facility] 05-21-2014 influenza, seasonal, injectable Rian Prado MD Work Phone: [facility] Work Phone: 05-28-2013 influenza virus vacc ine, unspecified formulation Rian Prado MD Work Phone: [facility] Work Phone: 06-02-2012 influenza virus vacc ine, unspecified formulation Rian Prado MD Work Phone: [facility] 06-13-2011 influenza virus vacc ine, unspecified formulation Rian Prado MD Work Phone: [facility] 06-13-2011 zoster vaccine, live Rian rocha MD Work Phone: [facility] 04-28-2010 influenza virus vacc ine, unspecified formulation Rian Prado MD Work Phone: [facility] 05-29-2008 influenza virus vacc ine, unspecified formulation Rian Prado MD Work Phone: [facility] Work Phone: 05-29-2007 influenza virus vacc ine, unspecified formulation Rian Prado MD Work Phone: [facility] Work Phone: 04-13-2007 tetanus and diphther ia toxoids, adsorbed, preservative free, for adult use (2 Lf of tetanus toxoid and 2 Lf of diphtheria toxoid) Rian Prado MD Work Phone: [facility] Work Phone: 06-05-2006 influenza virus vacc ine, unspecified formulation Rian Prado MD Work Phone: [facility] 05-19-2005 influenza virus vacc ine, unspecified formulation Rian Prado MD Work Phone: [facility] Work Phone: 02-13-2004 pneumococcal polysaccharide vaccine, 23 valent Rian Prado MD Work Phone: [facility] Work Phone: Payers Date Payer Category Payer Self-pay [id number] 2016 [facility] DICARE SUPPLEMENT [id number] 2016 Unknown ANTHEM ANTHEM ME DICARE SUPPLEMENT [id number] 2016-Present [phone] [address] [place] [address] Indemnity [id number] 2016 Unknown ANTHEM CORDELLEM ME DICARE SUPPLEMENT [id number] 2016-Present [phone] [address] [place] [address] Indemnity [id number] 2005 Unknown [id number] 2001 Medicare MEDICARE MEDICAR E A AND B [id number] 2001-Present [phone] [place] [address] Medicare [id number] 2001 Medicare [id number] 2001 Medicare [id number] Unknown [id number] Unknown [id number] Unknown [id number] Social History Date Type Detail Facility Start: 02-26-2025 Tobacco smoking status [facility] Never smoked tobacco [facility] Start: 07-24-2021 End: 02-14-2025 Alcohol intake Current non-drinker of alcohol (finding) [facility] Start: 12-06-2020 History SDOH Alcohol Frequency 1 [facility] Start: 12-06-2020 History SDOH Social Connections Phone 5 [facility] Start: 12-06-2020 History SDOH Social Connections Druze 3 [facility] Start: 12-06-2020 History SDOH Social Connections Membership 2 [facility] Start: 12-06-2020 History SDOH Physical Activity MPS 15 [facility] Start: 12-06-2020 Education 12 [facility] Start: 1935 Sex Assigned At Not on file [facility] Start: 11-12-2020 End: 08-21-2023 Tobacco smoking status NHIS Unknown if ever smoked [facility] Start: 11-12-2020 None [facility] Start: 11-12-2020 Spouse/ Significant Other [facility] Start: 1935 Sex Assigned At Male [facility] Start: 12-06-2020 End: 08-11-2023 History of Social function [facility] Start: 12-06-2020 End: 08-11-2023 Social connection and isolation panel [facility] Do you belong to any clubs or organizations such as caodaism groups, unions, fraternal or athletic groups, or school groups? No [facility] Are you now , , , , never or living with a partner? [facility] How often to you hav e a drink containing alcohol? Never [facility] Average Number of Drinks Not on file [facility] Do you feel stress - tense, restless, nervous, or anxious, or unable to sleep at night because your mind is troubled all the time - these days [OSQ] Only a little [facility] (I/We) worried lyla er (my/our) food would run out before (I/we) got money to buy more. Never true [facility] Goals Date Patient Goal Desired Activity /State Functional Status Date Assessment Result Facility 08-31-2023 Functional status Ambulates [facility] Work Phone: 01-16-2023 Functional status Ambulates [facility] Work Phone: 12-11-2014 Are you deaf, or do you have serious difficulty hearing No 12/11/2014 12:50 PM EDT Darling Russo LPN No [facility] 12-11-2014 Are you blind, or do you have serious difficulty seeing, even when wearing glasses No 12/11/2014 12:50 PM EDT Darling Russo LPN No [facility] 12-11-2014 Do you have serious difficulty walking or climbing stairs No 12/11/2014 12:50 PM EDT Darling Russo LPN No [facility] 12-11-2014 Do you have difficul ty dressing or bathing No 12/11/2014 12:50 PM EDT Darling Russo LPN No [facility] 12-11-2014 Because of a physica l, mental, or emotional condition, do you have difficulty doing errands alone such as visiting a physician's office or shopping No 12/11/2014 12:50 PM EDT Darling Russo LPN No [facility] Mental Status Date Assessment Result Facility 02-26-2025 Cognitive function Awake;Alert;A ppropriate; Follows Commands [facility] Work Phone: 08-31-2023 Cognitive function Voice/Name [facility] Work Phone: 01-16-2023 Cognitive function Voice/Name [facility] Work Phone: 12-11-2014 Because of a physica l, mental, or emotional condition, do you have serious difficulty concentrating, remembering, or making decisions No 12/11/2014 12:50 PM EDT Darling Russo LPN No [facility] Clinical Notes 07-23-2007 to 02-26-2025 Note Date & Type Note Facility 02-26-2025 Discharge summary [facility] 02-26-2025 Discharge summary Note Date/Time February 26, 2025 3:07pm [facility] Medical Records Department [address] [place] [address] Emergency Department Summary 02/26/25 MR#: [id number] Acct: [id number] Name: NEW ETIENNE Rep #:[id number] 2 : 1935 89 From: Mitchel Meza MD PCP: Dr. Rian Prdao MD Status:RE G ER Location: ED HPI History of Present Illness Chief Complaint: Palpitations Detail of Chief Complaint: Palpitations with heart rate to 126 Informant: patient and spouse/S.O. Onset/Context/Timing Onset: Today (Today a couple hours after taking Mucinex DM) and Weeks (Nasal congestion) Context: Sudden Onset Timing: Intermittent Quality: Heart rate up to 126 Location: Cardiovascular Current Severity: Gone Maximum Severity: Moderate Worsened by: Occurred after he took Mucinex DM Relieved by: Not applicable Associated Symptoms Associated Symptoms: None other than feeling his heart beat fast Narrative Narrative: Patient is an 89-year-old male. He has history of hypertension, eustachian tubedysfunction, hearing loss, glaucoma who presents with rapid heart rate after taking Mucinex DM. He states his heart rate was maximum of 126. He had no chest pressure, tightness heaviness or discomfort. He denies shortness of breath. He denied nausea or vomiting. He denied diaphoresis. He denied lightheadedness. Patient states he has had nasal congestion. He seen ENT and has been told more than 1 occasion he does not have an infection. He does have hearing loss. Theyrecommended hearing aids. He also has eustachian tube dysfunction. Patient states he has not felt well for the past couple of weeks. He has not had a documented fever. He does have nasal congestion and postnasal drainage. He denies sore throat. He denies cough. He states he has been seen in urgent care for this and they recommended Sudafed. He was informed the Sudafed may increase his heart rate. He states his normal heart rates in the 40s. Even at 80 this is abnormal for him. Patient denies lightheadedness with standing or sitting. Patient denies leg pain, swelling or discoloration. Prior similar symptoms: No Recent Illness/Hospitalization: Yes (Per HPI narrative) [facility] Medical History Loss of hearing Wears glasses Prostate disease Stroke/cerebrovascular accident Non-smoker Cardiology follow-up encounter Self-catheterizes urinary bladder Right bundle branch block (RBBB) Hyperlipidemia Diverticulosis History of cerebrovascular accident (2003) Benign neoplasm of colon Essential (primary) hypertension Obesity Lumbar region somatic dysfunction Segmental and somatic dysfunction of thoracic region Segmental and somatic dysfunction of pelvic region Segmental and somatic dysfunction of lumbar region Cataracts, bilateral Home Medications ?Medication ?Instructions ?Recorded ?Last Taken ?Type aspirin 325 mg tablet 325 mg PO DAILY@0800 6 08/22/23 History ramipril 5 mg capsule 10 mg PO BID 06/22/16 History latanoprost 0.005 % eye drops 1 drp ophthalmic (eye) D AILY 08/15/23 Unknown History fluticasone propionate 50 2 spray intranasal DAILY PRN 02/26/25 Unknown History mcg/actuation nasal allergy symptoms spray,suspension (Flonase Allergy Relief) Allergy/AdvReac Type Severity Reaction Status Date / Time levofloxacin (From Levaquin) Allergy Intermediate Rash Verified 02/26/25 13:25 latex Allergy Unknown Verified 02/26/25 13:25 Sulfa (Sulfonamide Allergy Unknown Verified 02/26/25 13:25 Antibiotics) erythromycin base AdvReac Unknown Verified 02/26/25 13:25 hydrochlorothiazide AdvReac Unknown Verified 02/26/25 13:25 prednisone AdvReac Unknown Verified 02/26/25 13:25 Family History Other Heart disease Hypertension Surgical History History of cataract extraction with lens replacement H/O tooth extraction Social History (Updated 02/26/25 @ 13:[address] Mitchel Meza MD) household members: spouse Smoking Status: Never smoker alcohol intake: never substance use type: does not use what type of physical activity do you participate in: none ROS ROS ED Constitutional Constitutional ED: Denies chills, fever(s), subjective or sweats Eyes Eyes: Denies blurry vision or change in vision ENT ENT ED: Reports other Details: Further detailed HPI narrative ; Denies ear pain, rhinorrhea or sore throat Cardiovascular Cardiovascular: Reports palpitations and racing heartbeat; Denies chest pain, orthopnea or paroxysmal nocturnal dyspnea Respiratory/Chest Respiratory/Chest: Denies cough, dyspnea, dyspnea on exertion, orthopnea or paroxysmal nocturnal dyspnea Gastrointestinal Gastrointestinal: Denies abdominal pain or melena Musculoskeletal Musculoskeletal: Denies arthralgias or myalgias Integumentary Denies rash Neurologic Neurologic: Denies weakness Hematologic/Lymphatic Hematologic/Lymphatic: Reports systems reviewed and no addt'l complaints, exceptas documented EXAM Physical Exam Const Vital Signs: 02/26/25 13:25 02/26/25 13:36 02/26/25 14:12 Temperature 97.2 F L Temperature Source Temporal Pulse Rate 108 H 72 Respiratory Rate 22 H 12 Respiratory Effort Normal Non-Labored Blood Pressure 203/123 H 154/85 H Blood Pressure Mean 149 108 Pulse Ox 99 96 Oxygen Delivery Method Room Air Room Air Positive well nourished and well developed Constitutional Narrative: Patient's vital signs noted. When I was in the room obtaining my history his blood pressure was 156/100. He states his blood pressure is elevated when he goes to his doctors. General Appearance ED: well developed HEENT HEENT Narrative: Nares patent. Some mild clear drainage. Ears are normal. External auditory canals remarkable for cerumen on the left. TMs are normal bilaterally with landmarks noted. Posterior pharynx erythema or exudate. Uvula is midline. There is no deviation tongue with protrusion. Eyes PERRL and EOMs intact bilaterally General Eye ED: Negative for pale conjunctiva or scleral icterus Neck no lymphadenopathy, supple and no JVD Chest Wall inspection of chest normal Resp normal respiratory effort and clear to auscultation bilaterally Cardio regular rate, regular rhythm, S1 normal heart sound, S2 normal heart sound and no murmurs GI normal to inspection, nondistended, normoactive bowel sounds, non-tender, non-distended and no masses; Negative for hepatosplenomegaly Back/Spine Back/Spine Narrative: Inspection of the back is normal. Extremity normal to inspection General Extremety ED: Negative for edema General Extremity: Negative for edema Neuro oriented x3 Sensorium / Orientation: alert Psych mental status grossly normal Skin no rashes or lesions noted, no wounds and skin turgor normal [facility] Lab Data Attestation: I reviewed the patient's lab results. Lab results narrative: Electrolyte panel is unremarkable and specifically potassium is normal. Glucoseis slightly elevated 117 with a normal CO2 and anion gap. Labs: Laboratory Results - last 24 hr 02/26/25 14:10 Sodium 139 Potassium 4.7 Chloride 104 Carbon Dioxide 23.6 Anion Gap 11 BUN 24 H Creatinine 1.04 Estim Creat Clear Calc 60.36 Est GFR (MDRD) Non-Af 69 BUN/Creatinine Ratio 22.6 H Glucose 117 H Calcium 9.2 Rhythm Strip Rhythm Strip: Sinus Rhythm Rate: 84 Ectopy: PVC(s) (Occasional to few during my 5 to 10-minute interaction with the patient.) EKG Initial EKG: Attestation: I personally reviewed and interpreted this EKG as follows: Interpretation: Sinus Rhythm (Rate is 94. He does have a first-degree AV block with a NH interval of 218 ms. QRS durations 134 ms. QT durations are 78 ms. [place] is normal. Patient does have a right bundle branch block. This was compared to EKG obtained August 16, 2023. The only difference is the rate. The rate at that ti) Discharge Plan Triage Chief Complaint: Palpitations ED Provider: Mitchel Meza Dx/Rx/DC Orders Clinical Impression: Tachycardia, Essential (primary) hypertension, Hyperlipidemia, Adverse drug reaction, Premature ventricular beats Instructions: ED About Arrhythmias, ED High Blood Pressure Hypertension Prescriptions: No Action aspirin 325 MG tablet 325 mg PO DAILY@0800 ramipril 5 MG capsule 10 mg PO BID latanoprost 0.005 % drops 1 drp ophthalmic (eye) DAILY Patient Comments: INSTILL 1 DROP INTO BOTH EYES AT BEDTIME fluticasone propionate [Flonase Allergy Relief] 50 mcg/actuation spray,suspension 2 spray intranasal DAILY PRN (Reason: allergy symptoms) Rx Instructions: administer into each nostril Primary Care Provider: Rian Prado Referrals: Rian Prado MD [Primary Care Provider] - As Needed Print Language: Swedish Disposition Disposition: Home, Self Care What to do if you have Problems For any increased pain, shortness of breath, bleeding, nausea or vomiting, chestpain, or any unexpected problems, contact your Primary Care Provider. Call [facility] ([phone]) or report to the closest Emergency Room. Call 911 if necessary. 02/26/25 0439 <Electronically signed by Mitchel Meza MD> Cosigner Signature (if applicable): CC: Dr. Rian Prado MD ~ Signed [facility] Work Phone: [phone] 538-315807-28-2025 NoteHNO ID: [id number] Author: CORY MENESES APRN.PRINT INSPECTOR Service: ? Author Type: Nurse Specialist Type: Progress Notes Filed: 02/17/2025 09:11 Note Text: New Etienne is a 89 year old male here for a Medicare wellness visit. Medicare Health Risk Assessment General Health good Exercise: Minutes/Day 60 minutes or more Exercise: Days/Week 7 days Alcohol: Daily Use none Alcohol: Drinks/Day none Alcohol: 6 or more drinks none Feel off balance tripped once since last seen Concerns: Teeth/Dentures 5 implants Concerns: Sexual function no voiced concerns Troubled by feelings no Frequency: Eating healthy diet yes ADLs requiring help no independent Safety precautions in home/vehicle no voiced concers Smoke, vape, chews tobacco no never Difficulty hearing yes seeing ENT Difficulty seeing sees opthalmology Current Providers Specialists: I have reviewed specialist-related care of the patient in the medical record. Dr. Penelope Sapp Eye Medical/Family history review Reviewed and updated problem list, medical/surgical/family/social history, medications, and allergies. Opioid use review Opioid Medications (last 90 days) No data to display Anxiety/Depression screening-not anxious or depressed Recommendation: no further intervention at this time Cognitive screening Mini Cog Score: 3 Cognitive screening reviewed and No further action needed (score 3-5). Functional Observation Was the patient's Timed Up AND Go test unsteady or >= 12 seconds? No Advance Care Planning Surrogate decision maker and/or advance care plan documented Spouse and daughter Annual Wellness Exam: - Denies alcohol consumption. - Denies anxiety or depression. - No assistance needed for ADLs. - No significant memory issues; occasional delay in recalling names. - Has a living will for healthcare, with and one daughter designated. - No refills needed today. - Next appointment scheduled for July. Diet and Exercise: - Eats a varied diet, trying to include good stuff. - Exercises regularly at [facility] [employer]. - Engages [place] physical activities [place], including mowing and trimming brush. Hearing Loss: - Recent cold led to Eustachian tube dysfunction, causing hearing loss. - Under ENT care; advised to use Flonase and goscetin. - No infection or pressure issues noted by ENT. Elevated IOP: - Using eye drops for elevated IOP; recently switched from Latanoprost due to pain. - Longstanding concern for glaucoma due to enlarged nerve bundles. - Has a cataract but advised against surgery due to age-related healing concerns. Hypertension: - Managed with Ramipril 10 mg BID. - Previous use of Amlodipine caused leg pain and edema; symptoms resolved after discontinuation. - Blood pressure readings around 150/80 mmHg. - Reports bradycardia with heart rate in the 40s-50s. CVA: - History of brainstem CVA in 2004. - Previously on atorvastatin; discontinued due to low cholesterol levels. Dental Health: - Has five dental implants; sees dentist twice a year. Falls: - One recent fall, tripped over an object while working. Measurements BP 162/76 (BP Site: Left Arm, BP Position: Sitting, BP Cuff Size: Large Adult) Pulse 61 Ht 172.7 cm (5' 8) Wt 116.7 kg (257 lb 4.4 oz) BMI 39.12 kg/m? Vision Screening: Follows with optometry/ophthalmology Right: 20/40 Left: 20/ 70 Both: 20/30 Assessment/Plan Medicare annual wellness visit, subsequent (Z00.00) - Counseled on healthy diet and regular exercise - Fall avoidance information provided - Personalized prevention plan provided 1. Age-related physical debility (R54) - Patient reports decreased mobility and leg weakness, which he attributes to prior use of amlodipine. - Encouraged continuation of regular exercise and physical activity as tolerated. - Discussed importance of maintaining independence and mobility. - Follow-up in July. 2. Personal history of TIA (transient ischemic attack) (Z86.73) - History of brainstem stroke in 2004. - Discussed risks and benefits of statin therapy for secondary prevention; patient declined statin therapy at this time. - Encouraged a heart-healthy diet: increase fruits, vegetables, whole grains, fish, chicken, turkey, nuts, beans; decrease beef, fried foods, processed foods, and avoid fast foods. 3. Essential (primary) hypertension (I10) - Blood pressure readings approximately 150/80 mmHg, slightly above target. - Heart rate consistently in the 40s-50s. - Continue ramipril 10 mg BID. - Previously discontinued amlodipine due to leg pain and edema. - Previously trialed spironolactone. - Encouraged dietary modifications to support blood pressure control. 4. Cataract, unspecified cataract type, unspecified laterality (H26.9) 5. Glaucoma suspect, unspecified laterality (H40.009) - Under ophthalmology care; previously on latanoprost, which was discontinued due (more content not included)...[facility]07-28-2025 History of Present illness Narrative* Cory Meneses, ROTOR PLATE WASHER.PRINT INSPECTOR - 02/17/2025 8:25 AM EDT Images from the original note were not included. New Etienne is a 89 year old male here for a Medicare wellness visit. Medicare Health Risk Assessment General Health good Exercise: Minutes/Day 60 minutes or more Exercise: Days/Week 7 days Alcohol: Daily Use none Alcohol: Drinks/Day none Alcohol: 6 or more drinks none Feel off balance tripped once since last seen Concerns: Teeth/Dentures 5 implants Concerns: Sexual function no voiced concerns Troubled by feelings no Frequency: Eating healthy diet yes ADLs requiring help no independent Safety precautions in home/vehicle no voiced concers Smoke, vape, chews tobacco no never Difficulty hearing yes seeing ENT Difficulty seeing sees opthalmology Current Providers Specialists: I have reviewed specialist-related care of the patient in the medical record. Dr. Penelope Sapp Eye Medical/Family history review Reviewed and updated problem list, medical/surgical/family/social history, medications, and allergies. Opioid use review Opioid Medications (last 90 days) No data to display Anxiety/Depression screening-not anxious or depressed Recommendation: no further intervention at this time Cognitive screening Mini Cog Score: 3 Cognitive screening reviewed and No further action needed (score 3-5). Functional Observation Was the patient's Timed Up & Go test unsteady or >= 12 seconds? No Advance Care Planning Surrogate decision maker and/or advance care plan documented Spouse and daughter Annual Wellness Exam: - Denies alcohol consumption. - Denies anxiety or depression. - No assistance needed for ADLs. - No significant memory issues; occasional delay in recalling names. - Has a living will for healthcare, with and one daughter designated. - No refills needed today. - Next appointment scheduled for July. Diet and Exercise: - Eats a varied diet, trying to include good stuff. - Exercises regularly at [facility] [employer]. - Engages in physical activities [place], including mowing and trimming brush. Hearing Loss: - Recent cold led to Eustachian tube dysfunction, causing hearing loss. - Under ENT care; advised to use Flonase and goscetin. - No infection or pressure issues noted by ENT. Elevated IOP: - Using eye drops for elevated IOP; recently switched from Latanoprost due to pain. - Longstanding concern for glaucoma due to enlarged nerve bundles. - Has a cataract but advised against surgery due to age-related healing concerns. Hypertension: - Managed with Ramipril 10 mg BID. - Previous use of Amlodipine caused leg pain and edema; symptoms resolved after discontinuation. - Blood pressure readings around 150/80 mmHg. - Reports bradycardia with heart rate in the 40s-50s. CVA: - History of brainstem CVA in 2004. - Previously on atorvastatin; discontinued due to low cholesterol levels. Dental Health: - Has five dental implants; sees dentist twice a year. Falls: - One recent fall, tripped over an object while working. Measurements BP 162/76 (BP Site: Left Arm, BP Position: Sitting, BP Cuff Size: Large Adult) Pulse 61 Ht 172.7 cm (5' 8) Wt 116.7 kg (257 lb 4.4 oz) BMI 39.12 kg/m Vision Screening: Follows with optometry/ophthalmology Right: 20/40 Left: 20/ 70 Both: 20/30 Assessment/Plan Medicare annual wellness visit, subsequent (Z00.00) - Counseled on healthy diet and regular exercise - Fall avoidance information provided - Personalized prevention plan provided 1. Age-related physical debility (R54) - Patient reports decreased mobility and leg weakness, which he attributes to prior use of amlodipine. - Encouraged continuation of regular exercise and physical activity as tolerated. - Discussed importance of maintaining independence and mobility. - Follow-up in July. 2. Personal history of TIA (transient ischemic attack) (Z86.73) - History of brainstem stroke in 2004. - Discussed risks and benefits of statin therapy for secondary prevention; patient declined statin therapy at this time. - Encouraged a heart-healthy diet: increase fruits, vegetables, whole grains, fish, chicken, turkey, nuts, beans; decrease beef, fried foods, processed foods, and avoid fast foods. 3. Essential (primary) hypertension (I10) - Blood pressure readings approximately 150/80 mmHg, slightly above target. - Heart rate consistently in the 40s-50s. - Continue ramipril 10 mg BID. - Previously discontinued amlodipine due to leg pain and edema. - Previously trialed spironolactone. - Encouraged dietary modifications to support blood pressure control. 4. Cataract, unspecified cataract type, unspecified laterality (H26.9) 5. 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 - Advised to continue current ophthalmology management and follow-up. 6. 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 - Advised to follow up with ENT as scheduled. Cory Meneses APRN.CNS [facility] Instructions* Patient Instructions* Cory Meneses APRN.CNS - 02/17/2025 8:25 AM EDT Screening schedule The following prevention plan is recommended: Medicare Annual Wellness Visit Never done WHAT YOU CAN DO TO PREVENT FALLS Many falls can be prevented. By making some changes, you can lower your chances of falling. Four things YOU can do to prevent falls for you* and your caregiver 1. Begin a regular exercise program Exercise is one of the most important ways to lower your chances of falling. It makes you stronger and helps you feel better. Exercises that improve balance and coordination (like Leonid Chi) are the most helpful. Lack of exercise leads to weakness and increases your chances of falling. Ask your doctor or health care provider about the best type of exercise program for you. 2. Have your health care provider review your medicines Have your doctor or pharmacist review all the medicines you take, even [id number] medicines. As you get older, the way medicines work in your body can change. Some medicines, or combinations of medicines, can make you sleepy or dizzy andcan cause you to fall. 3. Have your vision checked Have your eyes checked by an eye doctor at least once a year. You may be wearing the wrong glasses or have a condition like glaucoma or cataracts that limits your vision. Poor vision can increase your chances of falling. 4. Make your home safer About half of all falls happen at home. To make your home safer: Remove things you can trip over (like papers, books, clothes, and shoes) from stairs and places where you walk. Remove small throw rugs or use double-sided tape to keep the rugs from slipping. Keep items you use often in cabinets you can reach easily without using a step stool. Have grab bars put in next to your toilet and in the tub or shower. Use non-slip mats in the bathtub and on shower floors. Improve the lighting in your home. As you get older, you need brighter lights to see well. Hang light-weight curtains or shades to reduce glare. Have handrails and lights put in on all staircases. Wear shoes both inside and outside the house. Avoid going barefoot or wearing slippers. For more information, contact: Centers for Disease Control and Prevention www.cdc.gov/injury * This information may not apply if you have certain medical conditions. documented in this encounter[facility]25 NoteHNO ID: [id number] Author: MC PICHARDO APRN.ACID PURIFIER Service: ? Author Type: Nurse Practitioner Type: Progress Notes Filed: 02/14/2025 08:06 Note Text: SUBJECTIVE New Etienne is a 89 year old male here today for a check up on his medical problems. Chief Complaint Patient presents with: 6 month f/up HPI New Etienne is a 89-year-old male with a history of HTN, hypercholesterolemia, and a brainstem CVA in 2004, presenting for 6 month follow-up. New reports experiencing a URI in early November, followed by a sudden onset of hearing loss. He has been evaluated multiple times, including by an ENT specialist, who diagnosed eustachian tube dysfunction and advised that hearing should improve within 3 months. New is currently using Flonase and quercetin as recommended. Despite this, he continues to experience significant hearing impairment, particularly at distances greater than 20 feet, and describes the sensation as having a clogged up head and feeling like his head's full of cotton. He has tried both high-end and low-cost hearing aids without noticeable improvement and expresses frustration with their effectiveness. He denies any associated anxiety or depression, stating, I should be depressed over this mess, but I'm okay. New also reports a history of elevated blood pressure readings, with a recent measurement of 204/83 mmHg on the . He has been monitoring his blood pressure at home, noting that it can elevate when he is excited or stressed. He denies any current chest pain or tightness, attributing occasional discomfort to post-nasal drainage rather than cardiac issues. He has a history of hypercholesterolemia and was previously on a statin and aspirin following a brainstem CVA in 2004. He discontinued the statin after his total cholesterol dropped to 114 mg/dL, which he felt was too low. Recent lab results show his total cholesterol is now under 200 mg/dL, triglycerides are 95 mg/dL, HDL is 43 mg/dL, and LDL is elevated. He also has a history of pre-diabetes, with a recent glucose level of 123 mg/dL. New mentions a preference for high-protein foods such as cheese, nuts, and steak, but acknowledges consuming too much candy. He denies any new concerns about anxiety or depression. Recording using [employer] software for draft documentation of the visit was discussed with the patient/authorized outbound telemarketing representative; all questions welcomed and answered. Patient/authorized outbound telemarketing representative agreed to proceed His medications were reviewed today and his list is now up to date. Medications Current Outpatient Medications Medication Sig ramipril (ALTACE) 10 mg capsule Take 1 capsule by mouth two times a day. latanoprost (XALATAN) 0.005 % ophthalmic solution Use 1 drop in both eyes daily at bedtime. aspirin(ENTERIC COATED ASPIRIN 325 MG TAB, DELAYED RELEASE) Take one(1) tablet daily. No current facility-administered medications for this visit. ALLERGIES Allergen Reactions Bactrim [Sulfametho* Other: See Comments per [facility] ER report 09/28/2012 - increased heart rate and flushing Ceftin [Cefuroxime * Erythromycin Other: See Comments made me sick Hydrochlorothiazide Other: See Comments just felt bad Latex Prednisone Other: See Comments Makes me feel sick Sulfa (Sulfonamide * Unknown, Other: See Comments ACTIVE PROBLEM LIST Obesity, Class II, Bmi [...] Drug use: No Review of Systems Constitutional: Negative. HENT: Positive for congestion and hearing loss. Negative for ear discharge and ear pain. Respiratory: Negative. Cardiovascular: Negative for palpitations and leg swelling. OBJECTIVE BP 122/58[home[ Pulse 58 Resp 18 Wt 254 lb 3.1 oz (115.3kg) SpO2 98% Physical Exam Vitals and nursing note reviewed. Constitutional: General: He is awake. He is not in acute distress. Appearance: Normal appearance. He is well-developed and well-groomed. He is not ill-appearing, toxic-appearing or diaphoretic. HENT: Head: Normocephalic. Right Ear: External ear normal. Left Ear: External ear normal. Nose: Nose normal. Eyes: General: Vision grossly intact. Conjunctiva/sclera: Conjunctivae normal. Pupils: Pupils are equal, round, and reactive to light. Neck: Vascular: No JVD. Trachea: Trachea normal. Cardiovascular: Rate and Rhythm: Normal ra (more content not included)...[facility]07-25-2025 History of Present illness Narrative* Mc Pichardo APRN.ACID PURIFIER - 02/14/2025 7:15 AM EDT SUBJECTIVE New Etienne is a 89 year old male here today for a check up on his medical problems. Chief Complaint Patient presents with: 6 month f/up HPI New Etienne is a 89-year-old male with a history of HTN, hypercholesterolemia, and a brainstem CVA in 2004, presenting for 6 month follow-up. New reports experiencing a URI in early November, followed by a sudden onset of hearing loss. He hasbeen evaluated multiple times, including by an ENT specialist, who diagnosed eustachian tube dysfunction and advised that hearing should improve within 3 months. New is currently using Flonase and quercetin as recommended. Despite this, he continues to experience significant hearing impairment,particularly at distances greater than 20 feet, and describes the sensation as having a clogged uphead and feeling like his head's full of cotton. He has tried both high-end and low-cost hearingaids without noticeable improvement and expresses frustration with their effectiveness. He denies any associated anxiety or depression, stating, I should be depressed over this mess, but I'm okay. New also reports a history of elevated blood pressure readings, with a recent measurement of 204/83 mmHg on the . He has been monitoring his blood pressure at home, noting that it can elevate when he is excited or stressed. He denies any current chest pain or tightness, attributing occasional discomfort to post-nasal drainage rather than cardiac issues. He has a history of hypercholesterolemia and was previously on a statin and aspirin following a brainstem CVA in 2004. He discontinued the statin after his total cholesterol dropped to 114 mg/dL, which he felt was too low. Recent lab results show his total cholesterol is now under 200 mg/dL, triglycerides are 95 mg/dL, HDL is 43 mg/dL, and LDL is elevated. He also has a history of pre- diabetes, with a recent glucose level of 123 mg/dL. New mentions a preference for high-protein foods such as cheese, nuts, and steak, but acknowledges consuming too much candy. He denies any new concerns about anxiety or depression. Recording using [employer] software for draft documentation of the visit was discussed with the patient/authorized outbound telemarketing representative; all questions welcomed and answered. Patient/authorized outbound telemarketing representative agreed to proceed His medications were reviewed today and his list is now up to date. Medications Current Outpatient Medications Medication Sig ramipril (ALTACE) 10 mg capsule Take 1 capsule by mouth two times a day. latanoprost (XALATAN) 0.005 % ophthalmic solution Use 1 drop in both eyes daily at bedtime. aspirin(ENTERIC COATED ASPIRIN 325 MG TAB, DELAYED RELEASE) Take one(1) tablet daily. No current facility-administered medications for this visit. ALLERGIES Allergen Reactions Bactrim [Sulfametho* Other: See Comments per [facility] ER report 09/28/2012 - increased heart rate and flushing Ceftin [Cefuroxime * Erythromycin Other: See Comments made me sick Hydrochlorothiazide Other: See Comments just felt bad Latex Prednisone Other: See Comments Makes me feel sick Sulfa (Sulfonamide * Unknown, Other: See Comments ACTIVE PROBLEM LIST Obesity, Class II, Bmi [...] Drug use: No Review of Systems Constitutional: Negative. HENT: Positive for congestion and hearing loss. Negative for ear discharge and ear pain. Respiratory: Negative. Cardiovascular: Negative for palpitations and leg swelling. OBJECTIVE BP 122/58[home[ Pulse 58 Resp 18 Wt 254 lb 3.1 oz (115.3kg) SpO2 98% Physical Exam Vitals and nursing note reviewed. Constitutional: General: He is awake. He is not in acute distress. Appearance: Normal appearance. He is well-developed and well-groomed. He is not ill-appearing, toxic-appearing or diaphoretic. [...] memory normal. Judgment: Judgment normal. ASSESSMENT/PLAN: 1. Essential hypertension (I10) White coat syndrome with diagnosis of hypertension (I10) Blood pressure readings at home are well-controlled, though elevated readings noted in the clinic setting, consistent with white coat syndrome. - Continue current antihypertensive regimen. - Monitor blood pressure at home. 2. Other hyperlipidemia (E78.49) Lipid panel shows total cholesterol < 200 mg/dL, triglycerides 95 mg/dL, HDL 43 mg/dL, and LDL levels improving. - Continue current dietary management. - Repeat lipid panel in 6 months; ensure fasting prior to test. 3. History of CVA (cerebrovascular accident) (Z86.73) History of brainstem stroke in 2004; currently stable. 4. 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 - Increase dietary protein intake with foods such as yogurt, cheese, nuts, and lean meats. 5. Encounter for screening examination for other mental health and behavioral disorders (Z13.39) Screening for depression (Z13.31) No current concerns for anxiety or depression. - Schedule Medicare wellness visit to include mental health screening. 6. IFG (impaired fasting glucose) (R73.01) Glucose levels indicate pre-diabetes; A1c shows stable 3-month average. - Continue monitoring glucose levels. - Maintain current dietary and lifestyle modifications. 7. Dysfunction of right eustachian tube (H69.91) Persistent eustachian tube dysfunction following a cold in November; ENT specialist reports no infectionor fluid, attributing hearing loss to blocked eustachian tubes. - Continue Flonase and quercetin as prescribed by ENT. - Monitor for improvement over the next month. - Consider hearing aids if no improvement. 8. Encounter for therapeutic drug monitoring (Z51.81) Current medications are effective; no changes needed. 9. Screening for lipid disorders (Z13.220) Lipid levels are improving; no immediate concerns. - Repeat lipid panel in 6 months; ensure fasting prior to test. Portions of this note have been entered by ancillary staff. I have reviewed and when necessary edited, so that they are an adequate record of my encounter with this patient Please note that parts of this document were created using voice recognition software and therefore may contain grammatical errors. Patient verbalizes understanding of instructions from today's visit and in agreement with treatmentplan. Questions answered. Agrees to call the office if questions, concerns of issues with acute symptoms not improving or if they worsen. See diagnoses and orders for additional plan(s). Allergies and medications were reviewed, list was updated, and refills given if needed. Past medical, surgical, social, and family history reviewed and updated as appropriate. Encouraged proper diet & exercise as well as compliance with taking medications. Age- appropriate health preventative measures were discussed. Return for needs medicare wellness. PABLITO Espinosa documented in this encounterMer[facility]25 NoteHNO ID: [id number] Author: ANGELO CHAMPAGNE PA-C Service: ? Author Type: Physician Boom Conveyor Operator Type: Progress Notes Filed: 01/25/2025 08:41 Note Text: This note was created using [employer]. Subjective New Etienne is a 89 year old male. Patient is an 89-year-old male who complains of ongoing sinus congestion that he has been experiencing for the past 1+ months. Patient has been evaluated on multiple occasions both at this facility as well as the patient's ENT for same. Patient has completed 3 courses of antibiotics over the past 1 month. Patient reports no fever, chills or myalgia. Patient denies ear pain but does describe fullness and pressure. Patient denies sore throat and reports mild cough. Patient states he has no history of seasonal allergic rhinitis. Patient also describes muffled hearing and hearing loss, although he states that his hearing this morning is somewhat improved. Review of Systems HENT: Positive for hearing loss and sinus pressure. All other systems reviewed and are negative. Objective BP (!) 204/83 Pulse 79 Temp 36.7 ?C (98.1 ?F) Resp 18 Wt 115 kg (253 lb 8.5 oz) SpO2 98% BMI 37.98 kg/m? Physical Exam Vitals and nursing note reviewed. Constitutional: Appearance: Normal appearance. He is normal weight. HENT: Head: Normocephalic and atraumatic. Right Ear: Tympanic membrane, ear canal and external ear normal. Left Ear: Tympanic membrane, ear canal and external ear normal. Nose: Nose normal. Mouth/Throat: Mouth: Mucous membranes are moist. Pharynx: Oropharynx is clear. Eyes: Extraocular Movements: Extraocular movements intact. Conjunctiva/sclera: Conjunctivae normal. Pupils: Pupils are equal, round, and reactive to light. Cardiovascular: Rate and Rhythm: Normal rate and regular rhythm. Pulses: Normal pulses. Heart sounds: Normal heart sounds. Pulmonary: Effort: Pulmonary effort is normal. Breath sounds: Normal breath sounds. Musculoskeletal: Cervical back: Normal range of motion and neck supple. Skin: General: Skin is warm and dry. Capillary Refill: Capillary refill takes less than 2 seconds. Neurological: General: No focal deficit present. Mental Status: He is alert and oriented to person, place, and time. Psychiatric: Mood and Affect: Mood normal. Behavior: Behavior normal. Thought Content: Thought content normal. Judgment: Judgment normal. Assessment and Plan Physical exam findings as noted above. Patient was advised that no further antibiotic treatment is warranted at this time. Patient was informed that he now likely requires CT scan evaluation of his sinuses which is not possible at this [facility] facility. 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 Patient was provided with a prescription for Sudafed 120 mg and advised to contact his ENT's office on Monday to schedule appointment for further evaluation and management. Patient states that he was also provided with a prescription for Flonase, however he has not started to take the medication. Patient was advised to start instilling the Flonase as directed today. Patient verbalizes clear understanding of all instructions. CLINICAL IMPRESSION: Sinus Congestion ASSESSMENT/PLAN: 1. Sinus congestion - ICD9: 478.19, ICD10: R09.81 - PSEUDOEPHEDRINE ER 120 MG TABLET,EXTENDED RELEASE MDM Risk of Complications, Morbidity, and/or Mortality Presenting problems: low Diagnostic procedures: low Management options: low [facility]07-05-2025 History of Present illness Narrative* Angelo Champagne PA-C - 01/25/2025 8:35 AM EDT This note was created using NoteWriter. Subjective New Etienne is a 89 year old male. Patient is an 89-year-old male who complains of ongoing sinus congestion that he has been experiencing for the past 1+ months. Patient has been evaluated on multiple occasions both at this facility as well as the patient's ENT for same. Patient has completed 3 courses of antibiotics over the past 1month. Patient reports no fever, chills or myalgia. Patient denies ear pain but does describe fullness and pressure. Patient denies sore throat and reports mild cough. Patient states he has no history of seasonal allergic rhinitis. Patient also describes muffled hearing and hearing loss, although he states that his hearing this morning is somewhat improved. Review of Systems HENT: Positive for hearing loss and sinus pressure. All other systems reviewed and are negative. Objective BP (!) 204/83 Pulse 79 Temp 36.7 C (98.1 F) Resp 18 Wt 115 kg (253 lb 8.5 oz) SpO2 98% BMI 37.98 kg/m Physical Exam Vitals and nursing note reviewed. Constitutional: Appearance: Normal appearance. He is normal weight. HENT: Head: Normocephalic and atraumatic. Right Ear: Tympanic membrane, ear canal and external ear normal. Left Ear: Tympanic membrane, ear canal and external ear normal. Nose: Nose normal. Mouth/Throat: Mouth: Mucous membranes are moist. Pharynx: Oropharynx is clear. Eyes: Extraocular Movements: Extraocular movements intact. Conjunctiva/sclera: Conjunctivae normal. Pupils: Pupils are equal, round, and reactive to light. Cardiovascular: Rate and Rhythm: Normal rate and regular rhythm. Pulses: Normal pulses. Heart sounds: Normal heart sounds. Pulmonary: Effort: Pulmonary effort is normal. Breath sounds: Normal breath sounds. Musculoskeletal: Cervical back: Normal range of motion and neck supple. Skin: General: Skin is warm and dry. Capillary Refill: Capillary refill takes less than 2 seconds. Neurological: General: No focal deficit present. Mental Status: He is alert and oriented to person, place, and time. Psychiatric: Mood and Affect: Mood normal. Behavior: Behavior normal. Thought Content: Thought content normal. Judgment: Judgment normal. Assessment and Plan Physical exam findings as noted above. Patient was advised that no further antibiotic treatment is warranted at this time. Patient was informed that he now likely requires CT scan evaluation of his sinuses which is not possible at this [facility]. 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 Patient was provided with a prescription for Sudafed 120 mg and advised to contact his ENT's office on Monday to schedule appointment forfurther evaluation and management. Patient states that he was also provided with a prescription for Flonase, however he has not started to take the medication. Patient was advised to start instillingthe Flonase as directed today. Patient verbalizes clear understanding of all instructions. CLINICAL IMPRESSION: Sinus Congestion ASSESSMENT/PLAN: 1. Sinus congestion - ICD9: 478.19, ICD10: R09.81 - PSEUDOEPHEDRINE ER 120 MG TABLET,EXTENDED RELEASE MDM Risk of Complications, Morbidity, and/or Mortality Presenting problems: low Diagnostic procedures: low Management options: stacey Champagne PA-C documented in this encounterMer[facility]06-15-2025 Instructions* Patient Instructions* Madison Barkley APRN.ACID PURIFIER - 01/05/2025 8:46 AM EDT 1. Upper respiratory tract infection, unspecified type (J06.9) 2. Other acute nonsuppurative otitis media of both ears, recurrence not specified (H65.193) - Symptoms include sinus congestion, ear pressure, and cough; worsening despite current treatment with doxycycline. - Exam reveals erythematous tympanic membranes bilaterally. - Chest auscultation reveals no significant abnormalities; recent chest X-ray reportedly normal. - Discontinued doxycycline. - Initiated Zithromax (azithromycin) Z-Shanell. - Advised discontinuation of NyQuil due to tachycardia and hypertension. - Prescribed alternative antitussive medication. 3. Antibiotic-induced yeast infection (B37.9) - Erythematous rash observed, non-pruritic, with mild tenderness on palpation. - Diagnosed as cutaneous candidiasis secondary to antibiotic use. - Prescribed topical antifungal cream. 4. Essential (primary) hypertension (I10) - Blood pressure recorded at 196/104 mmHg; likely exacerbated by NyQuil. - Advised discontinuation of NyQuil. - Home blood pressure readings reportedly lower; advised to continue monitoring. - Stop taking doxycycline immediately. - Discontinue NyQuil. - Begin the Zithromax (Z-Shanell) prescription sent to [facility]. - Apply the antifungal cream to the rash as directed to treat the yeast infection. - Fill and start the new cough medication prescription sent to [facility]. - Return to the clinic if your symptoms do not improve or if they worsen. documented in this encounterMer[facility]06-15-2025 NoteHNO ID: [id number] Author: MADISON BARKLEY APRN.ACID PURIFIER Service: ? Author Type: Nurse Practitioner Type: Progress Notes Filed: 01/05/2025 09:24 Note Text: [facility] Subjective New Etienne is a 89 year old male. Patient presents with: Rash: Groin rash x this AM, started doxy on Monday, usually does not have reaction Head Congestion: Can't hear, sinus congestion worsening with atb Rash Rash: - Rash developed after starting doxycycline. - Localized to one area; not pruritic, but painful upon palpation. - Denies previous reactions to doxycycline; has taken it in the past for a UTI without issues. - Tolerates amoxicillin and penicillin; reports allergy to sulfa drugs. Sinus Congestion, Ear Pressure, and Cough: - Worsening sinus congestion and ear pressure. - Severe cough. - Recent chest X-ray reportedly normal. - Noted tachycardia and elevated blood pressure after taking NyQuil; heart rate increased from baseline of 40-42 bpm to 80 bpm. - Home blood pressure readings: 145/65 mmHg; recent readin/77 mmHg. Review of Systems Skin: Positive for rash. Ears/Nose/Mouth/Throat: (+) sinus congestion, (+) ear pressure, (+) ear pain, (+) hoarseness Cardiovascular: (-) palpitations, (-)chest pain Respiratory: (+) cough Skin: (+) localized rash, (-) pruritus Objective BP 170/80 Pulse 74 Temp 37.1 ?C (98.8 ?F) Resp 18 Wt 114.5 kg (252 lb 6.8 oz) SpO2 96% BMI 37.82 kg/m? PAST MEDICAL HISTORY Diagnosis Date - Benign neoplasm of colon - Chronic rhinitis - Diverticulosis of colon (without mention of hemorrhage) - Essential hypertension, benign - History of CVA (cerebrovascular accident) brainstem CVA; was at [facility] then [facility]; regained strength - [...] Prednisone, and Sulfa (Sulfonamide Antibiotics) MEDICATIONS - brimonidine (ALPHAGAN) 0.2 % ophthalmic solution INSTILL 1 DROP IN BOTH EYES TWICE DAILY DIRECTED - doxycycline monohydrate 100 mg tablet Take 1 tablet by mouth two times a day for 7 days. - ramipril (ALTACE) 10 mg capsule Take 1 capsule by mouth two times a day. - latanoprost (XALATAN) 0.005 % ophthalmic solution Use 1 drop in both eyes daily at bedtime. - aspirin(ENTERIC COATED ASPIRIN 325 MG TAB, DELAYED RELEASE) Take one(1) tablet daily. - azithromycin (ZITHROMAX Z-SHANELL) 250 mg tablet 2 tablets by mouth first day then 1 tablet the next 4 days - benzonatate (TESSALON PERLE) 100 mg capsule Take 2 capsules by mouth three times a day as needed for up to 10 days. - clotrimazole (LOTRIMIN) 1 % cream Apply 1 application to affected area two times a day for 14 days. FAMILY HISTORY Problem Relation Age of Onset - other (Lung Cancer [Other]) Father - other (Leukemia [Other]) Paternal Grandmother - Diabetes Mother - Diabetes Sister Social History Tobacco Use - Smoking status: Never - Smokeless tobacco: Never Substance Use Topics - Alcohol use: No - Drug use: No Physical Exam Vitals and nursing note reviewed. Constitutional: General: He is not in acute distress. Appearance: Normal appearance. He is not ill-appearing. HENT: Right Ear: Ear canal and external ear normal. Tympanic membrane is erythematous. Left Ear: Ear canal and external ear normal. Tympanic membrane is erythematous. Nose: Nose normal. Mouth/Throat: Mouth: Mucous membranes are moist. Pharynx: Oropharynx is clear. No posterior oropharyngeal erythema. Cardiovascular: Rate and Rhythm: Normal rate and regular rhythm. Heart sounds: Normal heart sounds. Pulmonary: Effort: Pulmonary effort is normal. No respiratory distress. Breath sounds: Normal breath sounds. No wheezing or rales. Genitourinary: Skin: General: Skin is warm and dry. Findings: No erythema or rash. Neurological: Mental Status: He is alert. General: No acute distress. HEENT: Erythematous tympanic membranes. Resp: No abnormal breath sounds auscultated. Skin: Erythematous rash consistent with yeast infection. {1. Upper respiratory tract infection, unspecified type (J06.9) 2. Other acute nonsuppurative otitis media of both ears, recurrence not specified (H65.193) - Symptoms include sinus congestion, ear pressure, and cough; worsening despite current treatment with doxycycline. - Exam reveals erythematous tympanic membranes bilaterally. - Chest auscultation reveals no significant abnormalities; recent zeb (more content not included)...[facility]06-15-[facility] History of Present illness Narrative* Madison Barkley APRN.[facility] - 01/05/2025 8:45 AM EDT Images from the original note were not included. [facility] Subjective New Etienne is a 89 year old male. Patient presents with: Rash: Groin rash x this AM, started doxy on Monday, usually does not have reaction Head Congestion: Can't hear, sinus congestion worsening with atb Rash Rash: - Rash developed after starting doxycycline. - Localized to one area; not pruritic, but painful upon palpation. - Denies previous reactions to doxycycline; has taken it in the past for a UTI without issues. - Tolerates amoxicillin and penicillin; reports allergy to sulfa drugs. Sinus Congestion, Ear Pressure, and Cough: - Worsening sinus congestion and ear pressure. - Severe cough. - Recent chest X-ray reportedly normal. - Noted tachycardia and elevated blood pressure after taking NyQuil; heart rate increased from baseline of 40-42 bpm to 80 bpm. - Home blood pressure readings: 145/65 mmHg; recent readin/77 mmHg. Review of Systems Skin: Positive for rash. 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 ramipril (ALTACE) 10 mg capsule Take 1 capsule by mouth two times a day. latanoprost (XALATAN) 0.005 % ophthalmic solution Use 1 drop in both eyes daily at bedtime. aspirin(ENTERIC COATED ASPIRIN 325 MG TAB, DELAYED RELEASE) Take one(1) tablet daily. azithromycin (ZITHROMAX Z-SHANELL) 250 mg tablet 2 tablets by mouth first day then 1 tablet the next 4 days benzonatate (TESSALON PERLE) 100 mg capsule Take 2 capsules by mouth three times a day as needed for up to 10 days. clotrimazole (LOTRIMIN) 1 % cream Apply 1 application to affected area two times a day for 14 days. FAMILY HISTORY Problem Relation Age of Onset other (Lung Cancer [Other]) Father other (Leukemia [Other]) Paternal Grandmother Diabetes Mother Diabetes Sister Social History Tobacco Use Smoking status: Never Smokeless tobacco: Never Substance Use Topics Alcohol use: No Drug use: No Physical Exam Vitals and nursing note reviewed. Constitutional: General: He is not in acute distress. Appearance: Normal appearance. He is not ill-appearing. HENT: Right Ear: Ear canal and external ear normal. Tympanic membrane is erythematous. Left Ear: Ear canal and external ear normal. Tympanic membrane is erythematous. Nose: Nose normal. Mouth/Throat: Mouth: Mucous membranes are moist. Pharynx: Oropharynx is clear. No posterior oropharyngeal erythema. Cardiovascular: Rate and Rhythm: Normal rate and regular rhythm. Heart sounds: Normal heart sounds. Pulmonary: Effort: Pulmonary effort is normal. No respiratory distress. Breath sounds: Normal breath sounds. No wheezing or rales. Genitourinary: Skin: General: Skin is warm and dry. Findings: No erythema or rash. Neurological: Mental Status: He is alert. General: No acute distress. HEENT: Erythematous tympanic membranes. Resp: No abnormal breath sounds auscultated. Skin: Erythematous rash consistent with yeast infection. {1. Upper respiratory tract infection, unspecified type (J06.9) 2. Other acute nonsuppurative otitis media of both ears, recurrence not specified (H65.193) - Symptoms include sinus congestion, ear pressure, and cough; worsening despite current treatment with doxycycline. - Exam reveals erythematous tympanic membranes bilaterally. - Chest auscultation reveals no significant abnormalities; recent chest X-ray reportedly normal. - Discontinued doxycycline. - Initiated Zithromax (azithromycin) Z-Shanell. - Advised discontinuation of NyQuil due to tachycardia and hypertension. - Prescribed alternative antitussive medication. 3. Antibiotic-induced yeast infection (B37.9) - Erythematous rash observed, non-pruritic, with mild tenderness on palpation. - Diagnosed as cutaneous candidiasis secondary to antibiotic use. - Prescribed topical antifungal cream. 4. Essential (primary) hypertension (I10) - Blood pressure recorded at 196/104 mmHg; likely exacerbated by NyQuil. - Advised discontinuation of NyQuil. - Home blood pressure readings reportedly lower; advised to continue monitoring. - Follow-up with your PCP in 3-5 days if symptoms have not improved or sooner if symptoms worsen - Discussed red flags and need for immediate medical evaluation if any occur. - Discussed supportive care treatment with fluids, rest and analgesia. - Discussed expected course of illness Madison Barkley APRN.[facility] and Recording using [employer] software for draft documentation of the visit was discussed with thepatient/authorized outbound telemarketing representative; all questions welcomed and answered. Patient/authorized outbound telemarketing representative agreed to proceed Disposition The patient was discharged. OTC Medications were advised: [facility] Note * Telephone Encounter - Malorie Lehman MA - 01/04/2025 9:23 AM EDT Patient given results and verbalized understanding of instructions given. Malorie Lehman MA [facility]06-14-[facility] Miscellaneous Notes* Telephone Encounter - Malorie Lehman MA - 01/04/2025 9:23 AM EDT Patient given results and verbalized understanding of instructions given. Malorie Lehman MA * Telephone Encounter - Jeremy Ram PA - 01/04/2025 9:09 AM EDT Contact patient let him know chest x-ray is normal. No pneumonia. He may continue antibiotic prescribed yesterday for his sinus symptoms. [facility] Telephone encounter Note * Telephone Encounter - Jeremy Ram PA - 01/04/2025 9:09 AM EDT Contact patient let him know chest x-ray is normal. No pneumonia. He may continue antibiotic prescribed yesterday for his sinus symptoms. [facility]06-14[facility] History of Present illness Narrative* Seng Nation RT(R) - 01/04/2025 8:20 AM EDT Radiology Service Progress Note PATIENT NAME: New Etienne DATE OF SERVICE: January 04, 2025 TIME: 8:14 AM PATIENT IDENTITY VERIFICATION COMPLETED USING TWO (2) IDENTIFIERS: Name and Date of confirmedby patient verbally. FALL SCREENING: Has the patient had 2 falls in the last year or 1 fall with injury or currently using an Ambulatory Assistive Device (Walker, Cane, Wheelchair, Crutches, etc.)? No PATIENT GENDER DATA: Assigned male at PATIENT RELEVANT IMPLANT DATA REVIEWED: Not Applicable PATIENT PRESENTS WITH AN IMPLANTABLE OR ATTACHED RAMP JOCKEY: No RADIOLOGY DEPARTMENT: General X-ray: Exam(s) Completed: Chest X-Ray PERIPHERAL IV DATA: Not applicable SIGNED BY: MARIALUISA Jones) January 04, 2025 8:14 AM documented in this encounterMer[facility]25 NoteHNO ID: [id number] Author: SENG NATION RT(R) Service: Radiology Author Type: Technologist Type: Progress Notes Filed: 01/04/2025 08:22 Note Text: Radiology Service Progress Note PATIENT NAME: New Etienne DATE OF SERVICE: January 04, 2025 TIME: 8:14 AM PATIENT IDENTITY VERIFICATION COMPLETED USING TWO (2) IDENTIFIERS: Name and Date of confirmed by patient verbally. FALL SCREENING: Has the patient had 2 falls in the last year or 1 fall with injury or currently using an Ambulatory Assistive Device (Walker, Cane, Wheelchair, Crutches, etc.)? No PATIENT GENDER DATA: Assigned male at PATIENT RELEVANT IMPLANT DATA REVIEWED: Not Applicable PATIENT PRESENTS WITH AN IMPLANTABLE OR ATTACHED RAMP JOCKEY: No RADIOLOGY DEPARTMENT: General X-ray: Exam(s) Completed: Chest X-Ray PERIPHERAL IV DATA: Not applicable SIGNED BY: Seng Nation, RT(R) January 04, 2025 8:14 [facility]06-13-2025 Note* Addendum Note - Jeremy Ram PA - 01/03/2025 6:45 PM EDTAddended by: JEREMY RAM on: 01/03/2025 06:45 PM Modules accepted: Orders [facility]06-13-2025 Miscellaneous Notes* Addendum Note - Jeremy Ram PA - 01/03/2025 6:45 PM EDTAddended by: JEREMY RAM on: 01/03/2025 06:45 PM Modules accepted: Orders documented in this encounterMer[facility]25 NoteHNO ID: [id number] Author: JEREMY RAM PA Service: ? Author Type: Physician Boom Conveyor Operator Type: Progress Notes Filed: 01/03/2025 18:35 Note Text: [facility] Subjective New Etienne is a 89 year old male. Patient presents with: Cough: Chest congestion x5 days, fever today HPI Cold Symptoms: - Onset 5 days ago. - Severe head pressure, described as feeling like it's going to blow up. - Bilateral hearing loss. - Cough productive of grayish sputum. - Fever onset today. - Denies chest pain or dyspnea. - Taking NyQuil and Tussin DM with some relief. - Denies history of COPD or asthma. - Allergic to sulfa drugs. 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 ramipril (ALTACE) 10 mg capsule Take 1 capsule by mouth two times a day. latanoprost (XALATAN) 0.005 % ophthalmic solution Use 1 Drop in both eyes daily at bedtime. (Patient not taking: Reported on 11/21/2024) aspirin(ENTERIC COATED ASPIRIN 325 MG TAB, DELAYED RELEASE) Take one(1) tablet daily. FAMILY HISTORY Problem Relation Age of Onset other (Lung Cancer [Other]) Father other (Leukemia [Other]) Paternal Grandmother Diabetes Mother Diabetes Sister Social History Tobacco Use Smoking status: Never Smokeless tobacco: Never Substance Use Topics Alcohol use: No Drug use: No Review of Systems Constitutional: (+) fever Head: (+) headache Ears/Nose/Mouth/Throat: (+) hearing loss, (+) ear pain, (+) hoarseness Respiratory: (+) productive cough Objective BP 175/77 Pulse 99 Temp (!) 38.3 ?C (101 ?F) Resp 20 Wt 116 kg (255 lb 11.7 oz) SpO2 96% BMI 38.31 kg/m? Physical Exam Vitals reviewed. Constitutional: General: He is not in acute distress. Appearance: Normal appearance. He is not toxic-appearing. HENT: Right Ear: A middle ear effusion is present. Tympanic membrane is erythematous. Left Ear: A middle ear effusion is present. Tympanic membrane is erythematous. Nose: Congestion present. Right Sinus: Maxillary sinus tenderness present. Left Sinus: Maxillary sinus tenderness present. Mouth/Throat: Mouth: Mucous membranes are moist. Cardiovascular: Rate and Rhythm: Normal rate and regular rhythm. Pulmonary: Effort: Pulmonary effort is normal. Breath sounds: Normal breath sounds. No wheezing, rhonchi or rales. Skin: General: Skin is warm and dry. Neurological: Mental Status: He is alert. General: No acute distress. HEENT: Oropharynx without erythema or exudate; bilateral middle ear effusions with erythema. Resp: Lungs clear to auscultation. {1. Fever, unspecified fever cause (R50.9) 2. Acute cough (R05.1) - Fever onset today, cough productive of grayish sputum, no chest pain or dyspnea; symptoms have persisted for 5 days. - Lung auscultation reveals clear breath sounds. - Ordered chest X-ray to be performed tomorrow morning between 0800 and 1200 to rule out pneumonia. - Initiated doxycycline, prescription sent to [facility]; patient to start tonight. - If chest x-ray reveals pneumonia, will need to add second antibiotic, Augmentin. 3. Acute bilateral otitis media (H66.93) - Bilateral middle ear effusion observed on otoscopic examination, with signs of early infection. - Doxycycline will also address otitis media. Recording using [employer] software for draft documentation of the visit was discussed with the patient/authorized outbound telemarketing representative; all questions welcomed and answered. Patient/authorized outbound telemarketing representative agreed to proceed History and Record Review External record(s) reviewed: prior outpatient record. Systemic symptoms present included: Fever Disposition The patient was discharged. OTC Medications were advised: May continue cough/cold meds [facility] History of Present illness Narrative* Jeremy Ram PA - 01/03/2025 6:34 PM EDT [facility] Subjective New Etienne is a 89 year old male. Patient presents with: Cough: Chest congestion x5 days, fever today HPI Cold Symptoms: - Onset 5 days ago. - Severe head pressure, described as feeling like it's going to blow up. - Bilateral hearing loss. - Cough productive of grayish sputum. - Fever onset today. - Denies chest pain or dyspnea. - Taking NyQuil and Tussin DM with some relief. - Denies history of COPD or asthma. - Allergic to sulfa drugs. 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 ramipril (ALTACE) 10 mg capsule Take 1 capsule by mouth two times a day. latanoprost (XALATAN) 0.005 % ophthalmic solution Use 1 Drop in both eyes daily at bedtime. (Patient not taking: Reported on 11/21/2024) aspirin(ENTERIC COATED ASPIRIN 325 MG TAB, DELAYED RELEASE) Take one(1) tablet daily. FAMILY HISTORY Problem Relation Age of Onset other (Lung Cancer [Other]) Father other (Leukemia [Other]) Paternal Grandmother Diabetes Mother Diabetes Sister Social History Tobacco Use Smoking status: Never Smokeless tobacco: Never Substance Use Topics Alcohol use: No Drug use: No Review of Systems Constitutional: (+) fever Head: (+) headache Ears/Nose/Mouth/Throat: (+) hearing loss, (+) ear pain, (+) hoarseness Respiratory: (+) productive cough Objective BP 175/77 Pulse 99 Temp (!) 38.3 C (101 F) Resp 20 Wt 116 kg (255 lb 11.7 oz) SpO2 96% BMI 38.31 kg/m Physical Exam Vitals reviewed. Constitutional: General: He is not in acute distress. Appearance: Normal appearance. He is not toxic-appearing. HENT: Right Ear: A middle ear effusion is present. Tympanic membrane is erythematous. Left Ear: A middle ear effusion is present. Tympanic membrane is erythematous. Nose: Congestion present. Right Sinus: Maxillary sinus tenderness present. Left Sinus: Maxillary sinus tenderness present. Mouth/Throat: Mouth: Mucous membranes are moist. Cardiovascular: Rate and Rhythm: Normal rate and regular rhythm. Pulmonary: Effort: Pulmonary effort is normal. Breath sounds: Normal breath sounds. No wheezing, rhonchi or rales. Skin: General: Skin is warm and dry. Neurological: Mental Status: He is alert. General: No acute distress. HEENT: Oropharynx without erythema or exudate; bilateral middle ear effusions with erythema. Resp: Lungs clear to auscultation. {1. Fever, unspecified fever cause (R50.9) 2. Acute cough (R05.1) - Fever onset today, cough productive of grayish sputum, no chest pain or dyspnea; symptoms have persisted for 5 days. - Lung auscultation reveals clear breath sounds. - Ordered chest X-ray to be performed tomorrow morning between 0800 and 1200 to rule out pneumonia. - Initiated doxycycline, prescription sent to [facility]; patient to start tonight. - If chest x-ray reveals pneumonia, will need to add second antibiotic, Augmentin. 3. Acute bilateral otitis media (H66.93) - Bilateral middle ear effusion observed on otoscopic examination, with signs of early infection. - Doxycycline will also address otitis media. Recording using [employer] software for draft documentation of the visit was discussed with the patient/authorized outbound telemarketing representative; all questions welcomed and answered. Patient/authorized outbound telemarketing representative agreed to proceed History and Record Review External record(s) reviewed: prior outpatient record. Systemic symptoms present included: Fever Disposition The patient was discharged. OTC Medications were advised: May continue cough/cold meds Procedures [facility] NoteHNO ID: [id number] Author: RENE ROACH APRN.IFEANYI Service: ? Author Type: Nurse Practitioner Type: Progress Notes Filed: 12/31/2024 09:12 Note Text: [facility] Subjective New Etienne is a 89 year old male. Patient presents with: Cough: Head and chest congestion, headache, pressure and pain in druze area, and eyes x 2 days Cough Associated symptoms include rhinorrhea and sore throat. Pertinent negatives include no chest pain, no chills, no headaches, no shortness of breath and no wheezing. Chest Congestion and Cough: - Onset yesterday, with improvement today. - Describes chest as tight. - Minimal productive cough; more frequent yesterday than today. - Denies rhinorrhea. - Grandson has similar symptoms. - Denies history of asthma, pneumonia, or other respiratory issues. Review of Systems Constitutional: Negative for chills, fatigue and fever. HENT: Positive for congestion, postnasal drip, rhinorrhea and sore throat. Negative for sinus pressure and sinus pain. Respiratory: Positive for cough. Negative for chest tightness, shortness of breath and wheezing. Cardiovascular: Negative for chest pain. Genitourinary: Negative for enuresis. Neurological: Negative for headaches. Objective BP 183/63 Pulse 60 Temp 36.6 ?C (97.8 ?F) Resp 20 Wt 114 kg (251 lb 5.2 oz) SpO2 98% BMI 37.65 kg/m? 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 aspirin(ENTERIC COATED ASPIRIN 325 MG TAB, DELAYED RELEASE) Take one(1) tablet daily. latanoprost (XALATAN) 0.005 % ophthalmic solution Use 1 Drop in both eyes daily at bedtime. (Patient not taking: Reported on 11/21/2024) FAMILY HISTORY Problem Relation Age of Onset other (Lung Cancer [Other]) Father other (Leukemia [Other]) Paternal Grandmother Diabetes Mother Diabetes Sister Social History Tobacco Use Smoking status: Never Smokeless tobacco: Never Substance Use Topics Alcohol use: No Drug use: No Physical Exam Vitals and nursing note reviewed. Constitutional: General: He is not in acute distress. Appearance: Normal appearance. He is not ill-appearing or toxic-appearing. HENT: Head: Normocephalic and atraumatic. Right Ear: Tympanic membrane, ear canal and external ear normal. Left Ear: Tympanic membrane, ear canal and external ear normal. Nose: Congestion present. No rhinorrhea. Mouth/Throat: Pharynx: Oropharynx is clear. No oropharyngeal exudate or posterior oropharyngeal erythema. Eyes: Pupils: Pupils are equal, round, and reactive to light. Cardiovascular: Rate and Rhythm: Normal rate and regular rhythm. Pulses: Normal pulses. Heart sounds: Normal heart sounds. Pulmonary: Effort: Pulmonary effort is normal. No respiratory distress. Breath sounds: Normal breath sounds. No stridor. No wheezing, rhonchi or rales. Musculoskeletal: Cervical back: No rigidity. Lymphadenopathy: Cervical: No cervical adenopathy. Neurological: Mental Status: He is alert. {1. Viral upper respiratory infection (J06.9) - Exam reveals clear lung sounds; no evidence of pneumonia. - Diagnosed with viral upper respiratory infection. - Advised symptomatic management including cough drops, increased fluid intake, and - Patient understands and agrees with the treatment plan. - Instructed to monitor symptoms and return if condition worsens. and Recording using [employer] software for draft documentation of the visit was discussed with the patient/authorized outbound telemarketing representative; all questions welcomed and answered. Patient/authorized outbound telemarketing representative agreed to proceed History and Record Review External record(s) reviewed: prior outpatient record. Findings from review of outpatient records: Previous medical history Differential Diagnoses - Viral upper respiratory infection is more likely for the following reason(s): suggested by HANDP - Pneumonia is less likely for the following reason(s): HANDP not suggestive - SECURITY ORDERLY is less likely for the following reason(s): HANDP not suggestive Disposition (more content not included)...[facility] of Present illness Narrative* Rene Roach APRN.[facility] - 12/31/2024 9:00 AM EDT [facility] Subjective New Etienne is a 89 year old male. Patient presents with: Cough: Head and chest congestion, headache, pressure and pain in druze area, and eyes x 2 days Cough Associated symptoms include rhinorrhea and sore throat. Pertinent negatives include no chest pain, no chills, no headaches, no shortness of breath and no wheezing. Chest Congestion and Cough: - Onset yesterday, with improvement today. - Describes chest as tight. - Minimal productive cough; more frequent yesterday than today. - Denies rhinorrhea. - Grandson has similar symptoms. - Denies history of asthma, pneumonia, or other respiratory issues. Review of Systems Constitutional: Negative for chills, fatigue and fever. HENT: Positive for congestion, postnasal drip, rhinorrhea and sore throat. Negative for sinus pressure and sinus pain. Respiratory: Positive for cough. Negative for chest tightness, shortness of breath and wheezing. Cardiovascular: Negative for chest pain. Genitourinary: Negative for enuresis. Neurological: Negative for headaches. 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 aspirin(ENTERIC COATED ASPIRIN 325 MG TAB, DELAYED RELEASE) Take one(1) tablet daily. latanoprost (XALATAN) 0.005 % ophthalmic solution Use 1 Drop in both eyes daily at bedtime. (Patient not taking: Reported on 11/21/2024) FAMILY HISTORY Problem Relation Age of Onset other (Lung Cancer [Other]) Father other (Leukemia [Other]) Paternal Grandmother Diabetes Mother Diabetes Sister Social History Tobacco Use Smoking status: Never Smokeless tobacco: Never Substance Use Topics Alcohol use: No Drug use: No Physical Exam Vitals and nursing note reviewed. Constitutional: General: He is not in acute distress. Appearance: Normal appearance. He is not ill-appearing or toxic-appearing. HENT: Head: Normocephalic and atraumatic. Right Ear: Tympanic membrane, ear canal and external ear normal. Left Ear: Tympanic membrane, ear canal and external ear normal. Nose: Congestion present. No rhinorrhea. Mouth/Throat: Pharynx: Oropharynx is clear. No oropharyngeal exudate or posterior oropharyngeal erythema. Eyes: Pupils: Pupils are equal, round, and reactive to light. Cardiovascular: Rate and Rhythm: Normal rate and regular rhythm. Pulses: Normal pulses. Heart sounds: Normal heart sounds. Pulmonary: Effort: Pulmonary effort is normal. No respiratory distress. Breath sounds: Normal breath sounds. No stridor. No wheezing, rhonchi or rales. Musculoskeletal: Cervical back: No rigidity. Lymphadenopathy: Cervical: No cervical adenopathy. Neurological: Mental Status: He is alert. {1. Viral upper respiratory infection (J06.9) - Exam reveals clear lung sounds; no evidence of pneumonia. - Diagnosed with viral upper respiratory infection. - Advised symptomatic management including cough drops, increased fluid intake, and - Patient understands and agrees with the treatment plan. - Instructed to monitor symptoms and return if condition worsens. and Recording using [employer] software for draft documentation of the visit was discussed with thepatient/authorized outbound telemarketing representative; all questions welcomed and answered. Patient/authorized outbound telemarketing representative agreed to proceed History and Record Review External record(s) reviewed: prior outpatient record. Findings from review of outpatient records: Previous medical history Differential Diagnoses - Viral upper respiratory infection is more likely for the following reason(s): suggested by H&P - Pneumonia is less likely for the following reason(s): H&P not suggestive - SECURITY ORDERLY is less likely for the following reason(s): H&P not suggestive Disposition The patient was discharged. OTC Medications were advised: Tylenol [facility] NoteHNO ID: [id number] Author: JOE OCONNOR APRN.IFEANYI Service: ? Author Type: Nurse Practitioner Type: Progress Notes Filed: 11/21/2024 18:22 Note Text: [facility] Subjective HPI HPI New Etienne is a 89 year old male who presents today for CC of productive cough, sinus congestion, ear pain. This started last week, worsening past few days. Has tried otc medication for relief. Symptoms are worsened by nothing. nonsmoker. 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 latanoprost (XALATAN) 0.005 % ophthalmic solution Use 1 Drop in both eyes daily at bedtime. (Patient not taking: Reported on 11/21/2024) aspirin(ENTERIC COATED ASPIRIN 325 MG TAB, DELAYED RELEASE) Take one(1) tablet daily. FAMILY HISTORY Problem Relation Age of Onset other (Lung Cancer [Other]) Father other (Leukemia [Other]) Paternal Grandmother Diabetes Mother Diabetes Sister Social History Tobacco Use Smoking status: Never Smokeless tobacco: Never Substance Use Topics Alcohol use: No Drug use: No Review of Systems Constitutional: Negative for chills, fatigue and fever. HENT: Positive for ear pain and rhinorrhea. Negative for ear discharge, sinus pressure, sinus pain and sore throat. Eyes: Negative for discharge and redness. Respiratory: Positive for cough. Negative for shortness of breath and wheezing. Cardiovascular: Negative for chest pain. Skin: Negative for rash. Objective BP 148/88 Pulse (!) 58 Temp 36.4 ?C (97.6 ?F) (Tympanic) Resp 16 Wt 116.9 kg (257 lb 11.5 oz) SpO2 99% BMI 38.61 kg/m? Latest Ref Rng 08/08/2024 Protein, Total 6.3 - 8.0 g/dL 6.7 Albumin 3.9 - 4.9 g/dL 3.9 Calcium 8.5 - 10.2 mg/dL 9.1 Bilirubin, Total 0.2 - 1.3 mg/dL 0.5 Alkaline Phosphatase 38 - 113 U/L 80 AST 14 - 40 U/L 20 ALT 10 - 54 U/L 25 Glucose 74 - 99 mg/dL 103 (H) BUN 9 - 24 mg/dL 22 Creatinine 0.73 - 1.22 mg/dL 1.15 Sodium 136 - 144 mmol/L 141 Potassium 3.7 - 5.1 mmol/L 4.4 Chloride 98 - 107 mmol/L 104 CO2 22 - 30 mmol/L 28 Anion Gap 8 - 15 mmol/L 9 eGFR >=60 mL/min/1.73m? 62 Physical Exam Constitutional: General: He is not in acute distress. Appearance: He is not toxic-appearing or diaphoretic. HENT: Head: Normocephalic and atraumatic. Right Ear: Hearing, tympanic membrane, ear canal and external ear normal. Left Ear: Hearing, tympanic membrane, ear canal and external ear normal. Nose: Nose normal. Mouth/Throat: Pharynx: Uvula midline. Eyes: General: Lids are normal. No scleral [...] neck supple. Lymphadenopathy: Cervical: No cervical adenopathy. Skin: Findings: No rash. Neurological: Mental Status: He is alert and oriented to person, place, and time. {ASSESSMENT/PLAN: 1. Sinobronchitis - ICD9: 473.9, 490, ICD10: J32.9, J40 - Will begin treatment with as per antibiotic as written, see orders - Supportive care with plenty of fluids, rest, and analgesia prn. - Follow up in 3-5 days if symptoms persist or worsen. -If you experience chest pain/shortness of breath go to ER -declines covid test. - DOXYCYCLINE HYCLATE 100 MG TABLET Joe Ocnonor APRN.ACID PURIFIER History and Record Review External record(s) reviewed: prior outpatient record and prior labs/imaging. Findings from review of prior labs/imaging: Previous Renal Function Panel Reviewed 03/19/2024: BUN 31 (H); Creatinine 1.27 (H); Estimated Glomerular Filtration Rate 55 (L) 04/15/2024: BUN 18; Creatinine 1.08; Estimated Glomerular Filtration Rate 66 08/08/2024: BUN 22; Creatinine 1.15; Estimated Glomerular (more content not included)...[facility] History of Present illness Narrative* Joe Oconnor APRN.ACID PURIFIER - 11/21/2024 5:45 PM EDT [facility] Subjective HPI HPI New Etienne is a 89 year old male who presents today for CC of productive cough, sinus congestion, ear pain. This started last week, worsening past few days. Has tried otc medication for relief. Symptoms are worsened by nothing. nonsmoker. 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 latanoprost (XALATAN) 0.005 % ophthalmic solution Use 1 Drop in both eyes daily at bedtime. (Patient not taking: Reported on 11/21/2024) aspirin(ENTERIC COATED ASPIRIN 325 MG TAB, DELAYED RELEASE) Take one(1) tablet daily. FAMILY HISTORY Problem Relation Age of Onset other (Lung Cancer [Other]) Father other (Leukemia [Other]) Paternal Grandmother Diabetes Mother Diabetes Sister Social History Tobacco Use Smoking status: Never Smokeless tobacco: Never Substance Use Topics Alcohol use: No Drug use: No Review of Systems Constitutional: Negative for chills, fatigue and fever. HENT: Positive for ear pain and rhinorrhea. Negative for ear discharge, sinus pressure, sinus pain and sore throat. Eyes: Negative for discharge and redness. Respiratory: Positive for cough. Negative for shortness of breath and wheezing. Cardiovascular: Negative for chest pain. Skin: Negative for rash. Objective BP 148/88 Pulse (!) 58 Temp 36.4 C (97.6 F) (Tympanic) Resp 16 Wt 116.9 kg (257 lb 11.5 oz) SpO2 99% BMI 38.61 kg/m Latest Ref Rng 08/08/2024 Protein, Total 6.3 - 8.0 g/dL 6.7 Albumin 3.9 - 4.9 g/dL 3.9 Calcium 8.5 - 10.2 mg/dL 9.1 Bilirubin, Total 0.2 - 1.3 mg/dL 0.5 Alkaline Phosphatase 38 - 113 U/L 80 AST 14 - 40 U/L 20 ALT 10 - 54 U/L 25 Glucose 74 - 99 mg/dL 103 (H) BUN 9 - 24 mg/dL 22 Creatinine 0.73 - 1.22 mg/dL 1.15 Sodium 136 - 144 mmol/L 141 Potassium 3.7 - 5.1 mmol/L 4.4 Chloride 98 - 107 mmol/L 104 CO2 22 - 30 mmol/L 28 Anion Gap 8 - 15 mmol/L 9 eGFR >=60 mL/min/1.73m 62 Physical Exam Constitutional: General: He is not in acute distress. Appearance: He is not toxic-appearing or diaphoretic. HENT: Head: Normocephalic and atraumatic. Right Ear: Hearing, tympanic membrane, ear canal and external ear normal. Left Ear: Hearing, tympanic membrane, ear canal and external ear normal. Nose: Nose normal. Mouth/Throat: Pharynx: Uvula midline. Eyes: General: Lids are normal. No scleral [...] neck supple. Lymphadenopathy: Cervical: No cervical adenopathy. Skin: Findings: No rash. Neurological: Mental Status: He is alert and oriented to person, place, and time. {ASSESSMENT/PLAN: 1. Sinobronchitis - ICD9: 473.9, 490, ICD10: J32.9, J40 - Will begin treatment with as per antibiotic as written, see orders - Supportive care with plenty of fluids, rest, and analgesia prn. - Follow up in 3-5 days if symptoms persist or worsen. -If you experience chest pain/shortness of breath go to ER -declines covid test. - DOXYCYCLINE HYCLATE 100 MG TABLET Joe Oconnor APRN.ACID PURIFIER History and Record Review External record(s) reviewed: prior outpatient record and prior labs/imaging. Findings from review of prior labs/imaging: Previous Renal Function Panel Reviewed 03/19/2024: BUN 31 (H); Creatinine 1.27 (H); Estimated Glomerular Filtration Rate 55 (L) 04/15/2024: BUN 18; Creatinine 1.08; Estimated Glomerular Filtration Rate 66 08/08/2024: BUN 22; Creatinine 1.15; Estimated Glomerular Filtration Rate 62 Disposition The patient was discharged. Procedures [facility] Telephone encounter Note * Telephone Encounter - Hollie Thompson - 10/21/2024 12:14 PM EDT Prescription Refill Information The patient has been identified by name and date of : Yes Caregiver verified no other encounters exist for this prescription request: Yes Caregiver confirmed with patient/requestor that no other refills are due, in the near future, with this provider at this time: Yes The last office visit in the department: 08-16-24 Does the patient have a future office visit with this provider/department: Yes Requested Prescriptions Pending Prescriptions Disp Refills ramipril (ALTACE) 10 mg capsule 180 capsule 3 Sig: Take 1 capsule by mouth two times a day. Hollie Thompson October 21, 2024 12:15 PM [facility]03-31-[facility] Miscellaneous Notes* Telephone Encounter - Hollie Thompson - 10/21/2024 12:14 PM EDT Prescription Refill Information The patient has been identified by name and date of : Yes Caregiver verified no other encounters exist for this prescription request: Yes Caregiver confirmed with patient/requestor that no other refills are due, in the near future, with this provider at this time: Yes The last office visit in the department: 08-16-24 Does the patient have a future office visit with this provider/department: Yes Requested Prescriptions Pending Prescriptions Disp Refills ramipril (ALTACE) 10 mg capsule 180 capsule 3 Sig: Take 1 capsule by mouth two times a day. Hollie Thompson October 21, 2024 12:15 PM documented in [facility]Mer[facility]-24-[facility] Instructions* Patient Instructions* Rian Prado MD - 08/16/2024 9:37 AM EST - Continue taking Altace (Ramipril) 10 mg twice daily, once in the morning and once in the evening,for blood pressure management. - Continue using Xalatan eye drops as prescribed. - Continue taking aspirin as prescribed. - Maintain adequate hydration by drinking water and Gatorade regularly to prevent dehydration symptoms. - Monitor your blood pressure at home and record the readings. - Follow a low-carbohydrate diet to manage blood sugar levels and prevent progression to diabetes. Limit intake of bread, pasta, rice, sweets, alcohol, potatoes, and foods with high fructose corn syrup. - Consider resuming cholesterol medication to lower LDL levels; current LDL is 134, and the goal isunder 70. Discuss with your clinician if you decide to start medication. - Follow up with Dr. Woodward to discuss further evaluation for potential blockages in the arteries, which may include a stress test or heart catheterization. - Schedule an appointment with an orthopedist if knee pain persists; options may include knee injections or other treatments for arthritis. - Next follow-up appointment is already scheduled. documented in [facility]25 NoteHNO ID: [id number] Author: RIAN PRADO MD Service: ? Author Type: Physician Type: Progress Notes Filed: 08/16/2024 09:40 Note Text: This note was created using [employer]. Subjective New Etienne is a 88 year old male. Patient presents with: F/U 6 months: Labs prior SUBJECTIVE: New Etienne is a 88 year old year old gentleman here today for 6 month follow up appointment for review of medical conditions. New Etienne is a 88-year-old male with a history of HTN, knee arthritis, and a Roblero's cyst, presenting for a follow-up visit. New reports a history of leg swelling and pain, which he attributes to the use of amlodipine. He discontinued the medication, and the swelling resolved within 2 weeks. He was subsequently prescribed hydrochlorothiazide, which he discontinued due to experiencing a funny sensation in his ears, and prazosin, which he discontinued due to the development of hard bumps on his gums. He is currently taking Altace 10 mg twice daily for blood pressure management. He monitors his blood pressure at home, with readings ranging from 117/60 to 140/60, but notes higher readings in the clinic setting. 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 He notes that the pain has improved since discontinuing amlodipine, but he still experiences discomfort with movement. He denies any x-rays of the knee. Additionally, New reports numbness in his hand, which he attributes to carpal tunnel syndrome. He notes that he has maintained his strength but has lost sensation in the hand. New also reports dyspnea when walking up a hill near his home, requiring him to stop and rest snf up. He denies any issues with strenuous activities, such as cutting firewood. He has a history of a calcium CT scoring test, which showed significant calcifications, but he did not follow up with a stress test. New also reports a history of cataracts, with recent episodes of blurry vision in the left eye. He is currently using Xalatan eye drops and taking aspirin. He denies any current issues with cholesterol management. 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 latanoprost (XALATAN) 0.005 % ophthalmic solution Use 1 Drop in both eyes daily at bedtime. aspirin(ENTERIC COATED ASPIRIN 325 MG TAB, DELAYED RELEASE) Take one(1) tablet daily. No current facility-administered medications for this visit. Review of Systems Objective BP 182/78 Pulse 78 Temp 36.5 ?C (97.7 ?F) Resp 16 Wt 117.4 kg (258 lb 13.1 oz) SpO2 98% BMI 38.78 kg/m? Last 5 Encounter Wt Readings: Date: Wt: 08/16/2024 117.4 kg (258 lb 13.1 oz) 04/23/2024 115.9 kg (255 lb 8.2 oz) 03/26/2024 116.4 kg (256 lb 9.9 oz) 02/26/2024 115.4 kg (254 lb 6.6 oz) 02/12/2024 116.6 kg (257 lb) No waist measurement recorded Estimated body mass index is 38.78 kg/m? as calculated from the following: Height as of 09/28/17: 174 cm (5' 8.5). Weight as of this encounter: 117.4 kg (258 lb 13.1 oz). Last 5 Encounter BP Readings: Date: BP: 08/16/2024 182/78 04/23/2024 172/75[BP Gabe average[ 03/26/2024 183/82[BP Gabe average[ 02/26/2024 144/72 02/12/2024 124/68 Physical Exam Vitals reviewed. Constitutional: Appearance: Normal appearance. Eyes: Conjunctiva/sclera: Conjunctivae normal. Cardiovascular: Rate and Rhythm: Normal rate and regular rhythm. Heart sounds: Normal heart sounds. Pulmonary: Effort: Pulmonary effort is normal. Breath sounds: Normal breath sounds. Musculoskeletal: Right ankle: Right Achilles Tendon: Defect (swelling at insertion noted) present. Comments: Roblero's cyst, right; mild tenderness Skin: General: Skin is warm and dry. Neurological: General: No focal deficit present. Mental Status: He is alert and oriented to person, place, and time. Psychiatric: Mood and Affect: Mood normal. Behavior: Behavior normal. Thought Content: Thought content normal. Judgment: Judgment normal. Latest Ref Rng 02/07/2023 08/07/2023 02/02/2024 03/19/2024 04/15/2024 08/08/2024 WBC 3.70 - 11.00 k/uL 6.52 8.42 7.20 8.59 RBC 4.20 - 6.00 m/uL 5.02 5.20 5.12 5.69 Hemoglobin 13.0 - 17.0 g/dL 14.3 14.9 14.7 16.3 Hematocrit 39.0 - 51.0 % 43.6 45.6 45.7 51.0 MCV 80.0 - 100.0 fL 86.9 87.7 89.3 89.6 MCH 26.0 - 34.0 pg 28.5 28.7 28.7 28.6 MCHC 30.5 - 36.0 g/dL 32.8 32.7 32.2 32.0 RDW-CV 11.5 - 15.0 % 13.2 13.1 13.2 13.1 Platelet Count 150 - 400 k/uL 204 217 240 221 MPV 9.0 - 12.7 (more content not included)...[facility] 08-16-[facility] History of Present illness Narrative* Rian Prado MD - 08/16/2024 9:07 AM EST This note was created using [employer]. Subjective New Etienne is a 88 year old male. Patient presents with: F/U 6 months: Labs prior SUBJECTIVE: New Etienne is a 88 year old year old gentleman here today for 6 month follow up appointment for review of medical conditions. New Etienne is a 88-year-old male with a history of HTN, knee arthritis, and a Roblero's cyst, presenting for a follow-up visit. New reports a history of leg swelling and pain, which he attributes to the use of amlodipine. He discontinued the medication, and the swelling resolved within 2 weeks. He was subsequently prescribed hydrochlorothiazide, which he discontinued due to experiencing a funny sensation in his ears, and prazosin, which he discontinued due to the development of hard bumps on his gums. He is currently taking Altace 10 mg twice daily for blood pressure management. He monitors his blood pressure at home, with readings ranging from 117/60 to 140/60, but notes higher readings in the clinic setting. 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 He notes that the pain has improved since discontinuing amlodipine, but he still experiences discomfort with movement. He denies any x-rays of the knee. Additionally, New reports numbness in his hand, which he attributes to carpal tunnel syndrome. He notes that he has maintained his strength but has lost sensation in the hand. New also reports dyspnea when walking up a hill near his home, requiring him to stop and rest snf up. He denies any issues with strenuous activities, such as cutting firewood. He has a history of a calcium CT scoring test, which showed significant calcifications, but he did not follow up with a stress test. New also reports a history of cataracts, with recent episodes of blurry vision in the left eye.He is currently using Xalatan eye drops and taking aspirin. He denies any current issues with cholesterol management. 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 latanoprost (XALATAN) 0.005 % ophthalmic solution Use 1 Drop in both eyes daily at bedtime. aspirin(ENTERIC COATED ASPIRIN 325 MG TAB, DELAYED RELEASE) Take one(1) tablet daily. No current facility-administered medications for this visit. Review of Systems Objective BP 182/78 Pulse 78 Temp 36.5 C (97.7 F) Resp 16 Wt 117.4 kg (258 lb 13.1 oz) SpO2 98% BMI 38.78 kg/m Last 5 Encounter Wt Readings: Date: Wt: 08/16/2024 117.4 kg (258 lb 13.1 oz) 04/23/2024 115.9 kg (255 lb 8.2 oz) 03/26/2024 116.4 kg (256 lb 9.9 oz) 02/26/2024 115.4 kg (254 lb 6.6 oz) 02/12/2024 116.6 kg (257 lb) No waist measurement recorded Estimated body mass index is 38.78 kg/m as calculated from the following: Height as of 09/28/17: 174 cm (5' 8.5). Weight as of this encounter: 117.4 kg (258 lb 13.1 oz). Last 5 Encounter BP Readings: Date: BP: 08/16/2024 182/78 04/23/2024 172/75[BP Gabe average[ 03/26/2024 183/82[BP Gabe average[ 02/26/2024 144/72 02/12/2024 124/68 Physical Exam Vitals reviewed. Constitutional: Appearance: Normal appearance. Eyes: Conjunctiva/sclera: Conjunctivae normal. Cardiovascular: Rate and Rhythm: Normal rate and regular rhythm. Heart sounds: Normal heart sounds. Pulmonary: Effort: Pulmonary effort is normal. Breath sounds: Normal breath sounds. Musculoskeletal: Right ankle: Right Achilles Tendon: Defect (swelling at insertion noted) present. Comments: Roblero's cyst, right; mild tenderness Skin: General: Skin is warm and dry. Neurological: General: No focal deficit present. Mental Status: He is alert and oriented to person, place, and time. Psychiatric: Mood and Affect: Mood normal. Behavior: Behavior normal. Thought Content: Thought content normal. Judgment: Judgment normal. Latest Ref Rng 02/07/2023 08/07/2023 02/02/2024 03/19/2024 04/15/2024 08/08/2024 WBC 3.70 - 11.00 k/uL 6.52 8.42 7.20 8.59 RBC 4.20 - 6.00 m/uL 5.02 5.20 5.12 5.69 Hemoglobin 13.0 - 17.0 g/dL 14.3 14.9 14.7 16.3 Hematocrit 39.0 - 51.0 % 43.6 45.6 45.7 51.0 MCV 80.0 - 100.0 fL 86.9 87.7 89.3 89.6 MCH 26.0 - 34.0 pg 28.5 28.7 28.7 28.6 MCHC 30.5 - 36.0 g/dL 32.8 32.7 32.2 32.0 RDW-CV 11.5 - 15.0 % 13.2 13.1 13.2 13.1 Platelet Count 150 - 400 k/uL 204 217 240 221 MPV 9.0 - 12.7 fL 10.1 9.5 10.0 10.0 Neut% % 50.6 Abs Neut (ANC) 1.45 - 7.50 k/uL 4.27 Lymph% % 38.5 Abs Lymph 1.00 - 4.00 k/uL 3.24 [place]% % 6.7 Abs [place] <0.87 k/uL 0.56 Eosin% % 3.6 Abs Eosin <0.46 k/uL 0.30 Baso% % 0.4 Abs Baso <0.11 k/uL 0.03 Immature Gran % % 0.2 IMMATURE GRANS (ABS) <0.10 k/uL <0.03 NRBC /100 WBC 0.0 Absolute nRBC <0.01 k/uL <0.01 <0.01 <0.01 <0.01 DTYPE Auto Protein, Total 6.3 - 8.0 g/dL 6.2 (L) 6.6 5.9 (L) 6.7 Albumin 3.9 - 4.9 g/dL 3.9 4.0 3.8 (L) 3.9 Calcium 8.5 - 10.2 mg/dL 8.9 9.3 9.3 9.2 9.2 9.1 Bilirubin, Total 0.2 - 1.3 mg/dL 0.4 0.5 0.5 0.5 Alkaline Phosphatase 38 - 113 U/L 72 71 77 80 AST 14 - 40 U/L 16 25 19 20 ALT 10 - 54 U/L 17 26 18 25 Glucose 74 - 99 mg/dL 100 (H) 101 (H) 99 100 (H) 138 (H) 103 (H) BUN 9 - 24 mg/dL 27 (H) 22 22 31 (H) 18 22 Creatinine 0.73 - 1.22 mg/dL 1.17 1.10 0.92 1.27 (H) 1.08 1.15 Sodium 136 - 144 mmol/L 140 143 141 140 135 (L) 141 Potassium 3.7 - 5.1 mmol/L 4.4 4.6 4.5 4.9 5.1 4.4 Chloride 98 - 107 mmol/L 106 (H) 106 (H) 107 104 101 104 CO2 22 - 30 mmol/L 26 29 25 26 24 28 Anion Gap 8 - 15 mmol/L 8 (L) 8 (L) 9 10 10 9 eGFR >=60 mL/min/1.73m 61 65 81 55 (L) 66 62 Cholesterol, Total <200 mg/dL 177 175 198 Triglyceride <150 mg/dL 68 109 102 HDL Cholesterol >39 mg/dL 45 41 44 Non HDL Cholesterol <130 mg/dL 132 (H) 134 (H) 154 (H) Fasting Time hrs 12 12 13 VLDL Cholesterol <30 mg/dL 14 22 20 TC:HDL Ratio <5.10 3.93 4.27 4.50 LDL Cholesterol <100 mg/dL 118 (H) 112 (H) 134 (H) LDL:HDL Ratio <2.54 2.62 (H) 2.73 (H) 3.05 (H) Hemoglobin A1C 4.3 - 5.6 % 5.9 (H) 5.9 (H) 6.0 (H) Estimated Average Glucose mg/dL 123 123 126 Legend: (L) Low (H) High Assessment and Plan # 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 - Office blood pressure today was 158/60, consistent with white coat hypertension. - Currently taking Altace 10 mg PO BID. - Discussed the importance of maintaining blood pressure control to prevent cardiovascular complications. - Continue current medication regimen. # Hypercholesteremia (E78.00) - LDL cholesterol is 134 mg/dL, which is above the target of <70 mg/dL for patients with known atherosclerosis. - Discussed the benefits of statin therapy to lower LDL cholesterol and reduce the risk of cardiovascular events. - Patient has a history of side effects from previous statin use, including atorvastatin and simvastatin. - Patient will consider restarting statin therapy and will inform me of the decision. 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 - Associated with underlying knee osteoarthritis. - Discussed conservative management options, including knee injections and braces. - Referred to orthopedics for further evaluation and management. # Numbness of right hand (R20.0) - Suspected carpal tunnel syndrome vs. cervical radiculopathy. - Maintains strength in the hand, but reports persistent numbness. - Discussed the possibility of nerve conduction studies to confirm the diagnosis. - Will monitor symptoms; no immediate intervention required. # History of CVA (cerebrovascular accident) (Z86.73) - Reviewed patient's history of CVA and the importance of secondary prevention. - Discussed the role of cholesterol management in reducing the risk of recurrent CVA. - Patient will consider restarting statin therapy. 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 - Encouraged regular physical activity and a balanced diet to achieve and maintain a healthy weight. # WANG (dyspnea on exertion) (R06.09) - Reports increased shortness of breath when walking uphill, requiring rest breaks. - Discussed the potential for underlying coronary artery disease contributing to symptoms. - Recommended follow-up with cardiology to discuss further evaluation, including a stress test or cardiac catheterization. # IFG (impaired fasting glucose) (R73.01) - Recent A1c is 6.0%, indicating impaired fasting glucose. - Discussed the importance of monitoring blood glucose levels and maintaining a healthy diet to prevent progression to diabetes. - Encouraged regular physical activity to improve glucose metabolism. # Encounter for long-term current use of medication (Z79.899) - Currently taking Altace 10 mg PO BID for hypertension. - Previously on multiple antihypertensive medications with reported side effects, including amlodipine, hydrochlorothiazide, prazosin, and spironolactone. - Discussed the impor tance of medication adherence and monitoring for side effects. # Achilles tendinitis, right leg (M76.61) - Exam reveals swelling at the Achilles tendon insertion site with mild tenderness on palpation. - Discussed conservative management, including rest, ice, and elevation. - Advised to avoid activities that exacerbate symptoms. - Will monitor for improvement; no immediate intervention required. Rian Prado MD [facility] Tele[facility] encounter Note * Telephone Encounter - Cintia Bermudez RN - 08/07/2024 9:54 AM EST Called and let Pt know that he had fasting lab work ordered. Cintia Bermudez RN [facility]01-15-2025 Miscellaneous Notes* Telephone Encounter - Cintia Bermudez RN - 08/07/2024 9:54 AM EST Called and let Pt know that he had fasting lab work ordered. Cintia Bermudez RN * Telephone Encounter - Rissa Cho LPN - 08/05/2024 1:22 PM EST Pt calls checking on status of lab orders. Pt requests a call when labs have been ordered. Rissa Cho LPN * Telephone Encounter - Lula Enriquez RN - 07/30/2024 12:06 PM EST Patient calls and states that he has 6 month follow up with provider on 08/16/2024. Patient asking about labs to be placed so that he can have done prior to appointment. Lula Enriquez RN documented [facility] Telephone encounter Note * Telephone Encounter - Rissa Cho LPN - 08/05/2024 1:22 PM EST Pt calls checking on status of lab orders. Pt requests a call when labs have been ordered. Rissa Cho LPN [facility]01-07-2025 Telephone encounter Note* Telephone Encounter - Lula Enriquez RN - 07/30/2024 12:06 PM EST Patient calls and states that he has 6 month follow up with provider on 08/16/2024. Patient asking about labs to be placed so that he can have done prior to appointment. Lula Enriquez RN [facility]10-01-[facility]24 Instructions* Patient Instructions* Mc Pichardo APRN.CNP - 04/23/2024 7:32 AM EDT If you notice home blood pressures running at 150/90 or above then come in sooner. documented in this encounterMer[facility]10-[facility]24 NoteHNO ID: [id number] Author: MC PICHARDO APRN.CNP Service: ? Author Type: Nurse Practitioner Type: Progress Notes Filed: 04/23/2024 08:02 Note Text: SUBJECTIVE New Etienne is a 88 year old male here today for a check up on his medical problems. Chief Complaint Patient presents with: Blood Pressure HPI New is a 88 year old male who presents for follow-up for hypertension. They are here today for a recheck of blood pressure. Blood pressure appears to be still elevated. Denies any symptoms referable to elevated blood pressure. Specifically denies headache, chest pain, palpitations, dyspnea and peripheral edema. Previously he tried HCTZ but did not tolerate this, tried spironolactone but that also caused side effects so was stopped. He was on amlodipine at one point but had issues with leg swelling. Recently he tried prazosin, stopped that for side effects. He had his labs updated, kidney function returned to baseline. Other medications include Altace. He brought his home monitoring numbers with him, average is 120's-130's/ 70's. His medications were reviewed today and his list is now up to date. Medications Current Outpatient Medications Medication Sig ramipril (ALTACE) 10 mg capsule Take 1 capsule by mouth two times a day. latanoprost (XALATAN) 0.005 % ophthalmic solution Use 1 Drop in both eyes daily at bedtime. aspirin(ENTERIC COATED ASPIRIN 325 MG TAB, DELAYED RELEASE) Take one(1) tablet daily. No current facility-administered medications for this visit. ALLERGIES Allergen Reactions Bactrim [Sulfametho* Other: See Comments per [facility] ER report 09/28/2012 - increased heart rate and flushing Ceftin [Cefuroxime * Erythromycin Other: See Comments made me sick Hydrochlorothiazide Other: See Comments just felt bad Latex Prednisone Other: See Comments Makes me feel sick Sulfa (Sulfonamide * Unknown, Other: See Comments ACTIVE PROBLEM LIST Obesity, Class II, Bmi [...] Drug use: No Review of Systems Constitutional: Negative. Respiratory: Negative. Cardiovascular: Negative. OBJECTIVE BP 172/75[BP Gabe average[ Pulse 51 Wt 255 lb 8.2 oz (115.9kg) SpO2 96% Physical Exam Vitals and nursing note reviewed. Constitutional: General: He is awake. He is not in acute distress. Appearance: Normal appearance. He is well-developed and well-groomed. He is not ill-appearing, toxic-appearing or diaphoretic. [...] memory normal. Judgment: Judgment normal. ASSESSMENT/PLAN: 1. Essential hypertension - ICD9: 401.9, ICD10: I10 (primary diagnosis) - Home blood pressure readings controlled - Factors affecting control: suspected white coat hypertension - Continue current medications - Recommend home blood pressure monitoring, to bring results to next visit - Encouraged sodium restriction, DASH or Mediterranean diet - Recommend regular aerobic exercise - Reviewed risks of hypertension and principles of treatment - Follow up in 3 months for hypertension visit 2. White coat syndrome with diagnosis of hypertension - ICD9: 401.9, ICD10: I10 - Home blood pressure readings controlled - Factors affecting contr (more content not included)...[facility] History of Present illness Narrative* Mc Pichardo APRN.ACID PUR[employer]IER - 04/23/2024 7:12 AM EDT SUBJECTIVE New Etienne is a 88 year old male here today for a check up on his medical problems. Chief Complaint Patient presents with: Blood Pressure HPI New is a 88 year old male who presents for follow-up for hypertension. They are here today for a recheck of blood pressure. Blood pressure appears to be still elevated. Denies any symptoms referable to elevated blood pressure. Specifically denies headache, chest pain, palpitations, dyspnea and peripheral edema. Previously he tried HCTZ but did not tolerate this, tried spironolactone but that also caused side effects so was stopped. He was on amlodipine at one point but had issues with leg swelling. Recently he tried prazosin, stopped that for side effects. He had his labs updated, kidney function returned to baseline. Other medications include Altace. He brought his home monitoring numbers with him, average is 120's-130's/ 70's. His medications were reviewed today and his list is now up to date. Medications Current Outpatient Medications Medication Sig ramipril (ALTACE) 10 mg capsule Take 1 capsule by mouth two times a day. latanoprost (XALATAN) 0.005 % ophthalmic solution Use 1 Drop in both eyes daily at bedtime. aspirin(ENTERIC COATED ASPIRIN 325 MG TAB, DELAYED RELEASE) Take one(1) tablet daily. No current facility-administered medications for this visit. ALLERGIES Allergen Reactions Bactrim [Sulfametho* Other: See Comments per [facility] ER report 09/28/2012 - increased heart rate and flushing Ceftin [Cefuroxime * Erythromycin Other: See Comments made me sick Hydrochlorothiazide Other: See Comments just felt bad Latex Prednisone Other: See Comments Makes me feel sick Sulfa (Sulfonamide * Unknown, Other: See Comments ACTIVE PROBLEM LIST Obesity, Class II, Bmi [...] Drug use: No Review of Systems Constitutional: Negative. Respiratory: Negative. Cardiovascular: Negative. OBJECTIVE BP 172/75[BP Gabe average[ Pulse 51 Wt 255 lb 8.2 oz (115.9kg) SpO2 96% Physical Exam Vitals and nursing note reviewed. Constitutional: General: He is awake. He is not in acute distress. Appearance: Normal appearance. He is well-developed and well-groomed. He is not ill-appearing, toxic-appearing or diaphoretic. [...] memory normal. Judgment: Judgment normal. ASSESSMENT/PLAN: 1. Essential hypertension - ICD9: 401.9, ICD10: I10 (primary diagnosis) - Home blood pressure readings controlled - Factors affecting control: suspected white coat hypertension - Continue current medications - Recommend home blood pressure monitoring, to bring results to next visit - Encouraged sodium restriction, DASH or Mediterranean diet - Recommend regular aerobic exercise - Reviewed risks of hypertension and principles of treatment - Follow up in 3 months for hypertension visit 2. White coat syndrome with diagnosis of hypertension - ICD9: 401.9, ICD10: I10 - Home blood pressure readings controlled - Factors affecting control: suspected white coat hypertension - Recommend home blood pressure monitoring, to bring results to next visit - Encouraged sodium restriction, DASH or Mediterranean diet - Recommend regular aerobic exercise 3. Encounter for immunization - ICD9: V03.89, ICD10: Z23 - INFLUENZA VACCINE, PRSV FREE, AGE 65+ YR, HIGH DOSE, TRIVALENT (FLUZONE HIGH-DOSE) Portions of this note have been entered by ancillary staff. I have reviewed and when necessary edited, so that they are an adequate record of my encounter with this patient Please note that parts of this document were created using voice recognition software and therefore may contain grammatical errors. Patient verbalizes understanding of instructions from today's visit and in agreement with treatmentplan. Questions answered. Agrees to call the office if questions, concerns of issues with acute symptoms not improving or if they worsen. See diagnoses and orders for additional plan(s). Allergies and medications were reviewed, list was updated, and refills given if needed. Past medical, surgical, social, and family history reviewed and updated as appropriate. Encouraged proper diet & exercise as well as compliance with taking medications. Age- appropriate health preventative measures were discussed. Return if symptoms worsen or fail to improve, for Keep next scheduled appointment.. Mc Pichardo APRN-IFEANYI documented [facility]Mer[facility] Telephone encounter Note * Telephone Encounter - Cintia Bermudez RN - 04/02/2024 10:14 AM EDT Pt called and is notified of providers message and instructions. Pt voices understanding and is willing to try. Cintia Bermudez RN [facility]09-10-2024 Miscellaneous Notes* Telephone Encounter - Cintia Bermudez RN - 04/02/2024 10:14 AM EDT Pt called and is notified of providers message and instructions. Pt voices understanding and is willing to try. Cintia Bermudez RN * Telephone Encounter - Mc Pichardo APRN.CNP - 04/02/2024 9:53 AM EDT Would he like to trial a reduction in the dose to once daily? Could first try only at night but if still having the nocturia then try only once daily during the day. If still not tolerating it we cantry an alternative. * Telephone Encounter - Berenice Simmons RN - 04/02/2024 8:18 AM EDT Patient calling to give Mc Pichardo CNP an update regarding a new medication he started. Patient states he began Prazosin on 03/26 as ordered by Mc. Reports he has been experiencing an increased heart rate for about 2-2.5 hours just after taking the medication each morning. Reports his pulse is usually 40-50's every morning, but lately it has been in the 80's for a couple hours after taking the Prazosin. No SOB or chest pain associated with increased heart rate episodes. States he does feel a bit dizzy at times during these episodes but never feels like passing out. No leg swellingor headache. Reports home BP this morning was 128/60. Reports worsening nocturia as well and bed wetting. Patient with no symptoms at the time of this call. Please advise patient. [phone] Thank you. documented in this encounterMer[facility]09-10-[facility]24 Telephone encounter Note * Telephone Encounter - Mc Pichardo APRN.CNP - 04/02/2024 9:53 AM EDT Would he like to trial a reduction in the dose to once daily? Could first try only at night but if still having the nocturia then try only once daily during the day. If still not tolerating it we cantry an alternative. [facility] Telephone encounter Note* Telephone Encounter - Berenice Simmons RN - 04/02/2024 8:18 AM EDT Patient calling to give Mc Pichardo CNP an update regarding a new medication he started. Patient states he began Prazosin on 03/26 as ordered by Mc. Reports he has been experiencing an increased heart rate for about 2-2.5 hours just after taking the medication each morning. Reports his pulse is usually 40-50's every morning, but lately it has been in the 80's for a couple hours after taking the Prazosin. No SOB or chest pain associated with increased heart rate episodes. States he does feel a bit dizzy at times during these episodes but never feels like passing out. No leg swellingor headache. Reports home BP this morning was 128/60. Reports worsening nocturia as well and bed wetting. Patient with no symptoms at the time of this call. Please advise patient. [phone] Thank you. [facility]09-03-2024 NoteHNO ID: [id number] Author: MC PICHARDO APRN.IFEANYI Service: ? Author Type: Nurse Practitioner Type: Progress Notes Filed: 03/26/2024 08:23 Note Text: SUBJECTIVE New Etienne is a 88 year old male here today for a check up on his medical problems. Chief Complaint Patient presents with: Recheck: states much improvement with leg swelling and feels he is walking better Blood Pressure Immunizations: Flu vaccination HPI New Etienne is a 88 year old male. He is an established patient of Rian Prado MD. Here today for a follow up on blood pressure. He saw Cory 02/25. Had his HCTZ stopped and started spironolactone. Labs done 03/19 with an increase in creatinine. He did stop the medication, did not like how it made him feel. Swelling has resolved. Other blood pressure medication includes Altace 10 mg twice daily. Prior amlodipine caused leg swelling. 130's/60's at home with home blood pressure cuff. Would like to wait until April for flu vaccine. His medications were reviewed today and his list is now up to date. Medications Current Outpatient Medications Medication Sig ramipril (ALTACE) 10 mg capsule Take 1 capsule by mouth two times a day. latanoprost (XALATAN) 0.005 % ophthalmic solution Use 1 Drop in both eyes daily at bedtime. aspirin(ENTERIC COATED ASPIRIN 325 MG TAB, DELAYED RELEASE) Take one(1) tablet daily. prazosin (MINIPRESS) 1 mg cap Take 1 capsule by mouth two times a day. No current facility-administered medications for this visit. ALLERGIES Allergen Reactions Bactrim [Sulfametho* Other: See Comments per [facility] ER report 09/28/2012 - increased heart rate and flushing Ceftin [Cefuroxime * Erythromycin Other: See Comments made me sick Hydrochlorothiazide Other: See Comments just felt bad Latex Prednisone Other: See Comments Makes me feel sick Sulfa (Sulfonamide * Unknown, Other: See Comments ACTIVE PROBLEM LIST Obesity, Class II, Bmi [...] Drug use: No Review of Systems Constitutional: Negative. Respiratory: Negative. Cardiovascular: Negative. OBJECTIVE BP 183/82[BP Gabe average[ Pulse 59 Wt 256 lb 9.9 oz (116.4kg) SpO2 97% Physical Exam Vitals and nursing note reviewed. Constitutional: General: He is awake. He is not in acute distress. Appearance: Normal appearance. He is well-developed and well-groomed. He is not ill-appearing, toxic-appearing or diaphoretic. [...] memory normal. Judgment: Judgment normal. ASSESSMENT/PLAN: 1. Essential hypertension - ICD9: 401.9, ICD10: I10 (primary diagnosis) - Home blood pressure readings controlled - Factors affecting control: suspected white coat hypertension, diet adherence, and lack of exercise - Start Minipress - Recommend home blood pressure monitoring, to bring results to next visit - Encouraged sodium restriction, DASH or Mediterranean diet - Recommend regular aerobic exercise - PRAZOSIN 1 MG CAPSULE 2. White coat syndrome with diagnosis of hypertension - ICD9: 401.9, ICD10: I10 See above. 3. Bilateral leg edema - ICD9: 782.3, ICD10: R60.0 Resolved. 4. BPH associated with nocturia - ICD9: 600.01, 788.43, ICD (more content not included)...[facility] History of Present illness Narrative* Mc Pichardo APRN.[facility] - 03/26/2024 7:47 AM EDT SUBJECTIVE New Etienne is a 88 year old male here today for a check up on his medical problems. Chief Complaint Patient presents with: Recheck: states much improvement with leg swelling and feels he is walking better Blood Pressure Immunizations: Flu vaccination HPI New Etienne is a 88 year old male. He is an established patient of Rian Prado MD. Here today for a follow up on blood pressure. He saw Cory 02/25. Had his HCTZ stopped and started spironolactone. Labs done 03/19 with an increase in creatinine. He did stop the medication, did not like how it made him feel. Swelling has resolved. Other blood pressure medication includes Altace 10 mg twice daily. Prior amlodipine caused leg swelling. 130's/60's at home with home blood pressure cuff. Would like to wait until April for flu vaccine. His medications were reviewed today and his list is now up to date. Medications Current Outpatient Medications Medication Sig ramipril (ALTACE) 10 mg capsule Take 1 capsule by mouth two times a day. latanoprost (XALATAN) 0.005 % ophthalmic solution Use 1 Drop in both eyes daily at bedtime. aspirin(ENTERIC COATED ASPIRIN 325 MG TAB, DELAYED RELEASE) Take one(1) tablet daily. prazosin (MINIPRESS) 1 mg cap Take 1 capsule by mouth two times a day. No current facility-administered medications for this visit. ALLERGIES Allergen Reactions Bactrim [Sulfametho* Other: See Comments per [facility] ER report 09/28/2012 - increased heart rate and flushing Ceftin [Cefuroxime * Erythromycin Other: See Comments made me sick Hydrochlorothiazide Other: See Comments just felt bad Latex Prednisone Other: See Comments Makes me feel sick Sulfa (Sulfonamide * Unknown, Other: See Comments ACTIVE PROBLEM LIST Obesity, Class II, Bmi [...] Drug use: No Review of Systems Constitutional: Negative. Respiratory: Negative. Cardiovascular: Negative. OBJECTIVE BP 183/82[BP Gabe average[ Pulse 59 Wt 256 lb 9.9 oz (116.4kg) SpO2 97% Physical Exam Vitals and nursing note reviewed. Constitutional: General: He is awake. He is not in acute distress. Appearance: Normal appearance. He is well-developed and well-groomed. He is not ill-appearing, toxic-appearing or diaphoretic. [...] memory normal. Judgment: Judgment normal. ASSESSMENT/PLAN: 1. Essential hypertension - ICD9: 401.9, ICD10: I10 (primary diagnosis) - Home blood pressure readings controlled - Factors affecting control: suspected white coat hypertension, diet adherence, and lack of exercise - Start Minipress - Recommend home blood pressure monitoring, to bring results to next visit - Encouraged sodium restriction, DASH or Mediterranean diet - Recommend regular aerobic exercise - PRAZOSIN 1 MG CAPSULE 2. White coat syndrome with diagnosis of hypertension - ICD9: 401.9, ICD10: I10 See above. 3. Bilateral leg edema - ICD9: 782.3, ICD10: R60.0 Resolved. 4. BPH associated with nocturia - ICD9: 600.01, 788.43, ICD10: N40.1, R35.1 Minipress for bp will also help BPH. - PRAZOSIN 1 MG CAPSULE 5. Encounter for therapeutic drug monitoring - ICD9: V58.83, ICD10: Z51.81 - BASIC METABOLIC PANEL Portions of this note have been entered by ancillary staff. I have reviewed and when necessary edited, so that they are an adequate record of my encounter with this patient Please note that parts of this document were created using voice recognition software and therefore may contain grammatical errors. Patient verbalizes understanding of instructions from today's visit and in agreement with treatmentplan. Questions answered. Agrees to call the office if questions, concerns of issues with acute symptoms not improving or if they worsen. See diagnoses and orders for additional plan(s). Allergies and medications were reviewed, list was updated, and refills given if needed. Past medical, surgical, social, and family history reviewed and updated as appropriate. Encouraged proper diet & exercise as well as compliance with taking medications. Age- appropriate health preventative measures were discussed. Return in about 4 weeks (around 04/23/2024) for recheck on blood pressure. Mc Pichardo APRN-IFEANYI documented in this encounterMer[facility]08-[facility] Instructions* Patient Instructions* Cory Meneses APRN.CNS - 02/26/2024 2:58 PM EDT Stop taking hydrochlorothiazide Start taking spironolactone, start tomorrow Let us know if you do not feel well with the change Or if the fullness in your ears and head does not resolve with medication change. documented in [facility] History of Present illness Narrative* Cory Meneses APRN.CNS - 02/26/2024 2:40 PM EDT Subjective There are no preventive care reminders to display for this patient. HPI New Etienne is a 88 year old male. 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 He was seen at the [facility] here in [place] for his hearing aids. Presents today noting background noise and head feeling fuzzy. No headache. No sinus congestion or drainage. No ear pain. Some ear fullness. He notes right hearing seems more decreased than left hearing. No tinnitus. He thinks it might be HCTZ. HTN: He is without report headache, chest pain, palpitations, dyspnea, peripheral edema, orthopnea,fatigue, and PND. Notes he has been feeling really well on HCTZ overall, decreased lower extremity swelling and bloodpressure has been well-controlled at home. Last 3 Encounter BP Readings: Date: BP: 02/26/2024 144/72 02/12/2024 124/68 02/06/2024 140/74 Review of Systems Constitutional: Negative. Respiratory: Negative. Cardiovascular: Negative. Genitourinary: Negative. Objective BP 144/72 Pulse (!) 59 Resp 16 Wt 115.4 kg (254 lb 6.6 oz) BMI 38.12 kg/m Physical Exam Vitals and nursing note reviewed. Constitutional: General: He is not in acute distress. Appearance: Normal appearance. He is well-developed. He is not diaphoretic. HENT: Head: Normocephalic and atraumatic. Right Ear: Tympanic membrane and ear canal normal. Decreased hearing noted. Left Ear: Tympanic membrane and ear canal normal. Decreased hearing noted. Nose: Nose normal. Right Sinus: No maxillary sinus tenderness or frontal sinus tenderness. Left Sinus: No maxillary sinus tenderness or frontal sinus tenderness. Mouth/Throat: Lips: [place]. Mouth: Mucous membranes are moist. Pharynx: Oropharynx is clear. Eyes: Conjunctiva/sclera: Conjunctivae normal. Cardiovascular: Rate and Rhythm: Normal rate and regular rhythm. Heart sounds: Normal heart sounds. Pulmonary: Effort: Pulmonary effort is normal. Breath sounds: Normal breath sounds. Abdominal: General: Bowel sounds are normal. Palpations: Abdomen is soft. Musculoskeletal: Right lower leg: Edema (scant) present. Left lower leg: No edema. Skin: General: Skin is warm and dry. Neurological: General: No focal deficit present. Mental Status: He is alert and oriented to person, place, and time. ALLERGIES Allergen Reactions Bactrim [Sulfametho* Other: See Comments per [facility] ER report 09/28/2012 - increased heart rate and flushing Ceftin [Cefuroxime * Erythromycin Other: See Comments made me sick Hydrochlorothiazide Other: See Comments just felt bad Latex Prednisone Other: See Comments Makes me feel sick Sulfa (Sulfonamide * Unknown, Other: See Comments Current Outpatient Medications Medication Sig ramipril (ALTACE) 10 mg capsule Take 1 capsule by mouth two times a day. latanoprost (XALATAN) 0.005 % ophthalmic solution Use 1 Drop in both eyes daily at bedtime. aspirin(ENTERIC COATED ASPIRIN 325 MG TAB, DELAYED RELEASE) Take one(1) tablet daily. spironolactone (ALDACTONE) 25 mg tablet Take 1 tablet by mouth once daily. for blood pressure tamsulosin (FLOMAX) 0.4 mg Take 2 capsules by mouth once daily. (Patient not taking: Reported on 02/26/2024) No current facility-administered medications for this visit. PAST MEDICAL HISTORY No date: Benign neoplasm of colon No date: Chronic rhinitis No date: Diverticulosis of colon (without mention of hemorrhage) No date: Essential hypertension, benign No date: History of CVA (cerebrovascular accident) Comment: brainstem CVA; was at [facility] then [facility]; regained strength No date: Obesity, unspecified No date: Other and unspecified hyperlipidemia reports that he has never smoked. He has never used smokeless tobacco. He reports that he does not drink alcohol and does not use drugs. Assessment and Plan 1. Essential hypertension - ICD9: 401.9, ICD10: I10 - Controlled - Stop hydrochlorothiazide and start spironolactone - Encouraged sodium restriction, DASH or Mediterranean diet - Recommend regular aerobic exercise He thinks that HCTZ may be giving him an adverse effect with decreased hearing right greater than left and a fullness sensation in his head and ears. Therefore we will stop hydrochlorothiazide and start spironolactone. Recheck one month, sooner if problems. Advised: Stop taking hydrochlorothiazide Start taking spironolactone, start tomorrow Let us know if you do not feel well with the change Or if the fullness in your ears and head does not resolve with medication change. Cory Meneses APRN.CNS Medical Decision Making: Problems: Moderate: 1+ chronic illnesses with change Risk: Moderate: Drug management Medical Decision Making Level: 4 - Moderate documented in this encounterMer[facility]08-05-2024 NoteHNO ID: [id number] Author: CORY MENESES APRN.PRINT INSPECTOR Service: ? Author Type: Nurse Specialist Type: Progress Notes Filed: 02/26/2024 15:33 Note Text: Subjective There are no preventive care reminders to display for this patient. HPI New Etienne is a 88 year old male. 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 He was seen at the [facility] here in [place] for his hearing aids. Presents today noting background noise and head feeling fuzzy. No headache. No sinus congestion or drainage. No ear pain. Some ear fullness. He notes right hearing seems more decreased than left hearing. No tinnitus. He thinks it might be HCTZ. HTN: He is without report headache, chest pain, palpitations, dyspnea, peripheral edema, orthopnea, fatigue, and PND. Notes he has been feeling really well on HCTZ overall, decreased lower extremity swelling and blood pressure has been well-controlled at home. Last 3 Encounter BP Readings: Date: BP: 02/26/2024 144/72 02/12/2024 124/68 02/06/2024 140/74 Review of Systems Constitutional: Negative. Respiratory: Negative. Cardiovascular: Negative. Genitourinary: Negative. Objective BP 144/72 Pulse (!) 59 Resp 16 Wt 115.4 kg (254 lb 6.6 oz) BMI 38.12 kg/m? Physical Exam Vitals and nursing note reviewed. Constitutional: General: He is not in acute distress. Appearance: Normal appearance. He is well-developed. He is not diaphoretic. HENT: Head: Normocephalic and atraumatic. Right Ear: Tympanic membrane and ear canal normal. Decreased hearing noted. Left Ear: Tympanic membrane and ear canal normal. Decreased hearing noted. Nose: Nose normal. Right Sinus: No maxillary sinus tenderness or frontal sinus tenderness. Left Sinus: No maxillary sinus tenderness or frontal sinus tenderness. Mouth/Throat: Lips: [place]. Mouth: Mucous membranes are moist. Pharynx: Oropharynx is clear. Eyes: Conjunctiva/sclera: Conjunctivae normal. Cardiovascular: Rate and Rhythm: Normal rate and regular rhythm. Heart sounds: Normal heart sounds. Pulmonary: Effort: Pulmonary effort is normal. Breath sounds: Normal breath sounds. Abdominal: General: Bowel sounds are normal. Palpations: Abdomen is soft. Musculoskeletal: Right lower leg: Edema (scant) present. Left lower leg: No edema. Skin: General: Skin is warm and dry. Neurological: General: No focal deficit present. Mental Status: He is alert and oriented to person, place, and time. ALLERGIES Allergen Reactions Bactrim [Sulfametho* Other: See Comments per [facility] ER report 09/28/2012 - increased heart rate and flushing Ceftin [Cefuroxime * Erythromycin Other: See Comments made me sick Hydrochlorothiazide Other: See Comments just felt bad Latex Prednisone Other: See Comments Makes me feel sick Sulfa (Sulfonamide * Unknown, Other: See Comments Current Outpatient Medications Medication Sig ramipril (ALTACE) 10 mg capsule Take 1 capsule by mouth two times a day. latanoprost (XALATAN) 0.005 % ophthalmic solution Use 1 Drop in both eyes daily at bedtime. aspirin(ENTERIC COATED ASPIRIN 325 MG TAB, DELAYED RELEASE) Take one(1) tablet daily. spironolactone (ALDACTONE) 25 mg tablet Take 1 tablet by mouth once daily. for blood pressure tamsulosin (FLOMAX) 0.4 mg Take 2 capsules by mouth once daily. (Patient not taking: Reported on 02/26/2024) No current facility-administered medications for this visit. 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 He has never used smokeless tobacco. He reports that he does not drink alcohol and does not use drugs. Assessment and Plan 1. Essential hypertension - ICD9: 401.9, ICD10: I10 - Controlled - Stop hydrochlorothiazide and start spironolactone - Encouraged sodium restriction, DASH or Mediterranean diet - Recommend regular aerobic exercise He thinks that HCTZ may be giving him an adverse effect with decreased hearing right greater than left and a fullness sensation in his head and ears. Therefore we will stop hydrochlorothiazide and start spironolactone. Recheck one month, sooner if p (more content not included)...[facility]08-05-2024 Telephone encounter Note* Telephone Encounter - Anisha Huerta RN - 02/26/2024 8:37 AM EDT Protocol recommends see provider within 24 hours. Pt booked with Cory Meneses at 240 pm today. Reason for Disposition [1] Decreased hearing AND [2] taking medication that can damage hearing (i.e., gentamycin, tobramycin, furosemide, ethacrynic acid, cisplatin, quinidine) Answer Assessment - Initial Assessment Questions 1. DESCRIPTION: can't hear people like he was before he started the HCTZ. Notices a lot of background noise and his head feels fuzzy. Unable to understand people when they are talking 2. LOCATION: Both ears 3. SEVERITY: Is able to hear but not as well. 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 - MILD: Difficulty hearing soft speech, quiet library sounds, or speech from a distance or over background noise. - MODERATE: Difficulty hearing normal speech even at closed distances. - SEVERE: Unable to hear most normal conversation and talking; only able to hear loud sounds such as an alarm clock. 4. ONSET: about a week ago 5. PATTERN: It comes and goes but seems to be lasting longer 6. PAIN: denies - NONE (0): no pain - MILD (1-3): doesn't interfere with normal activities - MODERATE (4-7): interferes with normal activities or awakens from sleep - SEVERE (8-10): excruciating pain, unable to do any normal activities 7. CAUSE: Pt feels maybe it is from his HCTZ that he started 2 weeks ago. Pt states in the past when he had this happen, he was usually dehydrated and if he drank a lot of water, his hearing would goback to normal. But he has increased his water intake but the problem hasn't gone away. 8. OTHER SYMPTOMS: Denies, headache, dizziness, ringing in ears, injury or recent colds. 9. : n/a Protocols used: Hearing Loss or [id number] [facility]08-05-[facility] Miscellaneous Notes* Telephone Encounter - Anisha Huerta RN - 02/26/2024 8:37 AM EDT Protocol recommends see provider within 24 hours. Pt booked with Cory Meneses at 240 pm today. Reason for Disposition [1] Decreased hearing AND [2] taking medication that can damage hearing (i.e., gentamycin, tobramycin, furosemide, ethacrynic acid, cisplatin, quinidine) Answer Assessment - Initial Assessment Questions 1. DESCRIPTION: can't hear people like he was before he started the HCTZ. Notices a lot of background noise and his head feels fuzzy. Unable to understand people when they are talking 2. LOCATION: Both ears 3. SEVERITY: Is able to hear but not as well. 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 - MILD: Difficulty hearing soft speech, quiet library sounds, or speech from a distance or over background noise. - MODERATE: Difficulty hearing normal speech even at closed distances. - SEVERE: Unable to hear most normal conversation and talking; only able to hear loud sounds such as an alarm clock. 4. ONSET: about a week ago 5. PATTERN: It comes and goes but seems to be lasting longer 6. PAIN: denies - NONE (0): no pain - MILD (1-3): doesn't interfere with normal activities - MODERATE (4-7): interferes with normal activities or awakens from sleep - SEVERE (8-10): excruciating pain, unable to do any normal activities 7. CAUSE: Pt feels maybe it is from his HCTZ that he started 2 weeks ago. Pt states in the past when he had this happen, he was usually dehydrated and if he drank a lot of water, his hearing would goback to normal. But he has increased his water intake but the problem hasn't gone away. 8. OTHER SYMPTOMS: Denies, headache, dizziness, ringing in ears, injury or recent colds. 9. : n/a Protocols used: Hearing Loss or [id number] documented in this encounterMer[facility]07-22-[facility] History of Present illness Narrative* Mc Pichardo APRN.ACID PURIFIER - 02/12/2024 7:04 AM EDT SUBJECTIVE New Etienne is a 88 year old male here today for a check up on his medical problems. Chief Complaint Patient presents with: F/U 6 months Pain: bilateral legs off and on for about 4 months. Has been to urgent care x 2 HPI New Etienne is a 88 year old male.He is an established patient of Rian Prado MD And presents today for a routine 6 month follow up. History of HTN, IFG, HLD. Notes today some concerns of lower leg pain. Has occasional lower leg edema. Some bilateral lower leg pain. No numbness or tingling. Onset in August, amlodipine was increased in July. Work up has included xray of theright ankle and ultrasound of the right leg, other than a possible roblero's cyst and valvular incompetency there were no significant findings. Behavioral Health Screening PHQ-2 Score: 0 (Lower risk for depression) YANETH-2 Score: 0 (Lower risk for anxiety) Recommendation: no further intervention at this time His medications were reviewed today and his list is now up to date. Medications Current Outpatient Medications Medication Sig ramipril (ALTACE) 10 mg capsule Take 1 capsule by mouth two times a day. latanoprost (XALATAN) 0.005 % ophthalmic solution Use 1 Drop in both eyes daily at bedtime. aspirin(ENTERIC COATED ASPIRIN 325 MG TAB, DELAYED RELEASE) Take one(1) tablet daily. hydroCHLOROthiazide 12.5 mg capsule Take 1 capsule by mouth once daily. tamsulosin (FLOMAX) 0.4 mg Take 2 capsules by mouth once daily. (Patient not taking: Reported on 01/02/2024) No current facility-administered medications for this visit. ALLERGIES Allergen Reactions Bactrim [Sulfametho* Other: See Comments per [facility] ER report 09/28/2012 - increased heart rate and flushing Ceftin [Cefuroxime * Erythromycin Other: See Comments made me sick Hydrochlorothiazide Other: See Comments just felt bad Latex Prednisone Other: See Comments Makes me feel sick Sulfa (Sulfonamide * Unknown, Other: See Comments ACTIVE PROBLEM LIST Obesity, Class II, Bmi [...] Drug use: No Review of Systems Constitutional: Negative. Respiratory: Negative. Cardiovascular: Positive for leg swelling. Negative for chest pain and palpitations. OBJECTIVE BP 124/68 Pulse 54 Wt 257 lb (116.6kg) SpO2 98% Physical Exam Vitals and nursing note reviewed. Constitutional: General: He is awake. He is not in acute distress. Appearance: Normal appearance. He is well-developed and well-groomed. He is not ill-appearing, toxic-appearing or diaphoretic. [...] memory normal. Judgment: Judgment normal. ASSESSMENT/PLAN: 1. Essential hypertension - ICD9: 401.9, ICD10: I10 (primary diagnosis) - Controlled - Stop amlodipine due to possible side effects and start HCTZ - Recommend home blood pressure monitoring, to bring results to next visit - Encouraged sodium restriction, DASH or Mediterranean diet - Recommend regular aerobic exercise - HYDROCHLOROTHIAZIDE 12.5 MG CAPSULE 2. Bilateral leg edema - ICD9: 782.3, ICD10: R60.0 Stop amlodipine and start HCTZ. Discussed new medication including but not limited to reason for use, possible side effects, administration, signs and symptoms to monitor for and when to seek medical attention. - BASIC METABOLIC PANEL - HYDROCHLOROTHIAZIDE 12.5 MG CAPSULE 3. Pain in both lower extremities - ICD9: 729.5, ICD10: M79.604, M79.605 Suspect this is secondary to his amlodipine, see #1 and #2 4. IFG (impaired fasting glucose) - ICD9: 790.21, ICD10: R73.01 Stable. Reviewed labs today. 5. Other hyperlipidemia - ICD9: 272.4, ICD10: E78.49 Stable. Reviewed lab today. 6. Encounter for therapeutic drug monitoring - ICD9: V58.83, ICD10: Z51.81 - BASIC METABOLIC PANEL Medical Decision Making: Problems: Moderate: 1+ chronic illnesses with change and 2+ stable chronic illnesses Data: Unique test result(s) reviewed: 3+ Unique test(s) ordered: 1 Risk: Moderate: Drug management Medical Decision Making Level: 4 - Moderate Portions of this note have been entered by ancillary staff. I have reviewed and when necessary edited, so that they are an adequate record of my encounter with this patient Please note that parts of this document were created using voice recognition software and therefore may contain grammatical errors. Patient verbalizes understanding of instructions from today's visit and in agreement with treatmentplan. Questions answered. Agrees to call the office if questions, concerns of issues with acute symptoms not improving or if they worsen. See diagnoses and orders for additional plan(s). Allergies and medications were reviewed, list was updated, and refills given if needed. Past medical, surgical, social, and family history reviewed and updated as appropriate. Encouraged proper diet & exercise as well as compliance with taking medications. Age- appropriate health preventative measures were discussed. Return in about 6 weeks (around 03/25/2024) for recheck bp and leg swelling. Mc Pichardo APRN-ACID PURIFIER documented in this encounterMercy [facility]07-16-2024 History of Present illness Narrative* Jeremy Ram, VANNA - 02/06/2024 1:37 PM EDT This note was created using [employer]. Subjective New Etienne is a 88 year old male. HPI 88-year-old male presents for right calf swelling x 2 days. 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 Patient states he did injure his ankle climbing up and down a ladder few months ago and was seen here. He had an x-ray that was normal. States occasionally he gets pain in the ankle and calf since then. He denies any new injury, just noticed the swelling yesterday. He has a little bit of pain behind the right knee. No redness or warmth. No fevers. No recent travel or hospitalization. No history of DVT or PE. He is on aspirin daily. No other anticoagulation. No other complaint. 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 amLODIPine (NORVASC) 10 mg tablet Take 1 tablet by mouth once daily. latanoprost (XALATAN) 0.005 % ophthalmic solution Use 1 Drop in both eyes daily at bedtime. aspirin(ENTERIC COATED ASPIRIN 325 MG TAB, DELAYED RELEASE) Take one(1) tablet daily. tamsulosin (FLOMAX) 0.4 mg Take 2 capsules by mouth once daily. (Patient not taking: Reported on 01/02/2024) FAMILY HISTORY Problem Relation Age of Onset other (Lung Cancer [Other]) Father other (Leukemia [Other]) Paternal Grandmother Diabetes Mother Diabetes Sister Social History Tobacco Use Smoking status: Never Smokeless tobacco: Never Substance Use Topics Alcohol use: No Drug use: No Review of Systems Constitutional: Negative for chills and fever. HENT: Negative for congestion and sore throat. Respiratory: Negative for cough and shortness of breath. Cardiovascular: Positive for leg swelling. Gastrointestinal: Negative for diarrhea and vomiting. Objective BP 140/74 Pulse 80 Temp 36.9 C (98.5 F) Resp 16 Wt 117.8 kg (259 lb 11.2 oz) SpO2 95% BMI 38.91 kg/m Physical Exam Vitals and nursing note reviewed. Constitutional: General: He is not in acute distress. Appearance: Normal appearance. He is not toxic-appearing. HENT: Nose: Nose normal. Mouth/Throat: Mouth: Mucous membranes are moist. Eyes: Conjunctiva/sclera: Conjunctivae normal. Cardiovascular: Rate and Rhythm: Normal rate and regular rhythm. Pulses: Dorsalis pedis pulses are 2+ on the right side and 2+ on the left side. Posterior tibial pulses are 2+ on the right side and 2+ on the left side. Comments: Patient has bilateral 2+ pitting edema around ankles- chronic per patient. Rt calf slighlty more swollen than right- no pitting edema of calf. No erythema or warmth. No significant tenderness. Normal ROM knee and ankle. DP and PT pulses 2+ right lower extremity. Normal sensation. Normal ambulation. Pulmonary: Effort: Pulmonary effort is normal. Breath sounds: Normal breath sounds. Musculoskeletal: Right knee: No erythema. Normal range of motion. Tenderness (posterior knee with swelling) present. Right lower le+ Pitting Edema present. Left lower le+ Pitting Edema present. Skin: General: Skin is warm and dry. Neurological: Mental Status: He is alert. Assessment and Plan ASSESSMENT/PLAN: 1. Right leg swelling - ICD9: 729.81, ICD10: M79.89 - US LEG VEIN DVT UNL V[facility] LAB- Negative for acute deep vein thrombosis. 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 Complex fluid collection noted in the popliteal fossa/medial knee measuring 4.5 x 1.3 x 1.2 cm. 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 - rest, ice, compression, elevation - tylenol as needed for pain. Diagnosis and treatment plan were discussed and questions were answered to the patient's satisfaction. Pt acknowledged understanding of concepts and follow up plan. Specific signs and symptoms that would indicate the need for higher level of care were discussed in detail warranting prompt ER evaluation. VANNA Boo documented in this encounterMer[facility]06-11-2024 History of Present illness Narrative* Marcelino Norton APRN.[facility] - 01/02/2024 5:58 PM EDT Images from the original note were not included. Subjective HPI Nontoxic appearing male presents urgent care chief complaint tick bite. Duration of symptoms fatigue body aches redness around area of tick bite. Patient states removed the tick 10 days ago. Presentstoday due to redness around area. Has not used any OTC medications. Denies any fevers nausea vomiting cough chest pain shortness of breath or change in bowel or bladder habits. Past medical history prescription medications allergies reviewed. 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 amLODIPine (NORVASC) 10 mg tablet Take 1 tablet by mouth once daily. latanoprost (XALATAN) 0.005 % ophthalmic solution Use 1 Drop in both eyes daily at bedtime. aspirin(ENTERIC COATED ASPIRIN 325 MG TAB, DELAYED RELEASE) Take one(1) tablet daily. doxycycline (VIBRA-TABS) 100 mg tablet Take 1 tablet by mouth two times a day for 10 days. tamsulosin (FLOMAX) 0.4 mg Take 2 capsules by mouth once daily. (Patient not taking: Reported on 01/02/2024) FAMILY HISTORY Problem Relation Age of Onset other (Lung Cancer [Other]) Father other (Leukemia [Other]) Paternal Grandmother Diabetes Mother Diabetes Sister Social History Tobacco Use Smoking status: Never Smokeless tobacco: Never Substance Use Topics Alcohol use: No Drug use: No BP 136/78 Pulse 78 Temp 36.4 C (97.6 F) Resp 16 Wt 120 kg (264 lb 8.8 oz) SpO2 98% BMI 39.64 kg/m Review of Systems Constitutional: Positive for malaise/fatigue. Negative for chills and fever. HENT: Negative for congestion, ear discharge, ear pain, sinus pain and sore throat. Eyes: Negative for blurred vision, pain, discharge and redness. Respiratory: Negative for cough, hemoptysis, sputum production, shortness of breath, wheezing and stridor. Cardiovascular: Negative for chest pain. Gastrointestinal: Negative for abdominal pain, diarrhea, nausea and vomiting. Musculoskeletal: Positive for myalgias. Skin: Negative for itching and rash. Neurological: Negative for dizziness and headaches. Objective Physical Exam Constitutional: General: He is not in acute distress. Appearance: He is not diaphoretic. HENT: Mouth/Throat: Pharynx: Uvula midline. No pharyngeal swelling or uvula swelling. Eyes: Conjunctiva/sclera: Conjunctivae normal. Pupils: Pupils are equal, round, and reactive to light. Cardiovascular: Rate and Rhythm: Normal rate and regular rhythm. Heart sounds: Normal heart sounds. Pulmonary: Effort: Pulmonary effort is normal. No tachypnea, accessory muscle usage or respiratory distress. Breath sounds: Normal breath sounds. No stridor. No wheezing, rhonchi or rales. Musculoskeletal: Cervical back: No edema or erythema. No pain with movement. Normal range of motion. Skin: General: Skin is warm and dry. Comments: A 5 cm x 5 cm area of erythema noted. Central clearing noted. No remote redness. Neurological: Mental Status: He is alert and oriented to person, place, and time. ASSESSMENT/PLAN: 1. Rash - ICD9: 782.1, ICD10: R21 Diagnosed with rash. Patient did have some central clearing around area of tick bite. Body aches and fatigue. With rash body aches and fatigue cellulitis versus tickborne illness. Will be placed on doxycycline. Patient was educated on supportive therapies. Patient will follow up with primary care provider as needed. Patient was instructed to immediately proceed to emergency room for any new, worsening, or symptoms lasting longer than anticipated. The patient's clinical presentation is otherwise unremarkable at this time. Based on exam and clinical finding, the patient is stable for discharge. Plan of care was discussed with patient. Patient verbalizes understanding and agrees to plan of care. This note was generated using [employer] software. It may contain errors in wording, punctuation, or spelling. Marcelino Norton APRN.IFEANYI documented in this encounterMer[facility]-29-[facility] History of Present illness Narrative* Ana Lilia Khan RT(R) - 12/20/2023 9:40 AM EDT Radiology Service Progress Note PATIENT NAME: New Etienne DATE OF SERVICE: December 20, 2023 TIME: 9:42 AM PATIENT IDENTITY VERIFICATION COMPLETED USING TWO (2) IDENTIFIERS: Name and Date of confirmedby patient verbally. FALL SCREENING: Has the patient had 2 falls in the last year or 1 fall with injury or currently using an Ambulatory Assistive Device (Walker, Cane, Wheelchair, Crutches, etc.)? No PATIENT GENDER DATA: Male PATIENT RELEVANT IMPLANT DATA REVIEWED: Yes PATIENT PRESENTS WITH AN IMPLANTABLE OR ATTACHED RAMP JOCKEY: No RADIOLOGY DEPARTMENT: General X-ray: Exam(s) Completed: Lower Extremity X- Ray(s): Ankle, Right and Wt. Bearing PERIPHERAL IV DATA: Not applicable SIGNED BY: RT Anjana(R) December 20, 2023 9:42 AM documented in this encounterMercy [facility]05-29-2024 History of Present illness Narrative* Leisa Carroll APRN.ACID PURIFIER - 12/20/2023 9:29 AM EDT Images from the original note were not included. Subjective Patient came in with complaints of right ankle pain. Patient says it started about 3 weeks ago he noticed it when he was climbing up and down a tall piece of equipment. Patient did not fall or twist or injure it in any way that he knows of. Patient says it is does not seem to be getting better. Patient denies any numbness tingling or loss of feeling. The history is provided by the patient. No sign language interpreter was used. Ankle Pain Review of Systems Constitutional: Negative. Skin: Negative. Objective Physical Exam Constitutional: Appearance: Normal appearance. Pulmonary: Effort: Pulmonary effort is normal. Musculoskeletal: Feet: Feet: Comments: Patient is tender in the areas marked above. Patient does have swelling noted which is patient's normal. No discoloration noted. Range of motion within normal limits. Khan test is negative. Neurological: Mental Status: He is alert. 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 amLODIPine (NORVASC) 10 mg tablet Take 1 tablet by mouth once daily. latanoprost (XALATAN) 0.005 % ophthalmic solution Use 1 Drop in both eyes daily at bedtime. tamsulosin (FLOMAX) 0.4 mg Take 2 capsules by mouth once daily. aspirin(ENTERIC COATED ASPIRIN 325 MG TAB, DELAYED RELEASE) Take one(1) tablet daily. FAMILY HISTORY Problem Relation Age of Onset other (Lung Cancer [Other]) Father other (Leukemia [Other]) Paternal Grandmother Diabetes Mother Diabetes Sister Social History Tobacco Use Smoking status: Never Smokeless tobacco: Never Substance Use Topics Alcohol use: No Drug use: No ASSESSMENT/PLAN: 1. Pain - ICD9: 780.96, ICD10: R52 - XR ANKLE GENERAL 3V AP/LAT/OBL RIGHT PROCEDURE REASON: Pain * * * * Physician Interpretation * * * * History: Pain, no known injury FINDINGS: AP, lateral, and oblique views of the right ankle have been obtained there is no acute fracture or dislocation. Soft tissue bone density seen adjacent to the medial malleolus, possibly related to prior insult. Ankle mortise is intact. There is spurring at the insertion site of the Achilles tendon. IMPRESSION IMPRESSION: No acute bony abnormality is seen. Merchandise Marker: MACARIO Transcribe Date/Time: Dec 20 2023 10:17A Dictated by : JASON BLAND MD Ortho consult placed patient will make his own appt due to pain persistent for several weeks. Will use Tylenol and rest in the meantime see if this alleviates the pain. Patient was okay with this care plan. Leisa Carroll APRN.IFEANYI documented in this encounterMer[facility]01-19-2024 History of Present illness Narrative* Rian Prado MD - 08/11/2023 9:00 AM EST This note was created using [employer]. Subjective New Etienne is a 87 year old male. Patient presents with: Follow Up SUBJECTIVE: New Etienne is a 87 year old year old gentleman here today for follow up appointment for review of medical conditions. BP at home 114/56; can be up and down. Highest was 130/70s. BRBPR episodes one Monday--went to ER and was admitted. Dr. Tao saw him. Just CT scan done. No colonoscopy. Thought maybe hemorrhoids. Doing straight cath due to urinary retention. Was told could do TURP so that is planned for 08/30/23. Later developed infected hydrocele; treated by Dr. Dave. 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 Has noted decreased hearing left ear. Has to use eye drops for increased pressure in eyes. Hip pain--was referred to [facility] but pain resolved so canceled. Noted that right foot--noted sock comes off while walking. Stroke had affected left side, not right. Plans to lose weight. Knows needs to cut out the snacking. Wants to lose 2 pound a week. Depression Screening PHQ-2 Score 08/11/2023 0 Depression screening tool completed and reviewed. Based on score and interview, patient is not at risk for depression. Screening tool discussed with patient, and I recommended no further interventionat this time. 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 tamsulosin (FLOMAX) 0.4 mg Take 2 capsules by mouth once daily. ramipril (ALTACE) 10 mg capsule Take 1 capsule by mouth twice daily. amLODIPine (NORVASC) 10 mg tablet Take 1 tablet by mouth once daily. Dose change - take one daily. aspirin(ENTERIC COATED ASPIRIN 325 MG TAB, DELAYED RELEASE) Take one(1) tablet daily. No current facility-administered medications for this visit. Review of Systems Objective BP (P) 154/76 (BP Site: Left Arm, BP Position: Sitting, BP Cuff Size: Large Adult) Pulse (P) 66 Wt (P) 116.1 kg (256 lb) BMI (P) 38.35 kg/m Last 5 Encounter Wt Readings: Date: Wt: 06/15/2023 118.4 kg (261 lb) 06/09/2023 117.2 kg (258 lb 6.4 oz) 06/03/2023 119.7 kg (264 lb) 03/07/2023 115.7 kg (255 lb) 02/10/2023 115.2 kg (254 lb) No waist measurement recorded Estimated body mass index is 38.35 kg/m (pended) as calculated from the following: Height as of 09/28/17: 174 cm (5' 8.5). Weight as of this encounter: (P) 116.1 kg (256 lb). Last 5 Encounter BP Readings: Date: BP: 06/15/2023 174/79 06/09/2023 169/76 06/03/2023 179/77 03/07/2023 153/74[average bp[ 02/10/2023 154/60 Physical Exam Vitals reviewed. Constitutional: Appearance: Normal appearance. Eyes: Conjunctiva/sclera: Conjunctivae normal. Cardiovascular: Rate and Rhythm: Normal rate and regular rhythm. Heart sounds: Normal heart sounds. Pulmonary: Effort: Pulmonary effort is normal. Breath sounds: Normal breath sounds. Musculoskeletal: Right lower le+ Edema present. Left lower le+ Edema present. Skin: General: Skin is warm and dry. Neurological: General: No focal deficit present. Mental Status: He is alert and oriented to person, place, and time. Psychiatric: Mood and Affect: Mood normal. Behavior: Behavior normal. Thought Content: Thought content normal. Judgment: Judgment normal. Component Latest Ref Rng & Units 04/29/2020 05/08/2020 12/08/2020 08/08/2022 02/07/2023 08/07/2023 WBC 3.70 - 11.00 k/uL 7.27 7.83 6.52 8.42 RBC 4.20 - 6.00 m/uL 5.21 5.27 5.02 5.20 Hemoglobin 13.0 - 17.0 g/dL 14.8 15.2 14.3 14.9 Hematocrit 39.0 - 51.0 % 45.8 45.7 43.6 45.6 MCV 80.0 - 100.0 fL 87.9 86.7 86.9 87.7 MCH 26.0 - 34.0 pg 28.4 28.8 28.5 28.7 MCHC 30.5 - 36.0 g/dL 32.3 33.3 32.8 32.7 RDW-CV 11.5 - 15.0 % 13.0 12.9 13.2 13.1 Platelet Count 150 - 400 k/uL 204 211 204 217 MPV 9.0 - 12.7 fL 10.3 9.8 10.1 9.5 Neut% % 50.6 Abs Neut (ANC) 1.45 - 7.50 k/uL 4.27 Lymph% % 38.5 Abs Lymph 1.00 - 4.00 k/uL 3.24 Dallam% % 6.7 Abs Dallam <0.87 k/uL 0.56 Eosin% % 3.6 Abs Eosin <0.46 k/uL 0.30 Baso% % 0.4 Abs Baso <0.11 k/uL 0.03 Immature Gran % % 0.2 IMMATURE GRANS (ABS) <0.10 k/uL <0.03 NRBC /100 WBC 0.0 Absolute nRBC <0.01 k/uL <0.01 <0.01 <0.01 <0.01 DTYPE Auto Protein, Total 6.3 - 8.0 g/dL 6.9 6.4 6.2 (L) 6.6 Albumin 3.9 - 4.9 g/dL 4.1 3.9 3.9 4.0 Calcium 8.5 - 10.2 mg/dL 9.5 9.2 9.3 8.9 9.3 Bilirubin, Total 0.2 - 1.3 mg/dL 0.6 0.5 0.4 0.5 Alkaline Phosphatase 38 - 113 U/L 85 78 72 71 AST 14 - 40 U/L 20 18 16 25 Glucose 74 - 99 mg/dL 108 (H) 81 96 100 (H) 101 (H) BUN 9 - 24 mg/dL 22 18 19 27 (H) 22 Creatinine 0.73 - 1.22 mg/dL 1.31 (H) 0.92 1.15 1.17 1.10 Sodium 136 - 144 mmol/L 142 141 144 140 143 Potassium 3.7 - 5.1 mmol/L 4.4 4.5 4.5 4.4 4.6 Chloride 97 - 105 mmol/L 107 (H) 105 106 (H) 106 (H) 106 (H) CO2 22 - 30 mmol/L 30 27 26 26 29 Anion Gap 9 - 18 mmol/L 5 (L) 9 12 8 (L) 8 (L) ALT 10 - 54 U/L 17 17 17 26 eGFR- >60 >60 eGFR-All Other Races . 52 >60 eGFR >=60 mL/min/1.73m 62 61 65 Cholesterol, Total <200 mg/dL 175 177 Triglyceride <150 mg/dL 107 68 HDL Cholesterol >39 mg/dL 40 45 Non HDL Cholesterol <130 mg/dL 135 (H) 132 (H) Fasting Time hrs 12 12 VLDL Cholesterol <30 mg/dL 21 14 TC:HDL Ratio <5.10 4.38 3.93 LDL Cholesterol <100 mg/dL 114 (H) 118 (H) LDL:HDL Ratio <2.54 2.85 (H) 2.62 (H) Hemoglobin A1C 4.3 - 5.6 % 5.9 (H) Estimated Average Glucose mg/dL 123 Hemoglobin A1C (POCT) 4.2 - 5.6 % 5.3 Assessment and Plan Encounter Diagnosis ICD-10-CM 1. White coat syndrome with diagnosis of hypertension I10 LIPID PANEL BASIC COMP METABOLIC PANEL CBC Well controlled on recheck; tendency to white coat hypertension. Did well today. 2. IFG (impaired fasting glucose) R73.01 COMP METABOLIC PANEL HGB A1C Still just IFG, not DM. Continue efforts at healthy diet and staying active as able 3. BPH associated with nocturia N40.1 R35.1 Plans for TURP by Dr. Dave in August 4. Obesity, Class II, BMI 35-39.9 E66.9 Plans to work on better diet to get weight to go down. 5. Self-catheterizes urinary bladder Z78.9 Plans to get TURP in August 6. Encounter for immunization Z23 RSV PRINTED PHARMACY INSTRUCTIONS Above issues addressed with patient. Patient involved in shared decision making for management of medical issues. History and medications reviewed. Epic updated as needed Refills and/or prescriptions taken care of and meds adjusted as indicated after reviewed history, exam and labs. Health Maintenance reviewed. Updated record and/or ordered tests as recorded. Encouraged on efforts at healthy diet and regular exercise and adequate sleep. Rian Prado MD documented in this encounterMer[facility]12-07-2023 Miscellaneous Notes* Telephone Encounter - Cory Meneses APRN.CNS - 06/29/2023 4:28 PM EST noted, agree with being seen for this * Telephone Encounter - Cintia Bermudez RN - 06/28/2023 2:55 PM EST Protocol recommends see provider in 4 hours or go to EC/ER. Pt is going to go back to the ER, sincethat is where they gave him the antibiotic. [...] for his swollen testicle. Pt went to [facility] ER for testicle. 11. : N/A Protocols used: Heart Rate and Heartbeat [id number] documented in this encounterMercy Health [facility]12-06-2023 Discharge summary Author Gonzalo Allen [facility] June 28, 2023 4:25pm Note Date/Time June 28, 2023 4 :13pm [facility] Medical Records Department [address] [place] [address] Emergency Department Summary 06/28/23 MR#: [id number] Acct: [id number] Name: NEW ETIENNE Rep #:[id number] 6 : 1935 87 From: Gonzalo Allen MD PCP: Dr. Rian Prado MD Status:RE G ER Location: ED HPI History of Present Illness Chief Complaint: Allergic Reaction Informant: patient Onset/Context/Timing Onset: Today and Hours Context: Gradual Onset Timing: Continuous Current Severity: Mild Maximum Severity: Mild Narrative Narrative: 87-year-old male seen earlier today by the overnight physician diagnosed with a possible epididymitis. Had an ultrasound showing bilateral hydroceles but no mass nor torsion. He was started on antibiotic Levaquin after he took a single dose an hour or so ago he developed a rash on his upper back. Denies any trouble swallowing or breathing. He is able to urinate. Has any fever, vomiting or diarrhea. No prior history to Levaquin or Cipro allergy. Does havea known allergy to sulfa medications. Prior similar symptoms: Yes Recent Illness/Hospitalization: No [facility] Medical History Benign neoplasm of colon Cataracts, bilateral Diverticulosis Essential (primary) hypertension History of cerebrovascular accident (2003) Hyperlipidemia Lumbar region somatic dysfunction Obesity Right bundle branch block (RBBB) Segmental and somatic dysfunction of lumbar region Segmental and somatic dysfunction of pelvic region Segmental and somatic dysfunction of thoracic region Self-catheterizes urinary bladder Home Medications aspirin 325 mg tablet 325 mg PO DAILY@0800 06/22/16 [History Last Taken Unknown] ramipril 5 mg capsule 10 mg PO BID 06/22/16 [History Last Taken Unknown] amlodipine 10 mg tablet 10 mg PO DAILY@DINNER #30 tabs 01/16/23 [Rx Last Taken Unknown] tamsulosin 0.4 mg capsule 0.8 mg (2 x 0.4 mg) PO DAILY #60 caps 01/16/23 [Rx Last Taken Unknown] doxycycline hyclate 100 mg capsule 100 mg PO BID 10 days #20 caps 06/28/23 [Rx Last Taken Unknown] levofloxacin 500 mg tablet 500 mg PO DAILY 10 days #10 tabs 06/28/23 [Rx Last Taken Unknown] Allergy/AdvReac Type Severity Reaction Status Date / Time levofloxacin [From Levaquin] Allergy Intermediate Rash Verified 06/28/23 16:17 latex Allergy Unknown Verified 06/28/23 15:39 Sulfa (Sulfonamide Allergy Unknown Verified 06/28/23 15:39 Antibiotics) erythromycin base AdvReac Unknown Verified 06/28/23 15:39 hydrochlorothiazide AdvReac Unknown Verified 06/28/23 15:39 prednisone AdvReac Unknown Verified 06/28/23 15:39 Family History Other Heart disease Hypertension Surgical History H/O tooth extraction Social History Smoking Status: Never smoker alcohol intake: never substance use type: does not use what type of physical activity do you participate in: none ROS ROS ED ROS Narrative Rash. Right scrotal redness. Review of Systems ROS Unobtainable: Denies due to encephalopathy Constitutional Constitutional ED: Denies chills or fever(s) Eyes Eyes: Denies blurry vision ENT ENT ED: Denies ear pain Cardiovascular Cardiovascular: Denies chest pain Respiratory/Chest Respiratory/Chest: Denies cough or dyspnea Gastrointestinal Gastrointestinal: Denies abdominal pain, constipation, nausea or vomiting Genitourinary Genitourinary ED: Denies dysuria or hematuria Musculoskeletal Musculoskeletal: Denies arthralgias or back pain Integumentary Reports rash; Denies abscess Neurologic Neurologic: Denies headache(s) Psychiatric Psychiatric: Denies anxiety Endocrine Endocrinology: Denies cold intolerance Hematologic/Lymphatic Hematologic/Lymphatic: Reports none Allergic/Immunologic Allergic/Immunologic ED: Denies mouth swelling, tongue swelling or urticaria EXAM Physical Exam Narrative Exam Narrative: Well-appearing 87-year-old male. Vital signs are stable afebrile. HEENT exam unremarkable. No tongue or lip swelling. Neck nontender. Lungs clear to auscultation bilaterally. Heart regular rhythm no murmur. Abdomen is soft and nontender. Moving all 4 extremities. Calves are nontender without edema. External exam he does have bilateral scrotal swelling consistent with known hydroceles. He also has redness on his right scrotum consistent with either an epididymitis or a scrotal cellulitis. There is no Louie's gangrene. No abscess. No necrotic tissue. No subcu air. Back he has a rash on his back consistent with a possible generalized allergic reaction. Neurologically he is awake alert with no focal motor deficits. Const Vital Signs: 06/28/23 15:40 Temperature 98.8 F Temperature Source Temporal Pulse Rate 92 Respiratory Rate 16 Blood Pressure 165/79 H Blood Pressure Mean 107 Pulse Ox 94 Oxygen Delivery Method Room Air Positive well nourished and well developed; Negative for cachectic, contracturesor unkempt General Appearance ED: well developed and NAD; Negative for unkempt, cachectic, contractures, cyanotic, diaphoretic or pallor Nutritional Appearance: Negative for cachectic HEENT Reports moist mucous membranes Negative for trauma or tenderness Eyes PERRL and EOMs intact bilaterally General Eye ED: Negative for pale conjunctiva or scleral icterus Neck no lymphadenopathy, supple and no JVD General: Negative for tenderness Lymph Lymphatic: Negative for other Chest Wall inspection of chest normal and palpation of chest normal Chest: Negative for other Resp normal respiratory effort and clear to auscultation bilaterally Effort and Inspection: Negative for retractions Auscultation: Negative for rales or rhonchi Cardio regular rate, regular rhythm, S1 normal heart sound, S2 normal heart sound and no murmurs Rate: Negative for bradycardia or tachycardic Rhythm: Negative for abnormal rhythm GI normal to inspection, nondistended, normoactive bowel sounds, non-tender, non-distended and no masses Inspection: Negative for abdominal distention Auscultation: normoactive bowel sounds Palpation: soft; Negative for tender Narrative: Bilateral scrotal swelling. Redness on the right side consistent with either a scrotal cellulitis or an epididymitis. Prior ultrasound earlier today showed nosigns of torsion, nor any masses nor any epididymal orchitis. Bladder / Kidney Exam: No other Back/Spine no CVA tenderness Back/Spine Narrative: Red rash on his upper back consistent with allergic reaction. Blanches. No petechiae or purpura. No sloughing skin. General Back: Negative for CVA tenderness Cervical Spine: Negative for cervical spine tenderness Thoracic Spine / Upper Back: Negative for thoracic spinal tenderness Lumbar Spine / Lower Back: Negative for lumbar spinal tenderness Extremity normal to inspection General Extremety ED: Negative for edema or tenderness General Extremity: Negative for edema Neuro oriented x3 and CN's II-XII intact bilaterally Sensorium / Orientation: alert; Negative for orientation impaired, lethargic or stuporous Motor Exam: strength 5/5 throughout Psych mental status grossly normal Appearance: Negative for unkempt Attitude: No agitated Skin No no rashes or lesions noted, no wounds and skin turgor normal General Skin Exam: elasticity normal; Negative for jaundice or pallor Lesions: No lesion noted Rashes: rashes noted Trauma: Negative for abrasion Wounds: Negative for wounds noted MDM MDM MDM Narrative Medical decision making narrative: 87-year-old male has allergic reaction seems to be from antibiotic he started ont day Levaquin. That will be stopped. Give the patient a dose of prednisone for his allergic reaction, but he states he has a worse rash to that. We will hold off on any treatment of the allergic reaction. Only took 1 Levaquin and should resolve. He will be started on new antibiotic doxycycline 100 twice daily for 10 days for the redness of his right hemiscrotum. And follow-up with primary care physician to be reevaluated. Return if worse. History & Record Review Discussion w/independent historian: Patient and Family Additional record(s) reviewed:: Prior inpatient record, Prior outpatient record,Prior ED visit and Prior labs Discharge Plan Triage Chief Complaint: Allergic Reaction ED Provider: Gonzalo Allen Dx/Rx/DC Orders Clinical Impression: Cellulitis of scrotum, Allergic reaction, Bilateral hydrocele Instructions: ED ADVERSE DRUG REACTION Allergic Prescriptions: New doxycycline hyclate 100 mg capsule 100 mg PO BID 10 Days Qty: 20 0RF No Action aspirin 325 MG tablet 325 mg PO DAILY@0800 Hold Instructions: Resume on 01/18/23. ramipril 5 MG capsule 10 mg PO BID amlodipine 10 mg Tablet 10 mg PO DAILY@DINNER Qty: 30 0RF tamsulosin 0.4 mg capsule 0.8 mg PO DAILY Qty: 60 0RF levofloxacin 500 mg tablet 500 mg PO DAILY 10 Days Qty: 10 0RF Primary Care Provider: Rian Prado Referrals: Ashkan Dave MD [Med Staff - Active Staff] - 3-5 Days Rian Prado MD [Primary Care Provider] - 3-5 Days Activity Restrictions/Additional Instructions: Stop the current antibiotic Levaquin immediately. It seems like he may have hadallergic reaction to it. Start the antibiotic doxycycline 1 pill twice a day for the infection of your scrotum. Follow-up with your doctor or the urologist to ensure the infection in your scrotum is improving. Return if feeling a lot worse. Disposition Disposition: Home, Self Care What to do if you have Problems For any increased pain, shortness of breath, bleeding, nausea or vomiting, chestpain, or any unexpected problems, contact your Primary Care Provider. Call [facility] ([phone]) or report to the closest Emergency Room. Call 911 if necessary. 06/28/23 1625 <Electronically signed by Gonzalo Allen MD> Cosigner Signature (if applicable): CC: Dr. Rian Prado MD ~ Signed [facility] Work Phone: 1(524) 459-829112-06-2023 Discharge summary Author Davide Hicks [facility] June 28, 2023 7:03am Note Date/Time June 28, 2023 7 :01am [facility] Medical Records Department [address] [place] [address] Emergency Department Summary 06/28/23 MR#: [id number] Acct: [id number] Name: NEW ETIENNE Rep #:[id number] : 1935 87 From: Davide Hicks DO PCP: Dr. Rian Prado MD Status:NH E ER Location: ED HPI History of Present Illness Chief Complaint: Male Pain/Injury Informant: patient and spouse/S.O. Narrative Narrative: Patient is 87-year-old male with past medical history of hypertension hyperlipidemia and chronic urinary retention who needs to self cath. He states on Monday he felt he may be starting to get a urinary tract infection. However after that day symptoms seem to improve. He states he was feeling normal but then last night developed pain and swelling mainly in the right testicle. He denies any recent trauma. Denies any history of bleeding disorder or blood thinner use. He denies any fevers or chills but with sensation of of the start of urinary tract infection on Monday and now progressing to testicular pain and swelling he had concern for infection and comes in for evaluation. [facility] Medical History Benign neoplasm of colon Cataracts, bilateral Diverticulosis Essential (primary) hypertension History of cerebrovascular accident (2003) Hyperlipidemia Lumbar region somatic dysfunction Obesity Right bundle branch block (RBBB) Segmental and somatic dysfunction of lumbar region Segmental and somatic dysfunction of pelvic region Segmental and somatic dysfunction of thoracic region Self-catheterizes urinary bladder Home Medications aspirin 325 mg tablet 325 mg PO DAILY@0800 06/22/16 [History Last Taken Unknown] ramipril 5 mg capsule 10 mg PO BID 06/22/16 [History Last Taken Unknown] amlodipine 10 mg tablet 10 mg PO DAILY@DINNER #30 tabs 01/16/23 [Rx Last Taken Unknown] tamsulosin 0.4 mg capsule 0.8 mg (2 x 0.4 mg) PO DAILY #60 caps 01/16/23 [Rx Last Taken Unknown] levofloxacin 500 mg tablet 500 mg PO DAILY 10 days #10 tabs 06/28/23 [Rx Last Taken Unknown] Allergy/AdvReac Type Severity Reaction Status Date / Time latex Allergy Unknown Verified 06/28/23 06:28 Sulfa (Sulfonamide Allergy Unknown Verified 06/28/23 06:28 Antibiotics) erythromycin base AdvReac Unknown Verified 06/28/23 06:28 hydrochlorothiazide AdvReac Unknown Verified 06/28/23 06:28 prednisone AdvReac Unknown Verified 06/28/23 06:28 Family History Other Heart disease Hypertension Surgical History H/O tooth extraction Social History Smoking Status: Never smoker alcohol intake: never substance use type: does not use what type of physical activity do you participate in: none ROS ROS ED Constitutional Constitutional ED: Denies chills or fever(s) ENT ENT ED: Denies sore throat Cardiovascular Cardiovascular: Denies chest pain Respiratory/Chest Respiratory/Chest: Denies cough or dyspnea Gastrointestinal Gastrointestinal: Reports abdominal pain; Denies diarrhea, nausea or vomiting Genitourinary Genitourinary ED: Reports dysuria, urinary frequency and other Details: Positivetesticular pain and swelling Musculoskeletal Musculoskeletal: Denies back pain or myalgias Integumentary Denies rash Neurologic Neurologic: Denies headache(s) Hematologic/Lymphatic Hematologic/Lymphatic: Denies easy bleeding or easy bruising EXAM Physical Exam Const Vital Signs: 06/28/23 06:28 Temperature 97.5 F L Temperature Source Temporal Pulse Rate 82 Respiratory Rate 18 Blood Pressure 196/83 H Blood Pressure Mean 120 Pulse Ox 99 Positive well nourished, well developed and obese General Appearance ED: well developed Nutritional Appearance: obese HEENT HEENT Narrative: Normocephalic atraumatic Eyes PERRL and EOMs intact bilaterally General Eye ED: Negative for scleral icterus Neck supple and no JVD Resp normal respiratory effort and clear to auscultation bilaterally Cardio regular rate and regular rhythm Cardio Narrative: Heart is regular rate and rhythm without murmurs rubs or gallops GI non-tender and non-distended GI Narrative: Abdomen is obese soft nontender and nondistended with normal active bowel sounds. No organomegaly noted to suggest acute urinary retention. No pulsatile mass or fluid wave Auscultation: normoactive bowel sounds Palpation: soft Narrative: Normal uncircumcised male. No blood or discharge from the urethral meatus. Foreskin can be retracted without difficulty. There is unilateral swelling and redness of the right testicle compared to left with pain with palpation along the upper posterior section concerning for epididymitis. No obvious abscess noted No secondary changes to suggest Louie's gangrene Back/Spine no CVA tenderness Extremity Extremity Narrative: +2-3 pitting edema to the bilateral lower extremities that is equal and symmetric Negative Homans' sign bilaterally Neuro oriented x3 and CN's II-XII intact bilaterally Sensorium / Orientation: alert Psych mental status grossly normal Skin Skin Narrative: Soft tissue changes to the scrotum as documented above MDM MDM MDM Narrative Medical decision making narrative: Patient presented to the ER hypertensive but otherwise with stable vitals. He reported a sensation of a UTI a few days ago and he does self cath so he does have high risk for this. However then improved and then a few days later he began with testicular pain redness and swelling without reported trauma. Differential diagnosis is for UTI versus acute epididymitis versus scrotal cellulitis versus scrotal abscess versus scrotal torsion. At this time as his history is most consistent epididymitis I feel no need for laboratory studies but we will perform a ultrasound of the testicles in order to rule out torsion or hydrocele versus varicocele. As history and workup is most consistent with epididymitis and patient is not showing signs of systemic infection I do not feel there is need for emergent urology consultation or admission and he can be placed on Levaquin and discharged home History & Record Review Discussion w/independent historian: Patient and Significant other Discharge Plan Triage Chief Complaint: Male Pain/Injury ED Provider: Davide Hicks Dx/Rx/DC Orders Clinical Impression: Acute epididymitis, Essential (primary) hypertension, Hyperlipidemia Instructions: ED Epididymitis Prescriptions: New levofloxacin 500 mg tablet 500 mg PO DAILY 10 Days Qty: 10 0RF No Action aspirin 325 MG tablet 325 mg PO DAILY@0800 Hold Instructions: Resume on 01/18/23. ramipril 5 MG capsule 10 mg PO BID amlodipine 10 mg Tablet 10 mg PO DAILY@DINNER Qty: 30 0RF tamsulosin 0.4 mg capsule 0.8 mg PO DAILY Qty: 60 0RF Primary Care Provider: Rian Prado Referrals: Ashkan Dave MD [Med Staff - Active Staff] - Rian Prado MD [Primary Care Provider] - Activity Restrictions/Additional Instructions: Please follow-up with your urologist for repeat evaluation and return to the ER if you have any further concerns or worsening of symptoms Disposition Disposition: Home, Self Care What to do if you have Problems For any increased pain, shortness of breath, bleeding, nausea or vomiting, chestpain, or any unexpected problems, contact your Primary Care Provider. Call [facility] ([phone]) or report to the closest Emergency Room. Call 911 if necessary. 06/28/23 0703 <Electronically signed by Davide Hicks DO> Cosigner Signature (if applicable): CC: Dr. Rian Prado MD ~ Signed [facility] Work Phone: 1(173) 110-183711-24-2023 Miscellaneous Notes* Telephone Encounter - Violette Ortiz MA - 06/16/2023 11:58 AM EST Patient notified of results, verbalized understanding. Violette Ortiz MA * Telephone Encounter - Jeri Denise APRN.CNP - 06/16/2023 11:43 AM EST Please notify patient that urine culture showed mixture of bacteria which suggests possible contamination upon collection. Advise her to finish the antibiotic if it is helping her symptoms but if not, then she will need to return to provide another specimen. Advise to follow up with urology Thank you. Jrei Denise APRN.CNP documented [facility]Mer[facility]11-23-[facility]23 Instructions* Patient Instructions* Jeri Denise APRN.CNP - 06/15/2023 9:33 AM [...] pain go to ER. documented in this encounterMer[facility]11-23-2023 History of Present illness Narrative* Jeri Denise APRN.CNP - 06/15/2023 9:17 AM EST Subjective The history is provided by the patient. No sign language interpreter was used. HPI New Etienne is a 87 year old male who presents today for CC of urinary frequency and cloudy urine for 2 days. He denies any fever, chills, backache, vomiting. Patient does straight cath dueto BPH. Treated for uti first of May with Macrobid didn't feel it got rid of it. He does see aurologist. Has used augmentin and amoxicillin in the past with good results. BP 174/79 Pulse 92 Temp 36.4 C (97.6 F) Resp 18 Wt 118.4 kg (261 lb) SpO2 98% BMI 39.10kg/m Social History Tobacco Use Smoking status: Never Smokeless tobacco: Never Substance Use Topics Alcohol use: No Drug use: No PAST MEDICAL HISTORY Diagnosis Date Benign neoplasm of colon Chronic rhinitis Diverticulosis of colon (without mention of hemorrhage) Essential hypertension, benign History of CVA (cerebrovascular accident) brainstem CVA; was at [facility] then [facility]; regained strength Obesity, unspecified Other and unspecified hyperlipidemia I have confirmed and edited as necessary, the [facility] Review of Systems Constitutional: Negative for chills [...] for higher level of care were discussed indetail warranting prompt ER evaluation. Jeri Denise APRN.IFEANYI documented in this encounterMer[facility]11-17-2023 History of Present illness Narrative* Joe Oconnor APRN.ACID PURIFIER - 06/09/2023 7:20 AM EST Subjective HPI HPI New Etienne is a 87 year old male who [...] CVA (cerebrovascular accident) brainstem CVA; was at [facility] then [facility]; regained strength Obesity, [...] as s/s have resolved 3 days ago. Joe Oconnor APRN.IFEANYI documented in this encounterMercy [facility]08-15-2023 Instructions* Patient Instructions* Cory Meneses APRN.CNS - 03/07/2023 9:00 AM EDT Okay to continue with Tylenol as needed for back pain Okay to continue with chiropractor if getting relief from back pain with your visits Try completing home exercises. Let us know if not improving and wanting to do anything additional. documented in this encounterMercy [facility]08-15-2023 History of Present illness Narrative* Cory Meneses APRN.CNS - 03/07/2023 8:40 AM EDT Subjective There are no preventive care reminders to display for this patient. HPI New Etienne is a 87 year old male. PMH [...] for ER visit follow up. Seen at [facility] January 15, 2023 for maroon-colored stools [...] If no further bleeding then may resume. Adv ised to increase tamsulosin from 0.4 mg daily [...] of blood on the toilet paper since discharge.He has not resumed aspirin. No report of [...] which is described as achy and it ishelpful / resolves the pain. Reports x-rays have been completed at the chiropractor's office. He reports remote injury noted lumbar spine, not sure for fracture. He reports continuing to straight cath for urinary retention. Has upcoming follow-up with urologistDr. Prajapati. Has seen Dr. Tao regarding GIB, [...] Reactions Bactrim [Sulfametho* Other: See Comments per [facility] ER report 09/28/2012 - increased heart [...] CVA (cerebrovascular accident) brainstem CVA; was at [facility] then [facility]; regained strength Obesity, [...] needed, not noted on CT abdomen pelvis [facility] HEP recommended-Ortho info spine rehab provided. 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 Can discuss medication dose adjustment at appointment. * Telephone Encounter - Maisha Harris Pss - 01/17/2023 8:12 AM EDT Patient went to [facility] ER on Monday due to elevated BP. Patient was told to check with provider about increased Amlodipine from 0.5 mg to 20 mg. Please advise and call patient. documented in this encounterMercy [facility]06-26-2023 Consult note Author Carlos Tao [facility] January 16, 2023 4:24pm Note Date/Time January 16, 2023 4:06 pm [facility] Medical Records Department [address] [place] [id number] Consultation - GI 01/16/23 1603 MR#: [id number] Acct: [id number] Name: NEW ETIENNE Rep #:[id number] : 1935 87 From: Carlos Tao DO PCP: Dr. Rian Prado MD Status:AD M IN [facility] HPI Consult Data Date of Consult: 01/15/23 HPI Narrative Reason for Consultation: GI bleed HPI Narrative: NEW ETIENNE, is a 87 M with history of hypertension, hyperlipidemia, BPH whopresents secondary to 4 episodes of bloody stools.? He states he has gone to [facility] 4 times and had maroon-colored stool.? He has very mild infraumbilical cramping.? No nausea or vomiting.? He takes full-strength aspirin daily but no other form of blood thinners. He had a colonoscopy approximately 20 years ago. There were no abnormality seen on a colonoscopy. In the ED he was discovered to have a hemoglobin of 14.7, platelet count of 204,white blood cell count 8.3. [facility] Medical History Benign neoplasm of colon Cataracts, bilateral Diverticulosis Essential (primary) hypertension History of cerebrovascular accident (2003) Hyperlipidemia Lumbar region somatic dysfunction Obesity Right bundle branch block (RBBB) Segmental and somatic dysfunction of lumbar region Segmental and somatic dysfunction of pelvic region Segmental and somatic dysfunction of thoracic region Home Medications aspirin 325 mg tablet 325 mg PO DAILY@0800 06/22/16 [History Last Taken Unknown] ramipril 5 mg capsule 10 mg PO BID 06/22/16 [History Last Taken Unknown] amlodipine 2.5 mg tablet (Norvasc) 5 mg PO DAILY 11/20/18 [History Last Taken Unknown] tamsulosin 0.4 mg capsule 0.4 mg PO DAILY 01/15/23 [History Last Taken Unknown] Allergy/AdvReac Type Severity Reaction Status Date / Time latex Allergy Unknown Verified 01/15/23 21:19 Sulfa (Sulfonamide Allergy Unknown Verified 01/15/23 21:19 Antibiotics) erythromycin base AdvReac Unknown Verified 01/15/23 21:19 hydrochlorothiazide AdvReac Unknown Verified 01/15/23 21:19 prednisone AdvReac Unknown Verified 01/15/23 21:19 Family History Other Heart disease Hypertension Surgical History H/O tooth extraction Social History Smoking Status: Never smoker alcohol intake: never substance use type: does not use what type of physical activity do you participate in: none ROS ROS Narrative Pertinent positives and pertinent negatives as noted in HPI. All other systems were reviewed and are negative Physical Exam Const alert and no apparent distress HEENT head/scalp atraumatic and moist oral mucous membranes Resp normal respiratory effort, no retractions, no use of accessory muscles and clearto auscultation bilaterally Cardio regular rate, regular rhythm and S1 normal heart sound GI normal to inspection, nondistended, normoactive bowel sounds, soft to palpation,non-tender and non-distended Extremity normal to inspection Lab / Micro Data Result Diagrams: 01/16/23 04:43 01/16/23 04:43 Labs: Laboratory Results - last 24 hr 01/15/23 21:50: WBC 8.3, RBC 5.11, Hgb 14.7, Hct 44.5, MCV 87.1, MCH 28.8, MCHC 33.0, RDW Std Deviation 41.5, RDW Coeff of Arlen 13.0, Plt Count 204, MPV 9.8, Immature Gran % (Auto) 0.400, Neut % (Auto) 59.2, Lymph % (Auto) 29.8, [place] % (Auto) 7.7, Eos % (Auto) 2.7, Baso % (Auto) 0.2, Absolute Neuts (auto) 4.9, Absolute Lymphs (auto) 2.47, Nucleated RBC % 0 01/15/23 21:50: PT 13.5, INR 1.0, APTT 34.1 01/15/23 21:50: Sodium 140, Potassium 3.9, Chloride 108 H, Carbon Dioxide 25.0, Anion Gap 7, BUN 22 H, Creatinine 1.03, Estim Creat Clear Calc 49.81, Est GFR (MDRD) Af Amer 88, Est GFR (MDRD) Non-Af 73, BUN/Creatinine Ratio 21.4 H, Glucose 109 H, Calcium 8.8 01/15/23 21:50: Blood Type O POSITIVE, Antibody Screen NEGATIVE 01/16/23 04:43: PT 14.9, INR 1.2 01/16/23 04:43: Sodium 141, Potassium 4.0, Chloride 110 H, Carbon Dioxide 26.0, Anion Gap 5, BUN 18, Creatinine 0.98, Estim Creat Clear Calc 52.35, Est GFR (MDRD) Af Amer 93, Est GFR (MDRD) Non-Af 77, BUN/Creatinine Ratio 18.3, Glucose 98, Calcium 8.7 01/16/23 04:43: Hgb 14.0, Hct 42.7 Assessment & Plan Assessment/Plan (1) Acute GI bleeding: PLAN: 87-year-old presents with lower GI bleeding. The differential diagnosis does include hemorrhoidal, diverticular, ischemic colitis and less likely malignancy in acute setting. Recommend CT angiography to look for the location of lower GI bleed if possible. Clear liquid diet. Acute GI bleed/bright red blood per rectum. Hgb on presentation was 14.7. He is not having any signs or symptoms of GI bleeding at this time. Continue to check H&H, hold aspirin. I will also order CT angiography of the abdomen pelvis. (2) Hypertensive urgency: PLAN: \ PLAN: Plan Chronic conditions: * BPH Stable Tamsulosin continued. DVT prophylaxis: SCDs ordered. Charges/Coding Visit Charges Inpatient E&M: 48399 Init Hosp L2 01/16/23 2128 <Electronically signed by Carlos Tao DO> Cosigner Signature (if applicable): CC: Dr. Hank Maddox MD; Dr. Rian Prado MD; Carlos Tao DO~ Signed [facility] Work Phone: 1(190) 108-535706-26-[address] Pablo [facility] January 16, 2023 1:36pm Note Date/Time January 16, 2023 10:0 3am [facility] Medical Records Department [address] [place] [id number] Progress Note - Hospitalist 01/16/23 1000 MR#: [id number] Acct: [id number] Name: NEW ETIENNE Rep #:[id number] : 1935 87 From: Thomas Pablo DO PCP: Dr. Rian Prado MD Status:AD M IN Location: [place] [address] Reason for Visit Reason for Visit: Diagnoses Hypertensive urgency (01/15/23) Hemorrhage of anus and rectum (01/15/23) Gastrointestinal hemorrhage, unspecified (01/15/23) Subjective Subjective No further GI bleeding since midnight. Denies having any abdominal pain. Denies ever having GI bleed before. Objective Data Objective Data Vital Signs: Vital Signs Temp Pulse Resp BP Pulse Ox O2 Del Method 36.4 C L 63 17 197/80 H 97 Room Air 01/16/23 08:30 01/16/23 08:30 01/16/23 08:30 01/16/23 08:30 01/16/23 08:30 01/16/23 08:30 Oxygen Delivery Method Room Air Weight: 109.4 kg Body Mass Index (BMI) 36.6 Intake & Output: Intake and Output for Last 24 Hours 01/14/23 01/15/23 01/16/23 23:59 23:59 23:59 Intake Total Balance Lab / Micro Data Result Diagrams: 01/16/23 04:43 01/16/23 04:43 Labs: Laboratory Results - last 24 hr 01/15/23 21:50: WBC 8.3, RBC 5.11, Hgb 14.7, Hct 44.5, MCV 87.1, MCH 28.8, MCHC 33.0, RDW Std Deviation 41.5, RDW Coeff of Arlen 13.0, Plt Count 204, MPV 9.8, Immature Gran % (Auto) 0.400, Neut % (Auto) 59.2, Lymph % (Auto) 29.8, [place] % (Auto) 7.7, Eos % (Auto) 2.7, Baso % (Auto) 0.2, Absolute Neuts (auto) 4.9, Absolute Lymphs (auto) 2.47, Nucleated RBC % 0 01/15/23 21:50: PT 13.5, INR 1.0, APTT 34.1 01/15/23 21:50: Sodium 140, Potassium 3.9, Chloride 108 H, Carbon Dioxide 25.0, Anion Gap 7, BUN 22 H, Creatinine 1.03, Estim Creat Clear Calc 49.81, Est GFR (MDRD) Af Amer 88, Est GFR (MDRD) Non-Af 73, BUN/Creatinine Ratio 21.4 H, Glucose 109 H, Calcium 8.8 01/15/23 21:50: Blood Type O POSITIVE, Antibody Screen NEGATIVE 01/16/23 04:43: PT 14.9, INR 1.2 01/16/23 04:43: Sodium 141, Potassium 4.0, Chloride 110 H, Carbon Dioxide 26.0, Anion Gap 5, BUN 18, Creatinine 0.98, Estim Creat Clear Calc 52.35, Est GFR (MDRD) Af Amer 93, Est GFR (MDRD) Non-Af 77, BUN/Creatinine Ratio 18.3, Glucose 98, Calcium 8.7 01/16/23 04:43: Hgb 14.0, Hct 42.7 Physical Exam Const alert and no apparent distress HEENT head/scalp atraumatic and moist oral mucous membranes Resp normal respiratory effort, no retractions, no use of accessory muscles and clearto auscultation bilaterally Cardio regular rate, regular rhythm and S1 normal heart sound GI normal to inspection, nondistended, normoactive bowel sounds, soft to palpation,non-tender and non-distended Extremity normal to inspection Assessment & Plan Assessment/Plan (1) Acute GI bleeding: PLAN: Acute GI bleed/bright red blood per rectum. Hgb on presentation was 14.7. His last hemoglobin in our hospital system was on10/29/2017. At that time his hemoglobin was 15.9. Trend hemoglobin GI consult Suspect lower GIB from hemorrhoids or diverticulosis. (2) Hypertensive urgency: PLAN: Hypertensive urgency Systolic blood pressure of 222 on presentation. High diastolic blood pressure of 105 on presentation. Received labetalol x2 at emergency department. Of notepatient reports a history of bradycardia with heart rate in high 40s to 50s. With persistent elevated blood pressure labetalol as needed ordered. Trend blood pressures. Home amlodipine, and ramipril continued. Will increase amlodpine from 5 to 10 PLAN: Plan Chronic conditions: * BPH Stable Tamsulosin continued. DVT prophylaxis: SCDs ordered. Charges/Coding Visit Charges Inpatient E&M: 69577 Subs Hosp L2 01/16/23 1336 <Electronically signed by Thomas Pablo DO> Cosigner Signature (if applicable): CC: ~ Signed [facility] Work Phone: 1(139) 519-661006-26-2023 History and physical note Author Dr. Maddox [facility] January 16, 2023 2:08am Note Date/Time January 15, 2023 11:4 0pm [facility] Medical Records Department [address] [place] [address] H&P Exam - Hospitalist 01/15/23 8715 MR#: [id number] Acct: [id number] Name: NEW ETIENNE Rep #:[id number] : 1935 87 From: Hank Maddox MD PCP: Dr. Rian Prado MD Status:AD M IN Location: [facility] [id number]- 1 HPI - General General Date of Admission: 01/15/23 Date of Service: 01/16/23 Chief Complaint: Bright red blood per rectum HPI Narrative NEW ETIENNE, is a 87 M with a significant history of hypertension and diverticulosis who presents to the emergency department with bright red blood per rectum that started on the same day of presentation. At home before coming to emergency department patient had at least 4 episodes of bright red blood per rectum. The blood was mixed with stool. At the emergency department patient had 2 episodes of bright red blood per rectum. He denies nausea and vomiting. He reports of mild infra umbilical abdominal pain. He reported his last colonoscopy was multiple years ago and was advised not to have anymore colonoscopy because of his age. He reports that he had something removed during colonoscopy which he states it was not a polyp. [facility] [facility] Medical History Benign neoplasm of colon Cataracts, bilateral Diverticulosis Essential (primary) hypertension History of cerebrovascular accident (2003) Hyperlipidemia Lumbar region somatic dysfunction Obesity Right bundle branch block (RBBB) Segmental and somatic dysfunction of lumbar region Segmental and somatic dysfunction of pelvic region Segmental and somatic dysfunction of thoracic region Home Medications aspirin 325 mg tablet 325 mg PO DAILY@0800 06/22/16 [History Last Taken Unknown] ramipril 5 mg capsule 10 mg PO BID 06/22/16 [History Last Taken Unknown] amlodipine 2.5 mg tablet (Norvasc) 5 mg PO DAILY 11/20/18 [History Last Taken Unknown] tamsulosin 0.4 mg capsule 0.4 mg PO DAILY 01/15/23 [History Last Taken Unknown] Allergy/AdvReac Type Severity Reaction Status Date / Time latex Allergy Unknown Verified 01/15/23 21:19 Sulfa (Sulfonamide Allergy Unknown Verified 01/15/23 21:19 Antibiotics) erythromycin base AdvReac Unknown Verified 01/15/23 21:19 hydrochlorothiazide AdvReac Unknown Verified 01/15/23 21:19 prednisone AdvReac Unknown Verified 01/15/23 21:19 Family History Other Heart disease Hypertension Surgical History H/O tooth extraction Social History Smoking Status: Never smoker alcohol intake: never substance use type: does not use what type of physical activity do you participate in: none ROS ROS Narrative Pertinent positives and pertinent negatives as noted in HPI. All other systems were reviewed and are negative Vital Signs Vital Signs Vital Signs: 01/15/23 21:19 Temperature 97.3 F L Temperature Source Temporal Pulse Rate 85 Respiratory Rate 16 Blood Pressure 222/105 H Blood Pressure Mean 144 Pulse Ox 99 Weight Weight: 116.619 kg Body Mass Index (BMI) 39.1 Physical Exam Narrative Physical exam: General: Well-nourished, well-developed. Head: Normocephalic, atraumatic, no tenderness Eyes: Vision is grossly intact. EOMI ENT, no trauma, moist mucous membranes, no rhinorrhea Neck: Nontender, No thyromegaly. CVS: Regular rate and rhythm. S1-S2 present. No murmur, gallop or rub. Respiratory : clear to auscultation bilaterally, chest wall nontender Abdomen: Soft, nontender, nondistended, normal bowel sounds, no masses : Deferred Back: Nontender, no CVA tenderness. Extremities: Nontender full range of motion, no trauma Skin: Normal color, no trauma, abrasions Neuro: Alert, oriented, cranial nerves II through XII grossly intact. Psychiatry: Normal mood. Normal affect. Not depressed. Not anxious. Results Lab / Micro Data Result Diagrams: 01/15/23 21:50 01/15/23 21:50 Labs: Laboratory Results - last 24 hr 01/15/23 21:50: WBC 8.3, RBC 5.11, Hgb 14.7, Hct 44.5, MCV 87.1, MCH 28.8, MCHC 33.0, RDW Std Deviation 41.5, RDW Coeff of Arlen 13.0, Plt Count 204, MPV 9.8, Immature Gran % (Auto) 0.400, Neut % (Auto) 59.2, Lymph % (Auto) 29.8, [place] % (Auto) 7.7, Eos % (Auto) 2.7, Baso % (Auto) 0.2, Absolute Neuts (auto) 4.9, Absolute Lymphs (auto) 2.47, Nucleated RBC % 0 01/15/23 21:50: PT 13.5, INR 1.0, APTT 34.1 01/15/23 21:50: Sodium 140, Potassium 3.9, Chloride 108 H, Carbon Dioxide 25.0, Anion Gap 7, BUN 22 H, Creatinine 1.03, Estim Creat Clear Calc 49.81, Est GFR (MDRD) Af Amer 88, Est GFR (MDRD) Non-Af 73, BUN/Creatinine Ratio 21.4 H, Glucose 109 H, Calcium 8.8 01/15/23 21:50: Blood Type O POSITIVE, Antibody Screen NEGATIVE Assessment & Plan Assessment/Plan (1) Acute GI bleeding: (2) Hypertensive urgency: (3) BRBPR (bright red blood per rectum): PLAN: Plan Acute GI bleed/bright red blood per rectum. Hgb on presentation was 14.7. His last hemoglobin in our hospital system was on10/29/2017. At that time his hemoglobin was 15.9. Trend hemoglobin GI consult Hypertensive urgency -Systolic blood pressure of 222 on presentation. High diastolic blood pressure of 105 on presentation. Received labetalol x2 at emergency department. Of notepatient reports a history of bradycardia with heart rate in high 40s to 50s. With persistent elevated blood pressure labetalol as needed ordered. Trend blood pressures. Overall amlodipine, and ramipril continued. BPH Stable Tamsulosin continued. DVT prophylaxis: SCDs ordered. Charges/Coding Visit Charges Inpatient E&M: 80465 Init Hosp L3 01/16/23 0208 <Electronically signed by Hank Maddox MD> Cosigner Signature (if applicable): CC: Dr. Hank Maddox MD; Dr. Rian Prado MD~ Signed [facility] Work Phone: [phone]) 857-696406-26-[address] Dior [facility] January 15, 2023 11:19pm Note Date/Time January 15, 2023 9:41 pm [facility] Medical Records Department [address] [place] [address] Emergency Department Summary 01/15/23 MR#: [id number] Acct: [id number] Name: NEW ETIENNE Rep #:[id number] : 1935 87 From: Neena Dior MD PCP: Dr. Rian Prado MD Status:RE G ER Location: ED HPI History of Present Illness Chief Complaint: GI Bleed Informant: patient Onset/Context/Timing Onset: Today Narrative Narrative: Patient presents secondary to 4 episodes of bloody stool today. He states he has gone to the bathroom 4 times and had maroon-colored stool. He has very mildinfraumbilical cramping. No nausea or vomiting. He takes full-strength aspirindaily but no other form of blood thinners. [facility] Medical History (Updated 01/15/23 @ 22:[address] Neena Dior MD) Benign neoplasm of colon Cataracts, bilateral Diverticulosis Essential (primary) hypertension History of cerebrovascular accident (2003) Hyperlipidemia Lumbar region somatic dysfunction Obesity Right bundle branch block (RBBB) Segmental and somatic dysfunction of lumbar region Segmental and somatic dysfunction of pelvic region Segmental and somatic dysfunction of thoracic region Home Medications aspirin 325 mg tablet 325 mg PO DAILY@0800 06/22/16 [History Last Taken Unknown] ramipril 5 mg capsule 10 mg PO BID 06/22/16 [History Last Taken Unknown] amlodipine 2.5 mg tablet (Norvasc) 5 mg PO DAILY 11/20/18 [History Last Taken Unknown] tamsulosin 0.4 mg capsule 0.4 mg PO DAILY 01/15/23 [History Last Taken Unknown] Allergy/AdvReac Type Severity Reaction Status Date / Time latex Allergy Unknown Verified 01/15/23 21:19 Sulfa (Sulfonamide Allergy Unknown Verified 01/15/23 21:19 Antibiotics) erythromycin base AdvReac Unknown Verified 01/15/23 21:19 hydrochlorothiazide AdvReac Unknown Verified 01/15/23 21:19 prednisone AdvReac Unknown Verified 01/15/23 21:19 Social History Smoking Status: Never smoker alcohol intake: never substance use type: does not use what type of physical activity do you participate in: none ROS ROS ED Constitutional Constitutional ED: Denies chills or fever(s) Eyes Eyes: Denies discharge from eye(s) ENT ENT ED: Denies discharge from eye(s), rhinorrhea or sore throat Cardiovascular Cardiovascular: Denies chest pain or palpitations Respiratory/Chest Respiratory/Chest: Denies cough or dyspnea Gastrointestinal Gastrointestinal: Reports abdominal pain and melena; Denies nausea or vomiting Genitourinary Genitourinary ED: Denies dysuria Musculoskeletal Musculoskeletal: Denies back pain or extremity pain Integumentary Denies Abrasions or rash Neurologic Neurologic: Denies headache(s) or weakness Psychiatric Psychiatric: Denies anxiety or depression Allergic/Immunologic Allergic/Immunologic ED: Denies lip swelling or urticaria EXAM Physical Exam Const Vital Signs: 01/15/23 21:19 Temperature 97.3 F L Temperature Source Temporal Pulse Rate 85 Respiratory Rate 16 Blood Pressure 222/105 H Blood Pressure Mean 144 Pulse Ox 99 Positive well nourished and well developed General Appearance ED: well developed HEENT Reports normocephalic and head/scalp atraumatic Eyes PERRL and EOMs intact bilaterally Neck supple Chest Wall inspection of chest normal and palpation of chest normal Resp normal respiratory effort and clear to auscultation bilaterally Cardio regular rate and regular rhythm GI normal to inspection, nondistended, normoactive bowel sounds Palpation: soft Extremity normal to inspection Neuro oriented x3 and no sensory deficits noted Sensorium / Orientation: alert Motor Exam: strength 5/5 throughout Psych mental status grossly normal Skin no rashes or lesions noted MDM MDM MDM Narrative Medical decision making narrative: Patient placed on lunchroom monitor. He was noted to be significantly hypertensive on arrival with a blood pressure of 222/105. Blood pressure cycledand comes down into the 160s systolic. CBC reveals white count of 8.3 with a hemoglobin of 14.7. Coags are unremarkable. Chemistry studies reveal a BUN of 22 and a creatinine 1.03. Glucose is 109. Type and screen was sent. Patient did get up and have a bloody bowel movement. This was sent to the lab but because it was grossly bloody they were not able to perform a Hemoccult. I spoke with Dr. Tao via backline text. He will be happy to see the patient tomorrow in consult. He was aware that he may be called if the patient decompensates overnight and is okay with this plan. I will speak with the hospitalist regarding admission. Addendum: The patient's blood pressure initially improved into the 160s systolic, and is now back up into the 180s to 190s. I will give him a dose of IV labetalol. Lab Data Labs: Laboratory Results - last 24 hr 01/15/23 01/15/23 01/15/23 21:50 21:50 21:50 WBC 8.3 RBC 5.11 Hgb 14.7 Hct 44.5 MCV 87.1 MCH 28.8 MCHC 33.0 RDW Std Deviation 41.5 RDW Coeff of Arlen 13.0 Plt Count 204 MPV 9.8 Immature Gran % (Auto) 0.400 Neut % (Auto) 59.2 Lymph % (Auto) 29.8 [place] % (Auto) 7.7 Eos % (Auto) 2.7 Baso % (Auto) 0.2 Absolute Neuts (auto) 4.9 Absolute Lymphs (auto) 2.47 Nucleated RBC % 0 PT 13.5 INR 1.0 APTT 34.1 Sodium 140 Potassium 3.9 Chloride 108 H Carbon Dioxide 25.0 Anion Gap 7 BUN 22 H Creatinine 1.03 Estim Creat Clear Calc 49.81 Est GFR (MDRD) Af Amer 88 Est GFR (MDRD) Non-Af 73 BUN/Creatinine Ratio 21.4 H Glucose 109 H Calcium 8.8 Blood Type Antibody Screen 01/15/23 21:50 WBC RBC Hgb Hct MCV MCH MCHC RDW Std Deviation RDW Coeff of Arlen Plt Count MPV Immature Gran % (Auto) Neut % (Auto) Lymph % (Auto) [place] % (Auto) Eos % (Auto) Baso % (Auto) Absolute Neuts (auto) Absolute Lymphs (auto) Nucleated RBC % PT INR APTT Sodium Potassium Chloride Carbon Dioxide Anion Gap BUN Creatinine Estim Creat Clear Calc Est GFR (MDRD) Af Amer Est GFR (MDRD) Non-Af BUN/Creatinine Ratio Glucose Calcium Blood Type O POSITIVE Antibody Screen NEGATIVE Discharge Plan Dx/Rx/DC Orders Clinical Impression: Acute GI bleeding Disposition Disposition: Acute Care Hospital [facility] What to do if you have Problems For any increased pain, shortness of breath, bleeding, nausea or vomiting, chestpain, or any unexpected problems, contact your Primary Care Provider. Call [facility] ([phone]) or report to the closest Emergency Room. Call 911 if necessary. 01/15/23 3703 <Electronically signed by Neena Dior MD> Cosigner Signature (if applicable): CC: Dr. Rian Prado MD ~ Signed [facility] Work Phone: 1(196) 275-701304-08-2023 History of Present illness Narrative* Joe Oconnor APRN.ACID PURIFIER - 10/29/2022 1:29 PM EDT Subjective HPI HPI New Etienen is a 87 year old male who [...] CVA (cerebrovascular accident) brainstem CVA; was at [facility] then [facility]; regained strength Obesity, unspecified Other and [...] - FLUTICASONE PROPIONATE 50 MCG/ACTUATION NASAL SPRAY,SUSPENSION Joe Oconnor APRN.ACID PURIFIER documented [facility] Miscellaneous Notes* Telephone Encounter - Cintia Bermudez RN - 07/27/2022 12:37 PM EST Patient has been identified by name and date of : Yes, Provider Dr Prado Date 07/27/22 Time 1238 pm. Patient phones [...] you. Cintia Bermudez RN documented in this encounterMer[facility]12-31-2022 History of Present illness Narrative* Madison Barkley APRN.ACID PURIFIER - 07/23/2022 1:55 PM EST Subjective Sinus Problem Associated symptoms include congestion. Pertinent negatives include no chills, coughing, fever, headaches, myalgias or sore throat. New Etienne is a 86 year old male who [...] Wt 119.1 kg (262 lb 9.6 oz) EiM123% BMI 39.34 kg/m PAST MEDICAL HISTORY Diagnosis Date Benign neoplasm of colon Chronic rhinitis Diverticulosis of colon (without mention of hemorrhage) Essential hypertension, benign History of CVA (cerebrovascular accident) brainstem CVA; was at [facility] then [facility]; regained strength Obesity, unspecified Other and [...] Discussed expected course of illness Madison Barkley APRN.IFEANYI documented in this encounterMer[facility]12-31-2022 Instructions* Patient Instructions* Madison Barkley APRN.CNP - 07/23/2022 1:55 PM [...] Sinusitis Patient Education What is Sinusitis? Sinusitis [[id number]-[id number]-tis] is inflammation of the sinuses or swelling [...] humidity and outdoor temperature changes, andstructural changes inthe nose may contribute to sinus pain, pressure [...] help. You may be instructed to take [id number] medications for symptoms. including fever reducers acetaminophen or ibuprofen, nasal saline spray, cough and cold preparations and decongestants as prescribed by the physician, nurse practitioner or physician assistant boys track coach. Self-Care and Prevention: Rest Fluids for hydration Good hand washing Humidifier Avoid smoking and exposure to second hand smoke Avoid sick contacts documented in this encounterMer[facility]05-03-2022 Miscellaneous Notes* Telephone Encounter - Rian Prado MD - 11/23/2021 12:32 AM EDT The following approved medication requests have been transmitted electronically. Signed Prescriptions Disp Refills amLODIPine (NORVASC) 5 mg tablet 90 tablet 3 Sig: Take 1 tablet by mouth daily at bedtime. DILMA: No Authorizing Provider: RIAN PRADO MD * Telephone Encounter - Ermelinda Garrido RN - 11/22/2021 4:40 PM EDT Patient has been identified by name and [...] you. Ermelinda Garrido RN documented in this encounterMer[facility]04-12-2011 History of Past illness Narrative* Problem Noted Date Diagnosed Date Resolved Date Special screening for malign ant neoplasms, colon 11/02/2010 02/10/2023 LEFT TONSILLAR CYST 07/23/2007 09/26/19 15 Actinic keratosis 09/29/2006 09/25/2014 Acute, but ill-defined, cere brovascular disease 06/15/2005 04/12/2016 Overview: 2006, left hemiparesis. No residual OVERWEIGHT 09/25/2014 documented as of this encounter (statuses as of 03/07/2023) [facility] History of Past illness Narrative* Problem Noted Date Diagnosed Date Resolved Date Special screening for malign ant neoplasms, colon 11/02/2010 02/10/2023 LEFT TONSILLAR CYST 07/23/2007 09/26/19 15 Actinic keratosis 09/29/2006 09/25/2014 Acute, but ill-defined, cere brovascular disease 06/15/2005 04/12/2016 Overview: 2006, left hemiparesis. No residual OVERWEIGHT 09/25/2014 documented as of this encounter (statuses as of 06/09/2023) [facility] of Past illness Narrative* Problem Noted Date Diagnosed Date Resolved Date Special screening for malign ant neoplasms, colon 11/02/2010 02/10/2023 LEFT TONSILLAR CYST 07/23/2007 09/26/19 15 Actinic keratosis 09/29/2006 09/25/2014 Acute, but ill-defined, cere brovascular disease 06/15/2005 04/12/2016 Overview: 2006, left hemiparesis. No residual OVERWEIGHT 09/25/2014 documented as of this encounter (statuses as of 06/15/2023) [facility] of Past illness Narrative* Problem Noted Date Diagnosed Date Resolved Date Special screening for malign ant neoplasms, colon 11/02/2010 02/10/2023 LEFT TONSILLAR CYST 07/23/2007 09/26/19 15 Actinic keratosis 09/29/2006 09/25/2014 Acute, but ill-defined, cere brovascular disease 06/15/2005 04/12/2016 Overview: 2006, left hemiparesis. No residual OVERWEIGHT 09/25/2014 documented as of this encounter (statuses as of 06/16/2023) [facility] of Past illness Narrative* Problem Noted Date Diagnosed Date Resolved Date Special screening for malign ant neoplasms, colon 11/02/2010 02/10/2023 LEFT TONSILLAR CYST 07/23/2007 09/26/19 15 Actinic keratosis 09/29/2006 09/25/2014 Acute, but ill-defined, cere brovascular disease 06/15/2005 04/12/2016 Overview: 2006, left hemiparesis. No residual OVERWEIGHT 09/25/2014 documented as of this encounter (statuses as of 06/29/2023) [facility] of Past illness Narrative* Problem Noted Date Diagnosed Date Resolved Date Special screening for malign ant neoplasms, colon 11/02/2010 02/10/2023 LEFT TONSILLAR CYST 07/23/2007 09/26/19 15 Actinic keratosis 09/29/2006 09/25/2014 Acute, but ill-defined, cere brovascular disease 06/15/2005 04/12/2016 Overview: 2006, left hemiparesis. No residual OVERWEIGHT 09/25/2014 documented as of this encounter (statuses as of 09/18/2023) [facility] of Past illness Narrative* Problem Noted Date Resolved Date LEFT TONSILLAR CYST 07/23/2007 09/25/2014 Actinic keratosis 09/29/2006 09/25/2014 Acute, but ill-defined, cerebrovascular disease 06/15/2005 04/12/2016 Overview: 2006, left hemiparesis. No residual OVERWEIGHT 09/25/2014 documented as of this encounter (statuses as of 11/23/2021) [facility] of [facility] illness Narrative* Problem Noted Date Resolved Date LEFT TONSILLAR CYST 07/23/2007 09/25/2014 Actinic keratosis 09/29/2006 09/25/2014 Acute, but ill-defined, cerebrovascular disease 06/15/2005 04/12/2016 Overview: 2006, left hemiparesis. No residual OVERWEIGHT 09/25/2014 documented as of this encounter (statuses as of 07/28/2022) [facility] of [facility] illness Narrative* Problem Noted Date Resolved Date LEFT TONSILLAR CYST 07/23/2007 09/25/2014 Actinic keratosis 09/29/2006 09/25/2014 Acute, but ill-defined, cerebrovascular disease 06/15/2005 04/12/2016 Overview: 2006, left hemiparesis. No residual OVERWEIGHT 09/25/2014 documented as of this encounter (statuses as of 07/29/2022) [facility] of [facility] illness Narrative* Problem Noted Date Resolved Date LEFT TONSILLAR CYST 07/23/2007 09/25/2014 Actinic keratosis 09/29/2006 09/25/2014 Acute, but ill-defined, cerebrovascular disease 06/15/2005 04/12/2016 Overview: 2006, left hemiparesis. No residual OVERWEIGHT 09/25/2014 documented as of this encounter (statuses as of 10/29/2022) [facility] of [facility] illness Narrative* Problem Noted Date Resolved Date LEFT TONSILLAR CYST 07/23/2007 09/25/2014 Actinic keratosis 09/29/2006 09/25/2014 Acute, but ill-defined, cerebrovascular disease 06/15/2005 04/12/2016 Overview: 2006, left hemiparesis. No residual OVERWEIGHT 09/25/2014 documented as of this encounter (statuses as of 01/17/2023) [facility]. Pablo [facility] January 16, 2023 4:56pm Note Date/Time January 16, 2023 4:51 pm [facility] Medical Records Department [address] [place] [address] Instructions for Home/Discharge Instructions 01/16/23 1649 MR#: [id number] Acct: [id number] Name: NEW ETIENNE Rep #:[id number] : 1935 87 From: Thomas Pablo DO PCP: Dr. Rian Prado MD Status:AD M IN Discharge Instructions Diet Discharge Diet: Low fat / Low cholesterol Activity Discharge Activity: Return to Normal Activity Dressing / Incision Call your doctor if you observe: - (difficulty with urination, decreased urinaryoutput. ) Follow Up Care Test Results: Test results from this visit will be discussed in further detail at your follow- up appointment, if applicable. Discharge Plan Admission Admit Date/Time: 01/15/23 23:29 Primary Reason for Your Visit: GI bleed Attending Provider: Thomas Pablo Primary Care Provider: Rian Prado Consulting Providers: Hank Maddox ; Friend,Carlos Instructions Additional Instructions / Restrictions: You presented with gastrointestinal bleeding. Fortunately not resolved. The concern that this may have been from diverticular bleeding or hemorrhoids. Holdaspirin for the next 48 hours. If no further bleeding then you can resume. CAT scan showed significant enlargement of your ureters. Concerned that this isdue to your prostate. I am going to increase your tamsulosin from 0.4 mg daily to 0.8 mg daily. I strongly recommend you follow-up with urology in the coming weeks. Your blood pressure was very high and we will be increasing your amlodipine from5 to 10 mg daily. Discharge Orders/Prescriptions Prescriptions: New amlodipine 10 mg Tablet 10 mg PO DAILY@DINNER Qty: 30 0RF tamsulosin 0.4 mg capsule 0.8 mg PO DAILY Qty: 60 0RF Continued ramipril 5 MG capsule 10 mg PO BID Held aspirin 325 MG tablet 325 mg PO DAILY@0800 Hold Instructions: Resume on 01/18/23. Discontinued amlodipine [Norvasc] 2.5 mg tablet 5 mg PO DAILY tamsulosin 0.4 mg capsule 0.4 mg PO DAILY Label Comments: TAKE 1 CAPSULE BY MOUTH ONCE DAILY Referrals / Follow Up: Ashkan Dave MD [Med Staff - Active Staff] - Within 2 Weeks Rian Prado MD [Primary Care Provider] - Within 2 Weeks Disposition Disposition (needs filled in before D/C Order can be placed): Home, Self Care 01/16/231655<Electronically signed by Thomas Pablo DO>Thomas Pablo DO CC: Dr. Hank Maddox MD; Dr. Rian Prado MD; Carlos Tao, ~ Signed [facility] Work Phone: Discharge summary Author Dr. Pablo [facility] January 16, 2023 4:59pm Note Date/Time January 16, 2023 4:59 pm [facility] Medical Records Department [address] [place] [id number] Discharge Summary 01/16/231655 MR#: [id number] Acct: [id number] Name: NEW ETIENNE Rep #:[id number] : 1935 87 From: Thomas Pablo DO PCP: Dr. Rian Prado MD Status:AD M IN Location: [facility] [id number] Providers Date of Admission: 01/15/23 Primary Care Physician: Dr. Rian Prado MD Consultations 01/16/23 00:23 Consult: Gastroenterology Routine Consulting Provider: DinhCarlos Reason for Consult: BRPR EMERGENT Consult: No MD Notified: Yes Date Notified: 01/15/23 Time Notified: 06:53 Method of Notification: Text Reason For Visit: BRPR Diagnosis Discharge Diagnosis (1) Acute GI bleeding: Status: Acute Code(s): K92.2 - Gastrointestinal hemorrhage, unspecified Plan: Acute GI bleed/bright red blood per rectum. Hgb on presentation was 14.7. His last hemoglobin in our hospital system was on10/29/2017. At that time his hemoglobin was 15.9. Trend hemoglobin GI consult Suspect lower GIB from hemorrhoids or diverticulosis. (2) Hypertensive urgency: Status: Acute Code(s): I16.0 - Hypertensive urgency Plan: Hypertensive urgency Systolic blood pressure of 222 on presentation. High diastolic blood pressure of 105 on presentation. Received labetalol x2 at emergency department. Of notepatient reports a history of bradycardia with heart rate in high 40s to 50s. With persistent elevated blood pressure labetalol as needed ordered. Trend blood pressures. Home amlodipine, and ramipril continued. Will increase amlodpine from 5 to 10 (3) Hydroureter: Status: Acute Code(s): N13.4 - Hydroureter Plan: Profoundly dilated on CAT scan imaging. Patient with normal renal function. Patient states that he used to have urinary frequency and hesitancy but that hasimproved since being started on tamsulosin. That was several years ago. There is incidental finding on his CAT scan that he had today. Patient's kidney function is normal, however. I am going to increase his tamsulosin from 0.4 mg to 0.8 mg daily and I strongly advised him to follow-up with urology. Plan Chronic conditions: * BPH Stable Tamsulosin continued. DVT prophylaxis: SCDs ordered. Medications at Discharge Home Medications aspirin 325 mg tablet 325 mg PO DAILY@0800 06/22/16 ramipril 5 mg capsule 10 mg PO BID 06/22/16 amlodipine 10 mg tablet 10 mg PO DAILY@DINNER #30 tabs 01/16/23 tamsulosin 0.4 mg capsule 0.8 mg PO DAILY #60 caps 01/16/23 Hospital Course Operations None Procedures None Summary of Care Provided Minutes Spent on Discharge: 36 Hospital Course: 87-year-old male presents with bright red blood per rectum. Patient remained stable here and his bleeding stopped at around midnight. Patient was seen by GIand ordered a a CAT scan for his bleeding. It was a CTA. There is no evidence of any acute GI bleeding. 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 Patient's kidney function is within normal limits and patient denies any urinary complaints at this time. I have recommended increasing his tamsulosin from 0.4 mg to 0.8 mg and to follow-up with urology as outpatient. Weight / BMI Weight Weight: 109.4 kg Body Mass Index (BMI) 36.6 ABG / Lab / Microbiology Data Result Diagrams: 01/16/23 04:43 01/16/23 04:43 Laboratory: Laboratory Results - last 24 hr 01/15/23 21:50: WBC 8.3, RBC 5.11, Hgb 14.7, Hct 44.5, MCV 87.1, MCH 28.8, MCHC 33.0, RDW Std Deviation 41.5, RDW Coeff of Arlen 13.0, Plt Count 204, MPV 9.8, Immature Gran % (Auto) 0.400, Neut % (Auto) 59.2, Lymph % (Auto) 29.8, [place] % (Auto) 7.7, Eos % (Auto) 2.7, Baso % (Auto) 0.2, Absolute Neuts (auto) 4.9, Absolute Lymphs (auto) 2.47, Nucleated RBC % 0 01/15/23 21:50: PT 13.5, INR 1.0, APTT 34.1 01/15/23 21:50: Sodium 140, Potassium 3.9, Chloride 108 H, Carbon Dioxide 25.0, Anion Gap 7, BUN 22 H, Creatinine 1.03, Estim Creat Clear Calc 49.81, Est GFR (MDRD) Af Amer 88, Est GFR (MDRD) Non-Af 73, BUN/Creatinine Ratio 21.4 H, Glucose 109 H, Calcium 8.8 01/15/23 21:50: Blood Type O POSITIVE, Antibody Screen NEGATIVE 01/16/23 04:43: PT 14.9, INR 1.2 01/16/23 04:43: Sodium 141, Potassium 4.0, Chloride 110 H, Carbon Dioxide 26.0, Anion Gap 5, BUN 18, Creatinine 0.98, Estim Creat Clear Calc 52.35, Est GFR (MDRD) Af Amer 93, Est GFR (MDRD) Non-Af 77, BUN/Creatinine Ratio 18.3, Glucose 98, Calcium 8.7 01/16/23 04:43: Hgb 14.0, Hct 42.7 Radiography Diagnostic Testing: Radiology Impression Abdomen/Pelvis CTA 01/16/23 13:39 IMPRESSION: 1. No evidence of acute GI bleeding. 2. Diverticulosis coli. 3. The significant distention of the renal collecting system secondary to over distended urinary bladder/chronic bladder outlet obstruction. Electronically Signed: Jeremi Trevizo MD at 16:22 EDT , D/C Instructions Discharge Diet: Low fat / Low cholesterol Call your doctor if you observe: - (difficulty with urination, decreased urinaryoutput. ) Meaningful Use Info Meaningful Use Diagnoses (Choose all that apply): None applicable Discharge Plan Admission Admit Date/Time: 01/15/23 23:29 Primary Reason for Your Visit: GI bleed Attending Provider: Thomas Pablo Primary Care Provider: Rian Prado Consulting Providers: Hank Maddox ; Friend,Carlos Instructions Additional Instructions / Restrictions: You presented with gastrointestinal bleeding. Fortunately not resolved. The concern that this may have been from diverticular bleeding or hemorrhoids. Holdaspirin for the next 48 hours. If no further bleeding then you can resume. CAT scan showed significant enlargement of your ureters. Concerned that this isdue to your prostate. I am going to increase your tamsulosin from 0.4 mg daily to 0.8 mg daily. I strongly recommend you follow-up with urology in the coming weeks. Your blood pressure was very high and we will be increasing your amlodipine from5 to 10 mg daily. Discharge Orders/Prescriptions Prescriptions: New amlodipine 10 mg Tablet 10 mg PO DAILY@DINNER Qty: 30 0RF tamsulosin 0.4 mg capsule 0.8 mg PO DAILY Qty: 60 0RF Continued ramipril 5 MG capsule 10 mg PO BID Held aspirin 325 MG tablet 325 mg PO DAILY@0800 Hold Instructions: Resume on 01/18/23. Discontinued amlodipine [Norvasc] 2.5 mg tablet 5 mg PO DAILY tamsulosin 0.4 mg capsule 0.4 mg PO DAILY Label Comments: TAKE 1 CAPSULE BY MOUTH ONCE DAILY Referrals / Follow Up: Ashkan Dave MD [Med Staff - Active Staff] - Within 2 Weeks Rian Prado MD [Primary Care Provider] - Within 2 Weeks Disposition Disposition (needs filled in before D/C Order can be placed): Home, Self Care Charges/Coding Visit Charges Inpatient E&M: 86015 Disch Hosp >30min 01/16/23 1659 <Electronically signed by Thomas Pablo DO> Cosigner Signature (if applicable): CC: Dr. Thomas Pablo DO; Dr. Rian Prado MD~ Signed [facility] Work Phone: Evaluation note* Diagnosis Essential hypertension Unspecified essential hypertension [facility] noteNo assessment information availableW[facility] Work Phone: Evaluation note* Diagnosis Bacterial sinusitis- Primary Unspecified sinusitis (chronic) documented in this encounter [facility] note* Diagnosis Bacterial sinusitis- Primary Unspecified sinusitis (chronic) documented in this encounter [facility] note* Diagnosis Onset Date Resolution Status Acute GI bleeding acute BRBPR (bright red blood per rectum) acute Hydroureter acute Hypertensive urgency acute [facility] Work Phone: Evaluation note* Diagnosis Acute left-sided low back pain with left-sided sciatica- Primary Urinary retention due to benign prostatic hyperplasia Self-catheterizes urinary bladder Other specified conditions influencing health status BRBPR (bright red blood per rectum) Hemorrhage of rectum and anus [facility] Diagnosis Onset Date Resolution Status Hydroureter acute Acute GI bleeding resolved BRBPR (bright red blood per rectum) resolved Hypertensive urgency resolve d [facility] Work Phone: Evaluation note* Diagnosis Eye problem- Primary Other eye problems [facility] Diagnosis Urine frequency- Primary Urinary frequency Acute UTI Urinary tract infection, site not specified [facility] Diagnosis White coat syndrome with diagnosis of hypertension- Primary IFG (impaired fasting glucose) Impaired fasting glucose BPH associated with nocturia Hypertrophy of prostate with urinary obstruction and other lower urinary tract symptoms (LUTS) Obesity, Class II, BMI 35-39.9 Obesity, unspecified Self-catheterizes urinary bladder Other specified conditions influencing health status Encounter for immunization Need for other specified prophylactic vaccination against single bacterial disease [facility] Diagnosis Pain- Primary Generalized pain Pain Generalized pain [facility] Diagnosis Rash- Primary Rash and other nonspecific skin eruption [facility] Diagnosis Right leg swelling- Primary Swelling of limb [facility] Diagnosis Essential hypertension- Primary Unspecified essential hypertension Bilateral leg edema Edema Pain in both lower extremities IFG (impaired fasting glucose) Impaired fasting glucose Other hyperlipidemia Encounter for therapeutic drug monitoring [facility] Diagnosis Essential hypertension- Primary Unspecified essential hypertension [facility] Diagnosis Essential hypertension- Primary Unspecified essential hypertension White coat syndrome with diagnosis of hypertension Bilateral leg edema Edema BPH associated with nocturia Hypertrophy of prostate with urinary obstruction and other lower urinary tract symptoms (LUTS) Encounter for therapeutic drug monitoring [facility] Diagnosis Pain Generalized pain [facility] Diagnosis Essential hypertension- Primary Unspecified essential hypertension White coat syndrome with diagnosis of hypertension Encounter for immunization Need for other specified prophylactic vaccination against single bacterial disease [facility] Diagnosis Other hyperlipidemia- Primary IFG (impaired fasting glucose) Impaired fasting glucose White coat syndrome with diagnosis of hypertension [facility] Diagnosis White coat syndrome with diagnosis of hypertension- Primary Hypercholesteremia Pure hypercholesterolemia Roblero's cyst of knee, right Numbness of right hand History of CVA (cerebrovascular accident) Transient ischemic attack (TIA), and cerebral infarction without residual deficits Obesity, Class II, BMI 35-39.9 Obesity, unspecified WANG (dyspnea on exertion) Other dyspnea and respiratory abnormality IFG (impaired fasting glucose) Impaired fasting glucose Encounter for long-term current use of medication Achilles tendinitis, [facility] Sinobronchitis- Primary Unspecified sinusitis (chronic) [facility] Diagnosis Viral upper respiratory infection- Primary Acute upper respiratory infections of unspecified site [facility] Diagnosis Fever, unspecified fever cause Acute cough Acute bilateral otitis media Unspecified otitis media [facility] Diagnosis Fever, unspecified fever cause Acute cough [facility] Diagnosis Upper respiratory tract infection, unspecified type- Primary Other acute nonsuppurative otitis media of both ears, recurrence not specified Antibiotic-induced yeast infection Candidiasis of unspecified site Essential (primary) hypertension Unspecified essential hypertension [facility] Diagnosis Sinus congestion- Primary Other diseases of nasal cavity and sinuses [facility] Diagnosis Essential hypertension- Primary Unspecified essential hypertension White coat syndrome with diagnosis of hypertension Other hyperlipidemia History of CVA (cerebrovascular accident) Transient ischemic attack (TIA), and cerebral infarction without residual deficits Obesity, Class II, BMI 35-39.9 Obesity, unspecified Encounter for screening examination for other mental health and behavioral disorders Screening for depression IFG (impaired fasting glucose) Impaired fasting glucose Dysfunction of right eustachian tube Dysfunction of Eustachian tube Encounter for therapeutic drug monitoring Screening for lipid disorders [facility] Diagnosis Age-related physical debility Senility without mention of psychosis Personal history of TIA (transient ischemic attack) Transient ischemic attack (TIA), and cerebral infarction without residual deficits Essential (primary) hypertension Unspecified essential hypertension Cataract, unspecified cataract type, unspecified laterality Glaucoma suspect, unspecified laterality Conductive hearing loss, bilateral [facility] instructions Additional Instructions Please follow-up with your urologist for repeat evaluation and return to the ER if you have any further concerns or worsening of symptomsWOhioHealth [facility] Work Phone: Reason for referral (narrative)* Outpatient Procedure (Urgent) - Closed Specialty Diagnoses / Procedures Referred By Contac t Referred To [facility] Diagnoses Right leg swelling Procedures US LEG VEIN DVT UNL VAS LAB DUP-SCAN XTR VEINS UNILATERAL/LIMITED STUDY Jeremy Ram PA [address] [place] [address] [facility] [address] [place] [address] Referral ID Status Reason Start Date Expiration Date V isits Requested Visits Authorized [id number] Closed Auto-Generate d Referral 02/06/2024 02/05/2025 1 1 [facility] for referral (narrative)* Diagnostic Procedure Only (Urgent) - Closed Specialty Diagnoses / Procedures Referred By Contac t Referred To Contact XR IMAGING Diagnoses Pain Procedures XR ANKLE GENERAL 3V AP/LAT/OBL RIGHT RADEX ANKLE COMPLETE MINIMUM 3 VIEWS Leisa Carroll APRN.CNP [address] [place] [address] [place] [address] Referral ID Status Reason Start Date Expiration Date V isits Requested Visits Authorized [id number] Closed Auto-Generate d Referral 12/20/2023 01/18/2025 1 1 [facility] for referral (narrative)No reason for referral information availableWOhioHealth [facility] Work Phone: Reason for visit Narrative* Diagnostic Procedure Only (Urgent) - Closed Specialty Diagnoses / Procedures Referred By Contac t Referred To Contact XR IMAGING Diagnoses Pain Procedures XR ANKLE GENERAL 3V AP/LAT/OBL RIGHT RADEX ANKLE COMPLETE MINIMUM 3 VIEWS Leisa Carroll APRN.CNP [address] [place] [address] [place] [address] Referral ID Status Reason Start Date Expiration Date V isits Requested Visits Authorized [id number] Closed Auto-Generate d Referral 12/20/2023 01/18/2025 1 1 [facility] Advance Directives No Advanced Directives Records FoundDocuments on File Type Date Recorded Patient [employer] Expl anation Advance Directive(s) 12/15/2020 4:49 PM Advance Directive Response Recorded Date/ Time Advance Directives No May 5:51pm Living Will Yes November 12, 2020 5:24am Power of Parent Trainer Yes November 12 5:24am Advance Directive Response Recorded Date/ Time Name of Medical Power of Parent Trainer iva romy January 16, 2023 12:29am Advance Directives No May 5:51pm Living Will Yes January 16, 2023 12:29am Power of Parent Trainer Yes January 16 12:29am Documents on File Type Date Recorded Patient [employer] Expl anation Advance Directive(s) 12/15/2020 4:49 PM Advance Directive Response Recorded Date/ Time Name of Medical Power of Parent Trainer kelley etienne, June 28, 2023 6:28am Advance Directives No May 4:51pm Living Will Yes June 28 6:28am Power of Parent Trainer Yes June 28, 2023 6:28am Advance Directive Response Recorded Date/ Time Name of Medical Power of Parent Trainer kelley etienne, June 28, 2023 6:28am Name of Medical Power of Parent Trainer kelley etienne June 28, 2023 4:12pm Advance Directives No May 4:51pm Living Will Yes June 28 4:12pm Power of Parent Trainer Yes June 28, 2023 4:12pm Advance Directive Response Recorded Date/ Time Advance Directives No May 4:51pm Living Will Yes August 21 10:18am Power of Parent Trainer Yes August 21, 2023 10:18am Name of Medical Power of Parent Trainer kelley- August 21, 2023 10:18am Name of Medical Power of Parent Trainer kelley etienne, June 28, 2023 6:28am Name of Medical Power of Parent Trainer kelley etienne June 28, 2023 4:12pm Advance Directive Response Recorded Date/ Time Name of Medical Power of Parent Trainer IVA SAUL August 30, 2023 1:15pm Advance Directives No May 4:51pm Living Will Yes August 30 1:15pm Power of Parent Trainer Yes August 30, 2023 1:15pm Name of Medical Power of Parent Trainer kelley- August 21, 2023 10:18am Name of Medical Power of Parent Trainer kelley etienne, June 28, 2023 6:28am Name of Medical Power of Parent Trainer kelley etienne June 28, 2023 4:12pm Advance Directive Response Recorded Date/ Time Do you have a Healthcare Power of Parent Trainer? Yes February 26, 2025 1:36pm Advance Directives No May 5:51pm Chief Complaint and Reason for Visit Chief Complaint BRPR BRPR BRPR Reason for Visit Acute GI bleeding BRBPR (bright red blood per rectum) Hydroureter Hypertensive urgency Chief Complaint BRPR BRPR BRPR Reason for Visit Hydroureter Acute GI bleeding BRBPR (bright red blood per rectum) Hypertensive urgency Chief Complaint swollen red testicle Chief Complaint swollen red testicle MEDICATION REACTION Chief Complaint swollen red testicle MEDICATION REACTION LEFT LEG WEAKNESS Chief Complaint swollen red testicle MEDICATION REACTION PREOP LEFT LEG WEAKNESS Cysto,Transurethral Resection Prost Chief Complaint Admit Date palpitations February 26, 2025 1:2 4pm Family History No Family History Records Found Relationship Condition Age at Onset Recorded Date/T roberto carlos Not Specified Cardiac disease Unknown Hypertension Unknown Reason for Referral Specialty Diagnoses / Procedures Referred By Jose ware Referred To Contact [facility] Diagnoses Acute left-sided low back pain with left-sided sciatica Procedures [facility]SULT TO [facility] OFFICE/OUTPATIENT [facility] MDM 60-74 MINUTES Cory Meneses, ROTOR PLATE WASHER.PRINT INSPECTOR [address] [place] [address] Referral ID Status Reason Start Date Expiration Date Visits Requested Visits Authorized [id number] Authorized PCP Requested Referral 03/07/2023 03/06/2024 1 1 Specialty Diagnoses / Procedures Referred By Jose ware Referred To Contact [facility] Diagnoses Acute left-sided low back pain with left-sided sciatica Procedures CONSULT TO PHYSICAL THERAPY PHYSICAL THERAPY EVALUATION HIGH COMPLEX 45 MINS Cory Meneses, ROTOR PLATE WASHER.PRINT INSPECTOR [address] [place] [address] [facility] [address] [place] [address] Referral ID Status Reason Start Date Expiration Date Visits Requested Visits Authorized [id number] Authorized PCP Requested Referral Auto-Generate d Referral 03/07/2023 03/06/2024 99 99 Specialty Diagnoses / Procedures Referred By Contac t Referred To Contact Orthopedics Diagnoses Pain Procedures CONSULT PANEL TO ORTHOPAEDICS OFFICE/OUTPATIENT [facility] 60 MINUTES Leisa Carroll APRN.ACID PURIFIER [address] [place] [id number] Referral ID Status Reason Start Date Expiration Date Visits Requested Visits Authorized [id number] Authorized PCP Requested Referral 12/20/2023 12/19/2024 1 1 Specialty Diagnoses / Procedures Referred By Contac t Referred To Contact XR IMAGING Diagnoses Pain Procedures XR ANKLE GENERAL 3V AP/LAT/OBL RIGHT RADEX ANKLE COMPLETE MINIMUM 3 VIEWS Leisa Carroll APRN.ACID PURIFIER [address] [place] [address] [place] [address] Referral ID Status Reason Start Date Expiration Date V isits Requested Visits Authorized [id number] Closed Auto-Generate d Referral 12/20/2023 01/18/2025 1 1 Summary Purpose Additional Source Comments Source Comments (unrecognize d section and content) In the event this informatio n is protected by the Federal Confidentiality of Alcohol and Drug Abuse Patient Records regulations: The Federal rules restrict any use of the information to criminally investigate or prosecute any alcohol or drug abuse patient.[facility] the event this information is protected by the Federal Confidentiality of Alcohol and Drug Abuse Patient Records regulations: The Federal rules restrict any use of the information to criminally investigate or prosecute any alcohol or drug abuse patient.[facility] the event this information is protected by the Federal Confidentiality of Alcohol and Drug Abuse Patient Records regulations: The Federal rules restrict any use of the information to criminally investigate or prosecute any alcohol or drug abuse patient.[facility] the event this information is protected by the Federal Confidentiality of Alcohol and Drug Abuse Patient Records regulations: The Federal rules restrict any use of the information to criminally investigate or prosecute any alcohol or drug abuse patient.[facility] the event this information is protected by the Federal Confidentiality of Alcohol and Drug Abuse Patient Records regulations: The Federal rules restrict any use of the information to criminally investigate or prosecute any alcohol or drug abuse patient.[facility] the event this information is protected by the Federal Confidentiality of Alcohol and Drug Abuse Patient Records regulations: The Federal rules restrict any use of the information to criminally investigate or prosecute any alcohol or drug abuse patient.[facility] Hospital[facility] the event this information is protected by the Federal Confidentiality of Alcohol and Drug Abuse Patient Records regulations: The Federal rules restrict any use of the information to criminally investigate or prosecute any alcohol or drug abuse patient.[facility] Hospital[facility] the event this information is protected by the Federal Confidentiality of Alcohol and Drug Abuse Patient Records regulations: The Federal rules restrict any use of the information to criminally investigate or prosecute any alcohol or drug abuse patient.[facility] the event this information is protected by the Federal Confidentiality of Alcohol and Drug Abuse Patient Records regulations: The Federal rules restrict any use of the information to criminally investigate or prosecute any alcohol or drug abuse patient.[facility] Hospital[facility] the event this information is protected by the Federal Confidentiality of Alcohol and Drug Abuse Patient Records regulations: The Federal rules restrict any use of the information to criminally investigate or prosecute any alcohol or drug abuse patient.[facility] Hospital[facility] the event this information is protected by the Federal Confidentiality of Alcohol and Drug Abuse Patient Records regulations: The Federal rules restrict any use of the information to criminally investigate or prosecute any alcohol or drug abuse patient.[facility] Hospital[facility] the event this information is protected by the Federal Confidentiality of Alcohol and Drug Abuse Patient Records regulations: The Federal rules restrict any use of the information to criminally investigate or prosecute any alcohol or drug abuse patient.[facility] Hospital[facility] the event this information is protected by the Federal Confidentiality of Alcohol and Drug Abuse Patient Records regulations: The Federal rules restrict any use of the information to criminally investigate or prosecute any alcohol or drug abuse patient.[facility] Hospital[facility] the event this information is protected by the Federal Confidentiality of Alcohol and Drug Abuse Patient Records regulations: The Federal rules restrict any use of the information to criminally investigate or prosecute any alcohol or drug abuse patient.[facility] Hospital[facility] the event this information is protected by the Federal Confidentiality of Alcohol and Drug Abuse Patient Records regulations: The Federal rules restrict any use of the information to criminally investigate or prosecute any alcohol or drug abuse patient.[facility] HospitalIn the event this information is protected by the Federal Confidentiality of Alcohol and Drug Abuse Patient Records regulations: The Federal rules restrict any use of the information to criminally investigate or prosecute any alcohol or drug abuse patient.[facility] HospitalIn the event this information is protected by the Federal Confidentiality of Alcohol and Drug Abuse Patient Records regulations: The Federal rules restrict any use of the information to criminally investigate or prosecute any alcohol or drug abuse patient.[facility] Hospital[facility] the event this information is protected by the Federal Confidentiality of Alcohol and Drug Abuse Patient Records regulations: The Federal rules restrict any use of the information to criminally investigate or prosecute any alcohol or drug abuse patient.[facility] HospitalIn the event this information is protected by the Federal Confidentiality of Alcohol and Drug Abuse Patient Records regulations: The Federal rules restrict any use of the information to criminally investigate or prosecute any alcohol or drug abuse patient.[facility] HospitalIn the event this information is protected by the Federal Confidentiality of Alcohol and Drug Abuse Patient Records regulations: The Federal rules restrict any use of the information to criminally investigate or prosecute any alcohol or drug abuse patient.[facility] HospitalIn the event this information is protected by the Federal Confidentiality of Alcohol and Drug Abuse Patient Records regulations: The Federal rules restrict any use of the information to criminally investigate or prosecute any alcohol or drug abuse patient.[facility]In the event this information is protected by the Federal Confidentiality of Alcohol and Drug Abuse Patient Records regulations: The Federal rules restrict any use of the information to criminally investigate or prosecute any alcohol or drug abuse patient.[facility]In the event this information is protected by the Federal Confidentiality of Alcohol and Drug Abuse Patient Records regulations: The Federal rules restrict any use of the information to criminally investigate or prosecute any alcohol or drug abuse patient.[facility]In the event this information is protected by the Federal Confidentiality of Alcohol and Drug Abuse Patient Records regulations: The Federal rules restrict any use of the information to criminally investigate or prosecute any alcohol or drug abuse patient.[facility] HospitalIn the event this information is protected by the Federal Confidentiality of Alcohol and Drug Abuse Patient Records regulations: The Federal rules restrict any use of the information to criminally investigate or prosecute any alcohol or drug abuse patient.[facility]In the event this information is protected by the Federal Confidentiality of Alcohol and Drug Abuse Patient Records regulations: The Federal rules restrict any use of the information to criminally investigate or prosecute any alcohol or drug abuse patient.[facility] HospitalIn the event this information is protected by the Federal Confidentiality of Alcohol and Drug Abuse Patient Records regulations: The Federal rules restrict any use of the information to criminally investigate or prosecute any alcohol or drug abuse patient.[facility] HospitalIn the event this information is protected by the Federal Confidentiality of Alcohol and Drug Abuse Patient Records regulations: The Federal rules restrict any use of the information to criminally investigate or prosecute any alcohol or drug abuse patient.[facility] HospitalIn the event this information is protected by the Federal Confidentiality of Alcohol and Drug Abuse Patient Records regulations: The Federal rules restrict any use of the information to criminally investigate or prosecute any alcohol or drug abuse patient.[facility] HospitalIn the event this information is protected by the Federal Confidentiality of Alcohol and Drug Abuse Patient Records regulations: The Federal rules restrict any use of the information to criminally investigate or prosecute any alcohol or drug abuse patient.[facility] HospitalIn the event this information is protected by the Federal Confidentiality of Alcohol and Drug Abuse Patient Records regulations: The Federal rules restrict any use of the information to criminally investigate or prosecute any alcohol or drug abuse patient.[facility] HospitalIn the event this information is protected by the Federal Confidentiality of Alcohol and Drug Abuse Patient Records regulations: The Federal rules restrict any use of the information to criminally investigate or prosecute any alcohol or drug abuse patient.[facility] HospitalIn the event this information is protected by the Federal Confidentiality of Alcohol and Drug Abuse Patient Records regulations: The Federal rules restrict any use of the information to criminally investigate or prosecute any alcohol or drug abuse patient.[facility] Reason for Visit (unrecogniz ed section and content) Reason Onset Date Comments Refill Request 11/22/2021 Reason Comments Sinus Problem Sinus pressure and [...] days Reason Comments Results Reason Comments Tachycardia Reason Comments Follow Up Reason Comments Ankle Pain right ankle pain x 3 weeks Reason Comments Trauma tick bite on back x 10 days, redness Reason Comments Calf Swelling right calf swelling x 2 days, was standing for a period of time on monday Reason Comments F/U 6 months Pain bilateral legs off a nd on for about 4 months.Has been to urgent care x 2 Reason Comments Hearing Problem Reason Comments Hearing Problem L ear - difficulty i n hearing Reason Onset Date Comments Recheck states much impr ovement with leg swelling and feels he is walking better Blood Pressure Immunizations 03/26/2024 Flu vaccination Reason Comments Patient Update Reason Comments Blood Pressure Reason Comments Lab Orders Reason Comments F/U 6 months Labs prior Reason Onset Date Comments Refill Request 10/21/2024 Reason Comments Cough Head Congestion Reason Comments Cough Head and chest conge stion, headache, pressure and pain in druze area, and eyes x 2 days Reason Comments Cough Chest congestion x5 days, fever today Reason Onset Date Comments Results 01/04/2025 Reason Comments Rash Groin rash x this AM , started doxy on Monday, usually does not have reaction Head Congestion Can't hear, sinus co ngestion worsening with atb Reason Comments Head Congestion X1 month, has been s een 3 times and ENT once, relief with atb but not currently on any. Sinus pressure and pain, cough Reason Comments 6 month f/up Reason Comments Medicare Wellness Exam Care Teams (unrecognized sec tion and content) Finishing Lab Technician Relationship Specialty Start Date End Date Rian Prado MD [address] [place] [address] PCP - General Internal Medicine 03/22/16 Finishing Lab Technician Relationship Specialty Start Date End Date Rian Prado MD [address] [place] [address] PCP - General Internal Medicine 03/22/16 Finishing Lab Technician Relationship Specialty Start Date End Date Rian Prado MD [address] [place] [address] PCP - General Internal Medicine 03/22/16 Finishing Lab Technician Relationship Specialty Start Date End Date Rian Prado MD [address] [place] [address] PCP - General Internal Medicine 03/22/16 Team Status: Active Member Role Status Dates Dr. Rian Prado MD Family Provider Active Dr. Rian Prado MD Primary Care Provider Active Team Status: Active Member Role Status Dates Dr. Rian Prado MD Primary Care Provider Active Dr. Neena Dior MD Emergency Provider Active Dr. Hank Maddox MD Admit Provider, Other Provide r Active Dr. Thomas Pablo , DO Attending Provider, Other Provid er Active Dr. Carlos Tao , DO Other Provider Active Team Status: Active Member Role Status Dates Dr. Rian Prado MD Primary Care Provider Active Dr. Neena Dior MD Emergency Provider Active Dr. Hank Maddox MD Admit Provider, Other Provide r Active Dr. Thomas Pablo , DO Other Provider Active Dr. Carlos Tao , DO Attending Provider, Other Prov ider Active Team Status: Inactive Member Role Status Dates Dr. Rian Prado MD Primary Care Provider Active Dr. Neena Dior MD Emergency Provider Active Dr. Hank Maddox MD Admit Provider, Other Provide r Active Dr. Thomas Pablo , Attending Provider Active Dr. Carlos Tao , DO Other Provider Active Finishing Lab Technician Relationship Specialty Start Date End Date Rian Prado MD [address] [place] [address] PCP - General Internal Medicine 03/22/16 Finishing Lab Technician Relationship Specialty Start Date End Date Rian Prado MD [address] [place] [address] PCP - General Internal Medicine 03/22/16 Team Status: Active Member Role Status Dates Dr. Rian Prado MD Primary Care Provider Active Dr. Neena Dior MD Emergency Provider Active Dr. Hank Maddox MD Admit Provider, Other Provide r Active Dr. Thomas Pablo , Referring Provider, Other Provid er Active Dr. Carlos Tao , Attending Provider, Other Prov ider Active Team Status: Inactive Member Role Status Dates Dr. Rian Prado MD Primary Care Provider Active Dr. Ashkan Dave MD Attending Provider, Referr ing Provider Active Finishing Lab Technician Relationship Specialty Start Date End Date Rian Prado MD [address] [place] [address] PCP - General Internal Medicine 03/22/16 Finishing Lab Technician Relationship Specialty Start Date End Date Rian Prado MD [address] [place] [address] PCP - General Internal Medicine 03/22/16 Finishing Lab Technician Relationship Specialty Start Date End Date Rian Prado MD [address] [place] [address] PCP - General Internal Medicine 03/22/16 Team Status: Inactive Member Role Status Dates Dr. Rian Prado MD Primary Care Provider Active Dr. Davide Hicks DO Referring Provider, Emergency Pr ovider Active Team Status: Inactive Member Role Status Dates Dr. Rian Prado MD Primary Care Provider Active Dr. Gonzalo Allen MD Referring Provider, Emergency Pro vider Active Team Status: Inactive Member Role Status Dates Dr. Rian Prado MD Primary Care Provider Active Dr. Thomas Forte DO Emergency Provider Active Team Status: Inactive Member Role Status Dates Dr. Rian Prado MD Primary Care Provider Active Dr. Davide Hicks DO Attending Provider , Referring Provider, Emergency Provider Active Team Status: Inactive Member Role Status Dates Dr. Rian Prado MD Primary Care Provider Active Dr. Gonzalo Allen MD Attending Provider, Referring Provider, Emergency Provider Active Finishing Lab Technician Relationship Specialty Start Date End Date Rian Prado MD [address] [place] [address] PCP - General Internal Medicine 03/22/16 Team Status: Active Member Role Status Dates Dr. Rian Prado MD Primary Care Provider Active Dr. Juan Garcia MD Attending Provider Active Dr. Ashkan Dave MD Referring Provider Active Team Status: Inactive Member Role Status Dates Dr. Rian Prado MD Primary Care Provider Active Dr. Thomas Forte DO Attending Provider, Emergency P rovider Active Finishing Lab Technician Relationship Specialty Start Date End Date Rian Prado MD [address] [place] [address] PCP - General Internal Medicine 03/22/16 Finishing Lab Technician Relationship Specialty Start Date End Date Rian Prado MD [address] [place] [address] PCP - General Internal Medicine 03/22/16 Finishing Lab Technician Relationship Specialty Start Date End Date Rian Prado MD [address] [place] [address] PCP - General Internal Medicine 03/22/16 Finishing Lab Technician Relationship Specialty Start Date End Date Rian Prado MD [address] [place] [address] PCP - General Internal Medicine 03/22/16 Finishing Lab Technician Relationship Specialty Start Date End Date Rian Prado MD [address] [place] [address] PCP - General Internal Medicine 03/22/16 Finishing Lab Technician Relationship Specialty Start Date End Date Rian Prado MD [address] [place] [address] PCP - General Internal Medicine 03/22/16 Finishing Lab Technician Relationship Specialty Start Date End Date Rian Prado MD [address] [place] [address] PCP - General Internal Medicine 03/22/16 Finishing Lab Technician Relationship Specialty Start Date End Date Rian Prado MD [address] [place] [address] PCP - General Internal Medicine 03/22/16 Finishing Lab Technician Relationship Specialty Start Date End Date Rian Prado MD [address] [place] [address] PCP - General Internal Medicine 03/22/16 Cory Meneses, ROTOR PLATE WASHER.PRINT INSPECTOR [address] [place] [address] Business Records Manager Internal Medicine 07/01/24 Mc Pichardo, ROTOR PLATE WASHER.ACID PURIFIER [address] [place] [address] Business Records Manager Internal Medicine 07/01/24 Finishing Lab Technician Relationship Specialty Start Date End Date Rian Prado MD [address] [place] [address] PCP - General Internal Medicine 03/22/16 Cory Meneses, ROTOR PLATE WASHER.PRINT INSPECTOR [address] [place] [address] Business Records Manager Internal Medicine 07/01/24 Mc Pichardo ROTOR PLATE WASHER.ACID PURIFIER [address] [place] [address] [facility] Internal Medicine 07/01/24 Finishing Lab Technician Relationship Specialty Start Date End Date Rian Prado MD [address] [place] [address] PCP - General Internal Medicine 03/22/16 Cory Meneses, ROTOR PLATE WASHER.PRINT INSPECTOR [address] [place] [address] Business Records Manager Internal Medicine 07/01/24 Mc Pichardo ROTOR PLATE WASHER.ACID PURIFIER [address] [place] [address] [facility] Internal Medicine 10/15/24 Finishing Lab Technician Relationship Specialty Start Date End Date Rian Prado MD [address] [place] [address] PCP - General Internal Medicine 03/22/16 Cory Meneses, ROTOR PLATE WASHER.PRINT INSPECTOR [address] [place] [address] Business Records Manager Internal Medicine 07/01/24 Mc Pichardo APRN.ACID PURIFIER [address] [place] [address] [facility] Internal Medicine 10/15/24 Finishing Lab Technician Relationship Specialty Start Date End Date Rian Prado MD [address] [place] [address] PCP - General Internal Medicine 03/22/16 Mc Pichardo APRN.ACID PURIFIER [address] [place] [address] Business Records Manager Internal Medicine 10/15/24 Cory Meneses ROTOR PLATE WASHER.PRINT INSPECTOR [address] [place] [address] [facility] Internal Medicine 12/11/24 Finishing Lab Technician Relationship Specialty Start Date End Date Rian Prado MD [address] [place] [address] PCP - General Internal Medicine 03/22/16 Mc Pichardo ROTOR PLATE WASHER.ACID PURIFIER [address] [place] [address] [facility] Internal Medicine 10/15/24 Cory Meneses, ROTOR PLATE WASHER.PRINT INSPECTOR [address] [place] [address] [facility] Internal Medicine 12/11/24 Finishing Lab Technician Relationship Specialty Start Date End Date Rian Prado MD [address] [place] [address] PCP - General Internal Medicine 03/22/16 Mc Pichardo ROTOR PLATE WASHER.ACID PURIFIER [address] [place] [address] Business Records Manager Internal Medicine 10/15/24 Cory Meneses, ROTOR PLATE WASHER.PRINT INSPECTOR [address] [place] [address] Business Records Manager Internal Medicine 12/11/24 Finishing Lab Technician Relationship Specialty Start Date End Date Rian Prado MD [address] [place] [address] PCP - General Internal Medicine 03/22/16 Mc Pichardo APRN.ACID PURIFIER [address] [place] [address] Business Records Manager Internal Medicine 10/15/24 Cory Meneses, ROTOR PLATE WASHER.PRINT INSPECTOR [address] [place] [address] Business Records Manager Internal Medicine 12/11/24 Finishing Lab Technician Relationship Specialty Start Date End Date Rian Prado MD [address] [place] [address] PCP - General Internal Medicine 03/22/16 Mc Pichardo ROTOR PLATE WASHER.ACID PURIFIER [address] [place] [address] Business Records Manager Internal Medicine 10/15/24 Cory Meneses, ROTOR PLATE WASHER.PRINT INSPECTOR [address] [place] [address] Business Records Manager Internal Medicine 12/11/24 Finishing Lab Technician Relationship Specialty Start Date End Date Rian Prado MD [address] [place] [address] PCP - General Internal Medicine 03/22/16 Mc Pichardo APRN.ACID PURIFIER [address] [place] [address] Business Records Manager Internal Medicine 10/15/24 Cory Meneses, ROTOR PLATE WASHER.PRINT INSPECTOR [address] [place] [address] Business Records Manager Internal Medicine 12/11/24 Team Status: Active Member Role/Relationship Status Dates Dr. Rian Prado MD Primary Care Provider Active Team Status: Inactive Member Role/Relationship Status Dates Dr. Rian Prado MD Primary Care Provider Active Start: February 26, 2025 End: February 26, 2025 Dr. Mitchel Meza MD Emergency Provider Active Sta rt: February 26, 2025 End: February 26, 2025 (unrecognized sect ion and content) No Status Records FoundNo Status Records Found INFORMATION SOURCE (unrecogn ized section and content) DATE CREATED AUTHOR 02/17/2025 [facility] DATE CREATED AUTHOR AUTHOR'S NED MARQUIS 03/06/2025 [facility] FOR RECORDS PERTAINING TO PATIENTS WHO ARE [...] BE BASED ON THE PRIMARY CLINICAL RECORDS. [employer] provides no warranty or guarantee of the accuracy or completeness of information in this document.
== END | disposition home or self-care (01) ==
LOC: LABSPEC 07:53
PROVIDERS: PCP Internal Medicine; Referring Provider Otolaryngology; Visit Provider Otolaryngology
DX: R05.9 Cough, unspecified (principal)
CPT/HCPCS: 87070; 87205

== ENCOUNTER 2025-04-02 14:44 | Emergency (ER) | payer MEDICARE, BC, SELFPAY ==
[2025-04-02 14:44] VITALS: BP 198/116; PULSE 85; RESP 16; TEMP 37; O2SAT 98; BMI 33.1
--- NOTE | 2025-04-02 15:31 | CT_ITS ---
EXAM: CT BRAIN/HEAD WITHOUT CONTRAST; SPINE CERVICAL WITHOUT CONTRAST CLINICAL HISTORY: HEAD INJURY; FALL COMPARISON: None. TECHNIQUE: Noncontrast CT images of the head and cervical spine with multiplanar reconstructions. Dose reduction techniques were used including intermediate exposure control (AEC),iterative reconstruction technique, and/or mA and/or KV dose adjustments based on patient's size. FINDINGS: HEAD: No acute intracranial hemorrhage, extra-axial collection, mass effect or evidence of acute infarct. Mild age-appropriate generalized brain parenchymal volume loss and chronic microangiopathic changes. Orbital contents are unremarkable. Intact skull base and calvarium. Small left maxillary mucosal polyp/retention cyst. Remainder of the paranasal sinuses and mastoid air cells are well-aerated. CERVICAL SPINE: No acute fracture or subluxation. Alignment is anatomic. Mild multilevel spondylotic changes with varying degrees of disc space narrowing, endplate sclerosis with multiple small subchondral cysts and/or Schmorl's nodes, anterior osteophytosis, uncovertebral spurring and hypertrophic facet arthropathy. No prevertebral soft tissue swelling. Visualized lung apices are clear. CT/Spine Cervical without Contras IMPRESSION: No acute intracranial or cervical spine traumatic findings. Reading Location: [facility]
--- NOTE | 2025-04-02 15:31 | CT_ITS ---
EXAM: CT BRAIN/HEAD WITHOUT CONTRAST; SPINE CERVICAL WITHOUT CONTRAST CLINICAL HISTORY: HEAD INJURY; FALL COMPARISON: None. TECHNIQUE: Noncontrast CT images of the head and cervical spine with multiplanar reconstructions. Dose reduction techniques were used including intermediate exposure control (AEC),iterative reconstruction technique, and/or mA and/or KV dose adjustments based on patient's size. FINDINGS: HEAD: No acute intracranial hemorrhage, extra-axial collection, mass effect or evidence of acute infarct. Mild age-appropriate generalized brain parenchymal volume loss and chronic microangiopathic changes. Orbital contents are unremarkable. Intact skull base and calvarium. Small left maxillary mucosal polyp/retention cyst. Remainder of the paranasal sinuses and mastoid air cells are well-aerated. CERVICAL SPINE: No acute fracture or subluxation. Alignment is anatomic. Mild multilevel spondylotic changes with varying degrees of disc space narrowing, endplate sclerosis with multiple small subchondral cysts and/or Schmorl's nodes, anterior osteophytosis, uncovertebral spurring and hypertrophic facet arthropathy. No prevertebral soft tissue swelling. Visualized lung apices are clear. CT/Brain/Head without Contrast IMPRESSION: No acute intracranial or cervical spine traumatic findings. Reading Location: [facility]
--- NOTE | 2025-04-02 15:32 | EX.ED.GENINJ ---
HPI History of Present Illness Chief Complaint: Fall Detail of Chief Complaint: Head and neck injury Informant: patient Narrative Narrative: Patient presents to the emergency department with complaint of head and neck injury. Patient [place] on [place]. The chair collapsed and fell back and struck his head on a table. No loss of consciousness. Was able to get up and ambulate. He is complaining of a headache and some upper neck pain. Denies numbness tingling in extremities. He said no vomiting. Injury occurred around 8:30 AM this morning. Patient on aspirin but no other anticoagulation. [facility] Medical History Loss of hearing Wears glasses Prostate disease Stroke/cerebrovascular accident Non-smoker Cardiology follow-up encounter Self-catheterizes urinary bladder Right bundle branch block (RBBB) Hyperlipidemia Diverticulosis History of cerebrovascular accident (2003) Benign neoplasm of colon Essential (primary) hypertension Obesity Lumbar region somatic dysfunction Segmental and somatic dysfunction of thoracic region Segmental and somatic dysfunction of pelvic region Segmental and somatic dysfunction of lumbar region Cataracts, bilateral Home Medications ?Medication ?Instructions ?Recorded ?Last Taken ?Type aspirin 325 mg tablet 325 mg PO DAILY@0800 06/22/16 08/22/23 History ramipril 5 mg capsule 10 mg PO BID 06/22/16 08/30/23 History latanoprost 0.005 % eye drops 1 drp ophthalmic (eye) DAILY 08/15/23 Unknown History fluticasone propionate 50 2 spray intranasal DAILY PRN 02/26/25 Unknown History mcg/actuation nasal allergy symptoms spray,suspension (Flonase Allergy Relief) Allergy/AdvReac Type Severity Reaction Status Date / Time levofloxacin (From Levaquin) Allergy Intermediate Rash Verified 04/02/25 14:47 latex Allergy Unknown Verified 04/02/25 14:47 Sulfa (Sulfonamide Allergy Unknown Verified 04/02/25 14:47 Antibiotics) erythromycin base AdvReac Unknown Verified 04/02/25 14:47 hydrochlorothiazide AdvReac Unknown Verified 04/02/25 14:47 prednisone AdvReac Unknown Verified 04/02/25 14:47 Family History Other Heart disease Hypertension Surgical History History of cataract extraction with lens replacement H/O tooth extraction Social History (Updated 02/26/25 @ 13:[address] Mitchel Meza MD) household members: spouse Smoking Status: Never smoker alcohol intake: never substance use type: does not use what type of physical activity do you participate in: none ROS ROS ED Review of Systems ROS Unobtainable: other Constitutional Constitutional ED: Reports lethargy; Denies chills, fever(s), sweats or weight loss Eyes Eyes: Denies blurry vision, change in vision or diplopia ENT ENT ED: Denies rhinorrhea or sore throat Cardiovascular Cardiovascular: Denies chest pain, orthopnea or racing heartbeat Respiratory/Chest Respiratory/Chest: Denies cough, dyspnea, dyspnea on exertion, orthopnea or sputum Gastrointestinal Gastrointestinal: Denies abdominal pain, diarrhea, nausea or vomiting Genitourinary Genitourinary ED: Denies dysuria, hematuria or urinary frequency Musculoskeletal Musculoskeletal: Reports neck pain; Denies arthralgias, back pain or myalgias Integumentary Denies abscess, Abrasions or rash Neurologic Neurologic: Reports headache(s); Denies weakness Psychiatric Psychiatric: Denies anxiety, depression or suicidal thoughts Endocrine Endocrinology: Denies polydipsia, polyphagia or polyuria Hematologic/Lymphatic Hematologic/Lymphatic: Denies easy bleeding, easy bruising or lymphadenopathy Allergic/Immunologic Allergic/Immunologic ED: Denies mouth swelling, tongue swelling or urticaria EXAM Physical Exam Const Vital Signs: 04/02/25 14:44 Temperature 98.6 F Temperature Source Oral Pulse Rate 85 Respiratory Rate 16 Blood Pressure 198/116 H Blood Pressure Mean 143 Pulse Ox 98 Oxygen Delivery Method Room Air Positive well nourished and well developed General Appearance ED: well developed and NAD HEENT Reports TM's clear and moist mucous membranes HEENT Narrative: No evidence of trauma to the posterior occiput. He does have some tenderness at the base of the posterior occiput. normocephalic and atraumatic; Negative for trauma or tenderness Tympanic Membrane ED: Yes TM's clear Eyes PERRL and EOMs intact bilaterally General Eye ED: Negative for pale conjunctiva or scleral icterus Neck no lymphadenopathy, supple and no JVD Neck Narrative: Mild diffuse tenderness over the C-spine. Diffuse tenderness over bilateral trapezii. General: tenderness Chest Wall inspection of chest normal and palpation of chest normal Chest: Negative for tenderness Resp normal respiratory effort and clear to auscultation bilaterally Effort and Inspection: Negative for respiratory distress or pain with movement Auscultation: Negative for rhonchi, wheezes or diminished lung sounds Cardio regular rate, regular rhythm, S1 normal heart sound, S2 normal heart sound and no murmurs Peripheral Pulses: pulses 2+ throughout GI normal to inspection, nondistended, normoactive bowel sounds, soft to palpation, non-tender, non-distended and no masses Back/Spine no CVA tenderness and no thoracic nor lumbar tenderness Extremity normal to inspection General Extremety ED: Negative for edema General Extremity: Negative for edema Neuro oriented x3, CN's II-XII intact bilaterally, no sensory deficits noted and gait normal Sensorium / Orientation: awake, alert, oriented to person, oriented to place and oriented to time Motor Exam: strength 5/5 throughout and strength abnormal Psych mental status grossly normal Skin no rashes or lesions noted and no wounds MDM MDM MDM Narrative Medical decision making narrative: Patient presents with a fall from seated position striking his head on a table. No loss of consciousness. Not anticoagulated. Clinically looks well. CT scan of the brain without contrast showed no acute intracranial process. CT of the C-spine showed no fractures. He had degenerative changes noted. Discussed results with patient. Will discharge to home. Advised to take Tylenol as needed for discomfort. Advised to follow-up with primary care physician in 3 to 5 days. Radiography Diagnostic Testing: Clinical Impression(s) from Imaging Studies Brain CT 04/02/25 15:31 IMPRESSION: No acute intracranial or cervical spine traumatic findings. Reading Location: [facility] Cervical Spine CT 04/02/25 15:31 IMPRESSION: No acute intracranial or cervical spine traumatic findings. Reading Location: [facility] Discharge Plan Triage Chief Complaint: Fall ED Provider: Shelbi Camacho Dx/Rx/DC Orders Clinical Impression: Closed head injury Instructions: ED Mechanical Fall, ED Head Injury (Adult) Prescriptions: No Action aspirin 325 MG tablet 325 mg PO DAILY@0800 ramipril 5 MG capsule 10 mg PO BID latanoprost 0.005 % drops 1 drp ophthalmic (eye) DAILY Patient Comments: INSTILL 1 DROP INTO BOTH EYES AT BEDTIME fluticasone propionate [Flonase Allergy Relief] 50 mcg/actuation spray,suspension 2 spray intranasal DAILY PRN (Reason: allergy symptoms) Rx Instructions: administer into each nostril Primary Care Provider: Aleisha Tello Referrals: Aleisha Tello MD [Primary Care Provider] - 3-5 Days Print Language: Salvadorean Disposition Disposition: Home, Self Care
[2025-04-02 17:41] VITALS: BP 181/84; PULSE 71; RESP 17; TEMP 36.7; O2SAT 100
== END 2025-04-02 17:42 | disposition home or self-care (01) ==
PROVIDERS: Emergency Provider Emergency Medicine; PCP Internal Medicine; Visit Provider Emergency Medicine
DX: S09.90XA Unspecified injury of head, initial encounter (principal); I10 Essential (primary) hypertension; S19.9XXA Unspecified injury of neck, initial encounter; Z79.82 Long term (current) use of aspirin; E78.5 Hyperlipidemia, unspecified; Z86.73 Personal history of transient ischemic attack (TIA), and cerebral infarction without residual deficits; W07.XXXA Fall from chair, initial encounter; Y92.89 Other specified places as the place of occurrence of the external cause; W01.190A Fall on same level from slipping, tripping and stumbling with subsequent striking against furniture, initial encounter
CPT/HCPCS: 70450; 72125; 99282